=== PATIENT | female | born 1960 | race Caucasian/White ===

== ENCOUNTER 2017-09-11 05:26 | Inpatient (IN) ==
[2017-09-11] MEDS ORDERED: 0.9 % SODIUM CHLORIDE 1,000 ML IV ONE (06:03)
[2017-09-11] MEDS ORDERED: VANCOMYCIN 1,000 MG in 0.9 % SODIUM CHLORIDE 250 ML IV ONE (06:17)
[2017-09-11] MEDS ORDERED: 0.9 % SODIUM CHLORIDE 2,000 ML IV ONE (06:27)
--- NOTE | 2017-09-11 06:41 | XRay Report ---
INDICATION: Possible sepsis. Fever. TECHNIQUE: AP chest x-ray,portable semierect COMPARISON: None FINDINGS:Lungs are negative. No parenchymal infiltrate or mass. Heart size and vascularity are normal. No pulmonary edema. No pulmonary congestion. IMPRESSION: Negative AP chest x-ray Interpreted and Authenticated by: Regan Roland 09/11/17
[2017-09-11 06:48] LABS: Basophils # (Auto) 0 K/mcL (0.0-0.3); Basophils % (Auto) 0 % (0.0-2.0); Eosinophils # (Auto) 0 K/mcL (0.0-0.7); Eosinophils % (Auto) 0.2 % (0.0-7.0); Granulocytes % (Auto) 93.1 % (38.0-78.0); Lymphocytes # (Auto) 0.4 K/mcL (1.5-4.8); Lymphocytes % (Auto) 2.2 % (15.5-49.0); Mean Cell Volume 81.8 fL (80.0-100.0); Mean Corpuscular Hemoglobin 26.2 pg (26.0-34.0); Monocytes # (Auto) 0.8 K/mcL (0.1-0.9); Monocytes % (Auto) 4.5 % (1.0-12.0); Platelet Count 218 K/mcL (140-440); RBC 4.75 M/mcL (4.00-5.20)
--- NOTE | 2017-09-11 07:05 | Emergency Department Note ---
General Adult HPI - General Chief complaint: Fever Stated complaint: Fever Time Seen by Provider: 09/11/17 06:59 Mode of arrival: EMS - History of Present Illness HPI Narrative: This patient fell a week ago injured her right lower leg has a little weeping from the posterior lower calf area. sHe has developed erythema of her entire right leg with some fever and chills last night. She has had sepsis in the past including pneumonia and sepsis in June. No cough at this time. No abdominal pain nausea or vomiting. - Related Data Home Medications Medication Instructions Recorded Confirmed Albuterol Sulfate 2.5 mg IH PRN PRN 09/11/17 09/11/17 Aspirin [Lo-Dose Aspirin EC] 81 mg PO DAILY 09/11/17 09/11/17 Atorvastatin 80 mg PO DAILY 09/11/17 09/11/17 Cetirizine [ZyrTEC] 10 mg PO DAILY 09/11/17 09/11/17 Combivent 20 mcg PO DAILY 09/11/17 09/11/17 Doxazosin [Cardura] 8 mg PO BID 09/11/17 09/11/17 Esomeprazole Magnesium [Nexium] 40 mg PO BID 09/11/17 09/11/17 Ferrous Sulfate, Dried [Iron] 65 mg PO BID 09/11/17 09/11/17 Fesoterodine Fumarate [Toviaz] 8 mg PO DAILY 09/11/17 09/11/17 Magnesium Oxide [Magnesium] 400 mg PO DAILY 09/11/17 09/11/17 Metoprolol Tartrate 100 mg PO BID 09/11/17 09/11/17 Montelukast [Singular] 10 mg PO HS 09/11/17 09/11/17 NIFEdipine [Afeditab Cr] 60 mg PO 09/11/17 Nortriptyline [Pamelor] 100 mg PO HS 09/11/17 09/11/17 Olmesartan Medoxomil [Benicar] 40 mg PO DAILY 09/11/17 09/11/17 [place]-3/Dha/Epa/Fish Oil [Fish Oil 1,400 mg PO DAILY 09/11/17 09/11/17 1,400 mg Softgel] Potassium Chloride [Klor-Con 10] 10 meq PO 09/11/17 Pregabalin [Lyrica] 200 mg PO BID 09/11/17 09/11/17 Ramelteon [Rozerem] 8 mg PO HS 09/11/17 09/11/17 Ranitidine HCl [Heartburn Relief] 150 mg PO BID 09/11/17 09/11/17 Venlafaxine [Effexor Xr] 150 mg PO HS 09/11/17 09/11/17 cloNIDine HCL [Catapres] 0.04 mg PO BID 09/11/17 09/11/17 diphenhydrAMINE HCL [Benadryl] 100 mg PO BID 09/11/17 09/11/17 hydrOXYzine [Atarax] 25 mg PO PRN PRN 09/11/17 09/11/17 rOPINIRole [Requip] 1 mg PO HS 09/11/17 09/11/17 sitaGLIPtin PHOS/metFORMIN HCL 1 each PO DAILY 09/11/17 09/11/17 [Janumet 50-1,000 mg Tablet] Allergies Allergy/AdvReac Type Severity Reaction Status Date / Time Sulfa (Sulfonamide Allergy Severe Hives Verified 09/11/17 05:40 Antibiotics) cephalexin [From Keflex] Allergy Intermediate Hives Verified 09/11/17 05:42 exenatide [From Byetta] Allergy Intermediate Hives Verified 09/11/17 05:40 latex Allergy Intermediate Rash Verified 09/11/17 05:40 levofloxacin [From Levaquin] Allergy Intermediate Hives Verified 09/11/17 05:42 Penicillins Allergy Intermediate Hives Verified 09/11/17 05:40 Rosiglitazone [From Avandia] Allergy Intermediate Hives Verified 09/11/17 05:40 meperidine [From Demerol] AdvReac Intermediate Gastrointestinal Verified 05:42 Upset Review of Systems All systems ED: reviewed and negative except as stated. Past Medical History - Past Medical History Medical history: Reports: DM, hypertension, kidney stones Psychiatric history: Reports: anxiety, depression Surgical history ED: Reports: hysterectomy, orthopedic, other - Social History smoking status: Former smoker Physical Exam Right leg shows erythema and warmth throughout the leg. Limitations: no limitations General appearance: alert Head: atraumatic Eye: Present: normal appearance ENT: normal exam Neck: Present: normal inspection Chest: Present: normal inspection Respiratory: Present: normal lung sounds bilaterally Cardiovascular: Present: regular rate, normal rhythm, normal heart sounds Abdominal: Present: soft. Absent: distention, tenderness Neurological: Present: alert Psychiatric: Present: normal affect Skin: Present: other Course Vital Signs Temperature 101.8 F H 09/11/17 05:28 Pulse Rate 103 H 09/11/17 05:28 Respiratory Rate 20 09/11/17 05:28 Blood Pressure 101/90 09/11/17 05:28 Pulse Oximetry (%) 93 09/11/17 05:28 Temperature 100.8 F H 09/11/17 07:18 Pulse Rate 100 H 09/11/17 07:27 Respiratory Rate 23 H 09/11/17 07:27 Blood Pressure 117/75 09/11/17 07:15 Pulse Oximetry (%) 93 09/11/17 07:27 Medical Decision Making - MDM Narrative Medical decision making narrative: Lab work indicates patient most likely is septic. We gave her vancomycin 1 g IV and she will be admitted to the hospital by Dr. Singh. - Lab Data Lab results reviewed: Yes I reviewed the patient's lab results. Result diagrams: 09/11/17 06:01 09/11/17 06:01 Lab Results 09/11/17 09/11/17 09/11/17 Range/Units 06:01 06:01 06:02 WBC 17.9 H (4.5-11.0) K/mcL RBC 4.75 (4.00-5.20) M/mcL Hgb 12.4 (12.0-15.0) g/dL Hct 38.8 (36.0-48.0) % MCV 81.8 (80.0-100.0) fL MCH 26.2 (26.0-34.0) pg MCHC 32.0 (31.0-36.0) g/dL RDW 16.0 H (11.5-14.5) % Plt Count 218 (140-440) K/mcL MPV 10.4 (7.4-10.4) fL Gran % 93.1 H (38.0-78.0) % Lymph % (Auto) 2.2 L (15.5-49.0) % [place] % (Auto) 4.5 (1.0-12.0) % Eos % (Auto) 0.2 (0.0-7.0) % Baso % (Auto) 0 (0.0-2.0) % Gran # 16.7 H (1.8-8.0) K/mcL Lymph # (Auto) 0.4 L (1.5-4.8) K/mcL [place] # (Auto) 0.8 (0.1-0.9) K/mcL Eos # (Auto) 0 (0.0-0.7) K/mcL Baso # (Auto) 0 (0.0-0.3) K/mcL VBG Lactic Acid 4.4 H* (0.5-2.2) mmol/L Sodium 139 (133-145) mmol/L Potassium 3.2 L (3.3-5.1) mmol/L Chloride 98 (96-108) mmol/L Carbon Dioxide 25 (22-30) mmol/L Anion Gap 16.0 (8-16) BUN 26 H (6-20) mg/dl Creatinine 1.2 H (0.6-1.1) mg/dl GFR Calculation 50 Glucose 242 H (70-105) mg/dL Calcium 8.7 (8.6-10.4) mg/dl Total Bilirubin 0.4 (0.0-1.0) mg/dL AST 22 (0-37) U/l ALT 16 (0-40) U/l Alkaline Phosphatase 93 (39-117) U/L Total Protein 6.8 (5.9-8.4) gm/dL Albumin 3.9 (3.2-5.2) gm/dL Globulin 2.9 (2.2-3.7) gm/dL Albumin/Globulin Ratio 1.3 (1.0-2.3) Procalcitonin (<0.10) ng/mL 09/11/17 Range/Units 06:02 WBC (4.5-11.0) K/mcL RBC (4.00-5.20) M/mcL Hgb (12.0-15.0) g/dL Hct (36.0-48.0) % MCV (80.0-100.0) fL MCH (26.0-34.0) pg MCHC (31.0-36.0) g/dL RDW (11.5-14.5) % Plt Count (140-440) K/mcL MPV (7.4-10.4) fL Gran % (38.0-78.0) % Lymph % (Auto) (15.5-49.0) % [place] % (Auto) (1.0-12.0) % Eos % (Auto) (0.0-7.0) % Baso % (Auto) (0.0-2.0) % Gran # (1.8-8.0) K/mcL Lymph # (Auto) (1.5-4.8) K/mcL [place] # (Auto) (0.1-0.9) K/mcL Eos # (Auto) (0.0-0.7) K/mcL Baso # (Auto) (0.0-0.3) K/mcL VBG Lactic Acid (0.5-2.2) mmol/L Sodium (133-145) mmol/L Potassium (3.3-5.1) mmol/L Chloride (96-108) mmol/L Carbon Dioxide (22-30) mmol/L Anion Gap (8-16) BUN (6-20) mg/dl Creatinine (0.6-1.1) mg/dl GFR Calculation Glucose (70-105) mg/dL Calcium (8.6-10.4) mg/dl Total Bilirubin (0.0-1.0) mg/dL AST (0-37) U/l ALT (0-40) U/l Alkaline Phosphatase (39-117) U/L Total Protein (5.9-8.4) gm/dL Albumin (3.2-5.2) gm/dL Globulin (2.2-3.7) gm/dL Albumin/Globulin Ratio (1.0-2.3) Procalcitonin 2.14 (<0.10) ng/mL - Radiology Data Radiology results reviewed: Yes I reviewed the patient's radiology results. Disposition Pt seen by BANDMI[facility] OPERATOR/PA only: No Clinical Impression: Cellulitis Disposition: Xfer As Inpt ([facility]) Condition: Good Time of Disposition: 07:45
[2017-09-11 07:08] LABS: ALT/SGPT 16 U/l (0-40); Albumin 3.9 gm/dL (3.2-5.2); Albumin/Globulin Ratio 1.3 (1.0-2.3); Alkaline Phosphatase 93 U/L (39-117); Blood Urea Nitrogen 26 mg/dl (6-20)
[2017-09-11 08:55] LABS: Appearance,Urine HAZY; Bacteria,Urine MANY /hpf (0); Bilirubin,Urine NEG (NEG); Color,Urine YELLOW; Glucose,Urine (UA) NEGATIVE (NEG); Leukocyte Esterase,Urine 500 /uL (NEG); Mucus,Urine MANY /hpf (0); Protein,Urine 30 mg/dL (NEG); Specific Gravity,Urine 1.025 (1.000-1.035); Urine Blood NEG mg/dL (<0.03); Urine Hyaline Cast 3 /lpf (0-2); Urine RBC 2 /hpf (0-1); Urine Squamous Epithelial Cell < 1 /hpf (0-4); Urine WBC 46 /hpf (0-4); Urobilinogen,Urine NEG (NEG)
[2017-09-11] MEDS ORDERED: IPRATROPIUM/ALBUTEROL SULFATE 1 PUFF INHALER INH SCH (09:00)
[2017-09-11] MEDS ORDERED: 0.9 % SODIUM CHLORIDE 10 ML SYRINGE IV PRN (09:34)
[2017-09-11] MEDS ORDERED: MAGNESIUM HYDROXIDE 30 ML ORAL.SUSP PO PRN (09:34)
[2017-09-11] MEDS ORDERED: VANCOMYCIN PER PHARMACY IV SCH (09:34)
[2017-09-11] MEDS ORDERED: HYDROmorphone 2 MG/ML VIAL IV PRN (09:34)
[2017-09-11] MEDS ORDERED: CLONIDINE HCL PO SCH (09:34)
[2017-09-11] MEDS ORDERED: SENNOSIDES 1 TABLET PO PRN (09:34)
[2017-09-11] MEDS ORDERED: NALOXONE HCL 0.4 MG/ML VIAL IV PRN (09:34)
[2017-09-11] MEDS ORDERED: POTASSIUM CHLORIDE 20 MEQ PACKET PO ONE (09:34)
[2017-09-11] MEDS ORDERED: DEXTROSE 50% 50 ML VIAL IV PRN (09:34)
[2017-09-11] MEDS ORDERED: LACTATED RINGERS 1,000 ML IV SCH (09:34)
[2017-09-11] MEDS ORDERED: NOREPINEPHRINE BITARTRATE 16 MG in 0.9 % SODIUM CHLORIDE 234 ML IV SCH (09:34)
[2017-09-11] MEDS ORDERED: DEXTROSE 31 GM ORAL.SUSP PO PRN (09:34)
[2017-09-11] MEDS ORDERED: hydrOXYzine 25 MG TABLET PO PRN (09:34)
[2017-09-11] MEDS ORDERED: RANITIDINE HCL 150 MG PO SCH (09:34)
[2017-09-11] MEDS: 0.9 % SODIUM CHLORIDE 10 ML SYRINGE IV SCH ×5 (09:40→21:18)
[2017-09-11] MEDS ORDERED: IPRATROPIUM/ALBUTEROL 3 ML AMPUL.NEB NEB PRN (10:34)
--- NOTE | 2017-09-11 10:36 | Internal Med History&Physical ---
Medical - H&P: HPI Patient information: Note initiated : 09/11/17 at 10:36 am Service Date, if different from initiated Date: [] Patient: Elizabeth Peacock 57 y/o F admitted on 09/11/17 for Fever. Chief Complaint: [] History of present illness: Ms. Peacock is a 57 year old Female with history of diabetes, lymphedema chronic , hypertension hyperlipidemia osteoarthritis presents to the emergency room this morning after not feeling well since approximately 1:00 early this morning. The patient notes that she was doing well up until yesterday evening. Has not been feeling well since early this morning. She was weak fatigued sweaty had a fever some nausea. Her noted that the patient was also confused was unable to tell the date and the time. The patient had pain in the right leg and increased erythema in the right leg. The patient was therefore brought to the emergency room for further evaluation and management. The patient notes that she has chronic lymphedema and is seeing Dr. Garcia for management of same. The patient had weeping wound on the right leg in the posterior aspect lower one third that has been going on for the last few days. In the past when she has had cellulitis she has had rapidly progressive cellulitis which can get quite severe. The patient otherwise has no other complaints. By the time she was seen in the ED she was alert oriented 4. In the emergency room patient was febrile temperature 101.8, heart rate 103, blood pressure as low as 90 systolic, saturating 93% on room air. She was having leukocytosis WBC count of 10.9, hemoglobin 12.4, platelet 218. Patient had low potassium with value of 3.2, creatinine 1.2, glucose 242. She had elevated lactic acid at 4.4, elevated pro-calcitonin at 2.14. X-ray was negative UA suggestive of UTI patient did not have any symptoms suggestive of a urinary tract infection. The patient was given IV fluids done in the ED and admitted to the hospital for further management, she received vancomycin down in the ED. Blood culture sent The patient denies any headaches changes in vision difficulty in swallowing, did have some dizziness before, denies any chest pain shortness of breath cough denies any abdominal pain nausea vomiting diarrhea constipation, denies any urinary complaints, has chronic joint pains, no new skin rashes has chronic severity dermatitis, history of anxiety. All systems: reviewed and no additional remarkable complaints except as stated ( 10 point ROS done, as per HPI it is negative) Medical - H&P: PMH Medical history: Diabetes type 2, Hypertension Morbid obesity Hyperlipidemia Chronic lymphedema Osteoarthritis Chronic eczema Anxiety Asthma-COPD Surgical history: History of hysterectomy, History of nisin fundoplication Pertinent family history: Father had cancer of the bladder and prostate Mother had atrial fibrillation from A Brother had bladder cancer and kidney cancer Social history: Lives with partner, denies any history of smoking recreational drug use or alcohol use. She is new to the [place] was living in [place] before this. Has not yet established care with any new provider, follow stop the hold for lymphedema plans to see Dr. Susana Houston her primary care services Medical - H&P: Meds Home Medications Medication Instructions Recorded Confirmed Type Albuterol Sulfate 2.5 mg IH Q4HP PRN 09/11/17 09/11/17 History Aspirin [Lo-Dose Aspirin EC] 81 mg PO DAILY 09/11/17 09/11/17 History Atorvastatin [Lipitor] 80 mg PO HS 09/11/17 09/11/17 History Cetirizine [ZyrTEC] 10 mg PO DAILY 09/11/17 09/11/17 History Doxazosin [Cardura] 8 mg PO BID 09/11/17 09/11/17 History Esomeprazole Magnesium [Nexium] 40 mg PO BID 09/11/17 09/11/17 History Ferrous Sulfate, Dried [Iron] 65 mg PO BID 09/11/17 09/11/17 History Ipratropium/Albuterol Sulfate 1 puff INH Q4HP PRN 09/11/17 09/11/17 History [Combivent] Magnesium Oxide [Magnesium] 400 mg PO DAILY 09/11/17 09/11/17 History Metoprolol Tartrate 100 mg PO BID 09/11/17 09/11/17 History Montelukast [Singular] 10 mg PO HS 09/11/17 09/11/17 History NIFEdipine [Afeditab Cr] 60 mg PO BID 09/11/17 09/11/17 History Nortriptyline [Pamelor] 100 mg PO HS 09/11/17 09/11/17 History Olmesartan Medoxomil [Benicar] 40 mg PO DAILY 09/11/17 09/11/17 History [place]-3/Dha/Epa/Fish Oil [Fish Oil 1,400 mg PO DAILY 09/11/17 09/11/17 History 1,400 mg Softgel] Potassium Chloride [Klor-Con 10] 10 meq PO DAILY 09/11/17 09/11/17 History Pregabalin [Lyrica] 200 mg PO BID 09/11/17 09/11/17 History Ramelteon [Rozerem] 8 mg PO HS 09/11/17 09/11/17 History Ranitidine HCl [Heartburn Relief] 150 mg PO BID 09/11/17 09/11/17 History Venlafaxine [Effexor Xr] 225 mg PO HS 09/11/17 09/11/17 History cloNIDine HCL [Catapres] 0.6 mg PO BID 09/11/17 09/11/17 History diphenhydrAMINE HCL [Benadryl] 100 mg PO BID 09/11/17 09/11/17 History hydrOXYzine [Atarax] 25 mg PO PRN PRN 09/11/17 09/11/17 History rOPINIRole [Requip] 1 mg PO HS 09/11/17 09/11/17 History sitaGLIPtin PHOS/metFORMIN HCL 1 each PO DAILY 09/11/17 09/11/17 History [Janumet 50-1,000 mg Tablet] Allergies Allergy/AdvReac Type Severity Reaction Status Date / Time Sulfa (Sulfonamide Allergy Severe Hives Verified 09/11/17 05:40 Antibiotics) cephalexin [From Keflex] Allergy Intermediate Hives Verified 09/11/17 05:42 exenatide [From Byetta] Allergy Intermediate Hives Verified 09/11/17 05:40 latex Allergy Intermediate Rash Verified 09/11/17 05:40 levofloxacin [From Levaquin] Allergy Intermediate Hives Verified 09/11/17 05:42 Penicillins Allergy Intermediate Hives Verified 09/11/17 05:40 Rosiglitazone [From Avandia] Allergy Intermediate Hives Verified 09/11/17 05:40 meperidine [From Demerol] AdvReac Intermediate Gastrointestinal Verified 05:42 Upset Medical - H&P: Exam - Constitutional Vitals: Temp Pulse Resp BP Pulse Ox 98.2 F 102 H 25 H 131/78 94 09/11/17 09:34 09/11/17 09:34 05/15/18 09:34 09/11/17 09:34 09/11/17 09:34 Exam: GENERAL: The patient is a well-developed, well-nourished in no apparent distress. Is alert and oriented x3. Patient is morbidly obese VITAL SIGNS: Reviewed and as noted elsewhere. HEENT: Head is normocephalic and atraumatic. Extraocular muscles are intact. Pupils are equal, round, and reactive to light. Nares appeared normal. Mouth appears any without lesions. Mucous membranes are dry. NECK: Normal to inspection, Supple, No lymphadenopathy or thyromegaly. Short neck LUNGS: Air entry equal on both sides, no wheezing, crackles or rhonchi noted. No accessory muscles of respiration HEART: Regular tachycardic rate and rhythm normal, S1 and S2 heard, no Gallop, S3 or Rub Noted, No Gross murmur heard. ABDOMEN: Soft, nontender, and nondistended. Positive bowel sounds. No hepatosplenomegaly was noted. A large pannus difficult to palpate deep organs EXTREMITIES: No cyanosis, clubbing, Patient has right lower extremities weeping skin breakdown on the posterior aspect, the entire right leg is warm to touch, there is increased tenderness in the medial aspect of the right thigh. Areas of infection have been demarcated nearly involves the whole leg. Left leg has increased venous stasis erythema on the lower one third of the leg. NEUROLOGIC: Cranial nerves II through XII are grossly intact. Motor and Sensory System Grossly Intact PSYCHIATRIC: Normal affect, Normal Mood. Appropriate Behavior. SKIN: eczema on the face Medical - H&P: Reslt - Labs CBC & Chem 7: 09/11/17 06:01 09/11/17 06:01 Labs: Short CBC 09/11/17 Range/Units 06:01 WBC 17.9 H (4.5-11.0) K/mcL Hgb 12.4 (12.0-15.0) g/dL Hct 38.8 (36.0-48.0) % Plt Count 218 (140-440) K/mcL BMP 09/11/17 06:01 Sodium 139 Potassium 3.2 L Chloride 98 Carbon Dioxide 25 BUN 26 H Creatinine 1.2 H Glucose 242 H Calcium 8.7 Liver Function 09/11/17 Range/Units 06:01 Total Bilirubin 0.4 (0.0-1.0) mg/dL AST 22 (0-37) U/l ALT 16 (0-40) U/l Alkaline Phosphatase 93 (39-117) U/L Albumin 3.9 (3.2-5.2) gm/dL Urine 09/11/17 Range/Units 08:25 Urine Color Yellow Urine Appearance Hazy Urine pH 5.0 (5.0-9.0) Ur Specific [place] 1.025 (1.000-1.035) Urine Protein 30 A (NEG) mg/dL Urine Glucose (UA) Negative (NEG) mg/dL Medical - H&P: A/P - Narrative A/P Narrative: A/P Severe Cellutlitis Severe sepsis with lactic acidosis Morbid obesity Chronic kidney disease vs THOMAS creat 1.2 (baseline unknow) HTN HLD Nacho LE chr Lymphedema Eczema Reactive airway disease Abnl UA, likely Urinary tract infection. Plan Admit to PCU status IV fluids, trend lactate, IV vancomycin and IV etrapenum for management of severe cellulitis. If continues to spread rapidly, will get surgery involved. Given her history of similar presentation in past and response to vanco as per her will monitor closely. This appears to be a strep infection. Await microbiology and deescalate antibiotics per sesitivities get picc line, pt has poor access OT/PT rehab hold bp meds sliding scale insulin for Glucose control Full code Enoxaparin for DVT prophylaxis Carb consistent diet.
[2017-09-11] MEDS ORDERED: IPRATROPIUM/ALBUTEROL SULFATE 1 PUFF INHALER INH PRN (10:45)
[2017-09-11] MEDS: DOXAZOSIN 4 MG TABLET PO SCH ×2 (11:05→20:54)
[2017-09-11] MEDS: ERTAPENEM 1 GM in 0.9 % SODIUM CHLORIDE 50 ML IV SCH (11:07)
[2017-09-11] MEDS: diphenhydrAMINE 25 MG CAPSULE PO SCH ×2 (11:07→20:53)
[2017-09-11] MEDS: ASPIRIN 81 MG TAB.CHEW PO SCH (11:07)
[2017-09-11] MEDS: POTASSIUM CHLORIDE 10 MEQ TABLET PO SCH (11:07)
[2017-09-11] MEDS: ENOXAPARIN 40 MG/0.4 ML SYRINGE SQ SCH (11:08)
[2017-09-11] MEDS: CETIRIZINE 10 MG TABLET PO SCH (11:14)
[2017-09-11] MEDS: PREGABALIN 100 MG CAPSULE PO SCH ×2 (11:14→20:54)
[2017-09-11] MEDS: INSULIN LISPRO 1 UNIT/0.01 ML UNIT SQ SCH ×3 (11:35→20:59)
--- NOTE | 2017-09-11 12:17 | XRay Report ---
INDICATION: Status post PICC line placement TECHNIQUE: AP chest x-ray,portable COMPARISON: September 11, 2017 FINDINGS:Left-sided PICC line with its tip in the superior vena cava. There is cardiomegaly. Pulmonary vascularity is unremarkable. No pulmonary edema. No pulmonary congestion. No focal pulmonary parenchymal infiltrate. IMPRESSION: Left-sided PICC line in the superior vena cava Interpreted and Authenticated by: Regan Roland 09/11/17
[2017-09-11] MEDS ORDERED: MAGNESIUM SULFATE 32.48 MEQ in DEXTROSE 5% IN WATER 100 ML IV ONE (13:44)
[2017-09-11 15:52] LABS: Hemoglobin A1C 6.4 % HGB (4.0-6.0)
[2017-09-11] MEDS ORDERED: KETOROLAC 15 MG/ML VIAL IV ONE (16:25)
[2017-09-11] MEDS: PANTOPRAZOLE 40 MG TABLET PO SCH (16:42)
[2017-09-11] MEDS: ACETAMINOPHEN 325 MG TABLET PO PRN (17:37)
[2017-09-11] MEDS ORDERED: IOPAMIDOL 100 ML BOTTLE IV ONE (20:46)
[2017-09-11] MEDS: NIFEdipine 30 MG TAB.XL.24H PO SCH (20:54)
[2017-09-11] MEDS: METOPROLOL TARTRATE 50 MG TABLET PO SCH (20:55)
[2017-09-11] MEDS: FAMOTIDINE 20 MG TABLET PO SCH (20:55)
[2017-09-11] MEDS: CLINDAMYCIN 900 MG in DEXTROSE 5% IN WATER 50 ML IV SCH (20:56)
[2017-09-11] MEDS: VANCOMYCIN 1,000 MG in 0.9 % SODIUM CHLORIDE 250 ML IV SCH (20:56)
[2017-09-11] MEDS ORDERED: rOPINIRole 1 MG TABLET PO SCH (21:00)
[2017-09-11] MEDS ORDERED: NORTRIPTYLINE 25 MG CAPSULE PO SCH (21:00)
[2017-09-11] MEDS ORDERED: VENLAFAXINE 75 MG CAP.XL.24H PO SCH (21:00)
[2017-09-11] MEDS ORDERED: MONTELUKAST 10 MG TABLET PO SCH (21:00)
[2017-09-11] MEDS ORDERED: RAMELTEON 8 MG TABLET PO SCH (21:00)
[2017-09-11] MEDS ORDERED: ATORVASTATIN 20 MG TABLET PO SCH (21:00)
[2017-09-12] MEDS: ACETAMINOPHEN 325 MG TABLET PO PRN ×3 (02:30→15:39)
[2017-09-12 05:29] LABS: Basophils # (Auto) 0.1 K/mcL (0.0-0.3); Basophils % (Auto) 0.5 % (0.0-2.0); Eosinophils # (Auto) 0.1 K/mcL (0.0-0.7); Eosinophils % (Auto) 1.2 % (0.0-7.0); Granulocytes % (Auto) 87.1 % (38.0-78.0); Lymphocytes # (Auto) 0.7 K/mcL (1.5-4.8); Lymphocytes % (Auto) 5.7 % (15.5-49.0); Mean Cell Volume 82.6 fL (80.0-100.0); Mean Corpuscular Hemoglobin 26.5 pg (26.0-34.0); Monocytes # (Auto) 0.6 K/mcL (0.1-0.9); Monocytes % (Auto) 5.5 % (1.0-12.0); Platelet Count 176 K/mcL (140-440); RBC 4.22 M/mcL (4.00-5.20); Red Cell Distribution Width 15.9 % (11.5-14.5)
[2017-09-12] MEDS: 0.9 % SODIUM CHLORIDE 10 ML SYRINGE IV SCH ×5 (05:36→21:07)
[2017-09-12] MEDS: CLINDAMYCIN 900 MG in DEXTROSE 5% IN WATER 50 ML IV SCH (05:36)
[2017-09-12 06:07] LABS: ALT/SGPT 16 U/l (0-40); Albumin 3.2 gm/dL (3.2-5.2); Albumin/Globulin Ratio 1.1 (1.0-2.3); Alkaline Phosphatase 83 U/L (39-117); Bilirubin,Direct < 0.2 mg/dL (0.0-0.3); Blood Urea Nitrogen 18 mg/dl (6-20); Gamma Glutamyl Transpeptidase 61 U/L (5-36); Uric Acid 5.2 mg/dL (2.5-8.0)
--- NOTE | 2017-09-12 06:17 | Cat Scan Report ---
CLINICAL INFORMATION: Lower right leg swelling and cellulitis. TECHNIQUE: Axial images through the right lower extremity from the distal thigh through the ankle. 80 mL contrast material injected. Sagittal and coronally reformatted images COMPARISON: None. FINDINGS: There is generalized subcutaneous soft tissue abnormality with increased attenuation and stranding. Appearance is consistent with the supplied diagnosis of cellulitis. There is no soft tissue gas or radiopaque foreign body. No focal fluid collection. No solid mass. No pathologic calcifications. No enhancing mass. Deep muscle bundles appear negative. No hematoma or abscess. Tibia and fibula are negative. No bone destruction. No evidence for osteomyelitis. There is degenerative joint disease in the right knee. Examination was initially interpreted by [facility] IMPRESSION: 1. Subcutaneous edema and stranding within the right lower extremity. Findings are consistent with cellulitis 2. No solid or cystic mass. No focal abscess. No soft tissue gas or radiopaque foreign body Interpreted and Authenticated by: Regan Roland 09/12/17
[2017-09-12] MEDS: PANTOPRAZOLE 40 MG TABLET PO SCH ×2 (07:51→17:12)
[2017-09-12] MEDS: INSULIN LISPRO 1 UNIT/0.01 ML UNIT SQ SCH ×4 (07:51→21:20)
[2017-09-12] MEDS ORDERED: OLMESARTAN MEDOXOMIL 20 MG TABLET PO SCH (09:00)
[2017-09-12] MEDS ORDERED: TRIAMCINOLONE CREAM 0.1% 15G 1 DOSE TUBE TOPICAL SCH (09:00)
[2017-09-12] MEDS ORDERED: MAGNESIUM OXIDE 400 MG TABLET PO SCH (09:00)
[2017-09-12] MEDS: ENOXAPARIN 40 MG/0.4 ML SYRINGE SQ SCH (09:00)
[2017-09-12] MEDS: VANCOMYCIN 1,000 MG in 0.9 % SODIUM CHLORIDE 250 ML IV SCH ×2 (09:02→21:17)
[2017-09-12] MEDS: ERTAPENEM 1 GM in 0.9 % SODIUM CHLORIDE 50 ML IV SCH (09:02)
[2017-09-12] MEDS: METOPROLOL TARTRATE 50 MG TABLET PO SCH ×2 (09:03→20:55)
[2017-09-12] MEDS: POTASSIUM CHLORIDE 10 MEQ TABLET PO SCH (09:04)
[2017-09-12] MEDS: ASPIRIN 81 MG TAB.CHEW PO SCH (09:04)
[2017-09-12] MEDS: FAMOTIDINE 20 MG TABLET PO SCH ×2 (09:04→20:54)
[2017-09-12] MEDS: diphenhydrAMINE 25 MG CAPSULE PO SCH ×2 (09:06→20:53)
[2017-09-12] MEDS: CETIRIZINE 10 MG TABLET PO SCH (09:20)
[2017-09-12] MEDS: PREGABALIN 100 MG CAPSULE PO SCH ×2 (09:20→20:50)
[2017-09-12] MEDS: DOXAZOSIN 4 MG TABLET PO SCH ×2 (09:20→20:55)
[2017-09-12] MEDS: NIFEdipine 30 MG TAB.XL.24H PO SCH ×2 (09:20→20:51)
[2017-09-12] MEDS ORDERED: POTASSIUM CHLORIDE 20 MEQ PACKET PO ONE (12:12)
--- NOTE | 2017-09-12 14:40 | Internal Med Progress Note ---
Medical - PN: Subj Patient information: Note initiated : 09/12/17 at 2:37 pm Service Date, if different from initiated Date: [] Patient: Elizabeth Peacock a 57 y/o F admitted on 09/11/17 for Fever/Cellulitis. Chief Complaint: [] Interval history: Ms. Peacock is a 57 year old Female with history of diabetes, lymphedema chronic , hypertension hyperlipidemia osteoarthritis presents to the emergency room this morning after not feeling well since approximately 1:00 early this morning. The patient notes that she was doing well up until yesterday evening. Has not been feeling well since early this morning. She was weak fatigued sweaty had a fever some nausea. Her noted that the patient was also confused was unable to tell the date and the time. The patient had pain in the right leg and increased erythema in the right leg. The patient was therefore brought to the emergency room for further evaluation and management. The patient notes that she has chronic lymphedema and is seeing Dr. Garcia for management of same. The patient had weeping wound on the right leg in the posterior aspect lower one third that has been going on for the last few days. In the past when she has had cellulitis she has had rapidly progressive cellulitis which can get quite severe. The patient otherwise has no other complaints. By the time she was seen in the ED she was alert oriented 4. In the emergency room patient was febrile temperature 101.8, heart rate 103, blood pressure as low as 90 systolic, saturating 93% on room air. She was having leukocytosis WBC count of 10.9, hemoglobin 12.4, platelet 218. Patient had low potassium with value of 3.2, creatinine 1.2, glucose 242. She had elevated lactic acid at 4.4, elevated pro-calcitonin at 2.14. X-ray was negative UA suggestive of UTI patient did not have any symptoms suggestive of a urinary tract infection. The patient was given IV fluids done in the ED and admitted to the hospital for further management, she received vancomycin down in the ED. Blood culture sent The patient denies any headaches changes in vision difficulty in swallowing, did have some dizziness before, denies any chest pain shortness of breath cough denies any abdominal pain nausea vomiting diarrhea constipation, denies any urinary complaints, has chronic joint pains, no new skin rashes has chronic severity dermatitis, history of anxiety. 09/12 Patient seen and examined, still has some fever. Right leg pain improved compared to yesterday. Labs improved compared to yesterday. Yesterday evening she was having worsening fevers and the right leg was appearing worse compared to morning. We did a CT scan of the leg which showed extensive cellulitis however no involvement of deeper structures. Patient's blood culture is positive for gram-positive cocci, urine culture positive for gram-negative bacillus. She is on broad-spectrum antibiotic coverage for now. Hemodynamically the patient is stable blood pressure is improved her home blood pressure medications have been resumed. She will be transferred to [facility]. The patient has no acute complaints or concerns at this time. PICC line was placed yesterday Pertinent ROS: Denies headache, dizziness Denies chest pain, palpitations Denies cough or shortness of breath Denies abdominal pain, nausea or vomiting. - Constitutional Vitals: Vital Signs Temp Pulse Resp BP Pulse Ox 100.1 F H 104 H 23 H 143/85 97 09/12/17 14:10 09/12/17 14:10 09/12/17 06:59 09/12/17 14:00 09/12/17 14:10 Period Temp Pulse Resp BP Sys/Merino Pulse Ox Last 24 Hr 98.8 F-101.7 F 83-108 15-25 88-163/71-102 89-99 Intake and Output 09/12/17 09/12/17 09/12/17 05:59 13:59 21:59 Intake Total 464 / 464 836 / 836 Output Total 935 / 935 1565 / 1565 Balance -471 / -471 -729 / -729 Intake & Output: Intake & Output 09/12/17 09/12/17 09/12/17 05:59 13:59 21:59 Intake Total 464 / 464 836 / 836 Output Total 935 / 935 1565 / 1565 Balance -471 / -471 -729 / -729 Intake: IV 464 / 464 356 / 356 Cleocin 900 mg In Dextrose 5% 56 / 56 56 / 56 in Water 50 ml @ 100 mls/hr IV Q8H [facility] Rx#:[id number] INVanz 1 GM In Sodium Chloride 50 / 50 50 / 50 0.9% 50 ml @ 100 mls/hr IV Q24H [facility] Rx#:[id number] Vancomycin 1,000 mg In Sodium 250 / 250 250 / 250 Chloride 0.9% 250 ml @ 250 mls/ hr IV Q12H [facility] Rx#:[id number] Oral 480 / 480 Output: Urine Catheter Amount 935 / 935 1400 / 1400 Void Amount 165 / 165 Other: Meal Lunch Percent of Meal Consumed 75% Feeding Ability Independent Exam: Constitutional; Afebrile, cooperative, alert, not in distress. morbidly obese Eyes- No icterus, , No periorbital swelling Ears- Ext ear normal, hearing normal to conversation. Neck- Midline trachea, supple Respiratory system: Air Entry equal on both sides, No crackles or wheezing, no rhonchi. CVS- Rate rhythm regular, S1,S2 heard, no gallop, no rub. 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 Right leg: erythema still present, but below the line demarcated yesterday. Medical - PN: Obj Da - Labs CBC & Chem 7: 09/12/17 04:00 09/12/17 04:00 Labs: Abnormal Lab Results 09/12/17 09/12/17 09/11/17 04:00 04:00 10:00 WBC 11.4 H Hgb 11.2 L Hct 34.8 L RDW 15.9 H MPV 10.5 H Gran % 87.1 H Lymph % (Auto) 5.7 L Gran # 10.0 H Lymph # (Auto) 0.7 L VBG Lactic Acid Potassium BUN Creatinine Glucose 112 H Hemoglobin A1c 6.4 H Calcium 8.3 L Magnesium GGT 61 H Urine Protein Urine Nitrate Ur Leukocyte Esterase Urine RBC Urine WBC Urine Bacteria Hyaline Casts Urine Mucus 09/11/17 09/11/17 09/11/17 08:25 06:02 06:01 WBC Hgb Hct RDW MPV Gran % Lymph % (Auto) Gran # Lymph # (Auto) VBG Lactic Acid 4.4 H* Potassium BUN Creatinine Glucose Hemoglobin A1c Calcium Magnesium 1.3 L GGT Urine Protein 30 A Urine Nitrate Pos A Ur Leukocyte Esterase 500 A Urine RBC 2 H Urine WBC 46 H Urine Bacteria Many A Hyaline Casts 3 H Urine Mucus Many A 09/11/17 09/11/17 06:01 06:01 WBC 17.9 H Hgb Hct RDW 16.0 H MPV Gran % 93.1 H Lymph % (Auto) 2.2 L Gran # 16.7 H Lymph # (Auto) 0.4 L VBG Lactic Acid Potassium 3.2 L BUN 26 H Creatinine 1.2 H Glucose 242 H Hemoglobin A1c Calcium Magnesium GGT Urine Protein Urine Nitrate Ur Leukocyte Esterase Urine RBC Urine WBC Urine Bacteria Hyaline Casts Urine Mucus Meds: Medications Acetaminophen (Tylenol) 650 mg PO Q4-6HP PRN PRN Reason: PAIN/FEVER > 101 Last Admin: 09/12/17 09:23 Dose: 650 mg Albuterol/Ipratropium (Duoneb) 3 ml NEB Q4HP PRN PRN Reason: Shortness Of Breath Or Wheezing Albuterol/Ipratropium (Combivent) 1 puff INH Q4HP PRN PRN Reason: Dyspnea Aspirin (Aspirin) 81 mg PO DAILY [facility] Last Admin: 09/12/17 09:04 Dose: 81 mg Atorvastatin Calcium (Lipitor) 80 mg PO HS [facility] Last Admin: 09/11/17 20:55 Dose: 80 mg Cetirizine HCl (Zyrtec) 10 mg PO DAILY [facility] Last Admin: 09/12/17 09:20 Dose: 10 mg Dextrose (Dextrose 50%) 0 ml IV UD PRN PRN Reason: Hypoglycemia Diagnostic Test (Pha) (Accu-Chek) 1 each FS ACHS [facility] Last Admin: 09/12/17 11:20 Dose: 1 each Diphenhydramine HCl (Benadryl) 100 mg PO BID [facility] Last Admin: 09/12/17 09:06 Dose: 100 mg Doxazosin Mesylate (Cardura) 8 mg PO BID [facility] Last Admin: 09/12/17 09:20 Dose: 8 mg Enoxaparin Sodium (Lovenox) 40 mg SQ DAILY [facility] Last Admin: 09/12/17 09:00 Dose: 40 mg Famotidine (Pepcid) 20 mg PO BID [facility] Last Admin: 09/12/17 09:04 Dose: 20 mg Glucose (Insta-Glucose) 15 gm PO PRN PRN PRN Reason: Hypoglycemia Heparin Sodium (Porcine) (Heparin Flush) 2 ml IV Q12 [facility] Last Admin: 09/12/17 09:01 Dose: 2 ml Hydromorphone HCl (Dilaudid) 0.5 mg IV Q2HP PRN PRN Reason: PAIN LEVEL > 6 Hydroxyzine HCl (Atarax) 25 mg PO PRN PRN PRN Reason: Anxiety Ertapenem 1 gm/ Sodium (Chloride) 50 mls @ 100 mls/hr IV Q24H [facility] Last Infusion: 09/12/17 09:35 Dose: Infused Vancomycin HCl 1,000 mg/ (Sodium Chloride) 250 mls @ 250 mls/hr IV Q12H [facility] Last Infusion: 09/12/17 10:15 Dose: Infused Insulin Human Lispro (Humalog) 0 unit SQ ACHS [facility] PRN Reason: Protocol Last Admin: 09/12/17 12:16 Dose: 2 unit Magnesium Hydroxide (Milk Of Magnesia) 30 ml PO DAILYP PRN PRN Reason: Constipation Magnesium Oxide (Magnesium Oxide) 400 mg PO DAILY [facility] Last Admin: 09/12/17 09:04 Dose: 400 mg Metoprolol Tartrate (Lopressor) 100 mg PO BID [facility] Last Admin: 09/12/17 09:03 Dose: 100 mg Montelukast Sodium (Singular) 10 mg PO HS [facility] Last Admin: 09/11/17 20:55 Dose: 10 mg Naloxone HCl (Narcan) 0.1 mg IV Q2MIN PRN PRN Reason: Opiate Reversal Nifedipine (Procardia Xl) 60 mg PO BID [facility] Last Admin: 09/12/17 09:20 Dose: 60 mg Nortriptyline HCl (Pamelor) 100 mg PO HS [facility] Last Admin: 09/11/17 20:54 Dose: 100 mg Olmesartan (Benicar) 40 mg PO DAILY [facility] Last Admin: 09/12/17 09:19 Dose: 40 mg Pantoprazole Sodium (Protonix) 40 mg PO BIDAC [facility] Last Admin: 09/12/17 07:51 Dose: 40 mg Potassium Chloride (Kdur) 10 meq PO QAMCC [facility] Last Admin: 09/12/17 09:04 Dose: 10 meq Pregabalin (Lyrica) 200 mg PO BID [facility] Last Admin: 09/12/17 09:20 Dose: 200 mg Ramelteon (Rozerem) 8 mg PO HS [facility] Last Admin: 09/11/17 21:00 Dose: 8 mg Ropinirole HCl (Requip) 1 mg PO HS [facility] Last Admin: 09/11/17 20:54 Dose: 1 mg Senna (Senokot) 1 tab PO HSP PRN PRN Reason: Constipation Sodium Chloride (Saline Flush) 10 ml IV Q8 [facility] Last Admin: 09/12/17 12:33 Dose: 10 ml Sodium Chloride (Saline Flush) 10 ml IV UD PRN PRN Reason: FLUSH Sodium Chloride (Saline Flush) 10 ml IV Q12 [facility] Last Admin: 09/12/17 09:12 Dose: 10 ml Triamcinolone Acetonide (Kenalog Cream 0.1%) 1 dose TOPICAL BID [facility] Vancomycin HCl (Vancomycin Per Pharmacy) 1 order IV UD [facility] Venlafaxine HCl (Effexor Xr) 225 mg PO HS [facility] Last Admin: 09/11/17 20:54 Dose: 225 mg Medical - PN: A/P - Time Spent With Patient Total time spent is greater than 50% in coordination of care (as documented) at patient's floor/unit and/or counseling patient: - Narrative A/P Narrative: A/P Severe Cellutlitis Severe sepsis with lactic acidosis Morbid obesity Chronic kidney disease vs THOMAS creat 1.2 (baseline unknow) HTN HLD Nacho LE chr Lymphedema Eczema Reactive airway disease Abnl UA, likely Urinary tract infection. Plan xfer to med surgy lactic acidosis resolved Continue IV vancomycin and IV etrapenum for management of severe cellulitis. CT is neg for abscess or deep tissue involvement, clinically pt is improving. Await microbiology and deescalate antibiotics per sesitivities OT/PT rehab resume bp meds sliding scale insulin for Glucose control Full code Enoxaparin for DVT prophylaxis Carb consistent diet. Medical - PN: Qual - VTE Deep Vein Thrombosis/Pulmonary Embolism Present on Admission: No
[2017-09-12] MEDS ORDERED: DEXTROSE 50% 50 ML VIAL IV PRN (14:43)
[2017-09-12] MEDS ORDERED: 0.9 % SODIUM CHLORIDE 10 ML SYRINGE IV PRN (14:43)
[2017-09-12] MEDS ORDERED: VANCOMYCIN PER PHARMACY IV SCH (14:43)
[2017-09-12] MEDS ORDERED: SENNOSIDES 1 TABLET PO PRN (14:43)
[2017-09-12] MEDS ORDERED: IPRATROPIUM/ALBUTEROL 3 ML AMPUL.NEB NEB PRN (14:43)
[2017-09-12] MEDS ORDERED: NALOXONE HCL 0.4 MG/ML VIAL IV PRN (14:43)
[2017-09-12] MEDS ORDERED: DEXTROSE 31 GM ORAL.SUSP PO PRN (14:43)
[2017-09-12] MEDS ORDERED: IPRATROPIUM/ALBUTEROL SULFATE 1 PUFF INHALER INH PRN (14:43)
[2017-09-12] MEDS ORDERED: HYDROmorphone 2 MG/ML VIAL IV PRN (14:43)
[2017-09-12] MEDS ORDERED: MAGNESIUM HYDROXIDE 30 ML ORAL.SUSP PO PRN (14:43)
[2017-09-12] MEDS: ATORVASTATIN 20 MG TABLET PO SCH (20:48)
[2017-09-12] MEDS: MONTELUKAST 10 MG TABLET PO SCH (20:50)
[2017-09-12] MEDS: rOPINIRole 1 MG TABLET PO SCH (20:51)
[2017-09-12] MEDS: NORTRIPTYLINE 25 MG CAPSULE PO SCH (20:52)
[2017-09-12] MEDS: VENLAFAXINE 75 MG CAP.XL.24H PO SCH (20:56)
[2017-09-12] MEDS: TRIAMCINOLONE CREAM 0.1% 15G 1 DOSE TUBE TOPICAL SCH (20:59)
[2017-09-12] MEDS: hydrOXYzine 25 MG TABLET PO PRN (21:17)
[2017-09-12] MEDS: RAMELTEON 8 MG TABLET PO SCH (21:17)
[2017-09-13 06:38] LABS: Basophils # (Auto) 0 K/mcL (0.0-0.3); Basophils % (Auto) 0.2 % (0.0-2.0); Eosinophils # (Auto) 0.4 K/mcL (0.0-0.7); Eosinophils % (Auto) 3.8 % (0.0-7.0); Granulocytes % (Auto) 77.9 % (38.0-78.0); Lymphocytes # (Auto) 0.9 K/mcL (1.5-4.8); Lymphocytes % (Auto) 9.6 % (15.5-49.0); Mean Cell Volume 81.4 fL (80.0-100.0); Mean Corpuscular HGB Conc 32.7 g/dL (31.0-36.0); Mean Corpuscular Hemoglobin 26.6 pg (26.0-34.0); Monocytes # (Auto) 0.8 K/mcL (0.1-0.9); Monocytes % (Auto) 8.5 % (1.0-12.0); Platelet Count 208 K/mcL (140-440); Red Cell Distribution Width 16.4 % (11.5-14.5)
[2017-09-13 06:39] LABS: ALT/SGPT 14 U/l (0-40); Albumin 3.6 gm/dL (3.2-5.2); Albumin/Globulin Ratio 1.2 (1.0-2.3); Alkaline Phosphatase 90 U/L (39-117); Bilirubin,Direct < 0.2 mg/dL (0.0-0.3); Blood Urea Nitrogen 9 mg/dl (6-20); Gamma Glutamyl Transpeptidase 60 U/L (5-36); Uric Acid 4.2 mg/dL (2.5-8.0)
[2017-09-13] MEDS: INSULIN LISPRO 1 UNIT/0.01 ML UNIT SQ SCH ×4 (07:46→21:06)
[2017-09-13] MEDS: POTASSIUM CHLORIDE 10 MEQ TABLET PO SCH (07:50)
[2017-09-13] MEDS: PANTOPRAZOLE 40 MG TABLET PO SCH ×2 (07:50→19:18)
[2017-09-13] MEDS: NIFEdipine 30 MG TAB.XL.24H PO SCH ×2 (07:51→19:39)
[2017-09-13] MEDS: diphenhydrAMINE 25 MG CAPSULE PO SCH ×2 (07:51→21:04)
[2017-09-13] MEDS: DOXAZOSIN 4 MG TABLET PO SCH ×2 (07:53→21:05)
[2017-09-13] MEDS: METOPROLOL TARTRATE 50 MG TABLET PO SCH ×2 (07:54→19:38)
[2017-09-13] MEDS: OLMESARTAN MEDOXOMIL 20 MG TABLET PO SCH (07:54)
[2017-09-13] MEDS: PREGABALIN 100 MG CAPSULE PO SCH ×2 (07:54→21:07)
[2017-09-13] MEDS: CETIRIZINE 10 MG TABLET PO SCH (07:55)
[2017-09-13] MEDS: MAGNESIUM OXIDE 400 MG TABLET PO SCH (07:55)
[2017-09-13] MEDS: ASPIRIN 81 MG TAB.CHEW PO SCH (07:55)
[2017-09-13] MEDS: ERTAPENEM 1 GM in 0.9 % SODIUM CHLORIDE 50 ML IV SCH (08:15)
[2017-09-13] MEDS: ENOXAPARIN 40 MG/0.4 ML SYRINGE SQ SCH (08:18)
[2017-09-13] MEDS: TRIAMCINOLONE CREAM 0.1% 15G 1 DOSE TUBE TOPICAL SCH ×2 (09:07→21:06)
[2017-09-13] MEDS: 0.9 % SODIUM CHLORIDE 10 ML SYRINGE IV SCH ×6 (09:44→21:12)
[2017-09-13] MEDS: FAMOTIDINE 20 MG TABLET PO SCH ×2 (09:48→21:07)
[2017-09-13] MEDS: VANCOMYCIN 1,000 MG in 0.9 % SODIUM CHLORIDE 250 ML IV SCH ×2 (12:31→21:08)
[2017-09-13] MEDS: ACETAMINOPHEN 325 MG TABLET PO PRN (19:38)
--- NOTE | 2017-09-13 20:45 | Internal Med Progress Note ---
Medical - PN: Subj Patient information: Note initiated : 09/13/17 at 8:42 pm Service Date, if different from initiated Date: [] Patient: Elizabeth Peacock a 57 y/o F admitted on 09/11/17 for Fever/Cellulitis. Chief Complaint: [] Interval history: Ms. Peacock is a 57 year old Female with history of diabetes, lymphedema chronic , hypertension hyperlipidemia osteoarthritis presents to the emergency room this morning after not feeling well since approximately 1:00 early this morning. The patient notes that she was doing well up until yesterday evening. Has not been feeling well since early this morning. She was weak fatigued sweaty had a fever some nausea. Her noted that the patient was also confused was unable to tell the date and the time. The patient had pain in the right leg and increased erythema in the right leg. The patient was therefore brought to the emergency room for further evaluation and management. The patient notes that she has chronic lymphedema and is seeing Dr. Garcia for management of same. The patient had weeping wound on the right leg in the posterior aspect lower one third that has been going on for the last few days. In the past when she has had cellulitis she has had rapidly progressive cellulitis which can get quite severe. The patient otherwise has no other complaints. By the time she was seen in the ED she was alert oriented 4. In the emergency room patient was febrile temperature 101.8, heart rate 103, blood pressure as low as 90 systolic, saturating 93% on room air. She was having leukocytosis WBC count of 10.9, hemoglobin 12.4, platelet 218. Patient had low potassium with value of 3.2, creatinine 1.2, glucose 242. She had elevated lactic acid at 4.4, elevated pro-calcitonin at 2.14. X-ray was negative UA suggestive of UTI patient did not have any symptoms suggestive of a urinary tract infection. The patient was given IV fluids done in the ED and admitted to the hospital for further management, she received vancomycin down in the ED. Blood culture sent The patient denies any headaches changes in vision difficulty in swallowing, did have some dizziness before, denies any chest pain shortness of breath cough denies any abdominal pain nausea vomiting diarrhea constipation, denies any urinary complaints, has chronic joint pains, no new skin rashes has chronic severity dermatitis, history of anxiety. 09/12 Patient seen and examined, still has some fever. Right leg pain improved compared to yesterday. Labs improved compared to yesterday. Yesterday evening she was having worsening fevers and the right leg was appearing worse compared to morning. We did a CT scan of the leg which showed extensive cellulitis however no involvement of deeper structures. Patient's blood culture is positive for gram-positive cocci, urine culture positive for gram-negative bacillus. She is on broad-spectrum antibiotic coverage for now. Hemodynamically the patient is stable blood pressure is improved her home blood pressure medications have been resumed. She will be transferred to [facility]. The patient has no acute complaints or concerns at this time. PICC line was placed yesterday 09/13 Patient seen and examined, no acute overnight events. Patient anxious to go home today. Blood cultures isolation still pending. Urine culture isolation reviewed. Patient will have Sanchez discontinued today. Pertinent ROS: Denies headache, dizziness Denies chest pain, palpitations Denies cough or shortness of breath Denies abdominal pain, nausea or vomiting. - Constitutional Vitals: Vital Signs Temp Pulse Resp BP Pulse Ox 98.1 F 110 H 18 156/100 95 09/13/17 20:26 09/13/17 20:26 09/13/17 20:26 09/13/17 20:26 09/13/17 20:26 Period Temp Pulse Resp BP Sys/Merino Pulse Ox Last 24 Hr 98.0 F-98.9 F 86-110 14-20 135-174/82-100 91-96 Intake and Output 09/13/17 09/13/17 09/13/17 05:59 13:59 21:59 Intake Total 610 / 610 490 / 490 660 / 660 Output Total 2975 / 2975 1270 / 1270 750 / 750 Balance -2365 / -2365 -780 / -780 -90 / -90 Intake & Output: Intake & Output 09/13/17 09/13/17 09/13/17 05:59 13:59 21:59 Intake Total 610 / 610 490 / 490 660 / 660 Output Total 2975 / 2975 1270 / 1270 750 / 750 Balance -2365 / -2365 -780 / -780 -90 / -90 Intake: IV 250 / 250 250 / 250 Vancomycin 1,000 mg In Sodium 250 / 250 250 / 250 Chloride 0.9% 250 ml @ 250 mls/ hr IV Q12H [facility] Rx#:[id number] Oral 360 / 360 240 / 240 660 / 660 Output: Urine Catheter Amount 2975 / 2975 1270 / 1270 750 / 750 Other: Meal Lunch Dinner Percent of Meal Consumed 75% 100% Feeding Ability Independent Independent # Bowel Movements 1 Exam: Constitutional; Afebrile, cooperative, alert, not in distress. Eyes- No icterus, , No periorbital swelling Ears- Ext ear normal, hearing normal to conversation. Neck- Midline trachea, supple Respiratory system: Air Entry equal on both sides, No crackles or wheezing, no rhonchi. CVS- Rate rhythm regular, S1,S2 heard, no gallop, no rub. 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 Right leg erythema much better, still has tenderness in the medial aspect, warmth improved Medical - PN: Obj Da - Labs CBC & Chem 7: 09/13/17 04:00 09/13/17 04:00 Labs: Abnormal Lab Results 09/13/17 09/13/17 09/12/17 04:00 04:00 04:00 WBC Hgb Hct RDW 16.4 H MPV Gran % Lymph % (Auto) 9.6 L Gran # Lymph # (Auto) 0.9 L VBG Lactic Acid Potassium BUN Creatinine Glucose 143 H 112 H Hemoglobin A1c Calcium 8.3 L Magnesium GGT 60 H 61 H Urine Protein Urine Nitrate Ur Leukocyte Esterase Urine RBC Urine WBC Urine Bacteria Hyaline Casts Urine Mucus 09/12/17 09/11/17 09/11/17 04:00 10:00 08:25 WBC 11.4 H Hgb 11.2 L Hct 34.8 L RDW 15.9 H MPV 10.5 H Gran % 87.1 H Lymph % (Auto) 5.7 L Gran # 10.0 H Lymph # (Auto) 0.7 L VBG Lactic Acid Potassium BUN Creatinine Glucose Hemoglobin A1c 6.4 H Calcium Magnesium GGT Urine Protein 30 A Urine Nitrate Pos A Ur Leukocyte Esterase 500 A Urine RBC 2 H Urine WBC 46 H Urine Bacteria Many A Hyaline Casts 3 H Urine Mucus Many A 09/11/17 09/11/17 09/11/17 06:02 06:01 06:01 WBC Hgb Hct RDW MPV Gran % Lymph % (Auto) Gran # Lymph # (Auto) VBG Lactic Acid 4.4 H* Potassium 3.2 L BUN 26 H Creatinine 1.2 H Glucose 242 H Hemoglobin A1c Calcium Magnesium 1.3 L GGT Urine Protein Urine Nitrate Ur Leukocyte Esterase Urine RBC Urine WBC Urine Bacteria Hyaline Casts Urine Mucus 09/11/17 06:01 WBC 17.9 H Hgb Hct RDW 16.0 H MPV Gran % 93.1 H Lymph % (Auto) 2.2 L Gran # 16.7 H Lymph # (Auto) 0.4 L VBG Lactic Acid Potassium BUN Creatinine Glucose Hemoglobin A1c Calcium Magnesium GGT Urine Protein Urine Nitrate Ur Leukocyte Esterase Urine RBC Urine WBC Urine Bacteria Hyaline Casts Urine Mucus Meds: Medications Acetaminophen (Tylenol) 650 mg PO Q4-6HP PRN PRN Reason: PAIN/FEVER > 101 Last Admin: 09/13/17 19:38 Dose: 650 mg Albuterol/Ipratropium (Duoneb) 3 ml NEB Q4HP PRN PRN Reason: Shortness Of Breath Or Wheezing Albuterol/Ipratropium (Combivent) 1 puff INH Q4HP PRN PRN Reason: Dyspnea Aspirin (Aspirin) 81 mg PO DAILY [facility] Last Admin: 09/13/17 07:55 Dose: 81 mg Atorvastatin Calcium (Lipitor) 80 mg PO HS [facility] Last Admin: 09/12/17 20:48 Dose: 80 mg Cetirizine HCl (Zyrtec) 10 mg PO DAILY [facility] Last Admin: 09/13/17 07:55 Dose: 10 mg Dextrose (Dextrose 50%) 0 ml IV UD PRN PRN Reason: Hypoglycemia Diagnostic Test (Pha) (Accu-Chek) 1 each FS ACHS [facility] Last Admin: 09/13/17 15:20 Dose: Not Given Diphenhydramine HCl (Benadryl) 100 mg PO BID [facility] Last Admin: 09/13/17 07:51 Dose: 100 mg Doxazosin Mesylate (Cardura) 8 mg PO BID [facility] Last Admin: 09/13/17 07:53 Dose: 8 mg Enoxaparin Sodium (Lovenox) 40 mg SQ DAILY [facility] Last Admin: 09/13/17 08:18 Dose: 40 mg Famotidine (Pepcid) 20 mg PO BID [facility] Last Admin: 09/13/17 09:48 Dose: 20 mg Glucose (Insta-Glucose) 15 gm PO PRN PRN PRN Reason: Hypoglycemia Heparin Sodium (Porcine) (Heparin Flush) 2 ml IV Q12 [facility] Last Admin: 09/13/17 09:47 Dose: 2 ml Hydromorphone HCl (Dilaudid) 0.5 mg IV Q2HP PRN PRN Reason: PAIN LEVEL > 6 Hydroxyzine HCl (Atarax) 25 mg PO PRN PRN PRN Reason: Anxiety Last Admin: 09/12/17 21:17 Dose: 25 mg Ertapenem 1 gm/ Sodium (Chloride) 50 mls @ 100 mls/hr IV Q24H [facility] Last Admin: 09/13/17 08:15 Dose: 100 mls/hr Vancomycin HCl 1,000 mg/ (Sodium Chloride) 250 mls @ 250 mls/hr IV Q12H [facility] Last Infusion: 09/13/17 13:31 Dose: Infused Insulin Human Lispro (Humalog) 0 unit SQ ACHS [facility] PRN Reason: Protocol Last Admin: 09/13/17 15:21 Dose: Not Given Magnesium Hydroxide (Milk Of Magnesia) 30 ml PO DAILYP PRN PRN Reason: Constipation Magnesium Oxide (Magnesium Oxide) 400 mg PO DAILY [facility] Last Admin: 09/13/17 07:55 Dose: 400 mg Metoprolol Tartrate (Lopressor) 100 mg PO BID [facility] Last Admin: 09/13/17 19:38 Dose: 100 mg Montelukast Sodium (Singular) 10 mg PO HS [facility] Last Admin: 09/12/17 20:50 Dose: 10 mg Naloxone HCl (Narcan) 0.1 mg IV Q2MIN PRN PRN Reason: Opiate Reversal Nifedipine (Procardia Xl) 60 mg PO BID [facility] Last Admin: 09/13/17 19:39 Dose: 60 mg Nortriptyline HCl (Pamelor) 100 mg PO HS [facility] Last Admin: 09/12/17 20:52 Dose: 100 mg Olmesartan (Benicar) 40 mg PO DAILY [facility] Last Admin: 09/13/17 07:54 Dose: 40 mg Pantoprazole Sodium (Protonix) 40 mg PO BIDAC [facility] Last Admin: 09/13/17 19:18 Dose: 40 mg Potassium Chloride (Kdur) 10 meq PO QAMCC [facility] Last Admin: 09/13/17 07:50 Dose: 10 meq Pregabalin (Lyrica) 200 mg PO BID [facility] Last Admin: 09/13/17 07:54 Dose: 200 mg Ramelteon (Rozerem) 8 mg PO HS [facility] Last Admin: 09/12/17 21:17 Dose: 8 mg Ropinirole HCl (Requip) 1 mg PO HS [facility] Last Admin: 09/12/17 20:51 Dose: 1 mg Senna (Senokot) 1 tab PO HSP PRN PRN Reason: Constipation Sodium Chloride (Saline Flush) 10 ml IV UD PRN PRN Reason: FLUSH Last Admin: 09/13/17 09:48 Dose: 10 ml Sodium Chloride (Saline Flush) 10 ml IV Q8 [facility] Last Admin: 09/13/17 13:48 Dose: 10 ml Sodium Chloride (Saline Flush) 10 ml IV Q12 [facility] Last Admin: 09/13/17 09:49 Dose: 10 ml Triamcinolone Acetonide (Kenalog Cream 0.1%) 1 dose TOPICAL BID [facility] Last Admin: 09/13/17 09:07 Dose: 1 dose Vancomycin HCl (Vancomycin Per Pharmacy) 1 order IV UD [facility] Venlafaxine HCl (Effexor Xr) 225 mg PO [facility] Last Admin: 09/12/17 20:56 Dose: 225 mg Medical - PN: A/P - Time Spent With Patient Total time spent is greater than 50% in coordination of care (as documented) at patient's floor/unit and/or counseling patient: - Narrative A/P Narrative: A/P Severe Cellutlitis Severe sepsis with lactic acidosis Morbid obesity Chronic kidney disease vs THOMAS creat 1.2 (baseline unknow) HTN HLD Nacho LE chr Lymphedema Eczema Reactive airway disease Abnl UA, likely Urinary tract infection. Klebsiella urinary tract infection sensitive bug Gram-positive bacteremia Plan Patient is clinically improving, lactic acidosis resolved Continue IV vancomycin and IV etrapenum for management of severe cellulitis. CT is neg for abscess or deep tissue involvement, clinically pt is improving. Await microbiology and deescalate antibiotics per sesitivities OT/PT rehab resume bp meds sliding scale insulin for Glucose control Full code Enoxaparin for DVT prophylaxis Carb consistent diet Medical - PN: Qual - VTE Deep Vein Thrombosis/Pulmonary Embolism Present on Admission: No
[2017-09-13] MEDS: hydrOXYzine 25 MG TABLET PO PRN (21:04)
[2017-09-13] MEDS: VENLAFAXINE 75 MG CAP.XL.24H PO SCH (21:05)
[2017-09-13] MEDS: ATORVASTATIN 20 MG TABLET PO SCH (21:06)
[2017-09-13] MEDS: rOPINIRole 1 MG TABLET PO SCH (21:07)
[2017-09-13] MEDS: MONTELUKAST 10 MG TABLET PO SCH (21:07)
[2017-09-13] MEDS: RAMELTEON 8 MG TABLET PO SCH (21:07)
[2017-09-13] MEDS: NORTRIPTYLINE 25 MG CAPSULE PO SCH (21:07)
[2017-09-14] MEDS: ACETAMINOPHEN 325 MG TABLET PO PRN (03:05)
[2017-09-14] MEDS: hydrOXYzine 25 MG TABLET PO PRN ×2 (03:06→09:51)
[2017-09-14 05:43] LABS: Basophils # (Auto) 0 K/mcL (0.0-0.3); Basophils % (Auto) 0.4 % (0.0-2.0); Eosinophils # (Auto) 0.6 K/mcL (0.0-0.7); Eosinophils % (Auto) 7.2 % (0.0-7.0); Granulocytes % (Auto) 68.9 % (38.0-78.0); Lymphocytes # (Auto) 1.2 K/mcL (1.5-4.8); Lymphocytes % (Auto) 13.9 % (15.5-49.0); Mean Cell Volume 81.7 fL (80.0-100.0); Mean Corpuscular HGB Conc 31.9 g/dL (31.0-36.0); Mean Corpuscular Hemoglobin 26.1 pg (26.0-34.0); Monocytes # (Auto) 0.8 K/mcL (0.1-0.9); Monocytes % (Auto) 9.6 % (1.0-12.0); Platelet Count 260 K/mcL (140-440); RBC 5.01 M/mcL (4.00-5.20); Red Cell Distribution Width 15.9 % (11.5-14.5)
[2017-09-14 06:11] LABS: ALT/SGPT 14 U/l (0-40); Albumin 3.8 gm/dL (3.2-5.2); Albumin/Globulin Ratio 1.1 (1.0-2.3); Alkaline Phosphatase 106 U/L (39-117); Bilirubin,Direct < 0.2 mg/dL (0.0-0.3); Blood Urea Nitrogen 10 mg/dl (6-20); Gamma Glutamyl Transpeptidase 72 U/L (5-36); Uric Acid 4.3 mg/dL (2.5-8.0)
[2017-09-14] MEDS: 0.9 % SODIUM CHLORIDE 10 ML SYRINGE IV SCH ×2 (06:37→08:29)
[2017-09-14] MEDS: INSULIN LISPRO 1 UNIT/0.01 ML UNIT SQ SCH ×2 (08:20→14:29)
[2017-09-14] MEDS: diphenhydrAMINE 25 MG CAPSULE PO SCH (08:21)
[2017-09-14] MEDS: OLMESARTAN MEDOXOMIL 20 MG TABLET PO SCH (08:22)
[2017-09-14] MEDS: PREGABALIN 100 MG CAPSULE PO SCH (08:22)
[2017-09-14] MEDS: NIFEdipine 30 MG TAB.XL.24H PO SCH (08:22)
[2017-09-14] MEDS: MAGNESIUM OXIDE 400 MG TABLET PO SCH (08:22)
[2017-09-14] MEDS: ASPIRIN 81 MG TAB.CHEW PO SCH (08:23)
[2017-09-14] MEDS: FAMOTIDINE 20 MG TABLET PO SCH (08:23)
[2017-09-14] MEDS: ENOXAPARIN 40 MG/0.4 ML SYRINGE SQ SCH (08:23)
[2017-09-14] MEDS: PANTOPRAZOLE 40 MG TABLET PO SCH (08:23)
[2017-09-14] MEDS: METOPROLOL TARTRATE 50 MG TABLET PO SCH (08:23)
[2017-09-14] MEDS: POTASSIUM CHLORIDE 10 MEQ TABLET PO SCH (08:23)
[2017-09-14] MEDS: DOXAZOSIN 4 MG TABLET PO SCH (08:23)
[2017-09-14] MEDS ORDERED: cloNIDine HCL 0.1 MG TABLET PO SCH (09:00)
[2017-09-14] MEDS ORDERED: POTASSIUM CHLORIDE 20 MEQ PACKET PO ONE (09:27)
[2017-09-14] MEDS ORDERED: MAGNESIUM SULFATE 2 GM/50 ML BAG IV ONE (09:27)
[2017-09-14] MEDS: CETIRIZINE 10 MG TABLET PO SCH (09:51)
[2017-09-14] MEDS: ERTAPENEM 1 GM in 0.9 % SODIUM CHLORIDE 50 ML IV SCH (09:52)
[2017-09-14] MEDS: TRIAMCINOLONE CREAM 0.1% 15G 1 DOSE TUBE TOPICAL SCH (10:36)
--- NOTE | 2017-09-14 10:54 | Discharge Summary ---
Medical - DS: Prov Patient information: Note initiated : 09/14/17 at 10:48 am Service Date, if different from initiated Date: [] Patient: Elizabeth Peacock 57 y/o F admitted on 09/11/17 for Fever/Cellulitis. Chief Complaint: [] Date of admission: 09/11/17 09:19 Discharge date: 09/14/17 Attending physician on admission: Dariela Singh Consults: 09/11/17 07:40 Consult to Physician [CONS] Stat Comment: Consulting Provider: Dariela Singh Reason For Exam: Physician to Consult Discharging clinician: Dariela Singh Medical - DS: Meds - Discharge Medications Prescriptions: Levofloxacin [Levaquin] 750 mg PO DAILY #12 tab Active and Home Medications: Home Medications Albuterol Sulfate 2.5 mg IH Q4HP PRN 09/11/17 [History Confirmed 09/11/17 Last Taken Unknown] Aspirin [Lo-Dose Aspirin EC] 81 mg PO DAILY 09/11/17 [History Confirmed Last Taken Unknown] Atorvastatin [Lipitor] 80 mg PO HS 09/11/17 [History Confirmed 09/11/17 Last Taken Unknown] Cetirizine [ZyrTEC] 10 mg PO DAILY 09/11/17 [History Confirmed 09/11/17 Last Taken Unknown] Doxazosin [Cardura] 8 mg PO BID 09/11/17 [History Confirmed 09/11/17 Last Taken Unknown] Esomeprazole Magnesium [Nexium] 40 mg PO BID 09/11/17 [History Confirmed Last Taken Unknown] Ferrous Sulfate, Dried [Iron] 65 mg PO BID 09/11/17 [History Confirmed 09/11/17 Last Taken Unknown] Ipratropium/Albuterol Sulfate [Combivent] 1 puff INH Q4HP PRN 09/11/17 [History Confirmed 09/11/17 Last Taken Unknown] Magnesium Oxide [Magnesium] 400 mg PO DAILY 09/11/17 [History Confirmed Last Taken Unknown] Metoprolol Tartrate 100 mg PO BID 09/11/17 [History Confirmed 09/11/17 Last Taken Unknown] Montelukast [Singular] 10 mg PO HS 09/11/17 [History Confirmed 09/11/17 Last Taken Unknown] NIFEdipine [Afeditab Cr] 60 mg PO BID 09/11/17 [History Confirmed 09/11/17 Last Taken Unknown] Nortriptyline [Pamelor] 100 mg PO HS 09/11/17 [History Confirmed 09/11/17 Last Taken Unknown] Olmesartan Medoxomil [Benicar] 40 mg PO DAILY 09/11/17 [History Confirmed Last Taken Unknown] [place]-3/Dha/Epa/Fish Oil [Fish Oil 1,400 mg Softgel] 1,400 mg PO DAILY 09/11/17 [History Confirmed 09/11/17 Last Taken Unknown] Potassium Chloride [Klor-Con 10] 10 meq PO DAILY 09/11/17 [History Confirmed Last Taken Unknown] Pregabalin [Lyrica] 200 mg PO BID 09/11/17 [History Confirmed 09/11/17 Last Taken Unknown] Ramelteon [Rozerem] 8 mg PO HS 09/11/17 [History Confirmed 09/11/17 Last Taken Unknown] Ranitidine HCl [Heartburn Relief] 150 mg PO BID 09/11/17 [History Confirmed Last Taken Unknown] Venlafaxine [Effexor Xr] 225 mg PO HS 09/11/17 [History Confirmed 09/11/17 Last Taken Unknown] cloNIDine HCL [Catapres] 0.6 mg PO BID 09/11/17 [History Confirmed 09/11/17 Last Taken Unknown] diphenhydrAMINE HCL [Benadryl] 100 mg PO BID 09/11/17 [History Confirmed Last Taken Unknown] hydrOXYzine [Atarax] 25 mg PO PRN PRN 09/11/17 [History Confirmed 09/11/17 Last Taken Unknown] rOPINIRole [Requip] 1 mg PO HS 09/11/17 [History Confirmed 09/11/17 Last Taken Unknown] sitaGLIPtin PHOS/metFORMIN HCL [Janumet 50-1,000 mg Tablet] 1 each PO DAILY [History Confirmed 09/11/17 Last Taken Unknown] Medical - DS: Hosp Hospital course: Ms. Peacock is a 57 year old Female with history of diabetes, lymphedema chronic , hypertension hyperlipidemia osteoarthritis presents to the emergency room this morning after not feeling well since approximately 1:00 early this morning. The patient notes that she was doing well up until the day before admission. Has not been feeling well since early this morning. She was weak fatigued sweaty had a fever some nausea. Her noted that the patient was also confused was unable to tell the date and the time. The patient had pain in the right leg and increased erythema in the right leg. The patient was therefore brought to the emergency room for further evaluation and management. The patient notes that she has chronic lymphedema and is seeing Dr. Garcia for management of same. The patient had weeping wound on the right leg in the posterior aspect lower one third that has been going on for the last few days. In the past when she has had cellulitis she has had rapidly progressive cellulitis which can get quite severe. The patient otherwise has no other complaints. By the time she was seen in the ED she was alert oriented 4. In the emergency room patient was febrile temperature 101.8, heart rate 103, blood pressure as low as 90 systolic, saturating 93% on room air. She was having leukocytosis WBC count of 10.9, hemoglobin 12.4, platelet 218. Patient had low potassium with value of 3.2, creatinine 1.2, glucose 242. She had elevated lactic acid at 4.4, elevated pro-calcitonin at 2.14. X-ray was negative UA suggestive of UTI patient did not have any symptoms suggestive of a urinary tract infection. The patient was given IV fluids done in the ED and admitted to the hospital for further management, she received vancomycin down in the ED. Blood culture sent Cellutlitis: Treated with vanco and ertapenum, she responded well to treatment, CT of the leg done showed extensive cellutlitis, but no deep tissue involvement or abscess, blood culture was positive for gram positive cocci, strep, pain sensitive, she will be discharged on levofloxacin 750mg daily for 12 more days to complete a 2 week course. (levoflox used due to allergy profile of the patient) Echo neg for endocarditis Echo showed that she has, mild 4 chamber enlargement which is expected for her BMI, borderline low lvef, she has moderate pulm htn, advised low salt diet and talk to pcp / drywall installer regarding further treatment plan UTI: Klebsiella uti, seng sensitive, should be covered with levoflox, Rest of the stay in the hospital was unremarkable. At the time of discharge patient is back to baseline, redness in the lower extremities much better, she is tolerating p.o. diet and is ambulatory. She will be discharged home. No changes have been done to her home medication list. Discharge diagnosis: Cellulitits/ UTI - Time Spent with Patient Total time spent providing and/or coordinating discharge services: Greater than 30 minutes Medical - DS: Exam - Constitutional Vitals: Vital Signs Temp Pulse Pulse Resp BP BP Pulse Ox 09/14/17 06:42 96.8 F L 18 133/90 92 09/14/17 03:09 97.5 F 95 H 18 153/90 95 09/13/17 23:35 97.9 F 95 H 18 167/97 91 09/13/17 20:56 112 H 19 166/99 90 09/13/17 20:26 98.1 F 110 H 18 156/100 95 09/13/17 19:36 110 H 18 169/95 95 09/13/17 17:31 98.7 F 107 H 16 174/94 92 09/13/17 11:00 98.3 F 86 16 135/82 94 Intake and Output 09/13/17 09/14/17 09/14/17 21:59 05:59 13:59 Intake Total 660 / 660 600 / 600 Output Total 750 / 750 3000 / 3000 Balance -90 / -90 -2400 / -2400 Intake: IV 250 / 250 Vancomycin 1,000 mg In Sodium 250 / 250 Chloride 0.9% 250 ml @ 250 mls/ hr IV Q12H [facility] Rx#:[id number] Oral 660 / 660 350 / 350 Output: Urine Catheter Amount 750 / 750 2650 / 2650 Void Amount 350 / 350 Other: Meal Dinner Percent of Meal Consumed 100% Feeding Ability Independent # Voids 1 # Bowel Movements 1 Weight 315 lb 8 oz 304 lb Additional comments: Constitutional; Afebrile, cooperative, alert, not in distress. Neck- Midline trachea, supple Respiratory system: Air Entry equal on both sides, No crackles or wheezing, no rhonchi. CVS- Rate rhythm regular, S1,S2 heard, no gallop, no rub. 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 Right lower extremity, erythema much improved Medical - DS: Data Labs on day of discharge: Labs from last 24 hours 09/14/17 09/14/17 04:00 04:00 WBC 8.6 RBC 5.01 Hgb 13.1 Hct 41.0 MCV 81.7 MCH 26.1 MCHC 31.9 RDW 15.9 H Plt Count 260 MPV 10.4 Gran % 68.9 Lymph % (Auto) 13.[address] % (Auto) 9.6 Eos % (Auto) 7.2 H Baso % (Auto) 0.4 Gran # 5.9 Lymph # (Auto) 1.[address] # (Auto) 0.8 Eos # (Auto) 0.6 Baso # (Auto) 0 Sodium 141 Potassium 3.2 L Chloride 99 Carbon Dioxide 28 Anion Gap 14.0 BUN 10 Creatinine 0.8 GFR Calculation 82 Glucose 172 H Uric Acid 4.3 Calcium 9.2 Phosphorus 3.3 Magnesium 1.5 L Total Bilirubin 0.5 Direct Bilirubin < 0.2 GGT 72 H AST 17 ALT 14 Alkaline Phosphatase 106 Lactate Dehydrogenase 222 Total Protein 7.4 Albumin 3.8 Globulin 3.6 Albumin/Globulin Ratio 1.1 Triglycerides 122 Preliminary micro results at discharge 09/11/17 06:25 Blood Culture - Preliminary Blood 09/11/17 08:25 Urine Culture - Preliminary Urine - Sanchez Klebsiella pneumoniae 09/11/17 06:10 Blood Culture - Preliminary Blood Gram positive cocci Medical - DS: A/P - Patient/Caregiver Discharge Instructions Activity: increase activity as tolerated Diet: Low Sodium (2gm), Consistent Carbohydrate Additional Instructions: Please follow up with PCP in 1 -2 weeks Take levofloxacin 750mg once daily for 12 days Go to the ER if fever, worsening symptoms, chest pain, or any other acute concerning symptom. YOu may want to talk to your PCP regarding your pulmonary hypertension and if needed getting an evaluation by a specialist. No changes are being done to your [facility] med list, you should take your medications as prescribed. Prescriptions: Levofloxacin [Levaquin] 750 mg PO DAILY #12 tab - Follow up Plan Disposition: Home, Self-Care Prognosis: Fair Rehab Potential: Fair I certify that the patient requires SNF services: No Overall status at discharge: patient is progressing back to baseline Medical - DS: Qual - VTE Deep Vein Thrombosis/Pulmonary Embolism Present on Admission: No
== END 2017-09-14 13:00 | disposition home or self-care (01) | DRG 872 ==
LOC: ED 05:26 → ICU 09:19 → MEDSUR 09-12 17:36
PROVIDERS: ADMIT Internal Medicine; ATTEND Internal Medicine

== ENCOUNTER 2017-10-29 20:51 | Inpatient (IN) ==
[2017-10-29] MEDS ORDERED: 0.9 % SODIUM CHLORIDE 2,000 ML IV ONE (21:45)
[2017-10-29] MEDS ORDERED: ACETAMINOPHEN 325 MG TABLET PO ONE (21:48)
--- NOTE | 2017-10-29 21:57 | Emergency Department Note ---
SOB HPI - General Chief Complaint: Shortness of Breath/Dyspnea Stated Complaint: shortness of breathe Time Seen by Provider: 10/29/17 21:34 Mode of arrival: wheelchair - History of Present Illness Patient has been complaining of some swelling and redness in her right leg. She was admitted on 09/11/17 for cellulitis did grow out a positive blood culture of the strep he was treated with vancomycin and ertapenum .she had been seen by Dr. Robbins in wound care he was discharged on Levaquin 750 daily for 12 days. Has also been seen by her primary care provider Dr. Susana Lieberman for the first time 2 weeks ago. States the chills and fever and redness in the legs just came on today - Related Data Home Medications Medication Instructions Recorded Confirmed Albuterol Sulfate 2.5 mg IH Q4HP PRN 09/11/17 10/29/17 Aspirin [Lo-Dose Aspirin EC] 81 mg PO DAILY 09/11/17 10/29/17 Atorvastatin [Lipitor] 80 mg PO HS 09/11/17 10/29/17 Cetirizine [Zyrtec] 10 mg PO DAILY 09/11/17 10/29/17 Doxazosin [Cardura] 8 mg PO BID 09/11/17 10/29/17 Esomeprazole Magnesium [Nexium] 40 mg PO BID 09/11/17 10/29/17 Ferrous Sulfate, Dried [Iron] 65 mg PO BID 09/11/17 10/29/17 Ipratropium/Albuterol Sulfate 1 puff INH Q4HP PRN 09/11/17 10/29/17 [Combivent] Magnesium Oxide [Magnesium] 400 mg PO DAILY 09/11/17 10/29/17 Metoprolol Tartrate 100 mg PO BID 09/11/17 10/29/17 Montelukast [Singular] 10 mg PO HS 09/11/17 10/29/17 NIFEdipine [Afeditab Cr] 60 mg PO BID 09/11/17 10/29/17 Nortriptyline [Pamelor] 100 mg PO HS 09/11/17 10/29/17 Olmesartan Medoxomil [Benicar] 40 mg PO DAILY 09/11/17 10/29/17 [place]-3/Dha/Epa/Fish Oil [Fish Oil 1,400 mg PO DAILY 09/11/17 10/29/17 1,400 mg Softgel] Potassium Chloride [Klor-Con 10] 10 meq PO DAILY 09/11/17 10/29/17 Pregabalin [Lyrica] 200 mg PO BID 09/11/17 10/29/17 Ramelteon [Rozerem] 8 mg PO HS 09/11/17 10/29/17 Ranitidine HCl [Heartburn Relief] 150 mg PO BID 09/11/17 10/29/17 Venlafaxine [Effexor Xr] 225 mg PO HS 09/11/17 10/29/17 cloNIDine HCL [Catapres] 0.6 mg PO BID 09/11/17 10/29/17 diphenhydrAMINE HCL [Benadryl] 100 mg PO BID 09/11/17 10/29/17 hydrOXYzine [Atarax] 25 mg PO PRN PRN 09/11/17 10/29/17 rOPINIRole [Requip] 1 mg PO HS 09/11/17 10/29/17 sitaGLIPtin PHOS/metFORMIN HCL 1 each PO DAILY 09/11/17 10/29/17 [Janumet 50-1,000 mg Tablet] Allergies Allergy/AdvReac Type Severity Reaction Status Date / Time Sulfa (Sulfonamide Allergy Severe Hives Verified 09/11/17 05:40 Antibiotics) cephalexin [From Keflex] Allergy Intermediate Hives Verified 09/11/17 05:42 exenatide [From Byetta] Allergy Intermediate Hives Verified 09/11/17 05:40 latex Allergy Intermediate Rash Verified 09/11/17 05:40 levofloxacin [From Levaquin] Allergy Intermediate Hives Verified 09/11/17 05:42 Penicillins Allergy Intermediate Hives Verified 09/11/17 05:40 Rosiglitazone [From Avandia] Allergy Intermediate Hives Verified 09/11/17 05:40 meperidine [From Demerol] AdvReac Intermediate Gastrointestinal Verified 05:42 Upset Past Medical History - Past Medical History Medical history: Reports: DM, hypertension, kidney stones Psychiatric history: Reports: anxiety, depression Surgical history ED: Reports: hysterectomy, orthopedic, other - Social History smoking status: Never smoker Course Vital Signs Temperature 99.7 F H 10/29/17 20:52 Pulse Rate 130 H 10/29/17 20:52 Respiratory Rate 25 H 10/29/17 20:52 Blood Pressure 157/78 10/29/17 20:52 Pulse Oximetry (%) 95 10/29/17 20:52 Temperature 99.7 F H 10/29/17 22:18 Pulse Rate 83 10/29/17 23:01 Respiratory Rate 22 10/29/17 23:01 Blood Pressure 154/125 10/29/17 23:01 Pulse Oximetry (%) 89 L 10/29/17 23:01 Shortness of Breath/Dyspnea - [facility] Narrative Medical decision making narrative: WBC is 21,400, the hemoglobin is 13.0 hematocrit 40.1 the differential is pending lactic acid elevated at 3.1 glucose is 169 potassium is 4.2 BUN [address] Singh contacted he is here to evaluate patient is started on Vanco - Lab Data Result diagrams: 10/29/17 21:22 10/29/17 21:22 Lab Results 10/29/17 10/29/17 10/29/17 Range/Units 21:22 21:22 21:22 WBC 21.4 H (4.5-11.0) K/mcL RBC 4.88 (4.00-5.20) M/mcL Hgb 13.0 (12.0-15.0) g/dL Hct 40.1 (36.0-48.0) % POC Hct (36.0-48.0) % MCV 82.2 (80.0-100.0) fL MCH 26.6 (26.0-34.0) pg MCHC 32.4 (31.0-36.0) g/dL RDW 17.6 H (11.5-14.5) % Plt Count 287 (140-440) K/mcL MPV 10.4 (7.4-10.4) fL Total Counted Seg Neutrophils % Band Neutrophils % Not Reportable Platelet Estimate RBC Morphology VBG Lactic Acid 3.1 H (0.5-2.2) mmol/L POC Sodium (133-145) mmol/L Sodium 138 (133-145) mmol/L POC Potassium (3.3-5.1) mmol/L Potassium 4.0 (3.3-5.1) mmol/L POC Chloride (96-108) mmol/L Chloride 98 (96-108) mmol/L Carbon Dioxide 24 (22-30) mmol/L POC Total CO2 (22-30) mmol/L Anion Gap 16.0 (8-16) POC BUN (6-20) mg/dl BUN 23 H (6-20) mg/dl Creatinine 1.0 (0.6-1.1) mg/dl POC Creatinine (0.6-1.1) mg/dl GFR Calculation 62 Glucose 173 H (70-105) mg/dL POC Glucose (70-105) mg/dL Calcium 9.6 (8.6-10.4) mg/dl POC WB Ioniz Calcium (1.16-1.32) mmol/L Total Bilirubin 0.8 (0.0-1.0) mg/dL AST 13 (0-37) U/l ALT 17 (0-40) U/l Alkaline Phosphatase 89 (39-117) U/L Total Protein 7.3 (5.9-8.4) gm/dL Albumin 4.4 (3.2-5.2) gm/dL Globulin 2.9 (2.2-3.7) gm/dL Albumin/Globulin Ratio 1.5 (1.0-2.3) 10/29/17 10/29/17 Range/Units 21:44 21:50 WBC (4.5-11.0) K/mcL RBC (4.00-5.20) M/mcL Hgb (12.0-15.0) g/dL Hct (36.0-48.0) % POC Hct 42.0 (36.0-48.0) % MCV (80.0-100.0) fL MCH (26.0-34.0) pg MCHC (31.0-36.0) g/dL RDW (11.5-14.5) % Plt Count (140-440) K/mcL MPV (7.4-10.4) fL Total Counted Not Reportable Seg Neutrophils % TNP Band Neutrophils % Not Reportable Platelet Estimate Not Reportable RBC Morphology Not Reportable VBG Lactic Acid (0.5-2.2) mmol/L POC Sodium 137 (133-145) mmol/L Sodium (133-145) mmol/L POC Potassium 4.2 (3.3-5.1) mmol/L Potassium (3.3-5.1) mmol/L POC Chloride 102 (96-108) mmol/L Chloride (96-108) mmol/L Carbon Dioxide (22-30) mmol/L POC Total CO2 25 (22-30) mmol/L Anion Gap (8-16) POC BUN 30 H (6-20) mg/dl BUN (6-20) mg/dl Creatinine (0.6-1.1) mg/dl POC Creatinine 0.9 (0.6-1.1) mg/dl GFR Calculation Glucose (70-105) mg/dL POC Glucose 169 H (70-105) mg/dL Calcium (8.6-10.4) mg/dl POC WB Ioniz Calcium 0.97 L (1.16-1.32) mmol/L Total Bilirubin (0.0-1.0) mg/dL AST (0-37) U/l ALT (0-40) U/l Alkaline Phosphatase (39-117) U/L Total Protein (5.9-8.4) gm/dL Albumin (3.2-5.2) gm/dL Globulin (2.2-3.7) gm/dL Albumin/Globulin Ratio (1.0-2.3) Disposition Pt seen by SALES PRODUCER/PA only: No Clinical Impression: Cellulitis of right lower leg Disposition: Xfer As Inpt ([facility]) Condition: Fair Referrals: Susana Houston MD [Primary Care Provider] - Time of Disposition: 23:15
[2017-10-29] MEDS ORDERED: VANCOMYCIN 1,000 MG in 0.9 % SODIUM CHLORIDE 250 ML IV ONE (22:01)
[2017-10-29 22:31] LABS: Mean Cell Volume 82.2 fL (80.0-100.0); Mean Corpuscular HGB Conc 32.4 g/dL (31.0-36.0); Mean Corpuscular Hemoglobin 26.6 pg (26.0-34.0); Platelet Count 287 K/mcL (140-440); RBC 4.88 M/mcL (4.00-5.20); Red Cell Distribution Width 17.6 % (11.5-14.5)
[2017-10-29 22:47] LABS: ALT/SGPT 17 U/l (0-40); Albumin 4.4 gm/dL (3.2-5.2); Albumin/Globulin Ratio 1.5 (1.0-2.3); Alkaline Phosphatase 89 U/L (39-117); Blood Urea Nitrogen 23 mg/dl (6-20)
[2017-10-29] MEDS ORDERED: ERTAPENEM 1 GM in 0.9 % SODIUM CHLORIDE 50 ML IV ONE (23:19)
[2017-10-29 23:37] LABS: Appearance,Urine CLEAR; Bacteria,Urine 0 /hpf (0); Bilirubin,Urine NEG (NEG); Color,Urine YELLOW; Glucose,Urine (UA) NEGATIVE (NEG); Leukocyte Esterase,Urine NEG /uL (NEG); Mucus,Urine FEW /hpf (0); Protein,Urine 30 mg/dL (NEG); Specific Gravity,Urine 1.017 (1.000-1.035); Urine Blood NEG mg/dL (<0.03); Urine Hyaline Cast 6 /lpf (0-2); Urine RBC 1 /hpf (0-1); Urine Squamous Epithelial Cell < 1 /hpf (0-4); Urine WBC 1 /hpf (0-4); Urobilinogen,Urine NEG (NEG)
[2017-10-29 23:43] LABS: Anisocytosis 1+ (NONE SEEN); Band Neutrophils % 8 % (0-10); Lymphocytes % 4 % (15-49); Monocytes % (Manual) 6 % (1-12); Platelet Estimate NORMAL (NORMAL); RBC Morphology ABNORM (NORMAL); Segmented Neutrophils % 82 % (38-78)
--- NOTE | 2017-10-29 23:59 | Internal Med History&Physical ---
Medical - H&P: [facility] Patient information: Note initiated : 10/29/17 at 11:50 pm Service Date, if different from initiated Date: [] Patient: Elizabeth Peacock a 57 y/o F admitted on for shortness of breathe. Chief Complaint: [] History of present illness: Ms. Peacock is a 57 year old F with h/o morbid obesity, DM, chr lymphedema and recurrent severe cellulitis, she was at her baselien till this afternoon, her partner had seen the patients legs this afternoon, and they appeared normal. Later in the evening, the patients partner noticed that she was not her self, she was confused and had chills, there was pain in her right lower extremity, and swelling with redness, this had involved the lower 2/3 of the right leg and some crreping along the medial aspect. The patient had weakness and chills, She has had multiple episodes of rapidly progressive cellulitis, she was recently admitted to this facility with a similar diagnosis, and hence she was brought to the ER The patient has headache, but no visual changes, no chest pain, no shortness of breath, no nausea/ vmoiting, no gi or gu compliants She has chr venous insufficency but has been seen by Dr mccallum and noted not to need any intervention. In the ER initially she had a low grade fever, but later had a tmax of 102.7, HR 120-130, wbc 21K, lactic acid 3.1, She was given vancomycin in the ER and presented to the hospital for further management. All systems: reviewed and no additional remarkable complaints except as stated ( as per HPI rest neg) Medical - H&P: PMH Medical history: : Diabetes type 2, Hypertension Morbid obesity Hyperlipidemia Chronic lymphedema Osteoarthritis Chronic eczema Anxiety Asthma-COPD Surgical history: History of hysterectomy, History of nisin fundoplication Pertinent family history: Father had cancer of the bladder and prostate Mother had atrial fibrillation from CVA Brother had bladder cancer and kidney cancer Social history: Lives with partner, denies any history of smoking recreational drug use or alcohol use. Patient has established care with dr Houston. Medical - H&P: Meds Home Medications Medication Instructions Recorded Confirmed Type Albuterol Sulfate 2.5 mg IH Q4HP PRN 09/11/17 10/29/17 History Aspirin [Lo-Dose Aspirin EC] 81 mg PO DAILY 09/11/17 10/29/17 History Atorvastatin [Lipitor] 80 mg PO HS 09/11/17 10/29/17 History Cetirizine [Zyrtec] 10 mg PO DAILY 09/11/17 10/29/17 History Doxazosin [Cardura] 8 mg PO BID 09/11/17 10/29/17 History Esomeprazole Magnesium [Nexium] 40 mg PO BID 09/11/17 10/29/17 History Ferrous Sulfate, Dried [Iron] 65 mg PO BID 09/11/17 10/29/17 History Ipratropium/Albuterol Sulfate 1 puff INH Q4HP PRN 09/11/17 10/29/17 History [Combivent] Magnesium Oxide [Magnesium] 400 mg PO DAILY 09/11/17 10/29/17 History Metoprolol Tartrate 100 mg PO BID 09/11/17 10/29/17 History Montelukast [Singular] 10 mg PO HS 09/11/17 10/29/17 History NIFEdipine [Afeditab Cr] 60 mg PO BID 09/11/17 10/29/17 History Nortriptyline [Pamelor] 100 mg PO HS 09/11/17 10/29/17 History Olmesartan Medoxomil [Benicar] 40 mg PO DAILY 09/11/17 10/29/17 History [place]-3/Dha/Epa/Fish Oil [Fish Oil 1,400 mg PO DAILY 09/11/17 10/29/17 History 1,400 mg Softgel] Potassium Chloride [Klor-Con 10] 10 meq PO DAILY 09/11/17 10/29/17 History Pregabalin [Lyrica] 200 mg PO BID 09/11/17 10/29/17 History Ramelteon [Rozerem] 8 mg PO HS 09/11/17 10/29/17 History Ranitidine HCl [Heartburn Relief] 150 mg PO BID 09/11/17 10/29/17 History Venlafaxine [Effexor Xr] 225 mg PO HS 09/11/17 10/29/17 History cloNIDine HCL [Catapres] 0.6 mg PO BID 09/11/17 10/29/17 History diphenhydrAMINE HCL [Benadryl] 100 mg PO BID 09/11/17 10/29/17 History hydrOXYzine [Atarax] 25 mg PO PRN PRN 09/11/17 10/29/17 History rOPINIRole [Requip] 1 mg PO HS 09/11/17 10/29/17 History sitaGLIPtin PHOS/metFORMIN HCL 1 each PO DAILY 09/11/17 10/29/17 History [Janumet 50-1,000 mg Tablet] Allergies Allergy/AdvReac Type Severity Reaction Status Date / Time Sulfa (Sulfonamide Allergy Severe Hives Verified 09/11/17 05:40 Antibiotics) cephalexin [From Keflex] Allergy Intermediate Hives Verified 09/11/17 05:42 exenatide [From [place]] Allergy Intermediate Hives Verified 09/11/17 05:40 latex Allergy Intermediate Rash Verified 09/11/17 05:40 levofloxacin [From Levaquin] Allergy Intermediate Hives Verified 09/11/17 05:42 Penicillins Allergy Intermediate Hives Verified 09/11/17 05:40 Rosiglitazone [From Avandia] Allergy Intermediate Hives Verified 09/11/17 05:40 meperidine [From Demerol] AdvReac Intermediate Gastrointestinal Verified 05:42 Upset Medical - H&P: Exam - Constitutional Vitals: Temp Pulse Resp BP Pulse Ox 102.7 F H 122 H 19 132/101 99 10/29/17 23:03 10/29/17 23:31 10/29/17 23:46 10/29/17 23:46 10/29/17 23:31 Exam: GENERAL: The patient is a well-developed, well-nourished in mild distress, aoox3, morbidly obese, shivering, needing to stay in the blanket VITAL SIGNS: Reviewed and as noted elsewhere. HEENT: Head is normocephalic and atraumatic. Extraocular muscles are intact. Pupils are equal, round, and reactive to light. Nares appeared normal. Mouth appears any without lesions. Mucous membranes are dry NECK: Normal to inspection, Supple, No lymphadenopathy or thyromegaly. LUNGS: Air entry equal on both sides, no wheezing, crackles or rhonchi noted. No accessory muscles of respiration HEART: Regular tachycardic rate and rhythm is normal, S1 and S2 heard, no Gallop, S3 or Rub Noted, No Gross murmur heard. ABDOMEN: Soft, nontender, and nondistended. Positive bowel sounds. No hepatosplenomegaly was noted. large pannus EXTREMITIES: No cyanosis, edema ++, right lower extremity erythema lower 2/3, extending to mid thigh medially, some erythma also on the left lower extremity NEUROLOGIC: Cranial nerves II through XII are grossly intact. Motor and Sensory System Grossly Intact PSYCHIATRIC: Normal affect, Normal Mood. Appropriate Behavior. SKIN: No ulceration or wounds noted, No jaundice, No rash noted. Medical - H&P: Reslt - Labs CBC & Chem 7: 10/29/17 21:22 10/29/17 21:22 Labs: Short CBC 10/29/17 Range/Units 21:22 WBC 21.4 H (4.5-11.0) K/mcL Hgb 13.0 (12.0-15.0) g/dL Hct 40.1 (36.0-48.0) % Plt Count 287 (140-440) K/mcL BMP 10/29/17 21:22 Sodium 138 Potassium 4.0 Chloride 98 Carbon Dioxide 24 BUN 23 H Creatinine 1.0 Glucose 173 H Calcium 9.6 Liver Function 10/29/17 Range/Units 21:22 Total Bilirubin 0.8 (0.0-1.0) mg/dL AST 13 (0-37) U/l ALT 17 (0-40) U/l Alkaline Phosphatase 89 (39-117) U/L Albumin 4.4 (3.2-5.2) gm/dL Urine 10/29/17 Range/Units 22:20 Urine Color Yellow Urine Appearance Clear Urine pH 7.0 (5.0-9.0) Ur Specific [place] 1.017 (1.000-1.035) Urine Protein 30 A (NEG) mg/dL Urine Glucose (UA) Negative (NEG) mg/dL Medical - H&P: A/P - Narrative A/P Narrative: A/P Severe Cellulitis Severe sepsis Recurrent Cellulitis lactic Acidosis HTN DM Morbid obesity Chr Lymphedema Osteoarthritis DM neuropathy Plan Admit to PCU status Rapidly progressive cellulitis. IV vanco, ertapneum and IV clindamycin for now. Patient had similar presentation last visit, and she responded well to antibiotic regime, I was concerned about Necrotizing fascitis last time, when her cellulitis was more severe, CT then was neg, and showed just severe cellulitis. This is the 10th episode of severe cellulitis in this patient over 2 yrs as per the patients partner. She may benefit from evaluation by an hot knife foxing cutter, I am not sure if chr antibiotic prophylaxis is useful, she is unfortunately allergic to penicllin and keflex, Trend lactic acid Aggresive fluid resusiation Hold bp meds, IV hydralazine prn if needed resume home meds when able SSI insulin for Glucose control DVT hep sq Diet Carb consistent Full code
[2017-10-30] MEDS: LACTATED RINGERS 1,000 ML IV SCH ×3 (00:45→11:18)
[2017-10-30] MEDS ORDERED: ERTAPENEM 1 GM in 0.9 % SODIUM CHLORIDE 50 ML IV ONE (00:57)
[2017-10-30] MEDS ORDERED: DEXTROSE 50% 50 ML VIAL IV PRN ×2 (00:57→13:57)
[2017-10-30] MEDS ORDERED: hydrALAZINE 20 MG/ML VIAL IV PRN ×2 (00:57→13:57)
[2017-10-30] MEDS ORDERED: VANCOMYCIN PER PHARMACY IV ONE (00:57)
[2017-10-30] MEDS ORDERED: DEXTROSE 31 GM ORAL.SUSP PO PRN ×2 (00:57→13:57)
[2017-10-30] MEDS ORDERED: ACETAMINOPHEN 325 MG TABLET PO PRN ×2 (00:57→13:57)
[2017-10-30] MEDS ORDERED: rOPINIRole 1 MG TABLET PO SCH (00:57)
[2017-10-30] MEDS ORDERED: CLINDAMYCIN 600 MG/4 ML VIAL ONE (01:10)
[2017-10-30] MEDS: CLINDAMYCIN 900 MG in DEXTROSE 5% IN WATER 50 ML IV SCH ×4 (01:15→21:48)
[2017-10-30 05:50] LABS: Basophils # (Auto) 0 K/mcL (0.0-0.3); Basophils % (Auto) 0.2 % (0.0-2.0); Eosinophils # (Auto) 0 K/mcL (0.0-0.7); Eosinophils % (Auto) 0.2 % (0.0-7.0); Granulocytes % (Auto) 90.7 % (38.0-78.0); Lymphocytes # (Auto) 0.8 K/mcL (1.5-4.8); Lymphocytes % (Auto) 4.2 % (15.5-49.0); Mean Cell Volume 82.9 fL (80.0-100.0); Mean Corpuscular HGB Conc 32.9 g/dL (31.0-36.0); Mean Corpuscular Hemoglobin 27.2 pg (26.0-34.0); Monocytes # (Auto) 0.9 K/mcL (0.1-0.9); Monocytes % (Auto) 4.7 % (1.0-12.0); Platelet Count 221 K/mcL (140-440); Red Cell Distribution Width 17.3 % (11.5-14.5)
--- NOTE | 2017-10-30 05:58 | XRay Report ---
INDICATION: Dyspnea TECHNIQUE: AP chest x-ray, portable semiupright COMPARISON: Chest x-ray dated 09/11/2017 FINDINGS:Patient is obese and examination was performed in AP position. This causes some magnification but there is cardiomegaly.. This is unchanged. Pulmonary vascularity is normal. No pulmonary congestion or pulmonary edema. No focal pulmonary parenchymal infiltrate. No evidence for pneumonia. No acute abnormality. No interval change IMPRESSION: 1. Cardiomegaly. No pulmonary edema. 2. No acute infiltrate. No interval change since 09/11/2017. Interpreted and Authenticated by: Regan Roland 10/30/17
[2017-10-30] MEDS ORDERED: 0.9 % SODIUM CHLORIDE 10 ML SYRINGE IV SCH (06:00)
[2017-10-30 06:09] LABS: ALT/SGPT 12 U/l (0-40); Albumin 3.6 gm/dL (3.2-5.2); Albumin/Globulin Ratio 1.3 (1.0-2.3); Alkaline Phosphatase 72 U/L (39-117); Bilirubin,Direct < 0.2 mg/dL (0.0-0.3); Blood Urea Nitrogen 20 mg/dl (6-20); Gamma Glutamyl Transpeptidase 47 U/L (5-36); Uric Acid 4.4 mg/dL (2.5-8.0)
[2017-10-30] MEDS ORDERED: POTASSIUM CHLORIDE 20 MEQ PACKET PO ONE ×3 (06:58→21:23)
[2017-10-30] MEDS ORDERED: VANCOMYCIN PER PHARMACY IV SCH (07:00)
[2017-10-30] MEDS: IPRATROPIUM/ALBUTEROL 3 ML AMPUL.NEB NEB SCH ×3 (07:19→18:52)
[2017-10-30] MEDS ORDERED: PANTOPRAZOLE 40 MG TABLET PO SCH (07:30)
[2017-10-30] MEDS ORDERED: FERROUS SULFATE 325 MG TABLET PO SCH (08:00)
[2017-10-30] MEDS ORDERED: DOXAZOSIN 4 MG TABLET PO SCH (09:00)
[2017-10-30] MEDS ORDERED: PREGABALIN 100 MG CAPSULE PO SCH (09:00)
[2017-10-30] MEDS ORDERED: OLMESARTAN MEDOXOMIL 20 MG TABLET PO SCH (09:00)
[2017-10-30] MEDS ORDERED: cloNIDine HCL 0.1 MG TABLET PO SCH (09:00)
[2017-10-30] MEDS ORDERED: NIFEdipine 30 MG TAB.XL.24H PO SCH (09:00)
[2017-10-30] MEDS ORDERED: MAGNESIUM OXIDE 400 MG TABLET PO SCH (09:00)
[2017-10-30] MEDS ORDERED: CETIRIZINE 10 MG TABLET PO SCH (09:00)
[2017-10-30] MEDS ORDERED: ASPIRIN 81 MG TAB.CHEW PO SCH (09:00)
[2017-10-30] MEDS ORDERED: HEPARIN 5,000 UNIT/ML VIAL SQ SCH (09:00)
[2017-10-30] MEDS: INSULIN LISPRO 1 UNIT/0.01 ML UNIT SQ SCH ×4 (09:20→21:36)
[2017-10-30] MEDS ORDERED: VANCOMYCIN 1,500 MG in 0.9 % SODIUM CHLORIDE 500 ML IV SCH ×2 (10:00→22:00)
--- NOTE | 2017-10-30 10:36 | Internal Med Progress Note ---
Medical - PN: Subj Patient information: Note initiated : 10/30/17 at 10:33 am Service Date, if different from initiated Date: [] Patient: Elizabeth Peacock a 57 y/o F admitted on 10/30/17 for shortness of breathe. Chief Complaint: [] Interval history: Ms. Peacock is a 57 year old F with h/o morbid obesity, DM, chr lymphedema and recurrent severe cellulitis, she was at her baselien till this afternoon, her partner had seen the patients legs this afternoon, and they appeared normal. Later in the evening, the patients partner noticed that she was not her self, she was confused and had chills, there was pain in her right lower extremity, and swelling with redness, this had involved the lower 2/3 of the right leg and some crreping along the medial aspect. The patient had weakness and chills, She has had multiple episodes of rapidly progressive cellulitis, she was recently admitted to this facility with a similar diagnosis, and hence she was brought to the ER The patient has headache, but no visual changes, no chest pain, no shortness of breath, no nausea/ vmoiting, no gi or gu compliants She has chr venous insufficency but has been seen by Dr mccallum and noted not to need any intervention. In the ER initially she had a low grade fever, but later had a tmax of 102.7, HR 120-130, wbc 21K, lactic acid 3.1, She was given vancomycin in the ER and presented to the hospital for further management. 10/30 Patient seen examined , doing david this AM, still febrile b ut hr and bp stable blood cx positive for gpc, iv vanco, ertapenum and clinda to continue descalate per sensitivity. Pt still feels weak, but better than yesterday no acute complaints or concerns. Pertinent ROS: Denies headache, dizziness Denies chest pain, palpitations Denies cough or shortness of breath Denies abdominal pain, nausea or vomiting. - Constitutional Vitals: Vital Signs Temp Pulse Resp BP Pulse Ox 100.1 F H 107 H 26 H 172/96 98 10/30/17 08:01 10/30/17 08:01 10/30/17 08:01 10/30/17 08:01 10/30/17 08:01 Period Temp Pulse Resp BP Sys/Merino Pulse Ox Last 24 Hr 99.7 F-103.2 F 78-130 13-27 129-181/76-129 89-99 Intake and Output 10/29/17 10/30/17 10/30/17 21:59 05:59 13:59 Intake Total 3356 / 3356 923 / 923 Output Total 1435 / 1435 720 / 720 Balance 192 / 1921 203 / 203 Weight 326 lb 328 lb 8 oz Intake & Output: Intake & Output 10/29/17 10/30/17 10/30/17 21:59 05:59 13:59 Intake Total 3356 / 3356 923 / 923 Output Total 1435 / 1435 720 / 720 Balance 1920 / 1921 203 / 203 Weight 326 lb 328 lb 8 oz Intake: IV 3356 / 3356 923 / 923 Cleocin 900 mg In Dextrose 5% 56 / 56 56 / 56 in Water 50 ml @ 100 mls/hr IV Q8H [facility] Rx#:[id number] INVanz 1 GM In Sodium Chloride 50 / 50 0.9% 50 ml @ 100 mls/hr IV ONCE ONE Rx#:[id number] Lactated Ringers 1,000 ml @ 250 1000 / 1000 867 / 867 mls/hr IV .Q4H [facility] Rx#: [id number] Vancomycin 1,000 mg In Sodium 250 / 250 Chloride 0.9% 250 ml @ 250 mls/ hr IV ONCE ONE Rx#:[id number] Output: Urine Catheter Amount 1435 / 1435 720 / 720 Exam: Constitutional; Afebrile, cooperative, alert, not in distress. Eyes- No icterus, , No periorbital swelling Ears- Ext ear normal, hearing normal to conversation. Neck- Midline trachea, supple Respiratory system: Air Entry equal on both sides, No crackles or wheezing, no rhonchi. CVS- Rate rhythm regular, S1,S2 heard, no gallop, no rub. Abdomen- Soft nontender abdomen, no organomegaly, no tenderness, no guarding or rigidity, NETWORK OPERATIONS SPECIALIST- AOOx3, moving all extremities, no gross focal deficit noted. Lower extremity- edema still prsent, but erythema has not progressed since last night, warmth to touch is also better, tenderness improved. Medical - PN: Obj Da - Labs CBC & Chem 7: 10/30/17 03:42 10/30/17 03:42 Labs: Abnormal Lab Results 10/30/17 10/30/17 10/29/17 03:42 03:42 22:20 WBC 18.1 H Hgb 11.7 L Hct 35.6 L RDW 17.3 H Gran % 90.7 H Lymph % (Auto) 4.2 L Gran # 16.4 H Lymph # (Auto) 0.8 L Seg Neutrophils % Lymphocytes % RBC Morphology Anisocytosis VBG Lactic Acid POC BUN BUN Glucose 132 H POC Glucose POC WB Ioniz Calcium Magnesium 1.5 L GGT 47 H Urine Protein 30 A Hyaline Casts 6 H 10/29/17 10/29/17 10/29/17 21:50 21:22 21:22 WBC Hgb Hct RDW Gran % Lymph % (Auto) Gran # Lymph # (Auto) Seg Neutrophils % Lymphocytes % RBC Morphology Anisocytosis VBG Lactic Acid 3.1 H POC BUN 30 H BUN 23 H Glucose 173 H POC Glucose 169 H POC WB Ioniz Calcium 0.97 L Magnesium GGT Urine Protein Hyaline Casts 10/29/17 21:22 WBC 21.4 H Hgb Hct RDW 17.6 H Gran % Lymph % (Auto) Gran # Lymph # (Auto) Seg Neutrophils % 82 H Lymphocytes % 4 L RBC Morphology Abnorm A Anisocytosis 1+ A VBG Lactic Acid POC BUN BUN Glucose POC Glucose POC WB Ioniz Calcium Magnesium GGT Urine Protein Hyaline Casts Meds: Medications Acetaminophen (Tylenol) 650 mg PO Q4-6HP PRN PRN Reason: PAIN/FEVER > 101 Albuterol/Ipratropium (Duoneb) 3 ml NEB Q6HRT [facility] Last Admin: 10/30/17 07:19 Dose: 3 ml Aspirin (Aspirin) 81 mg PO DAILY [facility] Last Admin: 10/30/17 09:17 Dose: 81 mg Atorvastatin Calcium (Lipitor) 80 mg PO HS [facility] Cetirizine HCl (Zyrtec) 10 mg PO DAILY [facility] Last Admin: 10/30/17 09:17 Dose: 10 mg Clonidine HCl (Catapres) 0.6 mg PO BID [facility] Last Admin: 10/30/17 09:17 Dose: 0.6 mg Dextrose (Dextrose 50%) 0 ml IV UD PRN PRN Reason: Hypoglycemia Diagnostic Test (Pha) (Accu-Chek) 1 each FS ACHS [facility] Last Admin: 10/30/17 07:30 Dose: 1 each Doxazosin Mesylate (Cardura) 8 mg PO BID [facility] Last Admin: 10/30/17 09:18 Dose: 8 mg Ferrous Sulfate (Ferrous Sulfate) 325 mg PO BIDCC [facility] Last Admin: 10/30/17 09:17 Dose: 325 mg Glucose (Insta-Glucose) 15 gm PO PRN PRN PRN Reason: Hypoglycemia Heparin Sodium (Porcine) (Heparin) 5,000 unit SQ Q12 [facility] Last Admin: 10/30/17 09:19 Dose: 5,000 unit Hydralazine HCl (Apresoline) 10 mg IV Q4-6HP PRN PRN Reason: Hypertension Last Admin: 10/30/17 07:08 Dose: 10 mg Ertapenem 1 gm/ Sodium (Chloride) 50 mls @ 100 mls/hr IV Q24H [facility] Clindamycin Phosphate 900 mg/ (Dextrose) 56 mls @ 100 mls/hr IV Q8H [facility] Last Infusion: 10/30/17 09:15 Dose: Infused Lactated Ringer's (Lactated Ringers) 1,000 mls @ 250 mls/hr IV .Q4H [facility] Stop: 10/30/17 12:56 Last Infusion: 10/30/17 08:26 Dose: 0 mls/hr Vancomycin HCl 1,500 mg/ (Sodium Chloride) 500 mls @ 333.3 mls/hr IV Q12H [facility] Last Admin: 10/30/17 09:40 Dose: 333.3 mls/hr Insulin Human Lispro (Humalog) 0 unit SQ ACHS [facility] PRN Reason: Protocol Last Admin: 10/30/17 09:20 Dose: Not Given Magnesium Oxide (Magnesium Oxide) 400 mg PO DAILY [facility] Last Admin: 10/30/17 09:17 Dose: 400 mg Montelukast Sodium (Singular) 10 mg PO HS [facility] Non-Formulary Medication (Nifedipine [Afeditab Cr]) 60 mg PO BID [facility] Nortriptyline HCl (Pamelor) 100 mg PO HS [facility] Olmesartan (Benicar) 40 mg PO DAILY [facility] Last Admin: 10/30/17 09:18 Dose: 40 mg Pantoprazole Sodium (Protonix) 40 mg PO BIDAC [facility] Last Admin: 10/30/17 07:46 Dose: 40 mg Pregabalin (Lyrica) 200 mg PO BID [facility] Last Admin: 10/30/17 09:18 Dose: 200 mg Ramelteon (Rozerem) 8 mg PO HS [facility] Ropinirole HCl (Requip) 1 mg PO HS [facility] Last Admin: 10/30/17 02:10 Dose: Not Given Sodium Chloride (Saline Flush) 10 ml IV Q8 [facility] Last Admin: 10/30/17 05:55 Dose: Not Given Vancomycin HCl (Vancomycin Per Pharmacy) 1 order IV UD [facility] Venlafaxine HCl (Effexor Xr) 225 mg PO [facility] Medical - PN: A/P - Time Spent With Patient Total time spent is greater than 50% in coordination of care (as documented) at patient's floor/unit and/or counseling patient: - Narrative A/P Narrative: A/P Severe Cellulitis Severe sepsis Recurrent Cellulitis lactic Acidosis HTN DM Morbid obesity Chr Lymphedema Osteoarthritis DM neuropathy Gram positive bactermia Plan xfer to tele status LIkely strep cellutlitis, continue IV vanco, ertapneum and IV clindamycin for now. descalate abx per sesitivity, d/c clindamycin after 48 hr use, clinda to limit toxin production. This is the 10th episode of severe cellulitis in this patient over 2 yrs as per the patients partner. She may benefit from evaluation by an gyroscope technician, I am not sure if chr antibiotic prophylaxis is useful, she is unfortunately allergic to penicllin and keflex, lactic acid this am normal resume home bp meds, montior bp Insulin ssi for glucose control DVT hep sq Diet Carb consistent Full code
[2017-10-30] MEDS ORDERED: cefTRIAXone 2 GM VIAL IV SCH (11:30)
[2017-10-30] MEDS ORDERED: cefTRIAXone 2 GM in DEXTROSE 5% IN WATER 50 ML IV SCH (11:30)
[2017-10-30] MEDS ORDERED: LACTOBACILLUS 1 CAPSULE PO SCH (11:58)
[2017-10-30] MEDS ORDERED: APIXABAN 2.5 MG TABLET PO SCH (12:45)
[2017-10-30] MEDS ORDERED: MAGNESIUM SULFATE 2 GM/50 ML BAG IV ONE (14:03)
[2017-10-30] MEDS: 0.9 % SODIUM CHLORIDE 10 ML SYRINGE IV SCH ×2 (15:11→21:48)
[2017-10-30] MEDS ORDERED: ALOE VERA TOPICAL PRN (15:21)
[2017-10-30] MEDS ORDERED: hydrOXYzine 25 MG TABLET PO PRN (15:21)
[2017-10-30] MEDS ORDERED: HYDROCORTISONE TOPICAL PRN (15:21)
[2017-10-30] MEDS ORDERED: ERTAPENEM 1 GM in 0.9 % SODIUM CHLORIDE 50 ML IV SCH (16:00)
[2017-10-30] MEDS ORDERED: WARFARIN 5 MG TABLET PO ONE (16:15)
[2017-10-30] MEDS: PANTOPRAZOLE 40 MG TABLET PO SCH (17:41)
[2017-10-30] MEDS: FERROUS SULFATE 325 MG TABLET PO SCH (17:41)
[2017-10-30] MEDS ORDERED: RAMELTEON 8 MG TABLET PO SCH (21:00)
[2017-10-30] MEDS ORDERED: NORTRIPTYLINE 25 MG CAPSULE PO SCH (21:00)
[2017-10-30] MEDS ORDERED: MONTELUKAST 10 MG TABLET PO SCH (21:00)
[2017-10-30] MEDS ORDERED: ATORVASTATIN 20 MG TABLET PO SCH (21:00)
[2017-10-30] MEDS ORDERED: APIXABAN 5 MG TABLET PO SCH (21:00)
[2017-10-30] MEDS ORDERED: VENLAFAXINE 75 MG CAP.XL.24H PO SCH (21:00)
[2017-10-30] MEDS ORDERED: METOPROLOL TARTRATE 5 MG/5 ML VIAL IV ONE (21:20)
[2017-10-30] MEDS: [UNRECOGNIZED DRUG - OTHER] TOPICAL SCH (21:37)
[2017-10-30] MEDS: diphenhydrAMINE 25 MG CAPSULE PO SCH (21:37)
[2017-10-30] MEDS: PETROLATUM WHITE TOPICAL SCH (21:37)
[2017-10-30] MEDS: cloNIDine HCL 0.1 MG TABLET PO SCH (21:38)
[2017-10-30] MEDS: DOXAZOSIN 4 MG TABLET PO SCH (21:38)
[2017-10-30] MEDS: LACTOBACILLUS 1 CAPSULE PO SCH (21:39)
[2017-10-30] MEDS: VENLAFAXINE 75 MG CAP.XL.24H PO SCH (21:40)
[2017-10-30] MEDS: HEPARIN 5,000 UNIT/ML VIAL SQ SCH (21:40)
[2017-10-30] MEDS: ATORVASTATIN 20 MG TABLET PO SCH (21:41)
[2017-10-30] MEDS: METOPROLOL TARTRATE 50 MG TABLET PO SCH (21:41)
[2017-10-30] MEDS: PREGABALIN 100 MG CAPSULE PO SCH (21:42)
[2017-10-30] MEDS: NIFEdipine 30 MG TAB.XL.24H PO SCH (21:43)
[2017-10-30] MEDS: NORTRIPTYLINE 25 MG CAPSULE PO SCH (21:43)
[2017-10-30] MEDS: MONTELUKAST 10 MG TABLET PO SCH (21:44)
[2017-10-30] MEDS: rOPINIRole 1 MG TABLET PO SCH (21:44)
[2017-10-30] MEDS: RAMELTEON 8 MG TABLET PO SCH (22:00)
[2017-10-30] MEDS ORDERED: HYDROcodone/APAP 5/325MG TABLET PO PRN (22:25)
[2017-10-30] MEDS: METOPROLOL TARTRATE 5 MG/5 ML VIAL IV SCH ×2 (22:37→23:26)
[2017-10-30] MEDS ORDERED: HYDROcodone/APAP 5/325MG TABLET PO ONE (22:49)
[2017-10-31] MEDS: IPRATROPIUM/ALBUTEROL 3 ML AMPUL.NEB NEB SCH ×4 (01:09→19:08)
[2017-10-31] MEDS: CLINDAMYCIN 900 MG in DEXTROSE 5% IN WATER 50 ML IV SCH ×3 (05:29→21:36)
[2017-10-31] MEDS: 0.9 % SODIUM CHLORIDE 10 ML SYRINGE IV SCH ×3 (05:29→21:36)
[2017-10-31 07:41] LABS: Basophils # (Auto) 0 K/mcL (0.0-0.3); Basophils % (Auto) 0.3 % (0.0-2.0); Eosinophils # (Auto) 0.5 K/mcL (0.0-0.7); Eosinophils % (Auto) 5.1 % (0.0-7.0); Granulocytes % (Auto) 75.4 % (38.0-78.0); Lymphocytes % (Auto) 9.9 % (15.5-49.0); Mean Cell Volume 82.9 fL (80.0-100.0); Mean Corpuscular HGB Conc 33.2 g/dL (31.0-36.0); Mean Corpuscular Hemoglobin 27.6 pg (26.0-34.0); Monocytes % (Auto) 9.3 % (1.0-12.0); Platelet Count 205 K/mcL (140-440); RBC 4.03 M/mcL (4.00-5.20); Red Cell Distribution Width 17.5 % (11.5-14.5)
[2017-10-31 07:57] LABS: ALT/SGPT 15 U/l (0-40); Albumin 3.3 gm/dL (3.2-5.2); Albumin/Globulin Ratio 1.1 (1.0-2.3); Alkaline Phosphatase 67 U/L (39-117); Bilirubin,Direct < 0.2 mg/dL (0.0-0.3); Blood Urea Nitrogen 12 mg/dl (6-20); Gamma Glutamyl Transpeptidase 47 U/L (5-36); Uric Acid 4.3 mg/dL (2.5-8.0)
[2017-10-31] MEDS: INSULIN LISPRO 1 UNIT/0.01 ML UNIT SQ SCH ×4 (08:56→21:35)
[2017-10-31] MEDS: cefTRIAXone 2 GM in DEXTROSE 5% IN WATER 50 ML IV SCH (08:59)
[2017-10-31] MEDS: FERROUS SULFATE 325 MG TABLET PO SCH ×2 (09:00→17:09)
[2017-10-31] MEDS: diphenhydrAMINE 25 MG CAPSULE PO SCH ×2 (09:10→21:34)
[2017-10-31] MEDS: METOPROLOL TARTRATE 50 MG TABLET PO SCH ×2 (09:10→21:31)
[2017-10-31] MEDS: cloNIDine HCL 0.1 MG TABLET PO SCH ×2 (09:10→21:32)
[2017-10-31] MEDS: PANTOPRAZOLE 40 MG TABLET PO SCH ×2 (09:24→17:09)
[2017-10-31] MEDS: DOXAZOSIN 4 MG TABLET PO SCH ×2 (09:24→21:32)
[2017-10-31] MEDS: LACTOBACILLUS 1 CAPSULE PO SCH ×2 (09:24→21:31)
[2017-10-31] MEDS: OLMESARTAN MEDOXOMIL 20 MG TABLET PO SCH (09:24)
[2017-10-31] MEDS: CETIRIZINE 10 MG TABLET PO SCH (09:24)
[2017-10-31] MEDS: PREGABALIN 100 MG CAPSULE PO SCH ×2 (09:25→21:32)
[2017-10-31] MEDS: NIFEdipine 30 MG TAB.XL.24H PO SCH ×2 (09:25→21:31)
[2017-10-31] MEDS: HEPARIN 5,000 UNIT/ML VIAL SQ SCH ×2 (09:25→21:34)
[2017-10-31] MEDS: MAGNESIUM OXIDE 400 MG TABLET PO SCH (09:27)
[2017-10-31] MEDS: PETROLATUM WHITE TOPICAL SCH ×2 (10:00→21:35)
[2017-10-31] MEDS: [UNRECOGNIZED DRUG - OTHER] TOPICAL SCH ×2 (10:00→21:35)
[2017-10-31] MEDS ORDERED: WARFARIN 5 MG TABLET PO ONE (14:00)
[2017-10-31] MEDS ORDERED: DIAZEPAM 2 MG TABLET PO PRN (21:00)
[2017-10-31] MEDS: rOPINIRole 1 MG TABLET PO SCH (21:31)
[2017-10-31] MEDS: NORTRIPTYLINE 25 MG CAPSULE PO SCH (21:31)
[2017-10-31] MEDS: VENLAFAXINE 75 MG CAP.XL.24H PO SCH (21:33)
[2017-10-31] MEDS: ATORVASTATIN 20 MG TABLET PO SCH (21:33)
[2017-10-31] MEDS: MONTELUKAST 10 MG TABLET PO SCH (21:34)
[2017-10-31] MEDS: RAMELTEON 8 MG TABLET PO SCH (22:09)
[2017-11-01] MEDS: IPRATROPIUM/ALBUTEROL 3 ML AMPUL.NEB NEB SCH ×3 (00:44→13:57)
[2017-11-01 04:45] LABS: Basophils # (Auto) 0 K/mcL (0.0-0.3); Basophils % (Auto) 0.4 % (0.0-2.0); Eosinophils # (Auto) 0.8 K/mcL (0.0-0.7); Eosinophils % (Auto) 10.8 % (0.0-7.0); Granulocytes % (Auto) 60.8 % (38.0-78.0); Lymphocytes # (Auto) 1.2 K/mcL (1.5-4.8); Lymphocytes % (Auto) 17.3 % (15.5-49.0); Mean Cell Volume 82.8 fL (80.0-100.0); Mean Corpuscular HGB Conc 32.8 g/dL (31.0-36.0); Mean Corpuscular Hemoglobin 27.2 pg (26.0-34.0); Monocytes # (Auto) 0.8 K/mcL (0.1-0.9); Monocytes % (Auto) 10.7 % (1.0-12.0); Platelet Count 223 K/mcL (140-440); RBC 3.92 M/mcL (4.00-5.20); Red Cell Distribution Width 17.6 % (11.5-14.5)
[2017-11-01 05:00] LABS: ALT/SGPT 21 U/l (0-40); Albumin 3.2 gm/dL (3.2-5.2); Albumin/Globulin Ratio 1.1 (1.0-2.3); Alkaline Phosphatase 85 U/L (39-117); Bilirubin,Direct < 0.2 mg/dL (0.0-0.3); Blood Urea Nitrogen 12 mg/dl (6-20); Gamma Glutamyl Transpeptidase 58 U/L (5-36); Uric Acid 4.5 mg/dL (2.5-8.0)
[2017-11-01] MEDS: CLINDAMYCIN 900 MG in DEXTROSE 5% IN WATER 50 ML IV SCH ×2 (05:00→13:57)
[2017-11-01] MEDS: 0.9 % SODIUM CHLORIDE 10 ML SYRINGE IV SCH ×2 (05:01→15:03)
[2017-11-01] MEDS: PANTOPRAZOLE 40 MG TABLET PO SCH (07:18)
[2017-11-01] MEDS: INSULIN LISPRO 1 UNIT/0.01 ML UNIT SQ SCH ×3 (07:23→13:57)
[2017-11-01] MEDS: cefTRIAXone 2 GM in DEXTROSE 5% IN WATER 50 ML IV SCH (08:51)
[2017-11-01] MEDS: diphenhydrAMINE 25 MG CAPSULE PO SCH (08:51)
[2017-11-01] MEDS: METOPROLOL TARTRATE 50 MG TABLET PO SCH (08:51)
[2017-11-01] MEDS: cloNIDine HCL 0.1 MG TABLET PO SCH (08:51)
[2017-11-01] MEDS: MAGNESIUM OXIDE 400 MG TABLET PO SCH (08:52)
[2017-11-01] MEDS: HEPARIN 5,000 UNIT/ML VIAL SQ SCH (08:52)
[2017-11-01] MEDS: FERROUS SULFATE 325 MG TABLET PO SCH (08:52)
[2017-11-01] MEDS: PETROLATUM WHITE TOPICAL SCH (08:54)
[2017-11-01] MEDS: [UNRECOGNIZED DRUG - OTHER] TOPICAL SCH (08:54)
[2017-11-01] MEDS: PREGABALIN 100 MG CAPSULE PO SCH (09:01)
[2017-11-01] MEDS: LACTOBACILLUS 1 CAPSULE PO SCH (09:01)
[2017-11-01] MEDS: NIFEdipine 30 MG TAB.XL.24H PO SCH (09:01)
[2017-11-01] MEDS: OLMESARTAN MEDOXOMIL 20 MG TABLET PO SCH (09:01)
[2017-11-01] MEDS: DOXAZOSIN 4 MG TABLET PO SCH (09:01)
[2017-11-01] MEDS: CETIRIZINE 10 MG TABLET PO SCH (09:01)
--- NOTE | 2017-11-01 11:40 | Discharge Summary ---
Medical - DS: Prov Patient information: Note initiated : 11/01/17 at 11:38 am Service Date, if different from initiated Date: [] Patient: Elizabeth Peacock 57 y/o F admitted on 10/30/17 for SOB/Cellulitis of Right Lower Leg, Sepsis. Chief Complaint: [] Date of admission: 10/30/17 00:40 Discharge date: 11/01/17 Primary care physician: Susana Houston Admitting clinician: Dariela Singh Consults: 10/29/17 23:14 Consult to Physician [CONS] Stat Comment: Consulting Provider: Dariela Singh Reason For Exam: Physician to Consult Discharging clinician: Dariela Singh Medical - DS: Meds - Discharge Medications Prescriptions: Chlorhexidine Gluconate [Hibiclens] 946 ml TP DAILY #1 Levofloxacin 750 mg PO DAILY #12 tab Warfarin [Coumadin] 5 mg PO DAILY #30 tab Active and Home Medications: Home Medications Albuterol Sulfate 2.5 mg IH Q4HP PRN 09/11/17 [History Confirmed 10/30/17 Last Taken 10/29/17 14:00] Aspirin [Lo-Dose Aspirin EC] 81 mg PO DAILY 09/11/17 [History Confirmed Last Taken 10/29/17 09:00] Atorvastatin [Lipitor] 80 mg PO HS 09/11/17 [History Confirmed 10/30/17 Last Taken 10/28/17 22:00] Cetirizine [Zyrtec] 10 mg PO DAILY 09/11/17 [History Confirmed 10/30/17 Last Taken 10/29/17 09:00] Doxazosin [Cardura] 8 mg PO BID 09/11/17 [History Confirmed 10/30/17 Last Taken 10/29/17 09:00] Esomeprazole Magnesium [Nexium] 40 mg PO BID 09/11/17 [History Confirmed Last Taken 10/29/17 09:00] Ferrous Sulfate, Dried [Iron] 65 mg PO BID 09/11/17 [History Confirmed 10/30/17 Last Taken 10/29/17 09:00] Ipratropium/Albuterol Sulfate [Combivent] 1 puff INH Q4HP PRN 09/11/17 [History Confirmed 10/30/17 Last Taken 10/29/17 1400] Magnesium Oxide [Magnesium] 400 mg PO DAILY 09/11/17 [History Confirmed Last Taken 10/29/17 09:00] Metoprolol Tartrate 100 mg PO BID 09/11/17 [History Confirmed 10/30/17 Last Taken 10/29/17 0900] Montelukast [Singular] 10 mg PO HS 09/11/17 [History Confirmed 10/30/17 Last Taken 10/28/17 22:00] NIFEdipine [Afeditab Cr] 60 mg PO BID 09/11/17 [History Confirmed 10/30/17 Last Taken 10/29/17 09:00] Nortriptyline [Pamelor] 100 mg PO HS 09/11/17 [History Confirmed 10/30/17 Last Taken 10/28/17 22:00] Olmesartan Medoxomil [Benicar] 40 mg PO DAILY 09/11/17 [History Confirmed Last Taken 10/29/17 09:00] [place]-3/Dha/Epa/Fish Oil [Fish Oil 1,400 mg Softgel] 1,400 mg PO DAILY 09/11/17 [History Confirmed 10/30/17 Last Taken 10/29/17 09:00] Potassium Chloride [Klor-Con 10] 10 meq PO DAILY 09/11/17 [History Confirmed 07/15 Last Taken 10/29/17 09:00] Pregabalin [Lyrica] 200 mg PO BID 09/11/17 [History Confirmed 10/30/17 Last Taken 10/29/17 09:00] Ramelteon [Rozerem] 8 mg PO HS 09/11/17 [History Confirmed 10/30/17 Last Taken 10/28/17 22:00] Ranitidine HCl [Heartburn Relief] 150 mg PO BID 09/11/17 [History Confirmed 07/15 Last Taken 10/29/17 09:00] Venlafaxine [Effexor Xr] 225 mg PO HS 09/11/17 [History Confirmed 10/29/17 Last Taken Unknown] cloNIDine HCL [Catapres] 0.6 mg PO BID 09/11/17 [History Confirmed 10/30/17 Last Taken 10/29/17 09:00] diphenhydrAMINE HCL [Benadryl] 50 mg PO BID 09/11/17 [History Confirmed Last Taken 10/29/17 15:00] hydrOXYzine [Atarax] 25 mg PO PRN PRN 09/11/17 [History Confirmed 10/30/17 Last Taken 10/29/17 0900] rOPINIRole [Requip] 1 mg PO HS 09/11/17 [History Confirmed 10/30/17 Last Taken 10/28/17 22:00] sitaGLIPtin PHOS/metFORMIN HCL [Janumet 50-1,000 mg Tablet] 1 each PO DAILY [History Confirmed 10/29/17 Last Taken Unknown] Apixaban [Eliquis] 5 mg PO BID #60 tab 10/30/17 [Rx Last Taken Unknown] Hydrocortisone/Aloe Vera [Hydrocortisone Plus 1% Cream] 28.4 gm TP QIDP PRN 07/15 [History Confirmed 10/30/17 Last Taken 10/30/17 08:00] Mometasone Furoate [Elocon] 45 gm TP BID 10/30/17 [History Confirmed 10/30/17 Last Taken 10/29/17 18:00] Petrolatum,White/Water [Vanicream Lite Lotion] 474 ml TP BID 10/30/17 [History Confirmed 10/30/17 Last Taken 10/29/17 18:00] Medical - DS: Hosp Hospital course: Ms. Peacock is a 57 year old F with h/o morbid obesity, DM, chr lymphedema and recurrent severe cellulitis, she was at her [place]elien till this afternoon, her partner had seen the patients legs this afternoon, and they appeared normal. Later in the evening, the patients partner noticed that she was not her self, she was confused and had chills, there was pain in her right lower extremity, and swelling with redness, this had involved the lower 2/3 of the right leg and some crreping along the medial aspect. She has had multiple episodes of rapidly progressive cellulitis, she was recently admitted to this facility with a similar diagnosis, and hence she was brought to the ER, She has chr venous insufficiency but has been seen by Dr mccallum and noted not to need any intervention. In the ER initially she had a low grade fever, but later had a tmax of 102.7, HR 120-130, wbc 21K, lactic acid 3.1, She was given vancomycin in the ER and presented to the hospital for further management. Severe recurrent Cellulitis- patient has blood c x positive for group B Strep agalatace, this was the same organism she isolated last time, it seems she has recurrent cellulitis, the patient was treated with IV vanco, clindamycin and ertapenum initially, later switchted to rochephin. Given the good sensitivity to levofloxacin, will send her on levofloxacin, she responded well to this regime last time. The biggest risk factor for recurrent cellulitis is her lymphedema and while she has this she will remain at risk for recurrent cellulitits, she is allergic to penicillin and cephalexin, I do not think oral antibiotic prophylaxis would be a good idea at this time. She may benefit from evaluation by a completions manager. I will advise patient to wash herself kun the lower legs with hibclens soap atleast once daily to see if we can avoid any further relapses of this fulminant cellulitis. Atrial Flutter- The patient has newly diagnosed atrial flutter, controlled rate during this admission, she had few episodes or rvr, but once her home regime for bp meds were initiated her rate was well controlled We considered trying eliquis for this patient for anticoagulation but it seems her insurance does not cover it. I will start the patient on coumadin, she will need to follow up with PCP for inr check She will need outpatient cardiology follow up for evaluation for possible ablation therapy The rest of the stay in the hospital was uneventful, no changes made to previous home meds, only coumadin added to her regime. Discharge diagnosis: Cellulitis - Time Spent with Patient Total time spent providing and/or coordinating discharge services: Greater than 30 minutes Medical - DS: Exam - Constitutional Vitals: Vital Signs Temp Pulse Pulse Resp BP BP Pulse Ox 11/01/17 08:00 79 17 98 11/01/17 07:32 98.0 F 72 17 148/81 98 11/01/17 07:05 80 16 11/01/17 03:58 98.7 F 20 131/66 98 10/31/17 23:24 98.5 F 20 144/60 10/31/17 20:00 97.9 F 20 147/82 94 10/31/17 19:10 86 16 95 10/31/17 18:47 80 94 10/31/17 16:00 98.1 F 86 18 138/78 97 10/31/17 13:23 77 18 10/31/17 12:03 97.7 F 18 147/96 95 Intake and Output 10/31/17 11/01/17 11/01/17 21:59 05:59 13:59 Intake Total 1371 / 1371 906 / 906 56 / 56 Output Total 1250 / 1250 1450 / 1450 Balance 121 / 121 -544 / -544 Intake: IV / 56 / Cleocin 900 mg In Dextrose 5% / / 56 in Water 50 ml @ 100 mls/hr IV Q8H [facility] Rx#:[id number] Oral 1315 / 1315 850 / 850 Output: Urine Catheter Amount 1250 / 1250 1450 / 1450 Other: Meal Dinner Percent of Meal Consumed 50% Weight 332 lb Additional comments: Constitutional; Afebrile, cooperative, alert, not in distress. Respiratory system: Air Entry equal on both sides, No crackles or wheezing, no rhonchi. CVS- Rate rhythm regular, S1,S2 heard, no gallop, no rub. Abdomen- Soft nontender abdomen, no organomegaly, no tenderness, no guarding or rigidity, ANALYST BUSINESS ANALYSIS- AOOx3, moving all extremities, no gross focal deficit noted. Skin region erythema much improved. Medical - DS: Data Labs on day of discharge: Labs from last 24 hours 11/01/17 11/01/17 11/01/17 03:45 03:45 03:45 WBC 7.2 RBC 3.92 L Hgb 10.7 L Hct 32.5 L MCV 82.8 MCH 27.2 MCHC 32.8 RDW 17.6 H Plt Count 223 MPV 10.1 Gran % 60.8 Lymph % (Auto) 17.3 [place] % (Auto) 10.7 Eos % (Auto) 10.8 H Baso % (Auto) 0.4 Gran # 4.4 Lymph # (Auto) 1.2 L [place] # (Auto) 0.8 Eos # (Auto) 0.8 H Baso # (Auto) 0 PT 15.6 H INR 1.2 H Sodium 142 Potassium 3.7 Chloride 103 Carbon Dioxide 28 Anion Gap 11.0 BUN 12 Creatinine 0.9 GFR Calculation 71 Glucose 137 H Uric Acid 4.5 Calcium 8.9 Phosphorus 4.8 H Magnesium 1.8 Total Bilirubin 0.4 Direct Bilirubin < 0.2 GGT 58 H AST 26 ALT 21 Alkaline Phosphatase 85 Lactate Dehydrogenase 173 Total Protein 6.2 Albumin 3.2 Globulin 3.0 Albumin/Globulin Ratio 1.1 Triglycerides 87 Preliminary micro results at discharge 10/30/17 08:36 Blood Culture - Preliminary Blood 10/30/17 08:24 Blood Culture - Preliminary Blood 10/29/17 22:20 Blood Culture - Preliminary Blood Strep agalactiae - (group b) 10/29/17 21:22 Blood Culture - Preliminary Blood Gram positive cocci Medical - DS: A/P - Patient/Caregiver Discharge Instructions Activity: increase activity as tolerated Diet: Consistent Carbohydrate Additional Instructions: Apply hibiclens soap wash 4% to skin, - Rinse area with water, then apply minimum amount necessary to cover skin of lower extremities, and wash gently. Rinse again thoroughly Follow up with PCP on 11/05/17, for follow up. You have been started on coumadin for anticoagulation therapy, please do not take aspirin, / NSAIDs with this medication, this will increase your risk of bleeding. You need to check your INR in 3-4 days, preferably on Sunday by your PCP, who will titrate your dose. You have been diagnosed with new onset Atrial Flutter, your rate is well controlled, you may be a candidate for ablation therapy, I would like to refer you to a mailroom associate solar site assessment specialist for further evaluation. Please take antibiotics levofloxacin for another 12 days. Go to the ER if worsening erythema, fever, chest pain or any other acute concern. Prescriptions: Apixaban [Eliquis] 5 mg PO BID #60 tab - Follow up Plan Follow up with: Susana Houston MD [Primary Care Provider] - Disposition: Home, Self-Care Prognosis: Fair Rehab Potential: Fair I certify that the patient requires SNF services: No Overall status at discharge: patient is progressing back to baseline
[2017-11-01] MEDS ORDERED: WARFARIN 5 MG TABLET PO ONE (14:00)
== END 2017-11-01 14:00 | disposition home or self-care (01) | DRG 872 ==
LOC: ED 20:51 → ICU 10-30 00:40
PROVIDERS: ADMIT Internal Medicine; ATTEND Internal Medicine

== ENCOUNTER 2017-12-15 16:59 | Inpatient (IN) ==
[2017-12-15] MEDS ORDERED: 0.9 % SODIUM CHLORIDE 1,000 ML IV ONE (17:10)
[2017-12-15] MEDS ORDERED: ACETAMINOPHEN 325 MG TABLET PO ONE (17:17)
[2017-12-15] MEDS ORDERED: metroNIDAZOLE 500 MG/100 ML BAG IV ONE (17:51)
[2017-12-15] MEDS ORDERED: VANCOMYCIN 1,000 MG in 0.9 % SODIUM CHLORIDE 250 ML IV ONE (17:51)
[2017-12-15] MEDS ORDERED: IBUPROFEN 600 MG TABLET PO ONE (18:07)
[2017-12-15 18:34] LABS: Basophils # (Auto) 0 K/mcL (0.0-0.3); Basophils % (Auto) 0 % (0.0-2.0); Eosinophils # (Auto) 0.3 K/mcL (0.0-0.7); Eosinophils % (Auto) 2.3 % (0.0-7.0); Granulocytes % (Auto) 91.4 % (38.0-78.0); Lymphocytes # (Auto) 0.4 K/mcL (1.5-4.8); Lymphocytes % (Auto) 3.3 % (15.5-49.0); Mean Cell Volume 84.3 fL (80.0-100.0); Mean Corpuscular HGB Conc 33.1 g/dL (31.0-36.0); Mean Corpuscular Hemoglobin 27.9 pg (26.0-34.0); Monocytes # (Auto) 0.4 K/mcL (0.1-0.9); Platelet Count 274 K/mcL (140-440); RBC 4.83 M/mcL (4.00-5.20); Red Cell Distribution Width 16.2 % (11.5-14.5)
[2017-12-15 18:51] LABS: ALT/SGPT 19 U/l (0-40); Albumin 4.4 gm/dL (3.2-5.2); Albumin/Globulin Ratio 1.4 (1.0-2.3); Alkaline Phosphatase 95 U/L (39-117); Blood Urea Nitrogen 22 mg/dl (6-20)
--- NOTE | 2017-12-15 19:11 | Emergency Department Note ---
Fever HPI - General Chief Complaint: Fever Stated Complaint: fever Time Seen by Provider: 12/15/17 17:32 Source: patient, family, EMS Mode of arrival: EMS Limitations: no limitations - History of Present Illness HPI Narrative: 57-year-old female with morbid obesity comes in for recurrent cellulitis. She had a fever of 104 at home here it is 102.4. Concerned that her cellulitis from her chronic lymphedema has returned. She has multiple antibiotic allergies listed but she states she is able to take Levaquin. She was recently discharged from this hospital on Levaquin on 11/01/[address] Singh. She is not complaining of shortness of breath abdominal pain or any other concerning features although she is having some difficulty concentrating and focusing with fever. - Related Data Home Medications Medication Instructions Recorded Confirmed Albuterol Sulfate 2.5 mg IH Q4HP PRN 09/11/17 12/15/17 Aspirin [Lo-Dose Aspirin EC] 81 mg PO DAILY 09/11/17 12/15/17 Atorvastatin [Lipitor] 80 mg PO HS 09/11/17 12/15/17 Cetirizine [Zyrtec] 10 mg PO DAILY 09/11/17 12/15/17 Doxazosin [Cardura] 8 mg PO BID 09/11/17 12/15/17 Esomeprazole Magnesium [Nexium] 40 mg PO BID 09/11/17 12/15/17 Ferrous Sulfate, Dried [Iron] 65 mg PO BID 09/11/17 12/15/17 Ipratropium/Albuterol Sulfate 1 puff INH Q4HP PRN 09/11/17 12/15/17 [Combivent] Magnesium Oxide [Magnesium] 400 mg PO DAILY 09/11/17 12/15/17 Metoprolol Tartrate 100 mg PO BID 09/11/17 12/15/17 Montelukast [Singular] 10 mg PO HS 09/11/17 12/15/17 NIFEdipine [Afeditab Cr] 60 mg PO BID 09/11/17 12/15/17 Nortriptyline [Pamelor] 100 mg PO HS 09/11/17 12/15/17 Olmesartan Medoxomil [Benicar] 40 mg PO DAILY 09/11/17 12/15/17 [place]-3/Dha/Epa/Fish Oil [Fish Oil 1,400 mg PO DAILY 09/11/17 12/15/17 1,400 mg Softgel] Potassium Chloride [Klor-Con 10] 10 meq PO DAILY 09/11/17 12/15/17 Pregabalin [Lyrica] 200 mg PO BID 09/11/17 12/15/17 Ramelteon [Rozerem] 8 mg PO HS 09/11/17 12/15/17 Ranitidine HCl [Heartburn Relief] 150 mg PO BID 09/11/17 12/15/17 Venlafaxine [Effexor Xr] 225 mg PO HS 09/11/17 12/15/17 cloNIDine HCL [Catapres] 0.6 mg PO BID 09/11/17 12/15/17 diphenhydrAMINE HCL [Benadryl] 50 mg PO BID 09/11/17 12/15/17 hydrOXYzine [Atarax] 25 mg PO PRN PRN 09/11/17 12/15/17 rOPINIRole [Requip] 1 mg PO HS 09/11/17 12/15/17 sitaGLIPtin PHOS/metFORMIN HCL 1 each PO DAILY 09/11/17 12/15/17 [Janumet 50-1,000 mg Tablet] Hydrocortisone/Aloe Vera 28.4 gm TP QIDP PRN 10/30/17 12/15/17 [Hydrocortisone Plus 1% Cream] Mometasone Furoate [Elocon] 45 gm TP BID 10/30/17 12/15/17 Petrolatum,White/Water [Vanicream 474 ml TP BID 10/30/17 12/15/17 Lite Lotion] Warfarin [Coumadin] 7.5 mg PO DAILY 11/05/17 12/15/17 Previous Rx's Medication Instructions Recorded Chlorhexidine Gluconate [Hibiclens] 946 ml TP DAILY #1 11/01/17 Diazepam [Valium] 2 mg PO HSP PRN tablet 11/01/17 Levofloxacin 750 mg PO DAILY #12 tab 11/01/17 Allergies Allergy/AdvReac Type Severity Reaction Status Date / Time Sulfa (Sulfonamide Allergy Severe Hives Verified 11/05/17 18:50 Antibiotics) cephalexin [From Keflex] Allergy Intermediate Hives Verified 11/05/17 18:50 exenatide [From Byetta] Allergy Intermediate Hives Verified 11/05/17 18:50 latex Allergy Intermediate Rash Verified 11/05/17 18:50 levofloxacin [From Levaquin] Allergy Intermediate Hives Verified 11/05/17 18:50 Penicillins Allergy Intermediate Hives Verified 11/05/17 18:50 Rosiglitazone [From Avandia] Allergy Intermediate Hives Verified 11/05/17 18:50 meperidine [From Demerol] AdvReac Intermediate Gastrointestinal Verified 18:50 Upset Review of Systems All systems ED: reviewed and negative except as stated. Fever PMH - Past Medical History Attestation: Yes: The following information was validated with the patient. Medical history: Reports: atrial fibrillation (Flutter), CHF, DM, hypertension, kidney stones, other (Chronic lymphedema with recurrent cellulitis of the lower extremities, pulmonary hypertension with mild systolic heart failure) Surgical history ED: Reports: hysterectomy (Still has one ovary), orthopedic, other (Bilateral knees), other (Kaci) Psychiatric history: Reports: anxiety, depression - Social History smoking status: Never smoker Alcohol use: Reports: None Drug use: Reports: none Physical Exam Morbidly obese. Normocephalic atraumatic. Conjunctive are mildly injected. Sclerae white and nonicteric. No nasal discharge or congestion. Oropharynx pink and moist. Heart is regular rate and rhythm no murmur appreciated. Lungs are clear to auscultation bilaterally without wheezes rales rhonchi or respiratory distress. Abdomen is soft nontender nondistended no peritoneal signs guarding or rigidity. Normoactive bowel sounds. Marked 2+ edema bilaterally. She does not have any weeping sores or diffuse redness but she does have an area of redness around the great toe on her right foot as well as other patches of eczema with excoriations. Notable eczema and seborrhea multiple locations on her face including her chin eyebrows and nasolabial folds etc. Palpating her lymphedema the left leg is slightly more tender than the right but these appears about the same size. She is able to answer questions appropriately although her significant other helps from time to time Limitations: no limitations Course Vital Signs Temperature 102.4 F H 12/15/17 17:01 Pulse Rate 83 12/15/17 17:01 Respiratory Rate 18 12/15/17 17:01 Blood Pressure 159/89 12/15/17 17:01 Pulse Oximetry (%) 95 08/18/18 17:01 Temperature 98.9 F 12/16/17 07:00 Pulse Rate 61 12/16/17 07:00 Respiratory Rate 18 12/16/17 07:00 Blood Pressure 120/58 12/16/17 07:00 Pulse Oximetry (%) 95 12/16/17 07:00 Fever - Lab Data Lab results reviewed: Yes I reviewed the patient's lab results. Result diagrams: 12/16/17 04:14 12/16/17 04:14 Lab Results 12/15/17 12/15/17 12/15/17 Range/Units 17:42 17:42 17:42 WBC 11.6 H (4.5-11.0) K/mcL RBC 4.83 (4.00-5.20) M/mcL Hgb 13.5 (12.0-15.0) g/dL Hct 40.8 (36.0-48.0) % MCV 84.3 (80.0-100.0) fL MCH 27.9 (26.0-34.0) pg MCHC 33.1 (31.0-36.0) g/dL RDW 16.2 H (11.5-14.5) % Plt Count 274 (140-440) K/mcL MPV 9.4 (7.4-10.4) fL Gran % 91.4 H (38.0-78.0) % Lymph % (Auto) 3.3 L (15.5-49.0) % [place] % (Auto) 3.0 (1.0-12.0) % Eos % (Auto) 2.3 (0.0-7.0) % Baso % (Auto) 0 (0.0-2.0) % Gran # 10.6 H (1.8-8.0) K/mcL Lymph # (Auto) 0.4 L (1.5-4.8) K/mcL [place] # (Auto) 0.4 (0.1-0.9) K/mcL Eos # (Auto) 0.3 (0.0-0.7) K/mcL Baso # (Auto) 0 (0.0-0.3) K/mcL Total Counted Seg Neutrophils % (38-78) % Band Neutrophils % Lymphocytes % (15-49) % Monocytes % (Manual) (1-12) % Eosinophils % (Manual) (0-7) % Basophils % (Manual) (0-2) % Platelet Estimate (NORMAL) RBC Morphology (NORMAL) Anisocytosis (NONE SEEN) PT (11.9-14.5) sec INR (0.9-1.1) VBG Lactic Acid 2.3 H (0.5-2.2) mmol/L Sodium 139 (133-145) mmol/L Potassium 3.3 (3.3-5.1) mmol/L Chloride 101 (96-108) mmol/L Carbon Dioxide 26 (22-30) mmol/L Anion Gap 12.0 (8-16) BUN 22 H (6-20) mg/dl Creatinine 1.0 (0.6-1.1) mg/dl GFR Calculation 62 Glucose 135 H (70-105) mg/dL Calcium 9.5 (8.6-10.4) mg/dl Total Bilirubin 0.5 (0.0-1.0) mg/dL AST 16 (0-37) U/l ALT 19 (0-40) U/l Alkaline Phosphatase 95 (39-117) U/L Total Protein 7.5 (5.9-8.4) gm/dL Albumin 4.4 (3.2-5.2) gm/dL Globulin 3.1 (2.2-3.7) gm/dL Albumin/Globulin Ratio 1.4 (1.0-2.3) Procalcitonin (<0.10) ng/mL 12/15/17 12/15/17 12/15/17 Range/Units 17:42 17:46 17:48 WBC (4.5-11.0) K/mcL RBC (4.00-5.20) M/mcL Hgb (12.0-15.0) g/dL Hct (36.0-48.0) % MCV (80.0-100.0) fL MCH (26.0-34.0) pg MCHC (31.0-36.0) g/dL RDW (11.5-14.5) % Plt Count (140-440) K/mcL MPV (7.4-10.4) fL Gran % (38.0-78.0) % Lymph % (Auto) (15.5-49.0) % [place] % (Auto) (1.0-12.0) % Eos % (Auto) (0.0-7.0) % Baso % (Auto) (0.0-2.0) % Gran # (1.8-8.0) K/mcL Lymph # (Auto) (1.5-4.8) K/mcL [place] # (Auto) (0.1-0.9) K/mcL Eos # (Auto) (0.0-0.7) K/mcL Baso # (Auto) (0.0-0.3) K/mcL Total Counted 100 Seg Neutrophils % 91 H (38-78) % Band Neutrophils % Not Reportable Lymphocytes % 2 L (15-49) % Monocytes % (Manual) 3 (1-12) % Eosinophils % (Manual) 3 (0-7) % Basophils % (Manual) 1 (0-2) % Platelet Estimate Normal (NORMAL) RBC Morphology Normal (NORMAL) Anisocytosis 1+ A (NONE SEEN) PT 26.2 H (11.9-14.5) sec INR 2.4 H (0.9-1.1) VBG Lactic Acid (0.5-2.2) mmol/L Sodium (133-145) mmol/L Potassium (3.3-5.1) mmol/L Chloride (96-108) mmol/L Carbon Dioxide (22-30) mmol/L Anion Gap (8-16) BUN (6-20) mg/dl Creatinine (0.6-1.1) mg/dl GFR Calculation Glucose (70-105) mg/dL Calcium (8.6-10.4) mg/dl Total Bilirubin (0.0-1.0) mg/dL AST (0-37) U/l ALT (0-40) U/l Alkaline Phosphatase (39-117) U/L Total Protein (5.9-8.4) gm/dL Albumin (3.2-5.2) gm/dL Globulin (2.2-3.7) gm/dL Albumin/Globulin Ratio (1.0-2.3) Procalcitonin 0.47 (<0.10) ng/mL - Radiology Data Radiology results reviewed: Yes I reviewed the patient's radiology results. Reviewed echocardiogram from August 2017 which showed pulmonary hypertension and mild global systolic dysfunction with an ejection fraction 46%. X-ray 1 view today's shows possible left lower lobe infiltrate will order CT scan CT scan of the head shows no acute findings. Unfortunately then our CT scanner broke so we could not get a CT of the chest Disposition Pt seen by ELECTRICAL ACCESSORIES ASSEMBLER/PA only: No Clinical Impression: Recurrent cellulitis of lower leg Left lower lobe pneumonia Qualifiers: Pneumonia type: due to unspecified organism Qualified Code(s): J18.1 - Lobar pneumonia, unspecified organism Summary: Suspect infection of some type causing significant fever. Start Tylenol and normal saline. After blood cultures and laboratory start vancomycin and Flagyl due to multiple antibiotic allergies. Possible sources include recurrent cellulitis, UTI, pneumonia Her fever subsided somewhat and her mentation cleared Chest x-ray shows possible left lower lobe infiltrate but my CT scanner broke and I could not investigate this further. Regardless she received antibiotics and had blood cultures. CT scan of the head was negative. Recurrent cellulitis remains a possibility Discussed case with Dr. Peterson Manning, our hospitalist, who agreed to accept the patient for further inpatient care Disposition: Xfer As Inpt ([facility]) Condition: Fair
--- NOTE | 2017-12-15 19:57 | XRay Report ---
CLINICAL INFORMATION: Fever COMPARISON: 09/11/2017 and 10/29/2017 FINDINGS: Heart is borderline enlarged, but unchanged. There is mild upper mediastinal widening and rightward deviation of the trachea which suggests the possibility of adenopathy. Pulmonary vessels are normal. Minor atelectasis seen in the right base, but no maurilio infiltrates or effusions IMPRESSION: Equivocal mediastinal widening with rightward tracheal deviation. Patient has received chest x-rays for fever multiple times over the past three months. At this point, consider chest CT or chest abdomen and pelvic CT to exclude adenopathy seen in lymphoma or collagen vascular disease etc. Interpreted and Authenticated by: Regan Greenberg 12/15/17
[2017-12-15] MEDS ORDERED: BISACODYL 5 MG TABLET PO PRN ×2 (22:04→22:41)
[2017-12-15] MEDS ORDERED: ACETAMINOPHEN 325 MG TABLET PO PRN ×2 (22:04→22:41)
[2017-12-15] MEDS ORDERED: ONDANSETRON 4 MG/2 ML VIAL IV PRN ×2 (22:04→22:41)
[2017-12-15] MEDS ORDERED: IPRATROPIUM/ALBUTEROL 3 ML AMPUL.NEB NEB PRN ×2 (22:04→22:41)
[2017-12-15] MEDS ORDERED: DEXTROSE 31 GM ORAL.SUSP PO PRN ×2 (22:10→22:41)
[2017-12-15] MEDS ORDERED: DEXTROSE 50% 50 ML VIAL IV PRN ×2 (22:10→22:41)
[2017-12-15] MEDS ORDERED: CEFEPIME 1 GM VIAL IV SCH (22:15)
[2017-12-15] MEDS ORDERED: hydrOXYzine 25 MG TABLET PO PRN ×2 (22:16→22:41)
[2017-12-15] MEDS ORDERED: DIAZEPAM 2 MG TABLET PO PRN ×2 (22:16→22:41)
[2017-12-15] MEDS ORDERED: diphenhydrAMINE 25 MG CAPSULE PO PRN ×2 (22:16→22:41)
[2017-12-15] MEDS ORDERED: CETIRIZINE 10 MG TABLET PO PRN ×2 (22:16→22:41)
--- NOTE | 2017-12-15 22:27 | Internal Med History&Physical ---
Medical - H&P: HPI Patient information: Note initiated : 12/15/17 at 10:24 pm Service Date, if different from initiated Date: [] Patient: Elizabeth Peacock a 57 y/o F admitted on for fever. Chief Complaint: [] Chief complaint: fever confusion History of present illness: Ms. Peacock is a 57 year old F Who states for the past week she has been feeling more tired she felt that maybe her A. fib was acting up. Today she was in the living room and felt very cold so she went and took a hot shower and was in there for almost an hour before her significant other Joanna came in and got her. When Joanna found her she seemed to be a little bit confused that had a hard time getting out of the shower that is when they called EMS. Apparently she had a fever of 104 after she got out of the shower. She denies any shortness of breath or coughing. No fevers but complains of chills. She states her legs have looked essentially similar as they have been. She was in the hospital for right lower extremity infection and October. She reports at that time the redness extended up into the thigh at that time. She is has no diarrhea nausea vomiting no chest pain no headache. Her confusion improved after fluids and resolution of her fever in the ER. In the ER she was found to have a temperature 102. Respiratory rate between 18 and 23. Elevated lactic acid and a mildly elevated pro calcitonin chest x-ray was concerning for left lower lobe infiltrate a CT chest was ordered in the ER to evaluate the pulmonary parenchyma however the machine is broken. A CT brain was done because the confusion which was unremarkable. Review of systems: Positive for chills weakness fatigue, negative for headache she did not particularly feel feverish although the recorded a fever. She denies headache nausea vomiting stomach pain diarrhea constipation, she denies chest pain coughing or shortness of breath. Denies any wounds over her body. Medical - H&P: PM Medical history: - Past Medical History Medical history: Reports: atrial fibrillation (Flutter), CHF, DM, hypertension, kidney stones, other (Chronic lymphedema with recurrent cellulitis of the lower extremities, pulmonary hypertension with mild systolic heart failure) Surgical history ED: Reports: hysterectomy (Still has one ovary), orthopedic, other (Bilateral knees), other (Kaci) Psychiatric history: Reports: anxiety, depression - Social History smoking status: Never smoker Alcohol use: Reports: None Drug use: Reports: none ambulates with a cane and uses a scooter lives at home with significant other Medical - H&P: Meds Home Medications Medication Instructions Recorded Confirmed Type Albuterol Sulfate 2.5 mg IH Q4HP PRN 09/11/17 12/15/17 History Aspirin [Lo-Dose Aspirin EC] 81 mg PO DAILY 09/11/17 12/15/17 History Atorvastatin [Lipitor] 80 mg PO HS 09/11/17 12/15/17 History Cetirizine [Zyrtec] 10 mg PO DAILY 09/11/17 12/15/17 History Doxazosin [Cardura] 8 mg PO BID 09/11/17 12/15/17 History Esomeprazole Magnesium [Nexium] 40 mg PO BID 09/11/17 12/15/17 History Ferrous Sulfate, Dried [Iron] 65 mg PO BID 09/11/17 12/15/17 History Ipratropium/Albuterol Sulfate 1 puff INH Q4HP PRN 09/11/17 12/15/17 History [Combivent] Magnesium Oxide [Magnesium] 400 mg PO DAILY 09/11/17 12/15/17 History Metoprolol Tartrate 100 mg PO BID 09/11/17 12/15/17 History Montelukast [Singular] 10 mg PO HS 09/11/17 12/15/17 History NIFEdipine [Afeditab Cr] 60 mg PO BID 09/11/17 12/15/17 History Nortriptyline [Pamelor] 100 mg PO HS 09/11/17 12/15/17 History Olmesartan Medoxomil [Benicar] 40 mg PO DAILY 09/11/17 12/15/17 History [place]-3/Dha/Epa/Fish Oil [Fish Oil 1,400 mg PO DAILY 09/11/17 12/15/17 History 1,400 mg Softgel] Potassium Chloride [Klor-Con 10] 10 meq PO DAILY 09/11/17 12/15/17 History Pregabalin [Lyrica] 200 mg PO BID 09/11/17 12/15/17 History Ramelteon [Rozerem] 8 mg PO HS 09/11/17 12/15/17 History Ranitidine HCl [Heartburn Relief] 150 mg PO BID 09/11/17 12/15/17 History Venlafaxine [Effexor Xr] 225 mg PO HS 09/11/17 12/15/17 History cloNIDine HCL [Catapres] 0.6 mg PO BID 09/11/17 12/15/17 History diphenhydrAMINE HCL [Benadryl] 50 mg PO BID 09/11/17 12/15/17 History hydrOXYzine [Atarax] 25 mg PO PRN PRN 09/11/17 12/15/17 History rOPINIRole [Requip] 1 mg PO HS 09/11/17 12/15/17 History sitaGLIPtin PHOS/metFORMIN HCL 1 each PO DAILY 09/11/17 12/15/17 History [Janumet 50-1,000 mg Tablet] Hydrocortisone/Aloe Vera 28.4 gm TP QIDP PRN 10/30/17 12/15/17 History [Hydrocortisone Plus 1% Cream] Mometasone Furoate [Elocon] 45 gm TP BID 10/30/17 12/15/17 History Petrolatum,White/Water [Vanicream 474 ml TP BID 10/30/17 12/15/17 History Lite Lotion] Chlorhexidine Gluconate [Hibiclens] 946 ml TP DAILY #1 11/01/17 12/15/17 Rx Diazepam [Valium] 2 mg PO HSP PRN tablet 11/01/17 12/15/17 Rx Levofloxacin 750 mg PO DAILY #12 tab 11/01/17 12/15/17 Rx Warfarin [Coumadin] 7.5 mg PO DAILY 11/05/17 12/15/17 History Allergies Allergy/AdvReac Type Severity Reaction Status Date / Time Sulfa (Sulfonamide Allergy Severe Hives Verified 11/05/17 18:50 Antibiotics) cephalexin [From Keflex] Allergy Intermediate Hives Verified 11/05/17 18:50 exenatide [From [place]] Allergy Intermediate Hives Verified 11/05/17 18:50 latex Allergy Intermediate Rash Verified 11/05/17 18:50 levofloxacin [From Levaquin] Allergy Intermediate Hives Verified 11/05/17 18:50 Penicillins Allergy Intermediate Hives Verified 11/05/17 18:50 Rosiglitazone [From Avandia] Allergy Intermediate Hives Verified 11/05/17 18:50 meperidine [From Demerol] AdvReac Intermediate Gastrointestinal Verified 18:50 Upset Medical - H&P: Exam - Constitutional Vitals: Temp Pulse Resp BP Pulse Ox 102.2 F H 73 20 120/71 93 12/15/17 18:55 12/15/17 22:01 12/15/17 21:31 12/15/17 22:01 12/15/17 22:01 Exam: General exam: Normal exam patient is alert and awake appears to be in no acute distress morbidly obese HEENT normocephalic atraumatic extraocular muscles intact pupils equal react light dry mucous membranes General: Alert, Awake, No acute Distress, morbidly obese HEENT: EOMI, pupils equal and reactive to light, dry mucous membranes, normocephalic atraumatic CV: RRR, No murmurs, normal s1/s2, no murmurs rubs or gallops Pulm: Clear b/l, no wheezing/rhonchi/rales Abd: soft, nontender, +BS x4 Ext: no clubbing/cyanosis, bilateral lower extremity chronic edema, right lower extremity is warm to the touch and erythematous from the ankle up to the back of the thigh, with some tenderness to the back of the leg. Per significant other leg is much better than what it was in the recent past. Neuro: Alert, no focal deficits, moves all extremities Skin: warm/dry, except for leg above Medical - H&P: Reslt - Labs CBC & Chem 7: 12/15/17 17:42 12/15/17 17:42 Labs: Short CBC 12/15/17 Range/Units 17:42 WBC 11.6 H (4.5-11.0) K/mcL Hgb 13.5 (12.0-15.0) g/dL Hct 40.8 (36.0-48.0) % Plt Count 274 (140-440) K/mcL BMP 12/15/17 17:42 Sodium 139 Potassium 3.3 Chloride 101 Carbon Dioxide 26 BUN 22 H Creatinine 1.0 Glucose 135 H Calcium 9.5 Liver Function 12/15/17 Range/Units 17:42 Total Bilirubin 0.5 (0.0-1.0) mg/dL AST 16 (0-37) U/l ALT 19 (0-40) U/l Alkaline Phosphatase 95 (39-117) U/L Albumin 4.4 (3.2-5.2) gm/dL - Impressions Ordering Physician: Spike Morris M.D. Date of Service: 12/15/17 Procedure(s): XR chest 1V portable Accession Number(s): [id number] CLINICAL INFORMATION: Fever COMPARISON: 09/11/2017 and 10/29/2017 FINDINGS: Heart is borderline enlarged, but unchanged. There is mild upper mediastinal widening and rightward deviation of the trachea which suggests the possibility of adenopathy. Pulmonary vessels are normal. Minor atelectasis seen in the right base, but no maurilio infiltrates or effusions IMPRESSION: Equivocal mediastinal widening with rightward tracheal deviation. Patient has received chest x-rays for fever multiple times over the past three months. At this point, consider chest CT or chest abdomen and pelvic CT to exclude adenopathy seen in lymphoma or collagen vascular disease etc. Interpreted and Authenticated by: Regan Greenberg 12/15/17 49 [id number] Fire Management Officer: <Electronically signed by Regan Greenberg M.D. in [place]> 12/15/171952 CC: Susana Houston M.D.; Regan Greenberg M.D.; Spike Morris M.D.~ - Imaging and Cardiology CT scan - head Additional comments: Report unremarkable Medical - H&P: A/P - Narrative A/P Narrative: A: *Fever with sepsis, suspected source skin versus pulmonary versus other: -She had multiple hospitalizations for infection mostly with lower leg cellulitis however however her leg as better than it has been but do notice some unilateral redness and warmth and tenderness but could also be related to a venous insufficiency *Encephalopathy metabolic: Secondary to above resolved with IV fluids and resolution of fever in the ER *Volume depletion *Morbid obesity with chronic lymphedema: *Atrial flutter fibrillation chronic: Warfarin *History of mild systolic dysfunction and diastolic dysfunction: *Hypertension /hyperlipidemia *COPD *Depression/ anxiety: *Diabetes P: -Continue cefepime for now, pending blood cultures, obtain urinalysis and culture if necessary -Pending CT chest abdomen pelvis -Follow-up lactate -IV fluid hydration - -PT /OT - -ppx: Warfarin per pharmacy/home Pepcid
[2017-12-15 22:30] LABS: Anisocytosis 1+ (NONE SEEN); Basophils % (Manual) 1 % (0-2); Eosinophils % (Manual) 3 % (0-7); Lymphocytes % 2 % (15-49); Monocytes % (Manual) 3 % (1-12); Platelet Estimate NORMAL (NORMAL); RBC Morphology NORMAL (NORMAL); Segmented Neutrophils % 91 % (38-78)
[2017-12-15] MEDS ORDERED: 0.9 % SODIUM CHLORIDE 2,000 ML IV SCH (22:30)
[2017-12-15] MEDS: 0.9 % SODIUM CHLORIDE 2,000 ML IV SCH (22:54)
[2017-12-15] MEDS ORDERED: cloNIDine HCL 0.1 MG TABLET ONE (23:00)
[2017-12-15] MEDS ORDERED: FAMOTIDINE 20 MG TABLET PO ONE (23:01)
[2017-12-15] MEDS ORDERED: CEFEPIME 1 GM VIAL ONE (23:01)
[2017-12-15] MEDS ORDERED: PREGABALIN 100 MG CAPSULE PO ONE (23:01)
[2017-12-15] MEDS: DOCUSATE SODIUM 100 MG CAPSULE PO SCH (23:35)
[2017-12-15] MEDS: VENLAFAXINE 150 MG CAP.XL.24H PO SCH (23:36)
[2017-12-15] MEDS: NORTRIPTYLINE 25 MG CAPSULE PO SCH (23:37)
[2017-12-15] MEDS: MONTELUKAST 10 MG TABLET PO SCH (23:37)
[2017-12-15] MEDS: DOXAZOSIN 4 MG TABLET PO SCH (23:38)
[2017-12-15] MEDS: rOPINIRole 1 MG TABLET PO SCH (23:39)
[2017-12-15] MEDS ORDERED: DEXTROSE 5% IN WATER 50 ML IV ONE (23:45)
[2017-12-15 23:57] LABS: C-Reactive Protein 2.9 mg/dl (0.0-0.8)
[2017-12-16] MEDS: 0.9 % SODIUM CHLORIDE 10 ML SYRINGE IV SCH ×3 (05:13→21:12)
[2017-12-16 05:18] LABS: Basophils # (Auto) 0 K/mcL (0.0-0.3); Basophils % (Auto) 0.1 % (0.0-2.0); Eosinophils # (Auto) 0 K/mcL (0.0-0.7); Eosinophils % (Auto) 0.1 % (0.0-7.0); Granulocytes % (Auto) 93.1 % (38.0-78.0); Lymphocytes # (Auto) 0.7 K/mcL (1.5-4.8); Lymphocytes % (Auto) 3.2 % (15.5-49.0); Mean Cell Volume 85.6 fL (80.0-100.0); Mean Corpuscular HGB Conc 32.7 g/dL (31.0-36.0); Monocytes # (Auto) 0.7 K/mcL (0.1-0.9); Monocytes % (Auto) 3.5 % (1.0-12.0); Platelet Count 247 K/mcL (140-440); RBC 3.99 M/mcL (4.00-5.20); Red Cell Distribution Width 16.2 % (11.5-14.5)
[2017-12-16 05:26] LABS: ALT/SGPT 18 U/l (0-40); Albumin 3.6 gm/dL (3.2-5.2); Albumin/Globulin Ratio 1.4 (1.0-2.3); Alkaline Phosphatase 74 U/L (39-117); Bilirubin,Direct < 0.2 mg/dL (0.0-0.3); Blood Urea Nitrogen 22 mg/dl (6-20); Gamma Glutamyl Transpeptidase 47 U/L (5-36); Uric Acid 5.5 mg/dL (2.5-8.0)
[2017-12-16] MEDS ORDERED: 0.9 % SODIUM CHLORIDE 10 ML SYRINGE IV SCH (06:00)
[2017-12-16] MEDS: 0.9 % SODIUM CHLORIDE 2,000 ML IV SCH ×2 (06:16→14:31)
[2017-12-16] MEDS ORDERED: INSULIN LISPRO 1 UNIT/0.01 ML UNIT SQ SCH (07:30)
--- NOTE | 2017-12-16 07:49 | Cat Scan Report ---
CLINICAL INFORMATION: Confusion and decreased mental status COMPARISON: None. TECHNIQUE: 2.5 mm helical slices were obtained in the skull base to vertex. Following reconstruction, axial reformatted images were reviewed at bone and parenchymal windows. The exam was performed using radiation dose optimization techniques including, but not limited to, automated exposure control, adjustment of the mA and/or kV according to patient size and use of iterative reconstruction technique. FINDINGS: The ventricles, sulci, fissures, and cisterns are normal in size and configuration for age. No extra-axial fluid collections are identified. The cerebrum, brainstem and cerebellum are unremarkable. There is no evidence of hemorrhage, mass effect, or edema. Bone windows show no osseous abnormality. IMPRESSION: Normal head CT without contrast. Interpreted and Authenticated by: Regan Greenberg 12/16/17
[2017-12-16] MEDS ORDERED: MAGNESIUM SULFATE 8.12 MEQ in DEXTROSE 5% IN WATER 50 ML IV ONE (07:52)
[2017-12-16] MEDS ORDERED: VANCOMYCIN PER PHARMACY IV SCH (07:58)
--- NOTE | 2017-12-16 08:02 | Internal Med Progress Note ---
Medical - PN: Subj Patient information: Note initiated : 12/16/17 at 7:50 am Service Date, if different from initiated Date: [] Patient: Elizabeth Peacock 57 y/o F admitted on 12/15/17 for fever. Chief Complaint: [] Interval history: feels better today. Got some sleep last night. Denies fever chills. Right lower leg tender in the back with some redness. Patient states her leg however is better than what it was last month. Denies any cough or shortness of breath. Denies any stomach pain or diarrhea. Review of Systems: denies headache/fever/chills/nausea/vomiting/chest or abdominal pain/cough/ dyspnea/diarrhea. Otherwise see above. - Constitutional Vitals: Vital Signs Temp Pulse Resp BP Pulse Ox 98.7 F 62 16 111/69 92 12/16/17 04:05 12/16/17 04:11 12/15/17 23:16 12/16/17 04:05 12/16/17 04:11 Period Temp Pulse Resp BP Sys/Merino Pulse Ox Last 24 Hr 98.7 F-102.4 F 60-122 16-23 83-173/55-155 91-97 Intake and Output 12/15/17 12/16/17 12/16/17 21:59 05:59 13:59 Intake Total 1350 / 1350 1105 / 1105 Output Total 0 / 0 Balance 1350 / 1350 0 / 0 1105 / 1105 Weight 145.15 kg 149.413 kg Intake & Output: Intake & Output 12/15/17 12/16/17 12/16/17 21:59 05:59 13:59 Intake Total 1350 / 1350 1105 / 1105 Output Total 0 / 0 Balance 1350 / 1350 0 / 0 1105 / 1105 Weight 145.15 kg 149.413 kg Intake: IV 1350 / 1350 1105 / 1105 Sodium Chloride 0.9% 2,000 ml @ 1000 / 1000 1105 / 1105 150 mls/hr IV .[id number] [facility] Rx# :[id number] Vancomycin 1,000 mg In Sodium 250 / 250 Chloride 0.9% 250 ml @ 250 mls/ hr IV ONCE ONE Rx#:[id number] Output: Void Amount 0 / 0 Exam: General: Alert, Awake, No acute Distress Eyes: EOMI Neck: Supple CV: RRR, No murmurs, normal s1/s2 Pulm: Clear b/l, no wheezing/rhonchi/rales Abd: soft, obese, nontender, +BS x4 Ext: no clubbing/cyanosis. Chronic lymphedema, right leg with mild arthritic anemia of lower leg up to the back of the thigh. Mild tenderness to palpation posterior lower aspect of leg. Neuro: Alert, no focal deficits, moves all extremities Skin: warm/dry Medical - PN: Obj Da - Labs CBC & Chem 7: 12/16/17 04:14 12/16/17 04:14 Labs: Abnormal Lab Results 12/16/17 12/16/17 12/15/17 04:14 04:14 22:40 WBC 21.0 H RBC 3.99 L Hgb 11.2 L Hct 34.2 L RDW 16.2 H Gran % 93.1 H Lymph % (Auto) 3.2 L Gran # 19.5 H Lymph # (Auto) 0.7 L Seg Neutrophils % Lymphocytes % Anisocytosis ESR PT INR VBG Lactic Acid 2.4 H BUN 22 H Glucose 109 H Calcium 8.2 L Magnesium 1.4 L GGT 47 H C-Reactive Protein 12/15/17 12/15/17 12/15/17 22:40 22:40 17:46 WBC RBC Hgb Hct RDW Gran % Lymph % (Auto) Gran # Lymph # (Auto) Seg Neutrophils % Lymphocytes % Anisocytosis ESR 23 H PT 26.2 H INR 2.4 H VBG Lactic Acid BUN Glucose Calcium Magnesium GGT C-Reactive Protein 2.9 H 12/15/17 12/15/17 12/15/17 17:42 17:42 17:42 WBC RBC Hgb Hct RDW Gran % Lymph % (Auto) Gran # Lymph # (Auto) Seg Neutrophils % 91 H Lymphocytes % 2 L Anisocytosis 1+ A ESR PT INR VBG Lactic Acid 2.3 H BUN 22 H Glucose 135 H Calcium Magnesium GGT C-Reactive Protein 12/15/17 17:42 WBC 11.6 H RBC Hgb Hct RDW 16.2 H Gran % 91.4 H Lymph % (Auto) 3.3 L Gran # 10.6 H Lymph # (Auto) 0.4 L Seg Neutrophils % Lymphocytes % Anisocytosis ESR PT INR VBG Lactic Acid BUN Glucose Calcium Magnesium GGT C-Reactive Protein Meds: Medications Acetaminophen (Tylenol) 650 mg PO Q6HP PRN PRN Reason: PAIN/FEVER > 101 Albuterol/Ipratropium (Duoneb) 3 ml NEB Q4HRT PRN PRN Reason: sob Atorvastatin Calcium (Lipitor) 80 mg PO HS [facility] Bisacodyl (Dulcolax) 10 mg PO DAILYP PRN PRN Reason: Constipation Cefepime HCl (Maxipime) 1 gm IV Q8H [facility] Cetirizine HCl (Zyrtec) 10 mg PO DAILYP PRN PRN Reason: Allergic Reaction Dextrose (Dextrose 50%) 0 ml IV UD PRN PRN Reason: Hypoglycemia Diagnostic Test (Pha) (Accu-Chek) 1 each FS [facility] Diazepam (Valium) 2 mg PO HSP PRN PRN Reason: Anxiety Diphenhydramine HCl (Benadryl) 50 mg PO BIDP PRN PRN Reason: Allergic Symptoms Docusate Sodium (Colace) 100 mg PO BID [facility] Last Admin: 12/15/17 23:35 Dose: 100 mg Doxazosin Mesylate (Cardura) 8 mg PO BID [facility] Last Admin: 12/15/17 23:38 Dose: 8 mg Famotidine (Pepcid) 20 mg PO BID [facility] Glucose (Insta-Glucose) 15 gm PO PRN PRN PRN Reason: Hypoglycemia Hydroxyzine HCl (Atarax) 25 mg PO PRN PRN PRN Reason: Anxiety Sodium Chloride (Sodium Chloride 0.9%) 2,000 mls @ 150 mls/hr IV .[id number] [facility] Last Admin: 12/16/17 06:16 Dose: 150 mls/hr Insulin Human Lispro (Humalog) 0 unit SQ [facility]; Protocol Metoprolol Tartrate (Lopressor) 100 mg PO BID [facility] Montelukast Sodium (Singular) 10 mg PO HS [facility] Last Admin: 12/15/17 23:37 Dose: 10 mg Non-Formulary Medication (Chlorhexidine Gluconate [Hibiclens]) 946 ml TP DAILY [facility] Non-Formulary Medication (Clonidine Hcl [Catapres]) 0.6 mg PO BID [facility] Non-Formulary Medication (Mometasone Furoate [Elocon]) 45 gm TP BID [facility] Non-Formulary Medication (Nifedipine [Afeditab Cr]) 60 mg PO BID [facility] Non-Formulary Medication (Sitagliptin Phos/Metformin Hcl [Janumet 50-1,000 Mg Tablet]) 1 each PO DAILY [facility] Nortriptyline HCl (Pamelor) 100 mg PO HS [facility] Last Admin: 12/15/17 23:37 Dose: 100 mg Olmesartan (Benicar) 40 mg PO DAILY [facility] Ondansetron HCl (Zofran) 4 mg IV Q4HP PRN PRN Reason: Nausea And Vomiting Potassium Chloride (Kdur) 10 meq PO QAMCC [facility] Pregabalin (Lyrica) 200 mg PO BID [facility] Ramelteon (Rozerem) 8 mg PO HS [facility] Ropinirole HCl (Requip) 1 mg PO HS [facility] Last Admin: 12/15/17 23:39 Dose: 1 mg Sodium Chloride (Saline Flush) 10 ml IV Q8 [facility] Last Admin: 12/16/17 05:13 Dose: Not Given Venlafaxine HCl (Effexor Xr) 225 mg PO [facility] Last Admin: 12/15/17 23:36 Dose: 225 mg Warfarin Sodium (Coumadin) 7.5 mg PO DAILY [facility] Warfarin Sodium (Coumadin Per Pharmacy) 1 order PO DAILY@1400 [facility] Medical - PN: A/P - Time Spent With Patient Total time spent is greater than 50% in coordination of care (as documented) at patient's floor/unit and/or counseling patient: - Narrative A/P Narrative: A: *Fever with sepsis, suspected source skin versus other: -She had multiple hospitalizations for infection mostly with lower leg cellulitis however however her leg as better than it has been but do notice some unilateral redness and warmth and tenderness but could also be related to a venous insufficiency -afebrile today, mild bandemia 11 -lactic acidosis resolved *Bactermia (GPC pairs/chains): *Encephalopathy metabolic: Secondary to above resolved with IV fluids and resolution of fever in the ER *Volume depletion: *Morbid obesity with chronic lymphedema: *Atrial flutter fibrillation chronic: Warfarin *History of mild systolic (45) dysfunction and diastolic dysfunction: *Hypertension /hyperlipidemia *COPD (no home o2) *Depression/ anxiety: *Diabetes *Hypomag *Urinary Retention: *Deconditioning/Debility/Poor functional status: P: -Continue Vanc/cefepime, short-course clinda for possible strep, toxins -pending final blood cultures -pending UA, obtain urinalysis and culture if necessary -trend PCT -Pending CT chest abdomen pelvis r/o other source, recurring -Follow-up lactate -IV fluid hydration -replete electrolytes -PT /OT -Sanchez placed -ppx: Warfarin per pharmacy/home Pepcid
[2017-12-16] MEDS: INSULIN LISPRO 1 UNIT/0.01 ML UNIT SQ SCH ×4 (08:28→21:13)
[2017-12-16 08:47] LABS: Anisocytosis 1+ (NONE SEEN); Band Neutrophils % 11 % (0-10); Basophils % (Manual) 1 % (0-2); Lymphocytes % 4 % (15-49); Monocytes % (Manual) 2 % (1-12); Platelet Estimate NORMAL (NORMAL); RBC Morphology ABNORMAL (NORMAL); Segmented Neutrophils % 83 % (38-78)
[2017-12-16] MEDS ORDERED: WATER TP SCH ×2 (09:00)
[2017-12-16] MEDS ORDERED: MOMETASONE FUROATE TP SCH (09:00)
[2017-12-16] MEDS ORDERED: PREGABALIN 200 MG PO SCH (09:00)
[2017-12-16] MEDS ORDERED: PETROLATUM WHITE TP SCH ×2 (09:00)
[2017-12-16] MEDS ORDERED: NIFEDIPINE 60 MG PO SCH (09:00)
[2017-12-16] MEDS ORDERED: CHLORHEXIDINE GLUCONATE TOPICAL SCH (09:00)
[2017-12-16] MEDS ORDERED: FAMOTIDINE 20 MG TABLET PO SCH (09:00)
[2017-12-16] MEDS ORDERED: DOXAZOSIN 4 MG TABLET PO SCH (09:00)
[2017-12-16] MEDS ORDERED: CLONIDINE HCL PO SCH (09:00)
[2017-12-16] MEDS ORDERED: CLINDAMYCIN 900 MG in DEXTROSE 5% IN WATER 50 ML IV ONE (09:00)
[2017-12-16] MEDS ORDERED: DOCUSATE SODIUM 100 MG CAPSULE PO SCH (09:00)
[2017-12-16] MEDS ORDERED: WARFARIN 5 MG TABLET PO SCH (09:00)
[2017-12-16] MEDS ORDERED: CHLORHEXIDINE GLUCONATE TP SCH (09:00)
[2017-12-16] MEDS ORDERED: POTASSIUM CHLORIDE 10 MEQ TABLET PO SCH (09:00)
[2017-12-16] MEDS ORDERED: [UNRECOGNIZED DRUG - OTHER] TP SCH ×2 (09:00)
[2017-12-16] MEDS ORDERED: METOPROLOL TARTRATE 100 MG PO SCH (09:00)
[2017-12-16] MEDS ORDERED: OLMESARTAN MEDOXOMIL 40 MG PO SCH (09:00)
[2017-12-16] MEDS: POTASSIUM CHLORIDE 10 MEQ TABLET PO SCH (09:18)
[2017-12-16] MEDS: PREGABALIN 100 MG CAPSULE PO SCH ×2 (09:18→21:09)
[2017-12-16] MEDS: DOCUSATE SODIUM 100 MG CAPSULE PO SCH ×2 (09:18→21:12)
[2017-12-16] MEDS: METOPROLOL TARTRATE 50 MG TABLET PO SCH ×2 (09:18→21:08)
[2017-12-16] MEDS: CEFEPIME 1 GM VIAL IV SCH ×2 (09:18→17:00)
[2017-12-16] MEDS: DOXAZOSIN 4 MG TABLET PO SCH ×2 (09:18→21:10)
[2017-12-16] MEDS: OLMESARTAN MEDOXOMIL 20 MG TABLET PO SCH (09:18)
[2017-12-16] MEDS: FAMOTIDINE 20 MG TABLET PO SCH ×2 (09:19→21:09)
[2017-12-16] MEDS: VANCOMYCIN 1,500 MG in 0.9 % SODIUM CHLORIDE 500 ML IV SCH ×2 (09:20→21:12)
[2017-12-16] MEDS ORDERED: MAGNESIUM SULFATE 2 GM/50 ML BAG IV ONE (10:00)
[2017-12-16 10:09] LABS: Appearance,Urine CLEAR; Bacteria,Urine 0 /hpf (0); Bilirubin,Urine NEG (NEG); Color,Urine YELLOW; Glucose,Urine (UA) NEGATIVE (NEG); Leukocyte Esterase,Urine NEG /uL (NEG); Mucus,Urine FEW /hpf (0); Protein,Urine 30 mg/dL (NEG); Specific Gravity,Urine 1.026 (1.000-1.035); Urine Blood NEG mg/dL (<0.03); Urine RBC 1 /hpf (0-1); Urine Squamous Epithelial Cell 1 /hpf (0-4); Urine Transitional Epi Cells < 1 /hpf (0-2); Urine WBC 2 /hpf (0-4); Urobilinogen,Urine NEG (NEG)
[2017-12-16] MEDS: MOMETASONE FUROATE TOPICAL SCH ×2 (11:37→21:13)
[2017-12-16] MEDS: metFORMIN 500 MG TABLET PO SCH ×2 (11:43→17:00)
[2017-12-16] MEDS: cloNIDine HCL 0.1 MG TABLET PO SCH ×2 (11:46→21:10)
[2017-12-16] MEDS: sitaGLIPtin 50 MG TABLET PO SCH ×2 (11:46→17:03)
[2017-12-16] MEDS: NIFEdipine 30 MG TAB.XL.24H PO SCH ×2 (11:47→21:11)
[2017-12-16] MEDS ORDERED: WARFARIN 7.5 MG TABLET PO ONE (14:00)
[2017-12-16] MEDS: CLINDAMYCIN 600 MG in DEXTROSE 5% IN WATER 50 ML IV SCH ×2 (15:02→21:14)
--- NOTE | 2017-12-16 20:05 | Cat Scan Report ---
CLINICAL INFORMATION: Infection. Positive blood cultures COMPARISON: None. TECHNIQUE: Enteric contrast was utilized. IV contrast was withheld by request: This limited the sensitivity of the study. 0.625 mm mm helical slices were obtained from the lung apices through the subtrochanteric regions of the femurs. Following reconstruction, 2.5 mm sagittal, coronal and axial reformatted images were processed and reviewed at multiple windows and levels. 7 mm MIP reconstructions were obtained through the lungs to optimize nodule detection.The exam was performed using radiation dose optimization techniques including, but not limited to, automated exposure control, adjustment of the mA and/or kV according to patient size and use of iterative reconstruction technique. FINDINGS: Pulmonary parenchymal windows show small band of scarring or atypical atelectasis in the the posterior right lower lobe. There are no infiltrates. There is; however, a mosaic perfusion pattern throughout both lungs. There are no effusions. Mediastinal windows show the heart is mildly enlarged with scattered calcific atherosclerotic plaque in the coronary arteries. Small pericardial effusion noted. The central pulmonary arteries are enlarged: main pulmonary artery diameter is 4.1 cm. There are no abnormally enlarged lymph nodes in the mediastinal, hilar or axillary region. There is a large (5 cm) mass in the superior left mediastinum which deviates the trachea rightward. 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 This has been noted on chest x-ray for the past three months. Images through the abdomen show the noncontrasted liver is normal in size and configuration. There are four small stones in the gallbladder ranging up to 5 mm. The gallbladder and bile ducts are otherwise normal: CBD is 5 mm. Mild atrophy of the pancreatic head neck and proximal body with fat replacement. No focal pancreatic lesions. Both kidneys, adrenal glands, spleen and aorta are unremarkable. There are nonenlarged lymph nodes in the periaortic and mesenteric region. No pathologically enlarged lymph nodes. The stomach, small and large bowel show only sigmoid diverticulosis - no evidence of diverticulitis. The region of the appendix is normal. Hysterectomy/oophorectomy changes are appreciated. Sanchez catheter is seen in the urinary bladder which is decompressed but grossly normal. Bone windows show no osseous abnormality throughout the chest abdomen or pelvis. Soft tissues are otherwise normal IMPRESSION: 1. No source for infection identified. 2. Cholelithiasis 3. Moderate atrophy of the pancreatic head, neck and proximal body. Please correlate clinically with pancreatic insufficiency or diabetes 4. Mild cardiomegaly with small pericardial effusion 5. Moderate enlargement of the central pulmonary arteries with probable right ventricle/atrial enlargement compatible with pulmonary hypertension. In addition, there is a mosaic perfusion pattern throughout both lungs typically seen in either small airways disease (such as bronchiolitis obliterans) disease or chronic thromboembolic disease. Consider echocardiogram for more specific evaluation 6. 5 cm mass in the left superior mediastinum near the thoracic inlet which displaces the trachea rightward. 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 Consider thyroid ultrasound Interpreted and Authenticated by: Regan Greenberg 12/16/17
[2017-12-16] MEDS ORDERED: NORTRIPTYLINE 25 MG CAPSULE PO SCH (21:00)
[2017-12-16] MEDS ORDERED: rOPINIRole 1 MG TABLET PO SCH (21:00)
[2017-12-16] MEDS ORDERED: VENLAFAXINE 150 MG CAP.XL.24H PO SCH (21:00)
[2017-12-16] MEDS ORDERED: MONTELUKAST 10 MG TABLET PO SCH (21:00)
[2017-12-16] MEDS ORDERED: ATORVASTATIN 40 MG TABLET PO SCH ×2 (21:00)
[2017-12-16] MEDS ORDERED: RAMELTEON 8 MG TABLET PO SCH (21:00)
[2017-12-16] MEDS: NORTRIPTYLINE 25 MG CAPSULE PO SCH (21:09)
[2017-12-16] MEDS: MONTELUKAST 10 MG TABLET PO SCH (21:09)
[2017-12-16] MEDS: rOPINIRole 1 MG TABLET PO SCH (21:11)
[2017-12-16] MEDS: ATORVASTATIN 20 MG TABLET PO SCH (21:11)
[2017-12-16] MEDS: NYSTATIN POWDER BOTTLE 15GM TOPICAL SCH ×2 (21:13→21:29)
[2017-12-16] MEDS: RAMELTEON 8 MG TABLET PO SCH (21:14)
[2017-12-16] MEDS: VENLAFAXINE 150 MG CAP.XL.24H PO SCH (21:29)
[2017-12-17] MEDS: CEFEPIME 1 GM VIAL IV SCH ×3 (00:01→18:21)
[2017-12-17] MEDS: 0.9 % SODIUM CHLORIDE 2,000 ML IV SCH ×2 (02:14→15:41)
[2017-12-17 05:41] LABS: Mean Corpuscular HGB Conc 32.6 g/dL (31.0-36.0); Mean Corpuscular Hemoglobin 27.7 pg (26.0-34.0); Platelet Count 223 K/mcL (140-440); RBC 3.69 M/mcL (4.00-5.20); Red Cell Distribution Width 16.3 % (11.5-14.5)
[2017-12-17] MEDS: CLINDAMYCIN 600 MG in DEXTROSE 5% IN WATER 50 ML IV SCH ×3 (05:44→21:17)
[2017-12-17] MEDS: 0.9 % SODIUM CHLORIDE 10 ML SYRINGE IV SCH ×3 (05:45→22:07)
[2017-12-17 06:05] LABS: ALT/SGPT 15 U/l (0-40); Albumin 3.3 gm/dL (3.2-5.2); Albumin/Globulin Ratio 1.1 (1.0-2.3); Alkaline Phosphatase 82 U/L (39-117); Bilirubin,Direct < 0.2 mg/dL (0.0-0.3); Blood Urea Nitrogen 20 mg/dl (6-20); Gamma Glutamyl Transpeptidase 44 U/L (5-36); Uric Acid 4.7 mg/dL (2.5-8.0)
--- NOTE | 2017-12-17 07:17 | Internal Med Progress Note ---
Medical - PN: Subj Patient information: Note initiated : 12/17/17 at 7:11 am Service Date, if different from initiated Date: [] Patient: Elizabeth Peacock 57 y/o F admitted on 12/15/17 for fever. Chief Complaint: [] Interval history: feels better today. Got some sleep last night. Denies fever chills. Right lower leg tender in the back with some redness. Patient states her leg however is better than what it was last month. Denies any cough or shortness of breath. Denies any stomach pain or diarrhea. 12/17 slept well, feeling better. no new complaints. Review of Systems: denies headache/fever/chills/nausea/vomiting/chest or abdominal pain/cough/ dyspnea/diarrhea. Otherwise see above. - Constitutional Vitals: Vital Signs Temp Pulse Resp BP Pulse Ox 99.0 F 53 L 16 107/65 96 12/17/17 04:03 12/17/17 04:03 12/17/17 04:03 12/17/17 04:03 12/17/17 04:03 Period Temp Pulse Resp BP Sys/Merino Pulse Ox Last 24 Hr 97.5 F-99.0 F 53-90 - 107-142/64-80 93-98 Intake and Output 12/16/17 12/17/17 12/17/17 21:59 05:59 13:59 Intake Total 2618 / 2618 Output Total 275 / 275 1050 / 1050 Balance 2343 / 2343 -1050 / -1050 Weight 154.76 kg Intake & Output: Intake & Output 12/16/17 12/17/17 12/17/17 21:59 05:59 13:59 Intake Total 2618 / 2618 Output Total 275 / 275 1050 / 1050 Balance 2343 / 2343 -1050 / -1050 Weight 154.76 kg Intake: IV 2108 / 2108 Sodium Chloride 0.9% 2,000 ml @ 2000 / 2000 150 mls/hr IV .[id number] [facility] Rx# :[id number] Cleocin 600 mg In Dextrose 5% 108 / 108 in Water 50 ml @ 100 mls/hr IV Q8H [facility] Rx#:[id number] Oral 510 / 510 Output: Urine Catheter Amount 1050 / 1050 Void Amount 275 / 275 Other: Meal Dinner Percent of Meal Consumed 50% Feeding Ability Independent Urine Appearance Cloudy Uretheral (Sanchez) Clear Urine Color Dark Shakira Dark Yellow Uretheral (Sanchez) Light Shakira Stool Size Large Stool Color Brown Stool Consistency Normal for Patient Soft Exam: General: Alert, Awake, No acute Distress Eyes: EOMI Neck: Supple CV: RRR, No murmurs, normal s1/s2 Pulm: Clear b/l, no wheezing/rhonchi/rales Abd: soft, obese, nontender, +BS x4 Ext: no clubbing/cyanosis. Chronic lymphedema, right leg with mild erythema of lower leg up to the back of the thigh with some improvement. Mild tenderness to palpation posterior lower aspect of leg. Neuro: Alert, no focal deficits, moves all extremities Skin: warm/dry Medical - PN: Obj Da - Labs CBC & Chem 7: 12/17/17 04:30 12/17/17 04:30 Labs: Abnormal Lab Results 12/17/17 12/17/17 12/17/17 04:30 04:30 04:30 WBC 13.6 H RBC 3.69 L Hgb 10.2 L Hct 31.4 L RDW 16.3 H Gran % Lymph % (Auto) Gran # Lymph # (Auto) Seg Neutrophils % Band Neutrophils % Lymphocytes % Anisocytosis ESR PT 22.1 H INR 1.9 H VBG Lactic Acid BUN Glucose 127 H Calcium Magnesium GGT 44 H C-Reactive Protein 22.0 H Urine Protein 12/16/17 12/16/17 12/16/17 11:00 09:15 04:14 WBC RBC Hgb Hct RDW Gran % Lymph % (Auto) Gran # Lymph # (Auto) Seg Neutrophils % 83 H Band Neutrophils % 11 H Lymphocytes % 4 L Anisocytosis 1+ A ESR PT 22.3 H INR 1.9 H VBG Lactic Acid BUN Glucose Calcium Magnesium GGT C-Reactive Protein Urine Protein 30 A 12/16/17 12/16/17 12/15/17 04:14 04:14 22:40 WBC 21.0 H RBC 3.99 L Hgb 11.2 L Hct 34.2 L RDW 16.2 H Gran % 93.1 H Lymph % (Auto) 3.2 L Gran # 19.5 H Lymph # (Auto) 0.7 L Seg Neutrophils % Band Neutrophils % Lymphocytes % Anisocytosis ESR PT INR VBG Lactic Acid 2.4 H BUN 22 H Glucose 109 H Calcium 8.2 L Magnesium 1.4 L GGT 47 H C-Reactive Protein Urine Protein 12/15/17 12/15/17 12/15/17 22:40 22:40 17:46 WBC RBC Hgb Hct RDW Gran % Lymph % (Auto) Gran # Lymph # (Auto) Seg Neutrophils % Band Neutrophils % Lymphocytes % Anisocytosis ESR 23 H PT 26.2 H INR 2.4 H VBG Lactic Acid BUN Glucose Calcium Magnesium GGT C-Reactive Protein 2.9 H Urine Protein 12/15/17 12/15/17 12/15/17 17:42 17:42 17:42 WBC RBC Hgb Hct RDW Gran % Lymph % (Auto) Gran # Lymph # (Auto) Seg Neutrophils % 91 H Band Neutrophils % Lymphocytes % 2 L Anisocytosis 1+ A ESR PT INR VBG Lactic Acid 2.3 H BUN 22 H Glucose 135 H Calcium Magnesium GGT C-Reactive Protein Urine Protein 12/15/17 17:42 WBC 11.6 H RBC Hgb Hct RDW 16.2 H Gran % 91.4 H Lymph % (Auto) 3.3 L Gran # 10.6 H Lymph # (Auto) 0.4 L Seg Neutrophils % Band Neutrophils % Lymphocytes % Anisocytosis ESR PT INR VBG Lactic Acid BUN Glucose Calcium Magnesium GGT C-Reactive Protein Urine Protein Meds: Medications Acetaminophen (Tylenol) 650 mg PO Q6HP PRN PRN Reason: PAIN/FEVER > 101 Last Admin: 12/16/17 15:09 Dose: 650 mg Albuterol/Ipratropium (Duoneb) 3 ml NEB Q4HRT PRN PRN Reason: sob Atorvastatin Calcium (Lipitor) 80 mg PO HS [facility] Last Admin: 12/16/17 21:11 Dose: 80 mg Bisacodyl (Dulcolax) 10 mg PO DAILYP PRN PRN Reason: Constipation Cefepime HCl (Maxipime) 1 gm IV Q8H [facility] Last Admin: 12/17/17 00:01 Dose: 1 gm Cetirizine HCl (Zyrtec) 10 mg PO DAILYP PRN PRN Reason: Allergic Reaction Clonidine HCl (Catapres) 0.4 mg PO BID [facility] Last Admin: 12/16/17 21:10 Dose: 0.4 mg Dextrose (Dextrose 50%) 0 ml IV UD PRN PRN Reason: Hypoglycemia Diagnostic Test (Pha) (Accu-Chek) 1 each FS ACHS [facility] Last Admin: 12/16/17 21:13 Dose: 1 each Diazepam (Valium) 2 mg PO HSP PRN PRN Reason: Anxiety Diphenhydramine HCl (Benadryl) 50 mg PO BIDP PRN PRN Reason: Allergic Symptoms Docusate Sodium (Colace) 100 mg PO BID [facility] Last Admin: 12/16/17 21:12 Dose: Not Given Doxazosin Mesylate (Cardura) 8 mg PO BID [facility] Last Admin: 12/16/17 21:10 Dose: 8 mg Famotidine (Pepcid) 20 mg PO BID [facility] Last Admin: 12/16/17 21:09 Dose: 20 mg Glucose (Insta-Glucose) 15 gm PO PRN PRN PRN Reason: Hypoglycemia Hydroxyzine HCl (Atarax) 25 mg PO PRN PRN PRN Reason: Anxiety Sodium Chloride (Sodium Chloride 0.9%) 2,000 mls @ 150 mls/hr IV .[id number] [facility] Last Admin: 12/17/17 02:14 Dose: Not Given Vancomycin HCl 1,500 mg/ (Sodium Chloride) 500 mls @ 333.3 mls/hr IV Q12H [facility] Last Admin: 12/16/17 21:12 Dose: 250 mls/hr Clindamycin Phosphate 600 mg/ (Dextrose) 54 mls @ 100 mls/hr IV Q8H [facility] Last Admin: 12/17/17 05:44 Dose: 100 mls/hr Insulin Human Lispro (Humalog) 0 unit SQ [facility]; Protocol Last Admin: 12/16/17 21:13 Dose: Not Given Metformin HCl (Glucophage) 500 mg PO BIDCC [facility] Last Admin: 12/16/17 17:00 Dose: Not Given Metoprolol Tartrate (Lopressor) 100 mg PO BID [facility] Last Admin: 12/16/17 21:08 Dose: 100 mg Montelukast Sodium (Singular) 10 mg PO [facility] Last Admin: 12/16/17 21:09 Dose: 10 mg Nifedipine (Procardia Xl) 60 mg PO BID [facility] Last Admin: 12/16/17 21:11 Dose: 60 mg Nortriptyline HCl (Pamelor) 100 mg PO [facility] Last Admin: 12/16/17 21:09 Dose: 100 mg Nystatin (Nystatin) 1 dose TOPICAL BID [facility] Last Admin: 12/16/17 21:29 Dose: Not Given Olmesartan (Benicar) 40 mg PO DAILY [facility] Last Admin: 12/16/17 09:18 Dose: 40 mg Ondansetron HCl (Zofran) 4 mg IV Q4HP PRN PRN Reason: Nausea And Vomiting Mometasone Furoate [ (Elocon] 45 Gm) 1 dose TOPICAL BID [facility] Last Admin: 12/16/17 21:13 Dose: Not Given Chlorhexidine Gluconate (Hibiclens ) Topical Liquid 1 dose TOPICAL DAILY [facility] Potassium Chloride (Kdur) 10 meq PO QAMCC [facility] Last Admin: 12/16/17 09:18 Dose: 10 meq Pregabalin (Lyrica) 200 mg PO BID [facility] Last Admin: 12/16/17 21:09 Dose: 200 mg Ramelteon (Rozerem) 8 mg PO [facility] Last Admin: 12/16/17 21:14 Dose: 8 mg Ropinirole HCl (Requip) 1 mg PO [facility] Last Admin: 12/16/17 21:11 Dose: 1 mg Sitagliptin Phosphate (Januvia) 50 mg PO BIDCC [facility] Last Admin: 12/16/17 17:03 Dose: 50 mg Sodium Chloride (Saline Flush) 10 ml IV Q8 [facility] Last Admin: 12/17/17 05:45 Dose: 10 ml Vancomycin HCl (Vancomycin Per Pharmacy) 1 order IV [facility] Venlafaxine HCl (Effexor Xr) 225 mg PO [facility] Last Admin: 12/16/17 21:29 Dose: 225 mg Warfarin Sodium (Coumadin Per Pharmacy) 1 order PO [facility] [place] - PN: A/P - Time Spent With Patient Total time spent is greater than 50% in coordination of care (as documented) at patient's floor/unit and/or counseling patient: - Narrative A/P Narrative: A: *Fever with sepsis, source likely RLE cellulitis: -afebrile now, mild bandemia resolved, leukocytosis improving -lactic acidosis resolved, PCT improving -given recurrence of sepsis and Leg not looking severe for her, CT chest/abd/ pelv done w/o alternative source of infection *Bactermia (GPC pairs/chains): *RLE cellulitis complication of chronic lymphedema: see above *Encephalopathy, metabolic: Secondary to above resolved with IV fluids and resolution of fever in the ER *Volume depletion: resolved *Morbid obesity with chronic lymphedema: *IRA on cpap: *Atrial flutter fibrillation chronic: Warfarin *History of mild systolic (45) dysfunction and diastolic dysfunction: *Hypertension /hyperlipidemia *COPD (no home o2) *Depression/ anxiety: *Diabetes *Hypomag: resolved *Urinary Retention: *Deconditioning/Debility/Poor functional status: P: -Continue Vanc/cefepime, short-course clinda for possible strep, toxin production. -pending final blood cultures -pending UA, obtain urinalysis and culture if necessary -trend PCT -Pending CT chest abdomen pelvis r/o other source, recurring -Follow-up lactate -IV fluid hydration -replete electrolytes -PT /OT -Sanchez placed, void trial -home cpap -ppx: Warfarin per pharmacy/home Pepcid
[2017-12-17 07:25] LABS: Anisocytosis 1+ (NONE SEEN); Band Neutrophils % 1 % (0-10); Eosinophils % (Manual) 3 % (0-7); Lymphocytes % 5 % (15-49); Monocytes % (Manual) 8 % (1-12); Platelet Estimate NORMAL (NORMAL); RBC Morphology ABNORM (NORMAL); Segmented Neutrophils % 83 % (38-78)
[2017-12-17] MEDS: INSULIN LISPRO 1 UNIT/0.01 ML UNIT SQ SCH ×4 (08:45→21:09)
[2017-12-17] MEDS: metFORMIN 500 MG TABLET PO SCH ×2 (08:45→17:41)
[2017-12-17] MEDS: cloNIDine HCL 0.1 MG TABLET PO SCH ×2 (09:02→20:37)
[2017-12-17] MEDS: sitaGLIPtin 50 MG TABLET PO SCH ×2 (09:02→17:46)
[2017-12-17] MEDS: METOPROLOL TARTRATE 50 MG TABLET PO SCH ×2 (09:03→20:38)
[2017-12-17] MEDS: PREGABALIN 100 MG CAPSULE PO SCH ×2 (09:03→20:37)
[2017-12-17] MEDS: OLMESARTAN MEDOXOMIL 20 MG TABLET PO SCH (09:03)
[2017-12-17] MEDS: DOCUSATE SODIUM 100 MG CAPSULE PO SCH ×2 (09:03→21:10)
[2017-12-17] MEDS: NIFEdipine 30 MG TAB.XL.24H PO SCH ×2 (09:03→20:38)
[2017-12-17] MEDS: FAMOTIDINE 20 MG TABLET PO SCH ×2 (09:03→20:37)
[2017-12-17] MEDS: POTASSIUM CHLORIDE 10 MEQ TABLET PO SCH (09:03)
[2017-12-17] MEDS: DOXAZOSIN 4 MG TABLET PO SCH ×2 (09:04→20:38)
[2017-12-17] MEDS: VANCOMYCIN 1,500 MG in 0.9 % SODIUM CHLORIDE 500 ML IV SCH (09:24)
[2017-12-17] MEDS: CHLORHEXIDINE GLUCONATE TOPICAL SCH (09:29)
[2017-12-17] MEDS: MOMETASONE FUROATE TOPICAL SCH ×2 (09:30→21:17)
[2017-12-17] MEDS: NYSTATIN POWDER BOTTLE 15GM TOPICAL SCH ×2 (09:30→20:39)
[2017-12-17] MEDS ORDERED: WARFARIN 5 MG TABLET PO SCH (14:00)
--- NOTE | 2017-12-17 16:59 | Infectious Disease Consult ---
History of Present Illness Patient information: Note initiated : 12/17/17 at 4:42 pm Service Date, if different from initiated Date: [] Patient: Elizabeth Peacock 57 y/o F admitted on 12/15/17 for Fever with Sepsis, Cellulitis of Lower Leg. Chief Complaint: [] Consult date: 12/17/17 Requesting Physician: Peterson Manning Reason for Consult: Gp B Streptococcus bacteremia Chief complaint: I had a high fever History of present illness: HPI obtained from patient, and her significant other, Joanna. 57 year old lady with PMHx pertinent for: Type 2 diabetes, with neuropathy, controlled, currently on Metformin and sitagliptin A. fib, on Coumadin Chronic lymphedema with episodes of recurrent cellulitis, often with bloodstream infections since 2009. Patient says about 12-13 episodes. Resolved with IV antibiotics and hospitalization. Most recent infection was in October 2017 [right lower extremity cellulitis] Obesity Eczematous skin disorder since childhood She was in her usual state of health until 12/15/17, when she felt cold and spent an hour under warm water shower to feel better. According to Joanna, patient was confused in the shower, when she went to check on her. EMS was called and she had a fever of around 104F and chills. Patient denied any other symptoms including leg swelling, redness, trauma to the leg, insect bites, nausea, vomiting, diarrhea, headache, vision problems, neck stiffness, cough, shortness of breath, chest pain. In the ED, she had a temperature of 102 F, blood pressure 159/89, RR 18, HR 83. WBC was 11.6 k admission , steven to 21K next am. 2 sets of blood cultures were sent, and patient was admitted. Patient was started on IV vancomycin and IV metronidazole for syndromic management of cellulitis and pneumonia. Patient felt better since then, defervesced, white cell count came down to 13.6 K today. At the time of visit, confirmed the above history. She added that she has seen many specialists [skin doctors, resource protection specialist] and no one has been able to tell him the right answer as to why she keeps getting these infections again and again. She endorsed dry scales and redness around her eyelids and face, behind her ear, over her forearm. She mentioned that she has tolerated Levaquin, and has been tolerating cefepime fine without any side effects or reactions. When asked about her penicillin allergy, she said that she had possible rash when she was 1 years old. She lives with her significant other close to [facility], in [place]. She does not smoke, does not use alcohol, does not use illicit drugs. She ambulates with a cane and uses a scooter for moving around. Past History Past surgical history: Hysterectomy Bilateral knee replacements Medications and Allergies Home Medications Medication Instructions Recorded Confirmed Type Albuterol Sulfate 2.5 mg IH Q4HP PRN 09/11/17 12/15/17 History Aspirin [Lo-Dose Aspirin EC] 81 mg PO DAILY 09/11/17 12/15/17 History Atorvastatin [Lipitor] 80 mg PO HS 09/11/17 12/15/17 History Cetirizine [Zyrtec] 10 mg PO DAILY 09/11/17 12/15/17 History Doxazosin [Cardura] 8 mg PO BID 09/11/17 12/15/17 History Esomeprazole Magnesium [Nexium] 40 mg PO BID 09/11/17 12/15/17 History Ferrous Sulfate, Dried [Iron] 65 mg PO BID 09/11/17 12/15/17 History Ipratropium/Albuterol Sulfate 1 puff INH Q4HP PRN 09/11/17 12/15/17 History [Combivent] Magnesium Oxide [Magnesium] 400 mg PO DAILY 09/11/17 12/15/17 History Metoprolol Tartrate 100 mg PO BID 09/11/17 12/15/17 History Montelukast [Singular] 10 mg PO HS 09/11/17 12/15/17 History NIFEdipine [Afeditab Cr] 60 mg PO BID 09/11/17 12/15/17 History Nortriptyline [Pamelor] 100 mg PO HS 09/11/17 12/15/17 History Olmesartan Medoxomil [Benicar] 40 mg PO DAILY 09/11/17 12/15/17 History Chester-3/Dha/Epa/Fish Oil [Fish Oil 1,400 mg PO DAILY 09/11/17 12/15/17 History 1,400 mg Softgel] Potassium Chloride [Klor-Con 10] 10 meq PO DAILY 09/11/17 12/15/17 History Pregabalin [Lyrica] 200 mg PO BID 09/11/17 12/15/17 History Ramelteon [Rozerem] 8 mg PO HS 09/11/17 12/15/17 History Ranitidine HCl [Heartburn Relief] 150 mg PO BID 09/11/17 12/15/17 History Venlafaxine [Effexor Xr] 225 mg PO HS 09/11/17 12/15/17 History cloNIDine HCL [Catapres] 0.4 mg PO BID 09/11/17 12/16/17 History diphenhydrAMINE HCL [Benadryl] 50 mg PO BID 09/11/17 12/15/17 History hydrOXYzine [Atarax] 25 mg PO PRN PRN 09/11/17 12/15/17 History rOPINIRole [Requip] 1 mg PO HS 09/11/17 12/15/17 History sitaGLIPtin PHOS/metFORMIN HCL 1 each PO BID 09/11/17 12/16/17 History [Janumet 50-1,000 mg Tablet] Hydrocortisone/Aloe Vera 28.4 gm TP QIDP PRN 10/30/17 12/15/17 History [Hydrocortisone Plus 1% Cream] Mometasone Furoate [Elocon] 45 gm TP BID 10/30/17 12/15/17 History Petrolatum,White/Water [Vanicream 474 ml TP BID 10/30/17 12/15/17 History Lite Lotion] Chlorhexidine Gluconate [Hibiclens] 946 ml TP DAILY #1 11/01/17 12/15/17 Rx Diazepam [Valium] 2 mg PO HSP PRN tablet 11/01/17 12/15/17 Rx Levofloxacin 750 mg PO DAILY #12 tab 11/01/17 12/15/17 Rx Warfarin [Coumadin] 7.5 mg PO DAILY 11/05/17 12/15/17 History Allergies Allergy/AdvReac Type Severity Reaction Status Date / Time Sulfa (Sulfonamide Allergy Severe Hives Verified 11/05/17 18:50 Antibiotics) exenatide [From Byetta] Allergy Intermediate Hives Verified 11/05/17 18:50 latex Allergy Intermediate Rash Verified 11/05/17 18:50 Penicillins Allergy Intermediate Hives Verified 11/05/17 18:50 Rosiglitazone [From Avandia] Allergy Intermediate Hives Verified 11/05/17 18:50 meperidine [From Demerol] AdvReac Intermediate Gastrointestinal Verified 18:50 Upset Physical Examination Vital signs: Temp Pulse Resp BP Pulse Ox 36.4 C 45 L 20 120/77 97 12/17/17 16:00 12/17/17 11:38 12/17/17 16:00 12/17/17 16:00 12/17/17 16:00 General appearance: no acute distress, alert Eyes pulmonary: nonicteric ENT: oropharynx dry Effort: normal Auscultation: bilateral: clear Cardiovascular: other (S1, S2 normal, no murmur heard) Gastrointestinal: normoactive bowel sounds (Obese, distended abdomen, nontender , has a well-healed burn) Integumentary: other (Has thickening, and calluses on the bottom of her feet, no open wounds, fine touch not appreciated bilaterally in the feet, also has these areas of scaling with redness in flexural areas of upper extremity, face, behind the ear) Extremities: other (Has bilateral lower extremity edema, with changes of venous stasis in both legs, no open ulcers) mood appropriate Results - Laboratory Findings CBC and BMP: 12/17/17 04:30 12/17/17 04:30 PT/INR, D-dimer PT 22.1 sec (11.9-14.5) H 12/17/17 04:30 INR 1.9 (0.9-1.1) H 12/17/17 04:30 Abnormal lab findings: Abnormal Labs 12/15/17 12/15/17 12/15/17 17:42 17:42 17:42 WBC 11.6 H RBC Hgb Hct RDW 16.2 H Gran % 91.4 H Lymph % (Auto) 3.3 L Gran # 10.6 H Lymph # (Auto) 0.4 L Seg Neutrophils % Band Neutrophils % Lymphocytes % RBC Morphology Anisocytosis ESR PT INR VBG Lactic Acid 2.3 H BUN 22 H Glucose 135 H Calcium Magnesium GGT C-Reactive Protein Urine Protein 12/15/17 12/15/17 12/15/17 17:42 17:46 22:40 WBC RBC Hgb Hct RDW Gran % Lymph % (Auto) Gran # Lymph # (Auto) Seg Neutrophils % 91 H Band Neutrophils % Lymphocytes % 2 L RBC Morphology Anisocytosis 1+ A ESR 23 H PT 26.2 H INR 2.4 H VBG Lactic Acid BUN Glucose Calcium Magnesium GGT C-Reactive Protein Urine Protein 12/15/17 12/15/17 12/16/17 22:40 22:40 04:14 WBC 21.0 H RBC 3.99 L Hgb 11.2 L Hct 34.2 L RDW 16.2 H Gran % 93.1 H Lymph % (Auto) 3.2 L Gran # 19.5 H Lymph # (Auto) 0.7 L Seg Neutrophils % Band Neutrophils % Lymphocytes % RBC Morphology Anisocytosis ESR PT INR VBG Lactic Acid 2.4 H BUN Glucose Calcium Magnesium GGT C-Reactive Protein 2.9 H Urine Protein 12/16/17 12/16/17 12/16/17 04:14 04:14 09:15 WBC RBC Hgb Hct RDW Gran % Lymph % (Auto) Gran # Lymph # (Auto) Seg Neutrophils % 83 H Band Neutrophils % 11 H Lymphocytes % 4 L RBC Morphology Anisocytosis 1+ A ESR PT INR VBG Lactic Acid BUN 22 H Glucose 109 H Calcium 8.2 L Magnesium 1.4 L GGT 47 H C-Reactive Protein Urine Protein 30 A 12/16/17 12/17/17 12/17/17 11:00 04:30 04:30 WBC 13.6 H RBC 3.69 L Hgb 10.2 L Hct 31.4 L RDW 16.3 H Gran % Lymph % (Auto) Gran # Lymph # (Auto) Seg Neutrophils % 83 H Band Neutrophils % Lymphocytes % 5 L RBC Morphology Abnorm A Anisocytosis 1+ A ESR PT 22.3 H INR 1.9 H VBG Lactic Acid BUN Glucose 127 H Calcium Magnesium GGT 44 H C-Reactive Protein 22.0 H Urine Protein 12/17/17 04:30 WBC RBC Hgb Hct RDW Gran % Lymph % (Auto) Gran # Lymph # (Auto) Seg Neutrophils % Band Neutrophils % Lymphocytes % RBC Morphology Anisocytosis ESR PT 22.1 H INR 1.9 H VBG Lactic Acid BUN Glucose Calcium Magnesium GGT C-Reactive Protein Urine Protein Microbiology: Microbiology 12/15/17 17:42 Blood Blood Culture - Preliminary Strep agalactiae - (group b) 12/16/17 00:00 Nose MRSA (PCR) - Final 12/15/17 17:30 Blood Blood Culture - Preliminary Gram positive cocci Assessment and Plan - Narrative A/P Narrative: 57-year-old lady with chronic lymphedema [based on history] with recurrent episodes of skin and soft tissue infections, and subsequent bloodstream infections, now admitted with: 1. Group B streptococcal bacteremia: - risk factors include: dry skin, neuropathy, chronic lymphedema, eczematous skin ds; all of which make the perfect combination for bacteria to colonize and get into deeper skin structures with subseq entry into bloodstream - no concerns for endocarditis at this point - CT chest/abd/pelvis negative for any occult abscess 2. No Sepsis: Q-SOFA score 0 Recommendations: Start IV ceftriaxone 2 g every 24 hours Stop IV cefepime Repeat blood cultures every other day until clearance of bacteremia If no other system involvement [endocarditis, osteomyelitis, deeper skin infections], will treat for 2 weeks Consider whole body [below the neck] chlorhexidine 2% wipes application for decolonization. Given patient has reported concerns of burning, will recommend starting with a smaller area such as forearm today and observe till tomorrow to see if patient has any reaction. If no reaction, consider application for next 5 days -Patient counseled to see a mid level practitioner after discharge for management of calluses, dry skin, general foot hygiene We will follow up the patient in infectious disease clinic, for prophylactic low-dose penicillin V for prevention of recurrent cellulitis. Will give a dose while the patient is in the hospital to make sure she tolerates it well. The penicillin allergy risk [when it is type I] is similar to that of general population after 10 years of having a reaction. In our patient's case it has been more than 10 years, she has tolerated cephalosporins well to and thus an oral penicillin can be easily tried while the patient is in the hospital Will follow Olvin Patterson MD Infectious disease
[2017-12-17] MEDS ORDERED: cefTRIAXone 2 GM VIAL IV SCH (17:30)
[2017-12-17] MEDS: cefTRIAXone 2 GM in DEXTROSE 5% IN WATER 50 ML IV SCH (17:56)
[2017-12-17] MEDS: MONTELUKAST 10 MG TABLET PO SCH (20:37)
[2017-12-17] MEDS: RAMELTEON 8 MG TABLET PO SCH (20:38)
[2017-12-17] MEDS: ATORVASTATIN 20 MG TABLET PO SCH (20:38)
[2017-12-17] MEDS: VENLAFAXINE 150 MG CAP.XL.24H PO SCH (21:10)
[2017-12-17] MEDS: rOPINIRole 1 MG TABLET PO SCH (21:17)
[2017-12-17] MEDS: NORTRIPTYLINE 25 MG CAPSULE PO SCH (21:17)
[2017-12-18 05:32] LABS: Basophils # (Auto) 0 K/mcL (0.0-0.3); Basophils % (Auto) 0.3 % (0.0-2.0); Eosinophils # (Auto) 0.4 K/mcL (0.0-0.7); Eosinophils % (Auto) 4.4 % (0.0-7.0); Granulocytes % (Auto) 75.6 % (38.0-78.0); Lymphocytes # (Auto) 0.9 K/mcL (1.5-4.8); Lymphocytes % (Auto) 9.8 % (15.5-49.0); Mean Cell Volume 85.3 fL (80.0-100.0); Mean Corpuscular HGB Conc 33.2 g/dL (31.0-36.0); Mean Corpuscular Hemoglobin 28.3 pg (26.0-34.0); Monocytes % (Auto) 9.9 % (1.0-12.0); Platelet Count 216 K/mcL (140-440); RBC 3.51 M/mcL (4.00-5.20); Red Cell Distribution Width 16.1 % (11.5-14.5)
[2017-12-18 05:41] LABS: Blood Urea Nitrogen 14 mg/dl (6-20)
[2017-12-18] MEDS: CLINDAMYCIN 600 MG in DEXTROSE 5% IN WATER 50 ML IV SCH (05:51)
[2017-12-18] MEDS: 0.9 % SODIUM CHLORIDE 2,000 ML IV SCH (05:51)
[2017-12-18] MEDS: 0.9 % SODIUM CHLORIDE 10 ML SYRINGE IV SCH ×3 (05:52→20:49)
[2017-12-18] MEDS: INSULIN LISPRO 1 UNIT/0.01 ML UNIT SQ SCH ×4 (07:50→20:48)
[2017-12-18] MEDS: metFORMIN 500 MG TABLET PO SCH ×2 (08:15→17:34)
[2017-12-18] MEDS: NIFEdipine 30 MG TAB.XL.24H PO SCH ×2 (08:22→20:46)
[2017-12-18] MEDS: POTASSIUM CHLORIDE 10 MEQ TABLET PO SCH (08:22)
[2017-12-18] MEDS: sitaGLIPtin 50 MG TABLET PO SCH ×2 (08:23→17:36)
[2017-12-18] MEDS: METOPROLOL TARTRATE 50 MG TABLET PO SCH ×2 (08:23→20:46)
[2017-12-18] MEDS: OLMESARTAN MEDOXOMIL 20 MG TABLET PO SCH (08:23)
[2017-12-18] MEDS: DOXAZOSIN 4 MG TABLET PO SCH ×2 (08:24→20:45)
[2017-12-18] MEDS: PREGABALIN 100 MG CAPSULE PO SCH ×2 (08:25→20:45)
[2017-12-18] MEDS: cloNIDine HCL 0.1 MG TABLET PO SCH ×2 (08:25→20:43)
[2017-12-18] MEDS: FAMOTIDINE 20 MG TABLET PO SCH ×2 (08:25→20:46)
[2017-12-18] MEDS: MOMETASONE FUROATE TOPICAL SCH ×2 (08:25→20:49)
[2017-12-18] MEDS: CHLORHEXIDINE GLUCONATE TOPICAL SCH (08:26)
[2017-12-18] MEDS: DOCUSATE SODIUM 100 MG CAPSULE PO SCH ×2 (08:26→20:44)
[2017-12-18] MEDS: NYSTATIN POWDER BOTTLE 15GM TOPICAL SCH ×2 (08:26→20:48)
[2017-12-18] MEDS: cefTRIAXone 2 GM in DEXTROSE 5% IN WATER 50 ML IV SCH (08:37)
[2017-12-18] MEDS ORDERED: BISACODYL 5 MG TABLET PO PRN (09:28)
[2017-12-18] MEDS ORDERED: ACETAMINOPHEN 325 MG TABLET PO PRN (09:28)
[2017-12-18] MEDS ORDERED: ONDANSETRON 4 MG/2 ML VIAL IV PRN (09:28)
[2017-12-18] MEDS ORDERED: DEXTROSE 31 GM ORAL.SUSP PO PRN (09:28)
[2017-12-18] MEDS ORDERED: IPRATROPIUM/ALBUTEROL 3 ML AMPUL.NEB NEB PRN (09:28)
[2017-12-18] MEDS ORDERED: 0.9 % SODIUM CHLORIDE 2,000 ML IV SCH (09:28)
[2017-12-18] MEDS ORDERED: hydrOXYzine 25 MG TABLET PO PRN (09:28)
[2017-12-18] MEDS ORDERED: DEXTROSE 50% 50 ML VIAL IV PRN (09:28)
[2017-12-18] MEDS ORDERED: MAGNESIUM SULFATE 8.12 MEQ in DEXTROSE 5% IN WATER 50 ML IV ONE (09:28)
[2017-12-18] MEDS ORDERED: diphenhydrAMINE 25 MG CAPSULE PO PRN (09:28)
[2017-12-18] MEDS ORDERED: CETIRIZINE 10 MG TABLET PO PRN (09:28)
--- NOTE | 2017-12-18 10:49 | Internal Med Progress Note ---
Medical - PN: Subj Patient information: Note initiated : 12/18/17 at 10:45 am Service Date, if different from initiated Date: [] Patient: Elizabeth Peacock 57 y/o F admitted on 12/15/17 for Fever with Sepsis, Cellulitis of Lower Leg. Chief Complaint: [] Interval history: feels better today. Got some sleep last night. Denies fever chills. Right lower leg tender in the back with some redness. Patient states her leg however is better than what it was last month. Denies any cough or shortness of breath. Denies any stomach pain or diarrhea. 12/17 slept well, feeling better. no new complaints. Review of Systems: denies headache/fever/chills/nausea/vomiting/chest or abdominal pain/cough/ dyspnea/diarrhea. Otherwise see above. 12/18 pt seen examined, no acute overnight issues, no fever or chills, doing well repeat cultures sent on IV rocepin per ID Pertinent ROS: Denies headache, dizziness Denies chest pain, palpitations Denies cough or shortness of breath Denies abdominal pain, nausea or vomiting. - Constitutional Vitals: Vital Signs Temp Pulse Resp BP Pulse Ox 98.8 F 65 16 120/77 96 12/18/17 06:57 12/17/17 23:44 12/18/17 06:57 12/18/17 06:57 12/18/17 08:00 Period Temp Pulse Resp BP Sys/Merino Pulse Ox Last 24 Hr 97.3 F-98.8 F 45-65 16-20 119-138/72-77 90-97 Intake and Output 12/17/17 12/18/17 12/18/17 21:59 05:59 13:59 Intake Total 608 / 608 2654 / 2654 Output Total 900 / 900 1400 / 1400 100 / 100 Balance -292 / -292 -1400 / -1400 2554 / 2554 Weight 340 lb 9.6 oz Intake & Output: Intake & Output 12/17/17 12/18/17 12/18/17 21:59 05:59 13:59 Intake Total 608 / 608 2654 / 2654 Output Total 900 / 900 1400 / 1400 100 / 100 Balance -292 / -292 -1400 / -1400 2554 / 2554 Weight 340 lb 9.6 oz Intake: IV 608 / 608 2154 / 2154 Sodium Chloride 0.9% 2,000 ml @ 2000 / 2000 150 mls/hr IV .[id number] [facility] Rx# :[id number] Cleocin 600 mg In Dextrose 5% 108 / 108 54 / 54 in Water 50 ml @ 100 mls/hr IV Q8H [facility] Rx#:[id number] Vancomycin 1,500 mg In Sodium 500 / 500 Chloride 0.9% 500 ml @ 333.3 mls/hr IV Q12H [facility] Rx#: [id number] Rocephin 2 gm In Dextrose 5% in 100 / 100 Water 50 ml @ 100 mls/hr IV Q24H [facility] Rx#:[id number] Oral 500 / 500 Output: Void Amount 900 / 900 1400 / 1400 100 / 100 Other: Meal Breakfast Percent of Meal Consumed 75% Urine Appearance Clear Clear Urine Color Bright Yellow Bright Yellow Urine Odor Normal Normal Exam: Constitutional; Afebrile, cooperative, alert, not in distress. Respiratory system: Air Entry equal on both sides, No crackles or wheezing, no rhonchi. CVS- Rate rhythm regular, S1,S2 heard, no gallop, no rub. 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 leanna lowe extremity edema, erthema on right LL extremity, lower 1/3 Medical - PN: Obj Da - Labs CBC & Chem 7: 12/18/17 03:55 12/18/17 03:55 Labs: Abnormal Lab Results 12/18/17 12/18/17 12/18/17 03:55 03:55 03:55 WBC RBC 3.51 L Hgb 9.9 L Hct 29.9 L RDW 16.1 H Gran % Lymph % (Auto) 9.8 L Gran # Lymph # (Auto) 0.9 L Day # (Auto) 1.0 H Seg Neutrophils % Band Neutrophils % Lymphocytes % RBC Morphology Anisocytosis ESR PT 25.2 H INR 2.3 H VBG Lactic Acid BUN Glucose 130 H Calcium Magnesium GGT C-Reactive Protein Urine Protein 12/17/17 12/17/17 12/17/17 04:30 04:30 04:30 WBC 13.6 H RBC 3.69 L Hgb 10.2 L Hct 31.4 L RDW 16.3 H Gran % Lymph % (Auto) Gran # Lymph # (Auto) Day # (Auto) Seg Neutrophils % 83 H Band Neutrophils % Lymphocytes % 5 L RBC Morphology Abnorm A Anisocytosis 1+ A ESR PT 22.1 H INR 1.9 H VBG Lactic Acid BUN Glucose 127 H Calcium Magnesium GGT 44 H C-Reactive Protein 22.0 H Urine Protein 12/16/17 12/16/17 12/16/17 11:00 09:15 04:14 WBC RBC Hgb Hct RDW Gran % Lymph % (Auto) Gran # Lymph # (Auto) Day # (Auto) Seg Neutrophils % 83 H Band Neutrophils % 11 H Lymphocytes % 4 L RBC Morphology Anisocytosis 1+ A ESR PT 22.3 H INR 1.9 H VBG Lactic Acid BUN Glucose Calcium Magnesium GGT C-Reactive Protein Urine Protein 30 A 12/16/17 12/16/17 12/15/17 04:14 04:14 22:40 WBC 21.0 H RBC 3.99 L Hgb 11.2 L Hct 34.2 L RDW 16.2 H Gran % 93.1 H Lymph % (Auto) 3.2 L Gran # 19.5 H Lymph # (Auto) 0.7 L Day # (Auto) Seg Neutrophils % Band Neutrophils % Lymphocytes % RBC Morphology Anisocytosis ESR PT INR VBG Lactic Acid 2.4 H BUN 22 H Glucose 109 H Calcium 8.2 L Magnesium 1.4 L GGT 47 H C-Reactive Protein Urine Protein 12/15/17 12/15/17 12/15/17 22:40 22:40 17:46 WBC RBC Hgb Hct RDW Gran % Lymph % (Auto) Gran # Lymph # (Auto) Day # (Auto) Seg Neutrophils % Band Neutrophils % Lymphocytes % RBC Morphology Anisocytosis ESR 23 H PT 26.2 H INR 2.4 H VBG Lactic Acid BUN Glucose Calcium Magnesium GGT C-Reactive Protein 2.9 H Urine Protein 12/15/17 12/15/17 12/15/17 17:42 17:42 17:42 WBC RBC Hgb Hct RDW Gran % Lymph % (Auto) Gran # Lymph # (Auto) Day # (Auto) Seg Neutrophils % 91 H Band Neutrophils % Lymphocytes % 2 L RBC Morphology Anisocytosis 1+ A ESR PT INR VBG Lactic Acid 2.3 H BUN 22 H Glucose 135 H Calcium Magnesium GGT C-Reactive Protein Urine Protein 12/15/17 17:42 WBC 11.6 H RBC Hgb Hct RDW 16.2 H Gran % 91.4 H Lymph % (Auto) 3.3 L Gran # 10.6 H Lymph # (Auto) 0.4 L Day # (Auto) Seg Neutrophils % Band Neutrophils % Lymphocytes % RBC Morphology Anisocytosis ESR PT INR VBG Lactic Acid BUN Glucose Calcium Magnesium GGT C-Reactive Protein Urine Protein Meds: Medications Acetaminophen (Tylenol) 650 mg PO Q6HP PRN PRN Reason: PAIN/FEVER > 101 Albuterol/Ipratropium (Duoneb) 3 ml NEB Q4HRT PRN PRN Reason: sob Atorvastatin Calcium (Lipitor) 80 mg PO HS [facility] Bisacodyl (Dulcolax) 10 mg PO DAILYP PRN PRN Reason: Constipation Ceftriaxone Sodium (Rocephin) 2 gm IV DAILY [facility] Cetirizine HCl (Zyrtec) 10 mg PO DAILYP PRN PRN Reason: Allergic Reaction Clonidine HCl (Catapres) 0.4 mg PO BID [facility] Dextrose (Dextrose 50%) 0 ml IV UD PRN PRN Reason: Hypoglycemia Diagnostic Test (Pha) (Accu-Chek) 1 each FS ACHS [facility] Diazepam (Valium) 2 mg PO HSP PRN PRN Reason: Anxiety Diphenhydramine HCl (Benadryl) 50 mg PO BIDP PRN PRN Reason: Allergic Symptoms Docusate Sodium (Colace) 100 mg PO BID [facility] Doxazosin Mesylate (Cardura) 8 mg PO BID [facility] Famotidine (Pepcid) 20 mg PO BID [facility] Glucose (Insta-Glucose) 15 gm PO PRN PRN PRN Reason: Hypoglycemia Hydroxyzine HCl (Atarax) 25 mg PO PRN PRN PRN Reason: Anxiety Insulin Human Lispro (Humalog) 0 unit SQ ACHS [facility]; Protocol Metformin HCl (Glucophage) 500 mg PO BIDCC [facility] Metoprolol Tartrate (Lopressor) 100 mg PO BID [facility] Montelukast Sodium (Singular) 10 mg PO HS [facility] Nifedipine (Procardia Xl) 60 mg PO BID [facility] Nortriptyline HCl (Pamelor) 100 mg PO HS [facility] Nystatin (Nystatin) 1 dose TOPICAL BID [facility] Olmesartan (Benicar) 40 mg PO DAILY [facility] Ondansetron HCl (Zofran) 4 mg IV Q4HP PRN PRN Reason: Nausea And Vomiting Mometasone Furoate [ (Elocon] 45 Gm) 1 dose TOPICAL BID [facility] Chlorhexidine Gluconate (Hibiclens ) Topical Liquid 1 dose TOPICAL DAILY [facility] Potassium Chloride (Kdur) 10 meq PO QAMCC [facility] Pregabalin (Lyrica) 200 mg PO BID [facility] Ramelteon (Rozerem) 8 mg PO HS [facility] Ropinirole HCl (Requip) 1 mg PO HS [facility] Sitagliptin Phosphate (Januvia) 50 mg PO BIDCC [facility] Sodium Chloride (Saline Flush) 10 ml IV Q8 [facility] Venlafaxine HCl (Effexor Xr) 225 mg PO HS [facility] Warfarin Sodium (Coumadin Per Pharmacy) 1 order PO UD [facility] Medical - PN: A/P - Time Spent With Patient Total time spent is greater than 50% in coordination of care (as documented) at patient's floor/unit and/or counseling patient: - Narrative A/P Narrative: A/P Fever with sepsis, source likely RLE cellulitis: -afebrile now, mild bandemia resolved, leukocytosis improving -lactic acidosis resolved, PCT improving -given recurrence of sepsis and Leg not looking severe for her, CT chest/abd/ pelv done w/o alternative source of infection -IV rochepin as per ID. d/c clindamycin *Bactermia (GPC pairs/chains): *RLE cellulitis complication of chronic lymphedema: see above *Encephalopathy, metabolic: Secondary to above resolved with IV fluids and resolution of fever in the ER, improving slowly some component of delirium *Volume depletion: resolved *Morbid obesity with chronic lymphedema: *IRA on cpap: *Atrial flutter fibrillation chronic: Warfarin *History of mild systolic (45) dysfunction and diastolic dysfunction: *Hypertension /hyperlipidemia *COPD (no home o2) *Depression/ anxiety: *Diabetes *Hypomag: resolved *Urinary Retention: *Deconditioning/Debility/Poor functional status: P: -xfer to med surg await final blood cultures picc line if neg cultures d/c clinda, only on rocephin for now. trend labs ot/pt continue coumadin per pharmacy cpap at night anticipate d/c home to snf in next 24-48 hrs ppx: Warfarin per pharmacy/home Pepcid
[2017-12-18] MEDS ORDERED: WARFARIN 5 MG TABLET PO ONE (14:00)
--- NOTE | 2017-12-18 14:54 | Internal Med Progress Note ---
Medical - PN: Subj Patient information: Note initiated : 12/18/17 at 2:52 pm Service Date, if different from initiated Date: [] Patient: Elizabeth Peacock 57 y/o F admitted on 12/15/17 for Fever with Sepsis, Cellulitis of Lower Leg. Chief Complaint: [] Interval history: Patient is much better today. She was sitting in the chair. Denies any nausea , vomiting, diarrhea, fever, chills, belly pain. Endorses redness and pain in her lower legs on both sides. Says when topical or exiting was applied yesterday, led to burning and redness and itching. - Constitutional Vitals: Vital Signs Temp Pulse Resp BP Pulse Ox 36.1 C 45 L 16 124/74 97 12/18/17 11:59 12/18/17 12:14 12/18/17 06:57 12/18/17 11:59 12/18/17 12:14 Period Temp Pulse Resp BP Sys/Merino Pulse Ox Last 24 Hr 36.1 C-37.1 C 45-65 16-20 120-138/72-77 86-97 Intake and Output 12/18/17 12/18/17 12/18/17 05:59 13:59 21:59 Intake Total 2654 / 2654 Output Total 1400 / 1400 700 / 700 Balance -1400 / -1400 1953 Intake & Output: Intake & Output 12/18/17 12/18/17 12/18/17 05:59 13:59 21:59 Intake Total 2654 / 2654 Output Total 1400 / 1400 700 / 700 Balance -1400 / -1400 1953 Intake: IV 2154 / 2154 Sodium Chloride 0.9% 2,000 ml @ 1999 / 1999 150 mls/hr IV .[id number] RAMILA Rx# :[id number] Cleocin 600 mg In Dextrose 5% 54 / 54 in Water 50 ml @ 100 mls/hr IV Q8H RAMILA Rx#:[id number] Rocephin 2 gm In Dextrose 5% in 100 / 100 Water 50 ml @ 100 mls/hr IV Q24H RAMILA Rx#:[id number] Oral 500 / 500 Output: Void Amount 1400 / 1400 700 / 700 Other: Meal Breakfast Percent of Meal Consumed 75% Urine Appearance Clear Urine Color Bright Yellow Urine Odor Normal General appearance: cooperative, no acute distress, obese - ENT Additional comments: No Thrush - Respiratory Respiratory exam: Present: CTAB - Cardiovascular Cardiovascular exam: Present: +S1, +S2, systolic murmur (Has a ejection systolic murmur best heard at right second intercostal space, radiates to carotids) - GI/Abdominal GI/Abdominal exam: Present: normal bowel sounds, soft, distended. Absent: tenderness - Extremities Exam Additional comments: Has changes of chronic venous congestion, chronic skin changes of edema including thickening. Redness in lower part of the legs bilaterally, slightly tender, no open wounds or drainage Medical - PN: Obj Da - Labs CBC & Chem 7: 12/18/17 03:55 12/18/17 03:55 Labs: Abnormal Lab Results 12/18/17 12/18/17 12/18/17 03:55 03:55 03:55 WBC RBC 3.51 L Hgb 9.9 L Hct 29.9 L RDW 16.1 H Gran % Lymph % (Auto) 9.8 L Gran # Lymph # (Auto) 0.9 L Bell # (Auto) 1.0 H Seg Neutrophils % Band Neutrophils % Lymphocytes % RBC Morphology Anisocytosis ESR PT 25.2 H INR 2.3 H VBG Lactic Acid BUN Glucose 130 H Calcium Magnesium GGT C-Reactive Protein Urine Protein 12/17/17 12/17/17 12/17/17 04:30 04:30 04:30 WBC 13.6 H RBC 3.69 L Hgb 10.2 L Hct 31.4 L RDW 16.3 H Gran % Lymph % (Auto) Gran # Lymph # (Auto) Bell # (Auto) Seg Neutrophils % 83 H Band Neutrophils % Lymphocytes % 5 L RBC Morphology Abnorm A Anisocytosis 1+ A ESR PT 22.1 H INR 1.9 H VBG Lactic Acid BUN Glucose 127 H Calcium Magnesium GGT 44 H C-Reactive Protein 22.0 H Urine Protein 12/16/17 12/16/17 12/16/17 11:00 09:15 04:14 WBC RBC Hgb Hct RDW Gran % Lymph % (Auto) Gran # Lymph # (Auto) Bell # (Auto) Seg Neutrophils % 83 H Band Neutrophils % 11 H Lymphocytes % 4 L RBC Morphology Anisocytosis 1+ A ESR PT 22.3 H INR 1.9 H VBG Lactic Acid BUN Glucose Calcium Magnesium GGT C-Reactive Protein Urine Protein 30 A 12/16/17 12/16/17 12/15/17 04:14 04:14 22:40 WBC 21.0 H RBC 3.99 L Hgb 11.2 L Hct 34.2 L RDW 16.2 H Gran % 93.1 H Lymph % (Auto) 3.2 L Gran # 19.5 H Lymph # (Auto) 0.7 L Bell # (Auto) Seg Neutrophils % Band Neutrophils % Lymphocytes % RBC Morphology Anisocytosis ESR PT INR VBG Lactic Acid 2.4 H BUN 22 H Glucose 109 H Calcium 8.2 L Magnesium 1.4 L GGT 47 H C-Reactive Protein Urine Protein 12/15/17 12/15/17 12/15/17 22:40 22:40 17:46 WBC RBC Hgb Hct RDW Gran % Lymph % (Auto) Gran # Lymph # (Auto) Bell # (Auto) Seg Neutrophils % Band Neutrophils % Lymphocytes % RBC Morphology Anisocytosis ESR 23 H PT 26.2 H INR 2.4 H VBG Lactic Acid BUN Glucose Calcium Magnesium GGT C-Reactive Protein 2.9 H Urine Protein 12/15/17 12/15/17 12/15/17 17:42 17:42 17:42 WBC RBC Hgb Hct RDW Gran % Lymph % (Auto) Gran # Lymph # (Auto) Bell # (Auto) Seg Neutrophils % 91 H Band Neutrophils % Lymphocytes % 2 L RBC Morphology Anisocytosis 1+ A ESR PT INR VBG Lactic Acid 2.3 H BUN 22 H Glucose 135 H Calcium Magnesium GGT C-Reactive Protein Urine Protein 12/15/17 17:42 WBC 11.6 H RBC Hgb Hct RDW 16.2 H Gran % 91.4 H Lymph % (Auto) 3.3 L Gran # 10.6 H Lymph # (Auto) 0.4 L Bell # (Auto) Seg Neutrophils % Band Neutrophils % Lymphocytes % RBC Morphology Anisocytosis ESR PT INR VBG Lactic Acid BUN Glucose Calcium Magnesium GGT C-Reactive Protein Urine Protein Meds: Medications Acetaminophen (Tylenol) 650 mg PO Q6HP PRN PRN Reason: PAIN/FEVER > 101 Albuterol/Ipratropium (Duoneb) 3 ml NEB Q4HRT PRN PRN Reason: sob Atorvastatin Calcium (Lipitor) 80 mg PO HS [facility]ILA Bisacodyl (Dulcolax) 10 mg PO DAILYP PRN PRN Reason: Constipation Ceftriaxone Sodium (Rocephin) 2 gm IV DAILY [facility] Cetirizine HCl (Zyrtec) 10 mg PO DAILYP PRN PRN Reason: Allergic Reaction Clonidine HCl (Catapres) 0.4 mg PO BID RAMIL[facility] Dextrose (Dextrose 50%) 0 ml IV UD PRN PRN Reason: Hypoglycemia Diagnostic Test (Pha) (Accu-Chek) 1 each FS ACHS [facility] Last Admin: 12/18/17 13:51 Dose: 1 each Diazepam (Valium) 2 mg PO HSP PRN PRN Reason: Anxiety Diphenhydramine HCl (Benadryl) 50 mg PO BIDP PRN PRN Reason: Allergic Symptoms Docusate Sodium (Colace) 100 mg PO BID [facility] Doxazosin Mesylate (Cardura) 8 mg PO BID [facility] Famotidine (Pepcid) 20 mg PO BID [facility] Glucose (Insta-Glucose) 15 gm PO PRN PRN PRN Reason: Hypoglycemia Hydroxyzine HCl (Atarax) 25 mg PO PRN PRN PRN Reason: Anxiety Insulin Human Lispro (Humalog) 0 unit SQ [facility]; Protocol Last Admin: 12/18/17 13:51 Dose: Not Given Metformin HCl (Glucophage) 500 mg PO BIDCC [facility] Metoprolol Tartrate (Lopressor) 100 mg PO BID [facility] Montelukast Sodium (Singular) 10 mg PO HS [facility] Nifedipine (Procardia Xl) 60 mg PO BID [facility] Nortriptyline HCl (Pamelor) 100 mg PO HS [facility] Nystatin (Nystatin) 1 dose TOPICAL BID [facility] Olmesartan (Benicar) 40 mg PO DAILY [facility] Ondansetron HCl (Zofran) 4 mg IV Q4HP PRN PRN Reason: Nausea And Vomiting Mometasone Furoate [ (Elocon] 45 Gm) 1 dose TOPICAL BID [facility] Chlorhexidine Gluconate (Hibiclens ) Topical Liquid 1 dose TOPICAL DAILY [facility] Penicillin V Potassium (Penicillin Vk) 250 mg PO ONCE ONE Stop: 12/18/17 15:01 Last Admin: 12/18/17 14:32 Dose: 250 mg Potassium Chloride (Kdur) 10 meq PO QAMCC [facility] Pregabalin (Lyrica) 200 mg PO BID [facility] Ramelteon (Rozerem) 8 mg PO HS [facility] Ropinirole HCl (Requip) 1 mg PO HS [facility] Sitagliptin Phosphate (Januvia) 50 mg PO BIDCC [facility] Sodium Chloride (Saline Flush) 10 ml IV Q8 [facility] Last Admin: 12/18/17 13:53 Dose: 10 ml Venlafaxine HCl (Effexor Xr) 225 mg PO HS [facility] Warfarin Sodium (Coumadin Per Pharmacy) 1 order PO UD [facility] Medical - PN: A/P - Time Spent With Patient Total time spent is greater than 50% in coordination of care (as documented) at patient's floor/unit and/or counseling patient: 15 - 24 minutes - Narrative A/P Narrative: 57-year-old lady with chronic lymphedema [based on history] with recurrent episodes of skin and soft tissue infections, and subsequent bloodstream infections, now admitted with: 1. Group B streptococcal bacteremia: - risk factors include: dry skin, neuropathy, chronic lymphedema, eczematous skin ds; all of which make the perfect combination for bacteria to colonize and get into deeper skin structures with subseq entry into bloodstream - no concerns for endocarditis at this point - CT chest/abd/pelvis negative for any occult abscess 2. No Sepsis: Q-SOFA score 0 Recommendations: Continue IV ceftriaxone 2 g every 24 hours, day 2/14 - will try a single dose of Penicillin V (low dose) 250 mg once to see if pt has an allergic response. If she tolerates it, we will follow up the patient in infectious disease clinic, for prophylactic long-term low-dose penicillin V for prevention of recurrent cellulitis. -Patient counseled to see a ceramic artist after discharge for management of calluses, dry skin, general foot hygiene - leg elevation b/l to decrease dependent edema Will follow Olvin Patterson MD Infectious disease
[2017-12-18] MEDS ORDERED: PENICILLIN VK 250 MG TABLET PO ONE (15:00)
[2017-12-18] MEDS ORDERED: cefTRIAXone 2 GM in DEXTROSE 5% IN WATER 50 ML IV SCH (18:00)
[2017-12-18] MEDS ORDERED: NORTRIPTYLINE 25 MG CAPSULE PO SCH (21:00)
[2017-12-18] MEDS ORDERED: DIAZEPAM 2 MG TABLET PO PRN (21:00)
[2017-12-18] MEDS ORDERED: VENLAFAXINE 75 MG CAP.XL.24H PO SCH ×2 (21:00)
[2017-12-18] MEDS ORDERED: RAMELTEON 8 MG TABLET PO SCH (21:00)
[2017-12-18] MEDS ORDERED: rOPINIRole 1 MG TABLET PO SCH (21:00)
[2017-12-18] MEDS ORDERED: ATORVASTATIN 20 MG TABLET PO SCH (21:00)
[2017-12-18] MEDS ORDERED: MONTELUKAST 10 MG TABLET PO SCH (21:00)
[2017-12-19] MEDS: 0.9 % SODIUM CHLORIDE 10 ML SYRINGE IV SCH ×2 (05:47→12:48)
[2017-12-19] MEDS ORDERED: 0.9 % SODIUM CHLORIDE 10 ML SYRINGE IV PRN (07:28)
[2017-12-19] MEDS: INSULIN LISPRO 1 UNIT/0.01 ML UNIT SQ SCH ×2 (07:54→11:38)
[2017-12-19] MEDS: sitaGLIPtin 50 MG TABLET PO SCH (07:56)
[2017-12-19] MEDS: metFORMIN 500 MG TABLET PO SCH ×2 (07:57→09:15)
[2017-12-19] MEDS ORDERED: POTASSIUM CHLORIDE 10 MEQ TABLET PO SCH (08:00)
[2017-12-19] MEDS ORDERED: CHLORHEXIDINE GLUCONATE TOPICAL SCH (09:00)
[2017-12-19] MEDS ORDERED: 0.9 % SODIUM CHLORIDE 10 ML SYRINGE IV SCH (09:00)
[2017-12-19] MEDS ORDERED: OLMESARTAN MEDOXOMIL 20 MG TABLET PO SCH (09:00)
[2017-12-19] MEDS ORDERED: cefTRIAXone 2 GM VIAL IV SCH (09:00)
[2017-12-19] MEDS: DOXAZOSIN 4 MG TABLET PO SCH (09:40)
[2017-12-19] MEDS: NIFEdipine 30 MG TAB.XL.24H PO SCH (09:41)
[2017-12-19] MEDS: cloNIDine HCL 0.1 MG TABLET PO SCH (09:41)
[2017-12-19] MEDS: PREGABALIN 100 MG CAPSULE PO SCH (09:42)
[2017-12-19] MEDS: METOPROLOL TARTRATE 50 MG TABLET PO SCH (09:42)
[2017-12-19] MEDS: FAMOTIDINE 20 MG TABLET PO SCH (09:42)
[2017-12-19] MEDS: DOCUSATE SODIUM 100 MG CAPSULE PO SCH ×2 (09:42→09:50)
[2017-12-19] MEDS: MOMETASONE FUROATE TOPICAL SCH (09:47)
[2017-12-19] MEDS: NYSTATIN POWDER BOTTLE 15GM TOPICAL SCH (10:18)
[2017-12-19] MEDS ORDERED: LORazepam 2 MG/ML VIAL IV ONE (12:10)
[2017-12-19] MEDS ORDERED: FAMOTIDINE/PF 20 MG/2 ML VIAL IV ONE (12:40)
--- NOTE | 2017-12-19 13:41 | XRay Report ---
HISTORY: PICC line placement FINDINGS: There is a PICC line, inserted through the left arm. The tip is in the mediastinum at the level of the superior vena cava, just above the azygos arch. There is no pneumothorax or pleural effusion. The mediastinum is normal in width. The heart is moderately enlarged but there is no congestive heart failure. IMPRESSION: Well-positioned PICC line in the superior vena cava. Nursing was called with results. Interpreted and Authenticated by: Omid Plata 12/19/17
[2017-12-19] MEDS ORDERED: WARFARIN 7.5 MG TABLET PO ONE (14:00)
--- NOTE | 2017-12-19 14:25 | Discharge Summary ---
Medical - DS: Prov Patient information: Note initiated : 12/19/17 at 2:09 pm Service Date, if different from initiated Date: [] Patient: Elizabeth Peacock 57 y/o F admitted on 12/15/17 for Fever with Sepsis, Cellulitis of Lower Leg. Chief Complaint: [] Date of admission: 12/15/17 22:27 Discharge date: 12/19/17 Primary care physician: Susana Houston Admitting clinician: Peterson Manning Consults: 12/15/17 Consult to Physician [CONS] Stat Comment: Consulting Provider: Peterson Manning Reason For Exam: Physician to Consult 12/17/17 15:20 Consult to Infectious Disease [CONS] Routine Comment: Consulting Provider: Olvin Patterson Reason For Exam: Physician to Consult Discharging clinician: Dariela Singh Medical - DS: Meds - Discharge Medications Prescriptions: cefTRIAXone [Rocephin] 2 gm IV DAILY #12 vial Active and Home Medications: Home Medications Albuterol Sulfate 2.5 mg IH Q4HP PRN 09/11/17 [History Confirmed 12/15/17 Last Taken 10/29/17 14:00] Aspirin [Lo-Dose Aspirin EC] 81 mg PO DAILY 09/11/17 [History Confirmed Last Taken 10/29/17 09:00] Atorvastatin [Lipitor] 80 mg PO HS 09/11/17 [History Confirmed 12/15/17 Last Taken 10/28/17 22:00] Cetirizine [Zyrtec] 10 mg PO DAILY 09/11/17 [History Confirmed 12/15/17 Last Taken 10/29/17 09:00] Doxazosin [Cardura] 8 mg PO BID 09/11/17 [History Confirmed 12/15/17 Last Taken 10/29/17 09:00] Esomeprazole Magnesium [Nexium] 40 mg PO BID 09/11/17 [History Confirmed Last Taken 10/29/17 09:00] Ferrous Sulfate, Dried [Iron] 65 mg PO BID 09/11/17 [History Confirmed 12/15/17 Last Taken 10/29/17 09:00] Ipratropium/Albuterol Sulfate [Combivent] 1 puff INH Q4HP PRN 09/11/17 [History Confirmed 12/15/17 Last Taken 10/29/17 1400] Magnesium Oxide [Magnesium] 400 mg PO DAILY 09/11/17 [History Confirmed Last Taken 10/29/17 09:00] Metoprolol Tartrate 100 mg PO BID 09/11/17 [History Confirmed 12/15/17 Last Taken 10/29/17 0900] Montelukast [Singular] 10 mg PO HS 09/11/17 [History Confirmed 12/15/17 Last Taken 10/28/17 22:00] NIFEdipine [Afeditab Cr] 60 mg PO BID 09/11/17 [History Confirmed 12/15/17 Last Taken 10/29/17 09:00] Nortriptyline [Pamelor] 100 mg PO HS 09/11/17 [History Confirmed 12/15/17 Last Taken 10/28/17 22:00] Olmesartan Medoxomil [Benicar] 40 mg PO DAILY 09/11/17 [History Confirmed Last Taken 10/29/17 09:00] Crestone-3/Dha/Epa/Fish Oil [Fish Oil 1,400 mg Softgel] 1,400 mg PO DAILY 09/11/17 [History Confirmed 12/15/17 Last Taken 10/29/17 09:00] Potassium Chloride [Klor-Con 10] 10 meq PO DAILY 09/11/17 [History Confirmed Last Taken 10/29/17 09:00] Pregabalin [Lyrica] 200 mg PO BID 09/11/17 [History Confirmed 12/15/17 Last Taken 10/29/17 09:00] Ramelteon [Rozerem] 8 mg PO HS 09/11/17 [History Confirmed 12/15/17 Last Taken 10/28/17 22:00] Ranitidine HCl [Heartburn Relief] 150 mg PO BID 09/11/17 [History Confirmed Last Taken 10/29/17 09:00] Venlafaxine [Effexor Xr] 225 mg PO HS 09/11/17 [History Confirmed 12/15/17 Last Taken Unknown] cloNIDine HCL [Catapres] 0.4 mg PO BID 09/11/17 [History Confirmed 12/16/17 Last Taken 10/29/17 09:00] diphenhydrAMINE HCL [Benadryl] 50 mg PO BID 09/11/17 [History Confirmed Last Taken 10/29/17 15:00] hydrOXYzine [Atarax] 25 mg PO PRN PRN 09/11/17 [History Confirmed 12/15/17 Last Taken 10/29/17 0900] rOPINIRole [Requip] 1 mg PO HS 09/11/17 [History Confirmed 12/15/17 Last Taken 10/28/17 22:00] sitaGLIPtin PHOS/metFORMIN HCL [Janumet 50-1,000 mg Tablet] 1 each PO BID [History Confirmed 12/16/17 Last Taken Unknown] Hydrocortisone/Aloe Vera [Hydrocortisone Plus 1% Cream] 28.4 gm TP QIDP PRN 07/15 [History Confirmed 12/15/17 Last Taken 10/30/17 08:00] Mometasone Furoate [Elocon] 45 gm TP BID 10/30/17 [History Confirmed 12/15/17 Last Taken 10/29/17 18:00] Petrolatum,White/Water [Vanicream Lite Lotion] 474 ml TP BID 10/30/17 [History Confirmed 12/15/17 Last Taken 10/29/17 18:00] Chlorhexidine Gluconate [Hibiclens] 946 ml TP DAILY #1 11/01/17 [Rx Confirmed Last Taken Unknown] Diazepam [Valium] 2 mg PO HSP PRN tab 11/01/17 [Rx Confirmed 12/15/17 Last Taken Unknown] Levofloxacin 750 mg PO DAILY #12 tab 11/01/17 [Rx Confirmed 12/15/17 Last Taken Unknown] Warfarin [Coumadin] 7.5 mg PO DAILY 11/05/17 [History Confirmed 12/15/17 Last Taken Unknown] Medical - DS: Hosp Hospital course: Ms. Peacock is a 57 year old F presented to the ER with complaits of tried x 1 week . Today she was in the living room and felt very cold so she went and took a hot shower and was in there for almost an hour before her significant other Joanna came in and got her. When Joanna found her she seemed to be a little bit confused that had a hard time getting out of the shower that is when they called EMS. Apparently she had a fever of 104 after she got out of the shower. She denies any shortness of breath or coughing. No fevers but complains of chills. She states her legs have looked essentially similar as they have been. She was in the hospital for right lower extremity infection and October. She reports at that time the redness extended up into the thigh at that time. She is has no diarrhea nausea vomiting no chest pain no headache. Her confusion improved after fluids and resolution of her fever in the ER. In the ER she was found to have a temperature 102. Respiratory rate between 18 and 23. Elevated lactic acid and a mildly elevated pro calcitonin chest x-ray was concerning for left lower lobe infiltrate a CT chest was ordered in the ER to evaluate the pulmonary parenchyma however the machine is broken. A CT brain was done because the confusion which was unremarkable. Lower extremity cellulitis/ Severe sepsis/ Group B strep cellulitits- Recurrent issue for this patient 3rd episode this month, seen by infectious disease, initially treated with broad spectrum abx, with improvement in symptoms, will need total of 14 days of antibiotics, patient responded to treatment well CT Abdomen, chest neg for acute pathology ID was consulted for helping management of this patient, Plan for outpatient low dose penicillin v treatment as prophylaxis once patient completes her course of rocephin. the patient at the time of discharge was stable, tolerating po diet well, ambulating by self and improving on a daily basis She is anxious to go home, her partner aslo agrees and feels safe to take the patient home. Discharge diagnosis: Cellulitis, Group b strep bactermia - Time Spent with Patient Total time spent providing and/or coordinating discharge services: Greater than 30 minutes Medical - DS: Exam - Constitutional Vitals: Vital Signs Temp Pulse Pulse Resp BP BP Pulse Ox 12/19/17 08:00 98.1 F 62 22 178/99 94 12/19/17 04:00 97.8 F 58 L 22 160/89 91 12/19/17 00:00 97.3 F 52 L 22 152/77 91 12/18/17 20:00 97.5 F 56 L 18 141/94 90 12/18/17 15:53 97.3 F 54 L 18 112/60 94 Intake and Output 12/19/17 12/19/17 12/19/17 05:59 13:59 21:59 Intake Total 420 / 420 Output Total 901 / 901 Balance -481 / -481 Intake: Oral 420 / 420 Output: Void Amount 900 / 900 # of times incontinent of urine Other: Urine Appearance Clear Urine Color Pale Weight 344 lb Patient Weight 12/20/17 05:59 Weight 344 lb Additional comments: Constitutional; Afebrile, cooperative, alert, not in distress. Respiratory system: Air Entry equal on both sides, No crackles or wheezing, no rhonchi. CVS- Rate rhythm regular, S1,S2 heard, no gallop, no rub. Abdomen- Soft nontender abdomen, no organomegaly, no tenderness, no guarding or rigidity, [employer]- AOOx3, moving all extremities, no gross focal deficit noted. Medical - DS: Data Labs on day of discharge: Labs from last 24 hours 12/19/17 03:55 PT 23.8 H INR 2.1 H Preliminary micro results at discharge 12/17/17 17:37 Blood Culture - Preliminary Blood 12/17/17 17:58 Blood Culture - Preliminary Blood 12/15/17 17:30 Blood Culture - Preliminary Blood Gram positive cocci Medical - DS: A/P - Patient/Caregiver Discharge Instructions Activity: increase activity as tolerated Diet: Consistent Carbohydrate Additional Instructions: Continue with your current coumadin clinic schedule. IV ceftriaxone 2gms IV viaal picc line daily, to be done at outpatient center PICC line care per facility protocol D/c picc line after last dose of antibiotic Follow up with Dr Patterson in 2 weeks I have made no changes to your chronic home medication list, please take your regular medications as before. Follow up with PCP as before. Go to the ER if worsening symptoms, fever, chest pain, shortness of breath or any other acute concerns. Other Amb Orders: Physical Therapy at Discharge - General Location: None Selected - Follow up Plan Follow up with: Olvin Patterson MD [Physician] - 01/02/18 2:15 pm Susana Houston MD [Primary Care Provider] - 12/24/17 10:00 am Disposition: Home, Self-Care Prognosis: Fair Rehab Potential: Fair I certify that the patient requires SNF services: No Overall status at discharge: patient is progressing back to baseline
--- NOTE | 2017-12-19 14:58 | Infectious Disease Prog Note ---
Subjective Patient information: Note initiated : 12/19/17 at 2:56 pm Service Date, if different from initiated Date: [] Patient: Elizabeth Peacock 57 y/o F admitted on 12/15/17 for Fever with Sepsis, Cellulitis of Lower Leg. Chief Complaint: [] Interval history: Patient doing well. Denies any symptoms. Tolerated low-dose penicillin well without any symptoms yesterday. Got her PICC line placed today Objective - Vital Signs Vital signs: Vital Signs Temp Pulse Pulse Resp BP BP Pulse Ox 12/19/17 08:00 36.7 C 62 22 178/99 94 12/19/17 04:00 36.6 C 58 L 22 160/89 91 12/19/17 00:00 36.3 C 52 L 22 152/77 91 12/18/17 20:00 36.4 C 56 L 18 141/94 90 12/18/17 15:53 36.3 C 54 L 18 112/60 94 Intake and Output 12/19/17 12/19/17 12/19/17 05:59 13:59 21:59 Intake Total 420 / 420 Output Total 901 / 901 Balance -481 / -481 Intake: Oral 420 / 420 Output: Void Amount 900 / 900 # of times incontinent of urine Other: Urine Appearance Clear Urine Color Pale Weight 156.036 kg Patient Weight 12/20/17 05:59 Weight 156.036 kg Intake & Output: Intake & Output 12/19/17 12/19/17 12/19/17 05:59 13:59 21:59 Intake Total 420 / 420 Output Total 901 / 901 Balance -481 / -481 Weight 156.036 kg Intake: Oral 420 / 420 Output: Void Amount 900 / 900 # of times incontinent of urine Other: Urine Appearance Clear Urine Color Pale Respiratory: clear Cardiology: mid-systolic murmur (Best heard at thickened right intercostal space radiating to carotids), normal S1, normal S2 Integumentary: hyperpigmentation, chronic venous stasis (Has dependent edema and chronic venous stasis with skin thickening in both lower extremities) - Lab 12/18/17 03:55 12/18/17 03:55 Most recent lab results Calcium 8.6 mg/dl (8.6-10.4) 12/18/17 03:55 Phosphorus 3.7 mg/dL (2.7-4.5) 12/17/17 04:30 Magnesium 2.1 mg/dL (1.6-2.5) 12/17/17 04:30 Microbiology 12/17/17 17:37 Blood Blood Culture - Preliminary 12/17/17 17:58 Blood Blood Culture - Preliminary 12/15/17 17:42 Blood Blood Culture - Final Strep agalactiae - (group b) 12/16/17 00:00 Nose MRSA (PCR) - Final 12/15/17 17:30 Blood Blood Culture - Preliminary Gram positive cocci Medications Active Medications: Acetaminophen (Tylenol) 650 mg PO Q6HP PRN PRN Reason: PAIN/FEVER > 101 Albuterol/Ipratropium (Duoneb) 3 ml NEB Q4HRT PRN PRN Reason: sob Atorvastatin Calcium (Lipitor) 80 mg PO HS [facility] Last Admin: 12/18/17 20:47 Dose: 80 mg Bisacodyl (Dulcolax) 10 mg PO DAILYP PRN PRN Reason: Constipation Ceftriaxone Sodium (Rocephin) 2 gm IV DAILY [facility] Last Admin: 12/19/17 09:48 Dose: 2 gm Cetirizine HCl (Zyrtec) 10 mg PO DAILYP PRN PRN Reason: Allergic Reaction Clonidine HCl (Catapres) 0.4 mg PO BID [facility] Last Admin: 12/19/17 09:41 Dose: 0.4 mg Admin: 12/18/17 20:43 Dose: 0.4 mg Dextrose (Dextrose 50%) 0 ml IV UD PRN PRN Reason: Hypoglycemia Diagnostic Test (Pha) (Accu-Chek) 1 each FS ACHS [facility] Last Admin: 12/19/17 11:37 Dose: 1 each Admin: 12/19/17 07:54 Dose: 1 each Admin: 12/18/17 20:43 Dose: 1 each Admin: 12/18/17 17:36 Dose: 1 each Admin: 12/18/17 13:51 Dose: 1 each Diazepam (Valium) 2 mg PO HSP PRN PRN Reason: Anxiety Diphenhydramine HCl (Benadryl) 50 mg PO BIDP PRN PRN Reason: Allergic Symptoms Docusate Sodium (Colace) 100 mg PO BID [facility] Last Admin: 12/19/17 09:50 Dose: Not Given Non-Admin Reason: Patient Refused Admin: 12/18/17 20:44 Dose: 100 mg Doxazosin Mesylate (Cardura) 8 mg PO BID [facility] Last Admin: 12/19/17 09:40 Dose: 8 mg Admin: 12/18/17 20:45 Dose: 8 mg Famotidine (Pepcid) 20 mg PO BID [facility] Last Admin: 12/19/17 09:42 Dose: 20 mg Admin: 12/18/17 20:46 Dose: 20 mg Glucose (Insta-Glucose) 15 gm PO PRN PRN PRN Reason: Hypoglycemia Heparin Sodium (Porcine) (Heparin Flush) 2 ml IV Q12 [facility] Last Admin: 12/19/17 14:04 Dose: 2 ml Hydroxyzine HCl (Atarax) 25 mg PO PRN PRN PRN Reason: Anxiety Insulin Human Lispro (Humalog) 0 unit SQ [facility]; Protocol Last Admin: 12/19/17 11:38 Dose: Not Given Non-Admin Reason: No Coverage Needed Admin: 12/19/17 07:54 Dose: Not Given Non-Admin Reason: No Coverage Needed Admin: 12/18/17 20:48 Dose: Not Given Non-Admin Reason: No Coverage Needed Admin: 12/18/17 17:37 Dose: Not Given Non-Admin Reason: Labs Outside of Range Admin: 12/18/17 13:51 Dose: Not Given Non-Admin Reason: Labs Outside of Range [facility] Admin: 12/19/17 09:15 Dose: 500 mg Admin: 12/18/17 17:34 Dose: Metoprolol Tartrate (Lopressor) 100 mg PO BID [facility] Last Admin: 12/19/17 09:42 Dose: 100 mg Admin: 12/18/17 20:46 Dose: 100 mg Montelukast Sodium (Singular) 10 mg PO [facility] Last Admin: 12/18/17 20:47 Dose: 10 mg Nifedipine (Procardia Xl) 60 mg PO BID [facility] Last Admin: 12/19/17 09:41 Dose: 60 mg Admin: 12/18/17 20:46 Dose: 60 mg Nortriptyline HCl (Pamelor) 100 mg PO [facility] Last Admin: 12/18/17 20:43 Dose: 100 mg Nystatin (Nystatin) 1 dose TOPICAL BID [facility] Last Admin: 12/19/17 10:18 Dose: Not Given Non-Admin Reason: Patient Request Admin: 12/18/17 20:48 Dose: 1 dose Comments: wouldn't accept barcode scan Olmesartan (Benicar) 40 mg PO DAILY [facility] Last Admin: 12/19/17 09:41 Dose: 40 mg Ondansetron HCl (Zofran) 4 mg IV Q4HP PRN PRN Reason: Nausea And Vomiting Mometasone Furoate [ (Elocon] 45 Gm) 1 dose TOPICAL BID [facility] Last Admin: 12/19/17 09:47 Dose: Not Given Non-Admin Reason: Unavailable Admin: 12/18/17 20:49 Dose: Not Given Non-Admin Reason: Unavailable Chlorhexidine Gluconate (Hibiclens ) Topical Liquid 1 dose TOPICAL DAILY [facility] Last Admin: 12/19/17 10:17 Dose: Not Given Non-Admin Reason: Patient Request Potassium [facility] Admin: 12/19/17 07:55 Dose: 10 meq Pregabalin (Lyrica) 200 mg PO BID [facility] Last Admin: 12/19/17 09:42 Dose: 200 mg Admin: 12/18/17 20:45 Dose: 200 mg Ramelteon (Rozerem) 8 mg PO [facility] Last Admin: 12/18/17 20:49 Dose: 8 mg Comments: wouldn't accept barcode scan Ropinirole HCl (Requip) 1 mg PO [facility] Last Admin: 12/18/17 20:44 Dose: 1 mg Sitagliptin Phosphate (Januvia) 50 mg PO BIDCC [facility] Last Admin: 12/19/17 07:56 Dose: 50 mg Admin: 12/18/17 17:36 Dose: 50 mg Sodium Chloride (Saline Flush) 10 ml IV Q8 [facility] Last Admin: 12/19/17 12:48 Dose: 10 ml Admin: 12/19/17 05:47 Dose: 10 ml Admin: 12/18/17 20:49 Dose: 10 ml Admin: 12/18/17 13:53 Dose: 10 ml Sodium Chloride (Saline Flush) 10 ml IV UD PRN PRN Reason: FLUSH Sodium Chloride (Saline Flush) 10 ml IV Q12 [facility] Last Admin: 12/19/17 09:00 Dose: Venlafaxine HCl (Effexor Xr) 225 mg PO [facility] Last Admin: 12/18/17 20:45 Dose: 225 mg Warfarin Sodium (Coumadin Per Pharmacy) 1 order PO UD [facility] Assessment and Plan - Narrative A/P Narrative: 57-year-old lady with chronic lymphedema [based on history] with recurrent episodes of skin and soft tissue infections, and subsequent bloodstream infections, now admitted with: 1. Group B streptococcal bacteremia: Blood cultures negative since December 17 - risk factors include: dry skin, neuropathy, chronic lymphedema, eczematous skin ds; all of which make the perfect combination for bacteria to colonize and get into deeper skin structures with subseq entry into bloodstream - no concerns for endocarditis at this point - CT chest/abd/pelvis negative for any occult abscess 2. No Sepsis: Q-SOFA score 0 Recommendations: Continue IV ceftriaxone 2 g every 24 hours, day 214. Stop date 31 December. Follow-up labs: CBC and BMP once next week Follow-up in ID clinic on December 31 at 10:45 am [will plan for low-dose oral penicillin V for prophylaxis against recurrent cellulitis] - Patient counseled to see a cash register mechanic after discharge for management of calluses, dry skin, general foot hygiene - leg elevation b/l to decrease dependent edema Olvin Patterson MD Infectious disease
== END 2017-12-19 15:28 | disposition home or self-care (01) | DRG 871 ==
LOC: ED 16:59 → ICU 22:27
PROVIDERS: ADMIT Internal Medicine; ATTEND Internal Medicine

== ENCOUNTER 2019-11-05 07:54 | Inpatient (IN) ==
[2019-11-05] MEDS ORDERED: IOPAMIDOL 100 ML BOTTLE IV ONE (07:55)
[2019-11-05] MEDS ORDERED: ACETAMINOPHEN 325 MG TABLET PO ONE (08:10)
[2019-11-05] MEDS ORDERED: LACTATED RINGERS 1,000 ML IV ONE (08:20)
[2019-11-05] MEDS ORDERED: ACETAMINOPHEN 1,000 MG/100 ML BOTTLE IV ONE (08:27)
--- NOTE | 2019-11-05 08:29 | Emergency Department Note ---
HPI General Chief complaint: Weakness Stated complaint: weakness Time Seen by Provider: 11/05/19 08:10 Source: patient and EMS Mode of arrival: EMS Limitations: no limitations History of Present Illness HPI Narrative: Narrative: This patient lives at home and has not been feeling well for about the last 24 hours and did fall twice today though she did not hit her head. She did injure her right knee and has a little pain in the knee. She is febrile with a temperature of 103 and has had a cough and slight shortness of breath. Denies chest pain abdominal pain. No nausea or vomiting. She has had a history of sepsis but I do not know the source. Her vital signs look good at this time and she does not have numbers to support sepsis but we will rule that out. We will also test her for COVID. She does live at home with one other person. She is quite obese at over 400 pounds. Related Data Home Medications Medication Instructions Recorded Confirmed melatonin 10 mg tablet 10 mg PO HS PRN 06/17/18 06/04/19 [] 65 mg PO BID 09/17/18 06/04/19 Bacillus coagulans 1 cell PO BID 09/17/18 06/04/19 Bipap 1 dose .ROUTE HS 09/17/18 06/04/19 Oxygen 3L 1 dose .ROUTE .MEDSUPPLY 09/17/18 06/04/19 diphenhydramine HCl 50 mg PO HS 09/17/18 06/04/19 dupilumab 300 mg SUBCUT 2-3XW PRN 09/17/18 06/04/19 fesoterodine 8 mg tablet,extended 8 mg PO QDAY 10/15/18 06/04/19 release 24 hr esomeprazole magnesium 40 mg 80 mg PO BID cap 12/18/18 06/04/19 capsule,delayed release cetirizine 10 mg tablet 10 mg PO QDAY PRN 01/30/19 06/04/19 nortriptyline 25 mg capsule 100 mg PO HS cap 06/04/19 06/04/19 fenofibrate 40 mg tablet 40 mg PO QDAY 08/11/19 Previous Rx's Medication Instructions Recorded penicillin V potassium 250 mg 250 mg PO BID #180 tab 04/25/18 tablet albuterol sulfate 2.5 mg INHALATION Q4HP PRN #180 ml 05/08/18 hydrocortisone-aloe vera 1 % 1 applic TOPICAL QIDP PRN #56 g 05/08/18 topical cream ipratropium 20 mcg-albuterol 100 1 puff INHALATION Q4HP PRN #4 g 05/08/18 mcg/actuation mist for inhalation magnesium oxide 400 mg PO DAILY #90 cap 05/08/18 nifedipine 60 mg tablet,extended 60 mg PO BID #120 tab 05/08/18 release petrolatum, white-water 1 applic TOPICAL BID #437 ml 05/08/18 hydroxyzine HCl 25 mg tablet 25 mg PO QIDP PRN #180 tab 12/18/18 budesonide-formoterol HFA 80 2 puff INHALATION BID #10.2 g 01/30/19 mcg-4.5 mcg/actuation aerosol inhaler blood sugar diagnostic #50 each 02/11/19 blood-glucose meter #1 each 02/11/19 lancets #50 each 02/11/19 ramelteon 8 mg tablet 8 mg PO HS #90 tab 03/24/19 nystatin 100,000 unit/mL oral 5 ml PO QID #473 ml 05/27/19 suspension olmesartan 40 mg tablet 40 mg PO DAILY #90 tab 06/04/19 sitagliptin 50 mg-metformin 1,000 1 tab PO BID #180 tab 06/04/19 mg tablet rivaroxaban 20 mg tablet 20 mg PO QPM #90 tab 06/10/19 atorvastatin 80 mg tablet 80 mg PO DAILY #90 tab 07/14/19 ropinirole 1 mg tablet 1 mg PO HS #90 tab 08/12/19 venlafaxine 150 mg 150 mg PO HS #90 cap 08/12/19 capsule,extended release 24 hr venlafaxine 75 mg capsule,extended 75 mg PO QHS #90 cap 08/18/19 release 24 hr potassium chloride 10 mEq 10 meq PO DAILY #90 tab 09/10/19 tablet,extended release metoprolol tartrate 100 mg tablet See Rx Instructions .ROUTE 09/18/19 .COMPLEX #120 unknown measurement unit code: tablet clonidine HCl 0.2 mg tablet See Rx Instructions .ROUTE 10/14/19 .COMPLEX #360 tablet doxazosin 4 mg tablet 4 mg PO QDAY #90 tab 10/14/19 montelukast 10 mg tablet 10 mg PO HS #90 tab 10/14/19 pregabalin 200 mg capsule 200 mg PO BID #180 cap 10/14/19 hydrocodone 7.5 mg-acetaminophen 1 tab PO QHS #30 tab 10/29/19 325 mg tablet tramadol 50 mg tablet 50 mg PO BID PRN #60 tab 10/29/19 Allergies Allergy/AdvReac Type Severity Reaction Status Date / Time Sulfa (Sulfonamide Allergy Severe Hives Verified 11/05/19 07:59 Antibiotics) exenatide [From Byetta] Allergy Intermediate Hives Verified 11/05/19 07:59 latex Allergy Intermediate Rash Verified 11/05/19 07:59 Rosiglitazone [From Avandia] Allergy Intermediate Hives Verified 11/05/19 07:59 meperidine [From Demerol] AdvReac Intermediate Gastrointestinal Verified 11/05/19 07:59 Upset Review of Systems ROS ROS Narrative: Narrative: All systems ED: reviewed and negative except as stated. PFS Narrative Patient History Narrative: Narrative: Medical/Surgical/Family History All Active Problems (Updated 06/13/19 @ 07:33 by BERTA Yang) Pulmonary HTN (Chronic) Nocturnal hypoxemia (Chronic) Low magnesium levels (Chronic) Vitamin D deficiency (Chronic) Screening for colon cancer (Chronic) Screening for breast cancer (Acute) Hyperlipidemia (Chronic) Anxiety as acute reaction to exceptional stress (Chronic) Depression with anxiety (Chronic) Degenerative joint disease involving multiple joints (Chronic) Lymphedema of both lower extremities (Chronic) Peripheral neuropathy (Chronic) Sleep apnea treated with nocturnal BiPAP (Chronic) Allergy history, penicillin (Chronic) Thyroid trouble (Chronic) Migraines (Chronic) Hypertension (Chronic) DMII (diabetes mellitus, type 2) (Chronic) Asthma (Chronic) Arthritis (Chronic) Acid reflux (Chronic) Recurrent cellulitis of lower leg (Chronic) Medical History (Updated 06/13/19 @ 07:33 by BERTA Yang) Acid reflux (Chronic) 12/18/2018 ranitidine 150 twice daily, Nexium 80 twice daily continue care with [facility] and her recommendations Allergy history, penicillin (Chronic) On desensitization protocol with ID/hospitalist Anxiety as acute reaction to exceptional stress (Chronic) with some depressive component but mostly anxiety driven, no Suicidal ideation. 10/15/18 PHQ 9=6. Take Effexor in the morning and see if it helps with sleep 12/18/2018 PHQ 9= 7. 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 05/2019 mild diabetic retinopathy 02/11/2019 neuropathy on diabetic foot exam 02/11/2019 continue Janumet 50at thousand twice daily, encouraged her to check blood sugars regularly, healthy diet, exercise, follow-up in 3 months after fasting labs Hyperlipidemia (Chronic) 02/11/2019 stable, continue atorvastatin 80 Hypertension (Chronic) hx of TIA 02/11/2019 controlled on doxazosin 8 twice daily, clonidine 0.4 twice daily metoprolol 100 twice daily, nifedipine ER 60 twice daily, potassium 10 daily 06/04/2019 blood pressures been low, decrease doxazosin to 4 mg twice daily and continue others, continue checking blood pressure at home, EKG attempted here in the clinic but machine is broken, refer for EKG, follow-up in 1 month Low magnesium levels (Chronic) Chronic 12/18/2018 stable on magnesium 400 daily Lymphedema of both lower extremities (Chronic) Seen by Dr. Garcia and released. Receives massage and helpful Pain contract signed 11/201802/11/2019 okay to use tramadol during the day and hydrocodone at night, continue massage 06/04/2019 referral to physical therapy at patient request Migraines (Chronic) a lot of headaches 4-5 times a week, migraines 1-2 times a month Nocturnal hypoxemia (Chronic) Peripheral neuropathy (Chronic) Diabetic related 12/18/2018 stable on Lyrica 200 twice daily Recurrent cellulitis of lower leg (Chronic) bilat followed by Dr. Patterson 12/18/2018 currently taking Pen-Vee K 250 twice daily, continue care with Dr. Patterson Screening for colon cancer (Chronic) 06/19- Cologuard Sleep apnea treated with nocturnal BiPAP (Chronic) 12/18/2018 refer to pulmonology to sort through proper settings and the need for oxygen or not Thyroid trouble (Chronic) Enlarged LT Side, pushing on esphagous, biopsy neg 12/25/18 Stable large adenoma in the left lobe of the thyroid and no change in either lobe to suggest underlying malignancy. Follow-up thyroid ultrasound annually 02/11/2019 reviewed results of ultrasound, recommend following thyroid annually with ultrasound Vitamin D deficiency (Chronic) Chronic Surgical History H/O esophagogastroduodenoscopy (Chronic) History of hysterectomy (Chronic) 2007 Hx of colonoscopy (Chronic) Patient had a colonoscopy at age 47, clear and repeat 10 years S/P Kaci fundoplication (with gastrostomy tube placement) (Chronic) Family History Mother , Stroke Atrial fib/flutter, transient Stroke Parkinson disease Father Parkinson disease CHF (congestive heart failure) Myocardial infarction Brother Cancer CHF (congestive heart failure) Social History Smoking Status: Never smoker Alcohol Intake Frequency: does not drink Substance Use: does not use Exam Narrative Narrative: Narrative: General Limitations: no limitations Head Head: atraumatic, normocephalic and normal inspection Eye Eye: Present normal appearance and EOMI; Absent scleral icterus and conjunctival injection ENT ENT: Present normal exam Neck Neck: Present normal inspection Chest Chest: Present normal inspection and symmetric chest wall rise Respiratory Respiratory: Absent respiratory distress, rales/crackles, wheezes and stridor Cardiovascular Cardiovascular: Present regular rate, normal rhythm and normal heart sounds Adbominal Abdominal: Present soft; Absent distention and tenderness Extremities Extremities: Present pedal edema, pretibial edema and other (Mild tenderness to the right knee with some pain on motion.) Skin Skin: Present warm and dry; Absent diaphoresis Course Vital Signs Vital signs: Vital Signs Temperature 103.2 F H 11/05/19 07:55 Pulse Rate 80 11/05/19 07:55 Respiratory Rate 16 11/05/19 07:55 Blood Pressure 158/75 11/05/19 07:55 Pulse Oximetry (%) 98 11/05/19 07:55 Temperature 103.1 F H 11/05/19 09:09 Pulse Rate 74 11/05/19 09:09 Respiratory Rate 32 H 11/05/19 09:09 Blood Pressure 175/84 11/05/19 09:01 Pulse Oximetry (%) 96 11/05/19 09:09 [facility] MDM Narrative Medical decision making narrative: Narrative: 827 -initial work-up is complete. This patient is febrile and worrisome for sepsis of unknown origin although she has had a slight cough and shortness of breath so we will test her for COVID. Also do a chest x-ray to rule out pneumonia. General sepsis work-up will be initiated. She has been a little confused but does not have a headache and will delay at this time doing a CT scan of the head due to the possible COVID. We did place a Sanchez catheter and we will also x-ray her right knee. I have not yet started antibiotics as her vital signs look good at this time. 909 -patient's chest x-ray was not remarkable for acute pneumonia or other process and the right knee x-ray was negative. I handed this patient off to at 9 AM and he will have final disposition on the patient. Lab Data Result diagrams: 11/05/19 08:11 11/05/19 08:11 Radiology Data Radiology results reviewed: Yes I reviewed the patient's radiology results. Discharge Plan Patient/Caregiver Discharge Instructions Pt seen by GUN SEALING MACHINE OPERATOR/PA only: No Patient Disposition: Still a Patient Follow up with: Funmi Leos ARNP [Primary Care Provider] - Prescriptions: No Action albuterol sulfate 2.5 mg /3 mL (0.083 %) solution for nebulization 2.5 mg INHALATION Q4HP PRN (Reason: Shortness Of Breath) Qty: 180 RF: 1 ipratropium-albuterol 20-100 mcg/actuation mist 1 puff INHALATION Q4HP PRN (Reason: Shortness Of Breath) Qty: 4 RF: 0 magnesium oxide 400 mg capsule 400 mg PO DAILY Qty: 90 RF: 3 nifedipine 60 mg tablet extended release 60 mg PO BID Qty: 120 RF: 4 petrolatum, white-water lotion 1 applic TOPICAL BID Qty: 437 RF: 4 hydrocortisone-aloe vera 1 % cream 1 applic TOPICAL QIDP PRN (Reason: Itching) Qty: 56 RF: 4 ramelteon 8 mg tablet 8 mg PO HS Qty: 90 RF: 1 nystatin 100,000 unit/mL suspension 5 ml PO QID Qty: 473 RF: 0 atorvastatin 80 mg tablet 80 mg PO DAILY Qty: 90 RF: 1 fenofibrate 40 mg tablet 40 mg PO QDAY RF: 0 ropinirole 1 mg tablet 1 mg PO HS Qty: 90 RF: 4 venlafaxine 150 mg capsule,extended release 24hr 150 mg PO HS Qty: 90 RF: 3 venlafaxine 75 mg capsule,extended release 24hr 75 mg PO QHS Qty: 90 RF: 3 potassium chloride 10 mEq tablet extended release 10 meq PO DAILY Qty: 90 RF: 4 metoprolol tartrate 100 mg tablet See Rx Instructions .ROUTE .COMPLEX Qty: 120 RF: 5 pregabalin 200 mg capsule 200 mg PO BID Qty: 180 RF: 3 clonidine HCl 0.2 mg tablet See Rx Instructions .ROUTE .COMPLEX Qty: 360 RF: 4 doxazosin 4 mg tablet 4 mg PO QDAY Qty: 90 RF: 3 montelukast 10 mg tablet 10 mg PO HS Qty: 90 RF: 3 hydrocodone-acetaminophen 7.5-325 mg tablet 1 tab PO QHS Qty: 30 RF: 0 tramadol 50 mg tablet 50 mg PO BID PRN (Reason: pain) Qty: 60 RF: 0 Toviaz 8 mg tablet extended release 24 hr 8 mg PO QDAY RF: 0 hydroxyzine HCl 25 mg tablet 25 mg PO QIDP PRN (Reason: Itching) Qty: 180 RF: 4 (DME) Blood Glucose Test strip See Rx Instructions .ROUTE .MEDSUPPLY Qty: 50 RF: 1 (DME) lancets misc See Rx Instructions .ROUTE .MEDSUPPLY Qty: 50 RF: 1 (DME) blood-glucose meter kit See Rx Instructions .ROUTE .MEDSUPPLY Qty: 1 RF: 0 Janumet 50-1,000 mg tablet 1 tab PO BID Qty: 180 RF: 0 olmesartan 40 mg tablet 40 mg PO DAILY Qty: 90 RF: 3 melatonin 10 mg tablet 10 mg PO HS PRN (Reason: Sleep) RF: 0 nortriptyline 25 mg capsule 100 mg PO HS RF: 0 penicillin V potassium 250 mg tablet 250 mg PO BID Qty: 180 RF: 3 Hold Instructions: Doctor's Order cetirizine [Aller-Julia] 10 mg tablet 10 mg PO QDAY PRNRF: 0 Symbicort 80-4.5 mcg/actuation HFA aerosol inhaler 2 puff INHALATION BID Qty: 10.2 RF: 6 budesonide-formoterol [Symbicort] 80-4.5 mcg/actuation HFA aerosol inhaler RF: 0 diphenhydramine HCl 25 MG capsule 50 mg PO HS RF: 0 Bacillus coagulans 1 EACH capsule,delayed release(DR/EC) 1 cell PO BID RF: 0 dupilumab 300 MG/2 ML syringe 300 mg subcut 2-3XW PRN (Reason: ezcema) RF: 0 Bipap 1 dose .Route HS RF: 0 Oxygen 3L 1 dose .Route .MEDSUPPLY RF: 0 ferrous sulfate 324 mg (65 mg iron) tablet,delayed release 324 mg (65 mg iron) tablet,delayed release (DR/EC) 65 mg PO BID RF: 0 esomeprazole magnesium 40 mg capsule,delayed release(DR/EC) 80 mg PO BID RF: 0 Xarelto 20 mg tablet 20 mg PO QPM Qty: 90 RF: 3
--- NOTE | 2019-11-05 08:59 | XRay Report ---
INDICATION: trauma TECHNIQUE: AP, oblique, lateral views of the right knee COMPARISON: Previous examination dated 01/27/2010 FINDINGS: Skeletal: No right knee fracture. No significant osteochondral lesion. No acute abnormality Joint spaces: Severe degenerative narrowing of the medial femoral tibial joint with bone on bone. Severe narrowing of the patellofemoral joint. Degenerative disease of the medial femoral tibial joint is slightly worse than on 01/27/2010 Suprapatellar recess, periarticular soft tissues: No definite joint effusion. Periarticular soft tissues are suboptimally visualized due to this patient's large size IMPRESSION: 1. Severe degenerative joint disease as above 2. No acute abnormality. No right knee fracture Interpreted and Authenticated by: Regan Roland 11/05/19
--- NOTE | 2019-11-05 09:06 | XRay Report ---
INDICATION: fever, cough TECHNIQUE: AP portable semiupright chest x-ray COMPARISON: Previous chest x-rays dated 12/19/2017 and 12/15/2017. Previous chest CT scan dated 12/16/2017 FINDINGS: Lungs:No focal pulmonary parenchymal infiltrate or detectable mass. There is peribronchial thickening which is chronic. This may indicate chronic bronchitis Heart, vascular:Heart size and mediastinum appear enlarged but this may be due to magnification in this large patient. Appearance is unchanged. No evidence for congestive heart failure Mediastinum, izaiah:Mediastinum appears wide as above. This is stable and probably related to magnification. The trachea is displaced toward the right and mildly effaced. Patient has a known large left substernal goiter Pleura:No pleural fluid. No pleural-based mass or calcification Skeletal:Negative. IMPRESSION: 1. No focal pulmonary parenchymal infiltrate or mass. No evidence for congestive heart failure 2. Chronic mild peribronchial thickening suggests bronchitis 3. Displaced and mildly effaced trachea secondary to large substernal goiter Interpreted and Authenticated by: Regan Roland 11/05/19
[2019-11-05 09:15] LABS: Basophils # (Auto) 0.08 K/mcL (0.00-0.30); Basophils % (Auto) 0.4 % (0.0-2.0); Eosinophils # (Auto) 0.06 K/mcL (0.00-0.70); Eosinophils % (Auto) 0.3 % (0.0-7.0); Granulocytes % (Auto) 93.3 % (38.0-78.0); Hematocrit 42.4 % (34.1-44.9); Hemoglobin 14.1 g/dL (11.2-15.7); Lymphocytes # (Auto) 0.43 K/mcL (1.50-4.80); Lymphocytes % (Auto) 1.9 % (15.5-49.0); Mean Cell Volume 85.8 fL (80.0-100.0); Mean Corpuscular HGB Conc 33.3 g/dL (31.0-36.0); Mean Platelet Volume 11.2 fL (7.4-10.4); Monocytes # (Auto) 0.93 K/mcL (0.10-0.90); Monocytes % (Auto) 4.1 % (1.0-12.0); Platelet Count 368 K/mcL (140-440); RBC 4.94 M/mcL (3.59-5.38); WBC 22.7 K/mcL (4.50-11.00)
[2019-11-05 09:38] LABS: ALT/SGPT 26 U/l (0-40); AST/SGOT 18 U/l (0-37); Albumin 4.2 gm/dL (3.2-5.2); Albumin/Globulin Ratio 1.2 (1.0-2.3); Alkaline Phosphatase 101 U/L (39-117); Bilirubin,Total 0.5 mg/dL (0.0-1.0); Blood Urea Nitrogen 22 mg/dl (6-20); Calcium 9.2 mg/dl (8.6-10.4); Carbon Dioxide 22 mmol/L (22-30); Chloride 98 mmol/L (96-108); Globulin 3.4 gm/dL (2.2-3.7); Glomerular Filtration Rate 45; Glucose 245 mg/dL (70-105)
[2019-11-05] MEDS ORDERED: VANCOMYCIN 1,500 MG in 0.9 % SODIUM CHLORIDE 500 ML IV ONE (09:41)
[2019-11-05] MEDS ORDERED: PIPERACILLIN SODIUM/TAZOBACTAM 3.375 GM in DEXTROSE 5% IN WATER 50 ML IV ONE (09:41)
[2019-11-05] MEDS ORDERED: 0.9 % SODIUM CHLORIDE 1,000 ML IV ONE ×2 (09:54→09:55)
[2019-11-05 10:11] LABS: Appearance,Urine HAZY; Bacteria,Urine MANY /hpf (0); Color,Urine YELLOW; Culture Indicated,Urine NO; Glucose,Urine (UA) NEGATIVE (NEG); Ictotest,Urine POS (NEG); Ketones,Urine NEG (NEG); Leukocyte Esterase,Urine 250 /uL (NEG); Mucus,Urine MANY /hpf (0); Nitrate,Urine NEG (NEG); Protein,Urine 100 mg/dL (NEG); Specific Gravity,Urine 1.026 (1.000-1.035); Urine Blood NEG mg/dL (<0.03); Urine Hyaline Cast 84 /lpf (0-2); Urine RBC 3 /hpf (0-1); Urine Squamous Epithelial Cell 6 /hpf (0-4); Urine WBC 54 /hpf (0-4); Urobilinogen,Urine NEG (NEG)
--- NOTE | 2019-11-05 10:43 | Emergency Department Note ---
Weakness HPI General Chief complaint: Weakness Stated complaint: weakness Time Seen by Provider: 11/05/19 08:10 Source: patient and EMS Mode of arrival: EMS Limitations: no limitations History of Present Illness HPI Narrative: Narrative: I received this patient in checkout from Dr. stephens. Please see his note for full initial evaluation and treatment I evaluated the patient myself as well. She notes that she is fallen last day or so 2 times. She is also febrile. She does have some difficulty breathing. Related Data Home Medications Medication Instructions Recorded Confirmed [] 65 mg PO BID 09/17/18 06/04/19 Bipap 1 dose .ROUTE HS 09/17/18 06/04/19 Oxygen 3L 1 dose .ROUTE .MEDSUPPLY 09/17/18 06/04/19 diphenhydramine HCl 50 mg PO HS 09/17/18 06/04/19 esomeprazole magnesium 40 mg 80 mg PO BID cap 12/18/18 06/04/19 capsule,delayed release cetirizine 10 mg tablet 10 mg PO QDAY PRN 01/30/19 06/04/19 nortriptyline 25 mg capsule 100 mg PO HS cap 06/04/19 06/04/19 dupilumab [Dupixent] 1 mg SUBCUT 2-3XW 11/05/19 11/05/19 fesoterodine [Toviaz] 8 mg PO QDAY 11/05/19 11/05/19 sitagliptin-metformin [Janumet] 1 tab PO DAILY 11/05/19 11/05/19 Previous Rx's Medication Instructions Recorded penicillin V potassium 250 mg 250 mg PO BID #180 tab 04/25/18 tablet ipratropium 20 mcg-albuterol 100 1 puff INHALATION Q4HP PRN #4 g 05/08/18 mcg/actuation mist for inhalation magnesium oxide 400 mg PO DAILY #90 cap 05/08/18 nifedipine 60 mg tablet,extended 60 mg PO BID #120 tab 05/08/18 release hydroxyzine HCl 25 mg tablet 25 mg PO QIDP PRN #180 tab 12/18/18 blood sugar diagnostic #50 each 02/11/19 blood-glucose meter #1 each 02/11/19 lancets #50 each 02/11/19 ramelteon 8 mg tablet 8 mg PO HS #90 tab 03/24/19 olmesartan 40 mg tablet 40 mg PO DAILY #90 tab 06/04/19 rivaroxaban 20 mg tablet 20 mg PO QPM #90 tab 06/10/19 atorvastatin 80 mg tablet 80 mg PO DAILY #90 tab 07/14/19 ropinirole 1 mg tablet 1 mg PO HS #90 tab 08/12/19 venlafaxine 150 mg 150 mg PO HS #90 cap 08/12/19 capsule,extended release 24 hr venlafaxine 75 mg capsule,extended 75 mg PO QHS #90 cap 08/18/19 release 24 hr potassium chloride 10 mEq 10 meq PO DAILY #90 tab 09/10/19 tablet,extended release metoprolol tartrate 100 mg tablet See Rx Instructions .ROUTE 09/18/19 .COMPLEX #120 unknown measurement unit code: tablet clonidine HCl 0.2 mg tablet See Rx Instructions .ROUTE 10/14/19 .COMPLEX #360 tablet doxazosin 4 mg tablet 4 mg PO QDAY #90 tab 10/14/19 montelukast 10 mg tablet 10 mg PO HS #90 tab 10/14/19 pregabalin 200 mg capsule 200 mg PO BID #180 cap 10/14/19 hydrocodone 7.5 mg-acetaminophen 1 tab PO QHS #30 tab 10/29/19 325 mg tablet Allergies Allergy/AdvReac Type Severity Reaction Status Date / Time Sulfa (Sulfonamide Allergy Severe Hives Verified 11/05/19 07:59 Antibiotics) exenatide [From Byetta] Allergy Intermediate Hives Verified 11/05/19 07:59 latex Allergy Intermediate Rash Verified 11/05/19 07:59 Rosiglitazone [From Avandia] Allergy Intermediate Hives Verified 11/05/19 07:59 meperidine [From Demerol] AdvReac Intermediate Gastrointestinal Verified 11/05/19 07:59 Upset Review of Systems ROS ROS Narrative: [facility]ative: [facility] N[facility] Patient History Narrative: Narrative: Medical/Surgical/Family History All Active Problems (Updated 11/05/19 @ 10:43 by Spike Morris MD) Sepsis (Acute) Cellulitis (Acute) Bronchitis (Acute) Pulmonary HTN (Chronic) Nocturnal hypoxemia (Chronic) Low magnesium levels (Chronic) Vitamin D deficiency (Chronic) Screening for colon cancer (Chronic) Screening for breast cancer (Acute) Hyperlipidemia (Chronic) Anxiety as acute reaction to exceptional stress (Chronic) Depression with anxiety (Chronic) Degenerative joint disease involving multiple joints (Chronic) Lymphedema of both lower extremities (Chronic) Peripheral neuropathy (Chronic) Sleep apnea treated with nocturnal BiPAP (Chronic) Allergy history, penicillin (Chronic) Thyroid trouble (Chronic) Migraines (Chronic) Hypertension (Chronic) DMII (diabetes mellitus, type 2) (Chronic) Asthma (Chronic) Arthritis (Chronic) Acid reflux (Chronic) Recurrent cellulitis of lower leg (Chronic) Medical History (Updated 11/05/19 @ 10:43 by Spike Morris MD) Acid reflux (Chronic) 12/18/2018 ranitidine 150 twice daily, Nexium 80 twice daily continue care with [facility] and her recommendations Allergy history, penicillin (Chronic) On desensitization protocol with ID/hospitalist Anxiety as acute reaction to exceptional stress (Chronic) with some depressive component but mostly anxiety driven, no Suicidal ideation. 10/15/18 PHQ 9=6. Take Effexor in the morning and see if it helps with sleep 12/18/2018 PHQ 9= 7. Continue Effexor 225 Arthritis (Chronic) knees and fingers Asthma (Chronic) PFTs at [place] 2018, mild restrictive air way, did not really respond to bronchodilator 12/18/2018 feels improvement with Combivent, refer to pulmonology Atrial flutter (Resolved) Cardioverted at [facility], now normal sinus rhythm Degenerative joint disease involving multiple joints (Chronic) knees, bilateral Depression with anxiety (Chronic) took paxil never tried cymbalta 06/04/2019 PHQ 9= 8, continue Effexor 225 DMII (diabetes mellitus, type 2) (Chronic) 10/15/18 A1C 7.1 02/11/19 A1c 7. 05/2019 mild diabetic retinopathy 02/11/2019 neuropathy on diabetic foot exam 02/11/2019 continue Janumet 50at thousand twice daily, encouraged her to check blood sugars regularly, healthy diet, exercise, follow-up in 3 months after fasting labs Hyperlipidemia (Chronic) 02/11/2019 stable, continue atorvastatin 80 Hypertension (Chronic) hx of TIA 02/11/2019 controlled on doxazosin 8 twice daily, clonidine 0.4 twice daily metoprolol 100 twice daily, nifedipine ER 60 twice daily, potassium 10 daily 06/04/2019 blood pressures been low, decrease doxazosin to 4 mg twice daily and continue others, continue checking blood pressure at home, EKG attempted here in the clinic but machine is broken, refer for EKG, follow-up in 1 month Low magnesium levels (Chronic) Chronic 12/18/2018 stable on magnesium 400 daily Lymphedema of both lower extremities (Chronic) Seen by Dr. Garcia and released. Receives massage and helpful Pain contract signed 11/201802/11/2019 okay to use tramadol during the day and hydrocodone at night, continue massage 06/04/2019 referral to physical therapy at patient request Migraines (Chronic) a lot of headaches 4-5 times a week, migraines 1-2 times a month Nocturnal hypoxemia (Chronic) Peripheral neuropathy (Chronic) Diabetic related 12/18/2018 stable on Lyrica 200 twice daily Recurrent cellulitis of lower leg (Chronic) bilat followed by Dr. Patterson 12/18/2018 currently taking Pen-Vee K 250 twice daily, continue care with Dr. Patterson Screening for colon cancer (Chronic) 06/19- Cologuard Sleep apnea treated with nocturnal BiPAP (Chronic) 12/18/2018 refer to pulmonology to sort through proper settings and the need for oxygen or not Thyroid trouble (Chronic) Enlarged LT Side, pushing on esphagous, biopsy neg 12/25/18 Stable large adenoma in the left lobe of the thyroid and no change in either lobe to suggest underlying malignancy. Follow-up thyroid ultrasound annually 02/11/2019 reviewed results of ultrasound, recommend following thyroid annually with ultrasound Vitamin D deficiency (Chronic) Chronic Surgical History H/O esophagogastroduodenoscopy (Chronic) History of hysterectomy (Chronic) 2006 Hx of colonoscopy (Chronic) Patient had a colonoscopy at age 47, clear and repeat 10 years S/P Kaci fundoplication (with gastrostomy tube placement) (Chronic) Family History Mother , Stroke Atrial fib/flutter, transient Stroke Parkinson disease Father Parkinson disease CHF (congestive heart failure) Myocardial infarction Brother Cancer CHF (congestive heart failure) Social History Smoking Status: Never smoker Alcohol Intake Frequency: does not drink Substance Use: does not use Exam Narrative Narrative: Narrative: I reevaluated the patient and note that she has a small area of erythema on the backside of her right leg approximately 10 cm in diameter which appears like mild cellulitis. I do not see anything going on with her right flank as per CT scan but she does have some mild redness underneath her pannus could be consistent with mild panniculitis versus candidiasis. She is breathing relatively well here and not hypoxic. I do not hear rales General Limitations: no limitations Course Vital Signs Vital signs: Vital Signs Temperature 103.2 F H 11/05/19 07:55 Pulse Rate 80 11/05/19 07:55 Respiratory Rate 16 11/05/19 07:55 Blood Pressure 158/75 11/05/19 07:55 Pulse Oximetry (%) 98 11/05/19 07:55 Temperature 102.0 F H 11/05/19 10:46 Pulse Rate 71 11/05/19 11:39 Respiratory Rate 26 H 11/05/19 11:39 Blood Pressure 145/63 11/05/19 11:39 Pulse Oximetry (%) 95 11/05/19 11:39 MDM MDM Narrative Medical decision making narrative: Narrative: Patient is initially worked up by Dr. stephens. I followed up on her laboratory note that she does have leukocytosis with significant lactic acidosis consistent with sepsis. Cause of sepsis is unclear but her chest x-ray does show perhaps bronchitis versus COVID pneumonia. Chest abdomen pelvis CT scan with contrast is ordered to further sort out. Urinalysis via Sanchez catheter UA showed high-level squamous cells so this is unclean catch. Repeated urinalysis. She received thousand milligrams of Tylenol IV which did help some with her elevated temperature We started blood cultures and started her on Zosyn and vancomycin in anticipation of possible bacterial sepsis versus other concerning causes of febrile illness including COVID pneumonia versus abdominal surgical issues. Covid testing was ordered and pending CT scan of the chest abdomen pelvis does not reveal cause for significant sepsis. She received 3 L of fluid -third liter is going in now. Her blood pressures have been stable and she has not required pressors. Discussed the case with Dr. Osman, hospitalist. He agreed to accept patient for further care and evaluation in the hospital Lab Data Lab results reviewed: Yes I reviewed the patient's lab results. Result diagrams: 11/05/19 08:11 11/05/19 08:11 Labs: Lab Results 11/05/19 11/05/19 11/05/19 Range/Units 08:11 08:11 08:11 WBC 22.7 H (4.50-11.00) K/mcL RBC 4.94 (3.59-5.38) M/mcL Hgb 14.1 (11.2-15.7) g/dL Hct 42.4 (34.1-44.9) % MCV 85.8 (80.0-100.0) fL MCH 28.5 (26.0-34.0) pg MCHC 33.3 (31.0-36.0) g/dL RDW 14.0 (11.5-14.5) % Plt Count 368 (140-440) K/mcL MPV 11.2 H (7.4-10.4) fL Gran % 93.3 H (38.0-78.0) % Lymph % (Auto) 1.9 L (15.5-49.0) % [place] % (Auto) 4.1 (1.0-12.0) % Eos % (Auto) 0.3 (0.0-7.0) % Baso % (Auto) 0.4 (0.0-2.0) % Gran # 21.19 H (1.80-8.00) K/mcL Lymph # (Auto) 0.43 L (1.50-4.80) K/mcL [place] # (Auto) 0.93 H (0.10-0.90) K/mcL Eos # (Auto) 0.06 (0.00-0.70) K/mcL Baso # (Auto) 0.08 (0.00-0.30) K/mcL VBG Lactic Acid 4.3 H* (0.5-2.0) mmol/L Sodium 139 (133-145) mmol/L Potassium 4.0 (3.3-5.1) mmol/L Chloride 98 (96-108) mmol/L Carbon Dioxide 22 (22-30) mmol/L Anion Gap 19.0 H (8-16) BUN 22 H (6-20) mg/dl Creatinine 1.3 H (0.6-1.1) mg/dl GFR Calculation 45 Glucose 245 H (70-105) mg/dL Calcium 9.2 (8.6-10.4) mg/dl Total Bilirubin 0.5 (0.0-1.0) mg/dL AST 18 (0-37) U/l ALT 26 (0-40) U/l Alkaline Phosphatase 101 (39-117) U/L NT-Pro-B Natriuret Pep (0-125) pg/ml Total Protein 7.6 (5.9-8.4) gm/dL Albumin 4.2 (3.2-5.2) gm/dL Globulin 3.4 (2.2-3.7) gm/dL Albumin/Globulin Ratio 1.2 (1.0-2.3) Urine Color Urine Appearance Urine pH (5.0-9.0) Ur Specific Alliance (1.000-1.035) Urine Protein (NEG) mg/dL Urine Glucose (UA) (NEG) mg/dL Urine Ketones (NEG) mg/dL Urine Occult Blood (<0.03) mg/dL Urine Nitrate (NEG) Urine Bilirubin (NEG) mg/dL Urine Ictotest (NEG) Urine Urobilinogen (NEG) mg/dL Ur Leukocyte Esterase (NEG) /uL Urine RBC (0-1) /hpf Urine WBC (0-4) /hpf Ur Squamous Epith Cells (0-4) /hpf Urine Bacteria (0) /hpf Hyaline Casts (0-2) /lpf Urine Mucus (0) /hpf Ur Culture Indicated? 11/05/19 11/05/19 Range/Units 08:11 08:25 WBC (4.50-11.00) K/mcL RBC (3.59-5.38) M/mcL Hgb (11.2-15.7) g/dL Hct (34.1-44.9) % MCV (80.0-100.0) fL MCH (26.0-34.0) pg MCHC (31.0-36.0) g/dL RDW (11.5-14.5) % Plt Count (140-440) K/mcL MPV (7.4-10.4) fL Gran % (38.0-78.0) % Lymph % (Auto) (15.5-49.0) % [place] % (Auto) (1.0-12.0) % Eos % (Auto) (0.0-7.0) % Baso % (Auto) (0.0-2.0) % Gran # (1.80-8.00) K/mcL Lymph # (Auto) (1.50-4.80) K/mcL [place] # (Auto) (0.10-0.90) K/mcL Eos # (Auto) (0.00-0.70) K/mcL Baso # (Auto) (0.00-0.30) K/mcL VBG Lactic Acid (0.5-2.0) mmol/L Sodium (133-145) mmol/L Potassium (3.3-5.1) mmol/L Chloride (96-108) mmol/L Carbon Dioxide (22-30) mmol/L Anion Gap (8-16) BUN (6-20) mg/dl Creatinine (0.6-1.1) mg/dl GFR Calculation Glucose (70-105) mg/dL Calcium (8.6-10.4) mg/dl Total Bilirubin (0.0-1.0) mg/dL AST (0-37) U/l ALT (0-40) U/l Alkaline Phosphatase (39-117) U/L NT-Pro-B Natriuret Pep 702.3 H (0-125) pg/ml Total Protein (5.9-8.4) gm/dL Albumin (3.2-5.2) gm/dL Globulin (2.2-3.7) gm/dL Albumin/Globulin Ratio (1.0-2.3) Urine Color Yellow Urine Appearance Hazy Urine pH 5.0 (5.0-9.0) Ur Specific [place] 1.026 (1.000-1.035) Urine Protein 100 A (NEG) mg/dL Urine Glucose (UA) Negative (NEG) mg/dL Urine Ketones Neg (NEG) mg/dL Urine Occult Blood Neg (<0.03) mg/dL Urine Nitrate Neg (NEG) Urine Bilirubin 2.0 A (NEG) mg/dL Urine Ictotest Pos A (NEG) Urine Urobilinogen Neg (NEG) mg/dL Ur Leukocyte Esterase 250 A (NEG) /uL Urine RBC 3 H (0-1) /hpf Urine WBC 54 H (0-4) /hpf Ur Squamous Epith Cells 6 H (0-4) /hpf Urine Bacteria Many A (0) /hpf Hyaline Casts 84 H (0-2) /lpf Urine Mucus Many A (0) /hpf Ur Culture Indicated? No Radiology Data Radiology results reviewed: Yes I reviewed the patient's radiology results. Radiology results narrative: Chest x-ray shows bronchitis versus COVID pneumonia CT scan chest abdomen pelvis with contrast does not show acute cause for pneumonia although does show some edema of her right flank. Other chronic findings noted. Please see full report CC TIME Critical Care Time Critical Care Time: Yes Total Critical Care Time: 45 Attestation: Approximately 45 minutes critical care time including docume ntation, coordination of care with hospitalist, reviewing studies, serial exams. This does not include procedures. I was immediately available to the patient the entire time she was in the ER Discharge Plan Patient/Caregiver Discharge Instructions Pt seen by APPLICATION DESIGNER/PA only: No Clinical Impression: Bronchitis Sepsis Qualifiers: Sepsis type: sepsis due to unspecified organism Sepsis acute organ dysfunction status: unspecified Qualified Code(s): A41.9 - Sepsis, unspecified organism Cellulitis Qualifiers: Site of cellulitis: extremity Site of cellulitis of extremity: lower extremity Laterality: right Qualified Code(s): L03.115 - Cellulitis of right lower limb Patient Disposition: Xfer As Inpt ([facility]) Condition: Critical Follow up with: Funmi Leos ARNP [Primary Care Provider] - Prescriptions: No Action ipratropium-albuterol 20-100 mcg/actuation mist 1 puff INHALATION Q4HP PRN (Reason: Shortness Of Breath) Qty: 4 RF: 0 magnesium oxide 400 mg capsule 400 mg PO DAILY Qty: 90 RF: 3 nifedipine 60 mg tablet extended release 60 mg PO BID Qty: 120 RF: 4 ramelteon 8 mg tablet 8 mg PO HS Qty: 90 RF: 1 atorvastatin 80 mg tablet 80 mg PO DAILY Qty: 90 RF: 1 ropinirole 1 mg tablet 1 mg PO HS Qty: 90 RF: 4 venlafaxine 150 mg capsule,extended release 24hr 150 mg PO HS Qty: 90 RF: 3 venlafaxine 75 mg capsule,extended release 24hr 75 mg PO QHS Qty: 90 RF: 3 potassium chloride 10 mEq tablet extended release 10 meq PO DAILY Qty: 90 RF: 4 metoprolol tartrate 100 mg tablet See Rx Instructions .ROUTE .COMPLEX Qty: 120 RF: 5 pregabalin 200 mg capsule 200 mg PO BID Qty: 180 RF: 3 clonidine HCl 0.2 mg tablet See Rx Instructions .ROUTE .COMPLEX Qty: 360 RF: 4 doxazosin 4 mg tablet 4 mg PO QDAY Qty: 90 RF: 3 montelukast 10 mg tablet 10 mg PO HS Qty: 90 RF: 3 hydrocodone-acetaminophen 7.5-325 mg tablet 1 tab PO QHS Qty: 30 RF: 0 hydroxyzine HCl 25 mg tablet 25 mg PO QIDP PRN (Reason: Itching) Qty: 180 RF: 4 (DME) Blood Glucose Test strip See Rx Instructions .ROUTE .MEDSUPPLY Qty: 50 RF: 1 (DME) lancets misc See Rx Instructions .ROUTE .MEDSUPPLY Qty: 50 RF: 1 (DME) blood-glucose meter kit See Rx Instructions .ROUTE .MEDSUPPLY Qty: 1 RF: 0 olmesartan 40 mg tablet 40 mg PO DAILY Qty: 90 RF: 3 nortriptyline 25 mg capsule 50 mg PO HS RF: 0 penicillin V potassium 250 mg tablet 250 mg PO BID Qty: 180 RF: 3 Hold Instructions: Doctor's Order cetirizine [Aller-Julia] 10 mg tablet 10 mg PO QDAY PRN (Reason: Allergy Symptoms) RF: 0 diphenhydramine HCl 25 MG capsule 50 mg PO HS RF: 0 Bipap 1 dose .Route HS RF: 0 Oxygen 3L 1 dose .Route .MEDSUPPLY RF: 0 ferrous sulfate 324 mg (65 mg iron) tablet,delayed release 324 mg (65 mg iron) tablet,delayed release (DR/EC) 65 mg PO BID RF: 0 esomeprazole magnesium 40 mg capsule,delayed release(DR/EC) 80 mg PO BID RF: 0 Xarelto 20 mg tablet 20 mg PO QPM Qty: 90 RF: 3 Janumet 50-1,000 mg Tablet 1 tab PO DAILY RF: 0 Toviaz 8 mg Tablet Extended Release 24 Hr 8 mg PO QDAY RF: 0 Dupixent 300 mg/2 mL Syringe 1 mg SUBCUT 2-3XW RF: 0
--- NOTE | 2019-11-05 11:28 | Cat Scan Report ---
INDICATION: sepsis. unknown source COMPARISON: Previous CT scan dated 12/16/2017. Previous chest x-ray dated 11/05/2019 TECHNIQUE: Axial images were obtained through the chest,abdomen and pelvis. Sagittally and coronally reformatted images. 80ml Isovue 370 injected intravenously. Oral contrast material was not administered FINDINGS: Somewhat suboptimal examination due to patient obesity and quantum mottle Chest CT: Lungs:Lungs are suboptimally evaluated as this patient was unable to suspend respiration. There is an 8 mm noncalcified lingular nodule. This is stable since 12/16/2017. No acute parenchymal consolidation. No new pulmonary parenchymal nodule. There is no centrilobular or paraseptal emphysema. No honeycombing. No bronchiectasis. There is a suggestion of mosaic perfusion although high-resolution images were not obtained. This may be secondary to vascular or airway disease. Mediastinum:No pathologic mediastinal adenopathy. No hilar mass. Thoracic aorta is normal without aneurysmal dilatation. Main pulmonary artery is dilated and measures approximately 4.0 cm. Findings suggest pulmonary arterial hypertension. There is a left-sided superior mediastinal mass consistent with large substernal goiter. The thyroid is not imaged in its entirety. This causes rightward displacement and mild effacement of the trachea. This is unchanged Heart:No significant cardiomegaly. No pericardial effusion Pleura:No pleural fluid. No pleural-based mass. No pleural calcifications Axilla, supraclavicular regions, chest wall:No pathologic axillary or supraclavicular adenopathy Musculoskeletal:Negative thoracic spine. No compression fractures. No lytic lesions. No paraspinal mass Abdomen/Pelvis: Liver:Negative liver. No focal intrahepatic mass. Liver contour is smooth. There is no ascites Gallbladder, bilary:Calcified gallstones in the dependent portion of the gallbladder. Appearance is unchanged since 12/16/2017. No gallbladder wall thickening. No pericholecystic fluid. No dilated bile ducts. No detectable choledocholithiasis Spleen:No splenomegaly. No focal intrasplenic abnormality. Normal enhancement of splenic and portal veins. Pancreas:No pancreatic mass. No peripancreatic abnormality Adrenal glands:Negative Kidneys, ureters, bladder:No solid or cystic renal mass. No hydronephrosis. No hydroureter. No ureteral stones Sanchez catheter in the urinary bladder. No bladder calculi identified Gastrointestinal:No detectable colonic mass. There is no diverticulitis. Small bowel is negative. No mechanical small bowel obstruction. Stomach and duodenum are within normal limits Appendix: The appendix is negative Vascular:No abdominal aortic aneurysm. Celiac trunk and superior mesenteric artery are normal. Inferior mesenteric artery is normal Lymphatic:No pathologic retroperitoneal or mesenteric adenopathy Mesentery, peritoneum:No free intraperitoneal fluid. No intra-abdominal abscess. No pneumoperitoneum Reproductive:Appearance consistent with previous hysterectomy. No adnexal mass Musculoskeletal:No compression fractures. No lytic lesions. Sacrum, pelvis, hips are negative. No inguinal or abdominal wall hernia. There is edema within the subcutaneous fat of the abdominal wall. This is predominantly right-sided. Cellulitis is possible. No subcutaneous abscess or discrete mass. There is infiltration of fat in the right gluteal region as well. This is not completely included on this examination IMPRESSION: 1. 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 Probable mosaic perfusion 3. Dilated main pulmonary artery with cross sectional diameter of 4.0 cm. Appearance suggests pulmonary arterial hypertension 4. Cholelithiasis 5. Subcutaneous edema in the right flank and gluteal region. Findings are nonspecific. Cellulitis is possible. No discrete abscess The exam was performed using radiation dose optimization techniques including, but not limited to, automated exposure control, adjustment of the mA and/or kV according to patient size and use of iterative reconstruction technique. Interpreted and Authenticated by: Rgean Roland 11/05/19
[2019-11-05] MEDS ORDERED: MELATONIN 3 MG TABLET PO PRN ×2 (11:45→13:00)
[2019-11-05] MEDS ORDERED: NOREPINEPHRINE BITARTRATE 16 MG in 0.9 % SODIUM CHLORIDE 234 ML IV PRN ×2 (11:45→13:00)
[2019-11-05] MEDS ORDERED: ONDANSETRON 4 MG ODT TABLET SL PRN ×2 (11:45→13:00)
[2019-11-05] MEDS ORDERED: PIPERACILLIN SODIUM/TAZOBACTAM 3.375 GM in DEXTROSE 5% IN WATER 50 ML IV SCH (11:45)
[2019-11-05] MEDS ORDERED: ACETAMINOPHEN 650 MG/65 ML BOTTLE IV PRN (11:45)
[2019-11-05] MEDS ORDERED: ACETAMINOPHEN 325 MG TABLET PO PRN ×2 (11:45→13:00)
[2019-11-05] MEDS ORDERED: POLYETHYLENE GLYCOL 3350 17 GM PACKET PO PRN ×2 (11:45→13:00)
[2019-11-05] MEDS ORDERED: 0.9 % SODIUM CHLORIDE 1,000 ML IV SCH (11:45)
[2019-11-05] MEDS ORDERED: ONDANSETRON 4 MG/2 ML VIAL IV PRN ×2 (11:45→13:00)
[2019-11-05] MEDS ORDERED: BISACODYL 10 MG SUPP.RECT PR PRN ×2 (11:45→13:00)
[2019-11-05] MEDS ORDERED: VANCOMYCIN PER PHARMACY IV SCH ×2 (11:45→13:00)
[2019-11-05] MEDS ORDERED: IPRATROPIUM/ALBUTEROL 3 ML AMPUL.NEB NEB PRN ×2 (11:45→13:00)
[2019-11-05] MEDS ORDERED: guaiFENesin/CODEINE 10 ML UDC PO PRN ×2 (11:45→13:00)
[2019-11-05] MEDS ORDERED: POTASSIUM CHLORIDE 20 MEQ PACKET PO PRN ×2 (11:45→13:00)
[2019-11-05] MEDS ORDERED: MAGNESIUM SULFATE 2 GM/50 ML BAG IV PRN ×2 (11:45→13:00)
[2019-11-05] MEDS ORDERED: CETIRIZINE 10 MG TABLET PO PRN ×2 (11:52→13:00)
[2019-11-05] MEDS ORDERED: IPRATROPIUM/ALBUTEROL SULFATE 1 PUFF INHALER INH PRN ×2 (11:52→13:00)
[2019-11-05] MEDS ORDERED: METOPROLOL TARTRATE SCH (12:00)
--- NOTE | 2019-11-05 12:02 | Internal Med History&Physical ---
HPI History of Present Illness Patient information: Note initiated : 11/05/19 at 11:58 am Service Date, if different from initiated Date: [] Patient: Elizabeth Peacock a 59 y/o F admitted on for Weakness. Chief Complaint: [] History of present illness: Ms. Peacock is a 59 year old F morbidly obese with BMI over 50, DM type II/HTN/CKD and history of PE on anticoagulation who now presents with 2 days onset of worsening weakness, chills, increasing fatigue lethargic and unable to think clearly. She also has associated shortness of breath. During presentation initial work-up revealed fever of 103 along with leukocytosis and pyuria. CT abdomen/chest was inconclusive for acute process. Patient received crystalloids and after cultures were drawn antibiotics initiated. Hospitalist service was consulted for admission At the time evaluation patient is lethargic fatigue and unable to answer most of the questions. She frequently dozes off. She denies associated diarrhea, skin rash, joint pain, dysuria or nausea vomiting. She further denies chest pain but endorses to mild shortness of breath and cough No family members are present Review of systems 10 point review system was attempted and is negative except for ones as above [facility] Medical History (Updated 11/05/19 @ 10:43 by Spike Morris MD) Acid reflux (Chronic) 12/18/2018 ranitidine 150 twice daily, Nexium 80 twice daily continue care with [facility] gastro[facility] and her recommendations Allergy history, penicillin (Chronic) On desensitization protocol with ID/hospitalist Anxiety as acute reaction to exceptional stress (Chronic) with some depressive component but mostly anxiety driven, no Suicidal ideation. 10/15/18 PHQ 9=6. Take Effexor in the morning and see if it helps with sleep 12/18/2018 PHQ 9= 7. 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 05/2019 mild diabetic retinopathy 02/11/2019 neuropathy on diabetic foot exam 02/11/2019 continue Janumet 50at thousand twice daily, encouraged her to check blood sugars regularly, healthy diet, exercise, follow-up in 3 months after fasting labs Hyperlipidemia (Chronic) 02/11/2019 stable, continue atorvastatin 80 Hypertension (Chronic) hx of TIA 02/11/2019 controlled on doxazosin 8 twice daily, clonidine 0.4 twice daily metoprolol 100 twice daily, nifedipine ER 60 twice daily, potassium 10 daily 06/04/2019 blood pressures been low, decrease doxazosin to 4 mg twice daily and continue others, continue checking blood pressure at home, EKG attempted here in the clinic but machine is broken, refer for EKG, follow-up in 1 month Low magnesium levels (Chronic) Chronic 12/18/2018 stable on magnesium 400 daily Lymphedema of both lower extremities (Chronic) Seen by Dr. Garcia and released. Receives massage and helpful Pain contract signed 11/201802/11/2019 okay to use tramadol during the day and hydrocodone at night, continue massage 06/04/2019 referral to physical therapy at patient request Migraines (Chronic) a lot of headaches 4-5 times a week, migraines 1-2 times a month Nocturnal hypoxemia (Chronic) Peripheral neuropathy (Chronic) Diabetic related 12/18/2018 stable on Lyrica 200 twice daily Recurrent cellulitis of lower leg (Chronic) bilat followed by Dr. Patterson 12/18/2018 currently taking Pen-Vee K 250 twice daily, continue care with Dr. Patterson Screening for colon cancer (Chronic) 06/19- Cologuard Sleep apnea treated with nocturnal BiPAP (Chronic) 12/18/2018 refer to pulmonology to sort through proper settings and the need for oxygen or not Thyroid trouble (Chronic) Enlarged LT Side, pushing on esphagous, biopsy neg 12/25/18 Stable large adenoma in the left lobe of the thyroid and no change in either lobe to suggest underlying malignancy. Follow-up thyroid ultrasound annually 02/11/2019 reviewed results of ultrasound, recommend following thyroid annually with ultrasound Vitamin D deficiency (Chronic) Chronic Surgical History H/O esophagogastroduodenoscopy (Chronic) History of hysterectomy (Chronic) 2006 Hx of colonoscopy (Chronic) Patient had a colonoscopy at age 47, clear and repeat 10 years S/P Kaci fundoplication (with gastrostomy tube placement) (Chronic) Family History Mother , Stroke Atrial fib/flutter, transient Stroke Parkinson disease Father Parkinson disease CHF (congestive heart failure) Myocardial infarction Brother Cancer CHF (congestive heart failure) Social History (Updated 09/02/19 @ 15:51 by Olvin Patterson MD) adopted: No caregiver/support person: No foster care: No household members: significant other lives independently: Yes marital status: service: No group home: No occupational status: unemployed occupational exposures/hazards: No pets and animals: Yes hx recent travel: No sexually active: No smoking status: Never smoker alcohol intake frequency: does not drink substance use type: does not use MEDS/ALLERGIES Home Medications and Allergies Home Medications Medication Instructions Recorded Confirmed Type penicillin V potassium 250 mg 250 mg PO BID #180 tab 04/25/18 11/05/19 Rx tablet ipratropium 20 mcg-albuterol 100 1 puff INHALATION Q4HP PRN #4 g 05/08/18 11/05/19 Rx mcg/actuation mist for inhalation magnesium oxide 400 mg PO DAILY #90 cap 05/08/18 11/05/19 Rx nifedipine 60 mg tablet,extended 60 mg PO BID #120 tab 05/08/18 11/05/19 Rx release [] 65 mg PO BID 09/17/18 11/05/19 History Bipap 1 dose .ROUTE HS 09/17/18 11/05/19 History Oxygen 3L 1 dose .ROUTE .MEDSUPPLY 09/17/18 11/05/19 History diphenhydramine HCl 50 mg PO HS 09/17/18 11/05/19 History esomeprazole magnesium 40 mg 80 mg PO BID cap 12/18/18 11/05/19 History capsule,delayed release hydroxyzine HCl 25 mg tablet 25 mg PO QIDP PRN #180 tab 12/18/18 11/05/19 Rx cetirizine 10 mg tablet 10 mg PO QDAY PRN 01/30/19 11/05/19 History blood sugar diagnostic #50 each 02/11/19 11/05/19 Rx blood-glucose meter #1 each 02/11/19 11/05/19 Rx lancets #50 each 02/11/19 11/05/19 Rx ramelteon 8 mg tablet 8 mg PO HS #90 tab 03/24/19 11/05/19 Rx nortriptyline 25 mg capsule 50 mg PO HS cap 06/04/19 11/05/19 History olmesartan 40 mg tablet 40 mg PO DAILY #90 tab 06/04/19 11/05/19 Rx rivaroxaban 20 mg tablet 20 mg PO QPM #90 tab 06/10/19 11/05/19 Rx atorvastatin 80 mg tablet 80 mg PO DAILY #90 tab 07/14/19 11/05/19 Rx ropinirole 1 mg tablet 1 mg PO HS #90 tab 08/12/19 11/05/19 Rx venlafaxine 150 mg 150 mg PO HS #90 cap 08/12/19 11/05/19 Rx capsule,extended release 24 hr venlafaxine 75 mg capsule,extended 75 mg PO QHS #90 cap 08/18/19 11/05/19 Rx release 24 hr potassium chloride 10 mEq 10 meq PO DAILY #90 tab 09/10/19 11/05/19 Rx tablet,extended release metoprolol tartrate 100 mg tablet See Rx Instructions .ROUTE 09/18/19 11/05/19 Rx .COMPLEX #120 unknown measurement unit code: tablet clonidine HCl 0.2 mg tablet See Rx Instructions .ROUTE 10/14/19 11/05/19 Rx .COMPLEX #360 tablet doxazosin 4 mg tablet 4 mg PO QDAY #90 tab 10/14/19 11/05/19 Rx montelukast 10 mg tablet 10 mg PO HS #90 tab 10/14/19 11/05/19 Rx pregabalin 200 mg capsule 200 mg PO BID #180 cap 10/14/19 11/05/19 Rx hydrocodone 7.5 mg-acetaminophen 1 tab PO QHS #30 tab 10/29/19 11/05/19 Rx 325 mg tablet dupilumab [Dupixent] 1 mg SUBCUT 2-3XW 11/05/19 11/05/19 History fesoterodine [Toviaz] 8 mg PO QDAY 11/05/19 11/05/19 History sitagliptin-metformin [Janumet] 1 tab PO DAILY 11/05/19 11/05/19 History Allergies Allergy/AdvReac Type Severity Reaction Status Date / Time Sulfa (Sulfonamide Allergy Severe Hives Verified 11/05/19 07:59 Antibiotics) exenatide [From Byetta] Allergy Intermediate Hives Verified 11/05/19 07:59 latex Allergy Intermediate Rash Verified 11/05/19 07:59 Rosiglitazone [From Avandia] Allergy Intermediate Hives Verified 11/05/19 07:59 meperidine [From Demerol] AdvReac Intermediate Gastrointestinal Verified 11/05/19 07:59 Upset EXAM Constitutional Vitals: Temp Pulse Resp BP Pulse Ox 102.0 F H 71 26 H 145/63 95 11/05/19 10:46 11/05/19 11:39 11/05/19 11:39 11/05/19 11:39 11/05/19 11:39 Morbidly obese Head normocephalic Patient appears drowsy and fatigued lethargic Oral cavity dry No ear nose discharge eye movement symmetrical Neck no lymphadenopathy S1-S2 regular rhythm Diminished breath sounds bases Large pendulous abdomen Extensive pannus Lower extremity edema, erythema right posterior thigh No cyanosis clubbing Skin no suspicious lesion Psych fatigue lethargic Neuro nonfocal DATA Data Completed and Pending Labs on day of discharge: Labs from last 24 hours 11/05/19 11/05/19 11/05/19 11:00 08:51 08:25 WBC RBC Hgb Hct MCV MCH MCHC RDW Plt Count MPV Gran % Lymph % (Auto) [place] % (Auto) Eos % (Auto) Baso % (Auto) Gran # Lymph # (Auto) [place] # (Auto) Eos # (Auto) Baso # (Auto) VBG Lactic Acid Sodium Potassium Chloride Carbon Dioxide Anion Gap BUN Creatinine GFR Calculation Glucose Calcium Total Bilirubin AST ALT Alkaline Phosphatase NT-Pro-B Natriuret Pep Total Protein Albumin Globulin Albumin/Globulin Ratio Urine Color Pending Yellow Urine Appearance Pending Hazy Urine pH Pending 5.0 Ur Specific [place] Pending 1.026 Urine Protein Pending 100 A Urine Glucose (UA) Pending Negative Urine Ketones Pending Neg Urine Occult Blood Pending Neg Urine Nitrate Pending Neg Urine Bilirubin Pending 2.0 A Urine Ictotest Pos A Urine Urobilinogen Pending Neg Ur Leukocyte Esterase Pending 250 A Urine RBC 3 H Urine WBC 54 H Ur Squamous Epith Cells 6 H Urine Bacteria Many A Hyaline Casts 84 H Urine Mucus Many A Ur Culture Indicated? No Nasal/Oral COVID-19 PCR Pending COVID-19 PCR Interp Pending 11/05/19 11/05/19 11/05/19 08:11 08:11 08:11 WBC RBC Hgb Hct MCV MCH MCHC RDW Plt Count MPV Gran % Lymph % (Auto) [place] % (Auto) Eos % (Auto) Baso % (Auto) Gran # Lymph # (Auto) [place] # (Auto) Eos # (Auto) Baso # (Auto) VBG Lactic Acid 4.3 H* Sodium 139 Potassium 4.0 Chloride 98 Carbon Dioxide 22 Anion Gap 19.0 H BUN 22 H Creatinine 1.3 H GFR Calculation 45 Glucose 245 H Calcium 9.2 Total Bilirubin 0.5 AST 18 ALT 26 Alkaline Phosphatase 101 NT-Pro-B Natriuret Pep 702.3 H Total Protein 7.6 Albumin 4.2 Globulin 3.4 Albumin/Globulin Ratio 1.2 Urine Color Urine Appearance Urine pH Ur Specific [place] Urine Protein Urine Glucose (UA) Urine Ketones Urine Occult Blood Urine Nitrate Urine Bilirubin Urine Ictotest Urine Urobilinogen Ur Leukocyte Esterase Urine RBC Urine WBC Ur Squamous Epith Cells Urine Bacteria Hyaline Casts Urine Mucus Ur Culture Indicated? Nasal/Oral COVID-19 PCR COVID-19 PCR Interp 11/05/19 08:11 WBC 22.7 H RBC 4.94 Hgb 14.1 Hct 42.4 MCV 85.8 MCH 28.5 MCHC 33.3 RDW 14.0 Plt Count 368 MPV 11.2 H Gran % 93.3 H Lymph % (Auto) 1.9 L [place] % (Auto) 4.1 Eos % (Auto) 0.3 Baso % (Auto) 0.4 Gran # 21.19 H Lymph # (Auto) 0.43 L [place] # (Auto) 0.93 H Eos # (Auto) 0.06 Baso # (Auto) 0.08 VBG Lactic Acid Sodium Potassium Chloride Carbon Dioxide Anion Gap BUN Creatinine GFR Calculation Glucose Calcium Total Bilirubin AST ALT Alkaline Phosphatase NT-Pro-B Natriuret Pep Total Protein Albumin Globulin Albumin/Globulin Ratio Urine Color Urine Appearance Urine pH Ur Specific [place] Urine Protein Urine Glucose (UA) Urine Ketones Urine Occult Blood Urine Nitrate Urine Bilirubin Urine Ictotest Urine Urobilinogen Ur Leukocyte Esterase Urine RBC Urine WBC Ur Squamous Epith Cells Urine Bacteria Hyaline Casts Urine Mucus Ur Culture Indicated? Nasal/Oral COVID-19 PCR COVID-19 PCR Interp A/P Narrative A/P Narrative: * Severe sepsis with multiple organ dysfunction-elevated white count/fever/endorgan dysfunction. Continue venous lactate trending. White count 22,000, venous lactic 4.3 * Cellulitis right posterior thigh-continue antibiotic coverage. Blood cultures. * Complicated UTI-broad antibiotic/await culture sensitivities. * Acute change in mental status secondary to sepsis endorgan dysfunction. * Mild THOMAS -creatinine 1.3, secondary to sepsis endorgan dysfunction * History of PE/DVT on rivaroxaban * Anxiety disorder continue venlafaxine/nortriptyline * Chronic pain secondary DJD on hydrocodone acetaminophen * IRA/OHS on home BiPAP * Hypertension continue clonidine/doxazosin/nifedipine, hold ARB in light of THOMAS * Hyperlipidemia continue statin * Morbid obesity with a BMI over 50-directed therapy/dietary intervention * Full code Plan * Broad antibiotic coverage * ICU admit * Vasopressors if indicated * Pre-existing back condition management as above * Monitor renal function * PT OT nutrition support * Time Spent With Patient Time: Total time spent is greater than 50% in coordination of care (as documented) at patient's floor/unit and/or counseling patient: Time spent on history and physical 70 minutes Additional 35 minutes spent on management of severe sepsis
[2019-11-05 12:52] LABS: Appearance,Urine HAZY; Bacteria,Urine MANY /hpf (0); Bilirubin,Urine NEG (NEG); Color,Urine YELLOW; Culture Indicated,Urine YES; Glucose,Urine (UA) NEGATIVE (NEG); Ketones,Urine NEG (NEG); Leukocyte Esterase,Urine 75 /uL (NEG); Mucus,Urine MOD /hpf (0); Nitrate,Urine NEG (NEG); Protein,Urine 30 mg/dL (NEG); Specific Gravity,Urine 1.023 (1.000-1.035); Urine Blood 0.03 mg/dL (<0.03); Urine Hyaline Cast 8 /lpf (0-2); Urine RBC 5 /hpf (0-1); Urine Squamous Epithelial Cell 2 /hpf (0-4); Urine Transitional Epi Cells < 1 /hpf (0-2); Urine WBC 14 /hpf (0-4); Urobilinogen,Urine NEG (NEG)
[2019-11-05] MEDS: 0.9 % SODIUM CHLORIDE 250 ML IV SCH (13:04)
[2019-11-05] MEDS: 0.9 % SODIUM CHLORIDE 1,000 ML IV SCH (13:29)
[2019-11-05] MEDS: 0.9 % SODIUM CHLORIDE 10 ML SYRINGE IV SCH ×2 (13:30→20:47)
[2019-11-05] MEDS ORDERED: 0.9 % SODIUM CHLORIDE 10 ML SYRINGE IV SCH (14:00)
[2019-11-05] MEDS ORDERED: DEXTROSE 50% 50 ML VIAL IV PRN (14:45)
[2019-11-05] MEDS ORDERED: DEXTROSE 31 GM ORAL.SUSP PO PRN (14:45)
[2019-11-05] MEDS: PIPERACILLIN SODIUM/TAZOBACTAM 3.375 GM in DEXTROSE 5% IN WATER 50 ML IV SCH ×3 (14:50→23:44)
[2019-11-05] MEDS: ACETAMINOPHEN 650 MG/65 ML BOTTLE IV PRN ×2 (15:12→21:18)
[2019-11-05] MEDS: INSULIN LISPRO 1 UNIT/0.01 ML UNIT SQ SCH ×2 (17:39→20:22)
[2019-11-05] MEDS: metFORMIN 500 MG TABLET PO SCH (17:40)
[2019-11-05] MEDS: DOCUSATE SODIUM 100 MG CAPSULE PO SCH (20:22)
[2019-11-05] MEDS: SENNOSIDES/DOCUSATE SODIUM 1 TAB TABLET PO SCH (20:23)
[2019-11-05] MEDS: rOPINIRole 1 MG TABLET PO SCH (20:43)
[2019-11-05] MEDS: NIFEdipine 30 MG TAB.XL.24H PO SCH (20:43)
[2019-11-05] MEDS: RIVAROXABAN 20 MG TABLET PO SCH (20:44)
[2019-11-05] MEDS: MONTELUKAST 10 MG TABLET PO SCH (20:44)
[2019-11-05] MEDS: PREGABALIN 100 MG CAPSULE PO SCH (20:44)
[2019-11-05] MEDS: sitaGLIPtin 50 MG TABLET PO SCH (20:44)
[2019-11-05] MEDS: HYDROCODONE/APAP 7.5/325MG TABLET PO SCH (20:45)
[2019-11-05] MEDS: VENLAFAXINE 75 MG CAP.XL.24H PO SCH (20:45)
[2019-11-05] MEDS: ATORVASTATIN 40 MG TABLET PO SCH (20:45)
[2019-11-05] MEDS: METOPROLOL TARTRATE 50 MG TABLET PO SCH (20:46)
[2019-11-05] MEDS: RAMELTEON 8 MG TABLET PO SCH (20:46)
[2019-11-05] MEDS: NORTRIPTYLINE 25 MG CAPSULE PO SCH (20:46)
[2019-11-05] MEDS: VANCOMYCIN 1,500 MG in 0.9 % SODIUM CHLORIDE 500 ML IV SCH (20:46)
[2019-11-05] MEDS ORDERED: PREGABALIN 200 MG PO SCH (21:00)
[2019-11-05] MEDS ORDERED: NIFEDIPINE 60 MG PO SCH (21:00)
[2019-11-05] MEDS ORDERED: MONTELUKAST 10 MG TABLET PO SCH (21:00)
[2019-11-05] MEDS ORDERED: HYDROCODONE/APAP 7.5/325MG TABLET PO SCH (21:00)
[2019-11-05] MEDS ORDERED: VENLAFAXINE 150 MG CAP.XL.24H PO SCH ×2 (21:00)
[2019-11-05] MEDS ORDERED: DOCUSATE SODIUM 100 MG CAPSULE PO SCH (21:00)
[2019-11-05] MEDS ORDERED: VENLAFAXINE 75 MG CAP.XL.24H PO SCH (21:00)
[2019-11-05] MEDS ORDERED: ATORVASTATIN 40 MG TABLET PO SCH (21:00)
[2019-11-05] MEDS ORDERED: SENNOSIDES/DOCUSATE SODIUM 1 TAB TABLET PO SCH (21:00)
[2019-11-05] MEDS ORDERED: RAMELTEON 8 MG TABLET PO SCH (21:00)
[2019-11-05] MEDS ORDERED: RIVAROXABAN 20 MG TABLET PO SCH (21:00)
[2019-11-05] MEDS ORDERED: rOPINIRole 1 MG TABLET PO SCH (21:00)
[2019-11-05] MEDS ORDERED: NORTRIPTYLINE 25 MG CAPSULE PO SCH (21:00)
[2019-11-05] MEDS ORDERED: ESOMEPRAZOLE MAGNESIUM 80 MG PO SCH (21:00)
[2019-11-05] MEDS ORDERED: [UNRECOGNIZED DRUG - OTHER] SCH (21:00)
[2019-11-06] MEDS: ACETAMINOPHEN 650 MG/65 ML BOTTLE IV PRN ×3 (04:13→17:31)
[2019-11-06] MEDS: 0.9 % SODIUM CHLORIDE 10 ML SYRINGE IV SCH ×3 (05:18→21:17)
[2019-11-06] MEDS: PIPERACILLIN SODIUM/TAZOBACTAM 3.375 GM in DEXTROSE 5% IN WATER 50 ML IV SCH ×3 (05:18→17:30)
[2019-11-06 06:25] LABS: Hematocrit 35.9 % (34.1-44.9); Hemoglobin 11.6 g/dL (11.2-15.7); Mean Cell Volume 87.1 fL (80.0-100.0); Mean Corpuscular HGB Conc 32.3 g/dL (31.0-36.0); Mean Platelet Volume 11.2 fL (7.4-10.4); Platelet Count 249 K/mcL (140-440); RBC 4.12 M/mcL (3.59-5.38); Red Cell Distribution Width 14.7 % (11.5-14.5); WBC 16.2 K/mcL (4.50-11.00)
[2019-11-06 06:47] LABS: ALT/SGPT 20 U/l (0-40); AST/SGOT 19 U/l (0-37); Albumin 3.2 gm/dL (3.2-5.2); Albumin/Globulin Ratio 1.1 (1.0-2.3); Alkaline Phosphatase 78 U/L (39-117); Bilirubin,Direct < 0.2 mg/dL (0.0-0.3); Bilirubin,Total 0.5 mg/dL (0.0-1.0); Blood Urea Nitrogen 21 mg/dl (6-20); Calcium 8.1 mg/dl (8.6-10.4); Carbon Dioxide 23 mmol/L (22-30); Chloride 102 mmol/L (96-108); Glomerular Filtration Rate 55; Glucose 148 mg/dL (70-105); Lactate Dehydrogenase 184 U/L (94-250); Phosphorous 3.6 mg/dL (2.7-4.5); Triglycerides 96 mg/dl (<150); Uric Acid 5.1 mg/dL (2.5-8.0)
[2019-11-06] MEDS ORDERED: NOREPINEPHRINE BITARTRATE 16 MG in 0.9 % SODIUM CHLORIDE 234 ML IV PRN (07:00)
[2019-11-06] MEDS: 0.9 % SODIUM CHLORIDE 250 ML IV SCH ×2 (07:28→17:07)
[2019-11-06] MEDS: POTASSIUM CHLORIDE 10 MEQ TABLET PO SCH (07:38)
[2019-11-06] MEDS: PANTOPRAZOLE 40 MG TABLET PO SCH ×2 (07:38→17:11)
[2019-11-06] MEDS: metFORMIN 500 MG TABLET PO SCH ×2 (07:38→17:11)
[2019-11-06 08:03] LABS: Band Neutrophils % 2 % (0-10); Lymphocytes % 4 % (15-49); Monocytes % (Manual) 5 % (1-12); Platelet Estimate NORMAL (NORMAL); RBC Morphology NORMAL (NORMAL); Segmented Neutrophils % 89 % (38-78)
[2019-11-06] MEDS: INSULIN LISPRO 1 UNIT/0.01 ML UNIT SQ SCH ×4 (08:04→21:45)
[2019-11-06] MEDS ORDERED: MULTIVIT,THER IRON,CA,FA & MIN 1 TABLET PO SCH (09:00)
[2019-11-06] MEDS ORDERED: SITAGLIPTIN METFORMIN PO SCH ×2 (09:00)
[2019-11-06] MEDS ORDERED: MAGNESIUM OXIDE 400 MG PO SCH (09:00)
[2019-11-06] MEDS ORDERED: FUROSEMIDE 40 MG/4 ML VIAL IV SCH (09:00)
[2019-11-06] MEDS ORDERED: POTASSIUM CHLORIDE 10 MEQ TABLET PO SCH (09:00)
[2019-11-06] MEDS: VANCOMYCIN 1,500 MG in 0.9 % SODIUM CHLORIDE 500 ML IV SCH ×2 (11:20→21:16)
[2019-11-06] MEDS: MAGNESIUM OXIDE 400 MG TABLET PO SCH (11:54)
[2019-11-06] MEDS: METOPROLOL TARTRATE 50 MG TABLET PO SCH ×2 (11:54→21:14)
[2019-11-06] MEDS: MULTIVIT,THER IRON,CA,FA & MIN 1 TABLET PO SCH (11:55)
[2019-11-06] MEDS: DOCUSATE SODIUM 100 MG CAPSULE PO SCH ×2 (11:55→22:13)
[2019-11-06] MEDS: FUROSEMIDE 40 MG/4 ML VIAL IV SCH (12:03)
[2019-11-06] MEDS: 0.9 % SODIUM CHLORIDE 1,000 ML IV SCH ×2 (12:04→16:00)
[2019-11-06] MEDS: NIFEdipine 30 MG TAB.XL.24H PO SCH ×2 (12:18→21:15)
[2019-11-06] MEDS: PREGABALIN 100 MG CAPSULE PO SCH ×2 (12:18→21:14)
[2019-11-06] MEDS: sitaGLIPtin 50 MG TABLET PO SCH ×2 (12:19→21:14)
--- NOTE | 2019-11-06 12:27 | Internal Med Progress Note ---
SUBJECTIVE Subjective Patient information: Note initiated : 11/06/19 at 12:22 pm Service Date, if different from initiated Date: [] Patient: Elizabeth Peacock a 59 y/o F admitted on 11/05/19 for Weakness. Chief Complaint: [] Interval history: History of present illness: Ms. Peacock is a 59 year old F morbidly obese with BMI over 50, DM type II/HTN/CKD and history of PE on anticoagulation who now presents with 2 days onset of worsening weakness, chi lls, increasing fatigue lethargic and unable to think clearly. She also has associated shortness of breath. During presentation initial work-up revealed fever of 103 along with leukocytosis and pyuria. CT abdomen/chest was inconclusive for acute process. Patient received crystalloids and after cultures were drawn antibiotics initiated. Hospitalist service was consulted for admission At the time evaluation patient is lethargic fatigue and unable to answer most of the questions. She frequently dozes off. She denies associated diarrhea, skin rash, joint pain, dysuria or nausea vomiting. She further denies chest pain but endorses to mild shortness of breath and cough No family members are present 11/05-2 out of 2 gram-positive cocci. Surveillance cultures pending. On antibiotic coverage. Patient much improved clinically with improved mental status and able to communicate. Vitals and hemodynamics stable. White count down from 22,700-16.2. Creatinine improving. Bilateral lower extremity redness noted. Telemetry no events Constitutional Vitals: Vital Signs Temp Pulse Resp BP Pulse Ox 101.2 F H 80 17 161/70 100 11/06/19 11:51 11/05/19 13:00 11/06/19 10:55 11/06/19 10:55 11/06/19 10:55 Period Temp Pulse Resp BP Sys/[place] Pulse Ox Last 24 Hr 100.1 F-102.2 F 80 12-33 107-178/48-165 85-100 Intake and Output 11/05/19 11/06/19 11/06/19 21:59 05:59 13:59 Intake Total 585 680 470 Output Total 450 550 150 Balance 135 130 320 Weight 175.994 kg Morbidly obese Alert oriented Tachycardia improved Sanchez draining clear urine Improving redness bilateral lower extremity Intake & Output: Intake & Output 11/05/19 11/06/19 11/06/19 21:59 05:59 13:59 Intake Total 585 680 470 Output Total 450 550 150 Balance 135 130 320 Weight 175.994 kg Intake: IV 165 680 50 Zosyn 3.375 gm In Dextrose 5% 100 50 50 in Water 50 ml @ 100 mls/hr IV Q6H [facility] Rx#:[id number] Vancomycin 1,500 mg In Sodium 500 Chloride 0.9% 500 ml @ 333.3 mls/hr IV Q12H [facility] Rx#: [id number] Oral 420 GI Tube Flush 420 Output: Urine Catheter Amount 450 550 150 Other: Meal Breakfast Percent of Meal Consumed 100% Urine Appearance Clear Uretheral (Sanchez) Clear Clear Urine Color Bright Yellow Uretheral (Sanchez) Pale Pale Urine Odor Normal Stool Size Large Stool Color Brown Green Stool Consistency Soft # Bowel Movements 1 OBJ DATA Labs CBC & Chem 7: 11/06/19 05:20 11/06/19 05:20 Labs: Abnormal Lab Results 11/06/19 11/06/19 11/05/19 05:20 05:20 11:00 WBC 16.2 H RDW 14.7 H MPV 11.2 H Gran % Lymph % (Auto) Gran # Lymph # (Auto) [place] # (Auto) Seg Neutrophils % 89 H Lymphocytes % 4 L VBG Lactic Acid Anion Gap BUN 21 H Creatinine Glucose 148 H Calcium 8.1 L GGT 37 H NT-Pro-B Natriuret Pep Urine Protein 30 A Urine Occult Blood 0.03 A Urine Bilirubin Urine Ictotest Ur Leukocyte Esterase 75 A Urine RBC 5 H Urine WBC 14 H Ur Squamous Epith Cells Urine Bacteria Many A Hyaline Casts 8 H Urine Mucus 11/05/19 11/05/19 11/05/19 08:25 08:11 08:11 WBC RDW MPV Gran % Lymph % (Auto) Gran # Lymph # (Auto) [place] # (Auto) Seg Neutrophils % Lymphocytes % VBG Lactic Acid 4.3 H* Anion Gap BUN Creatinine Glucose Calcium GGT NT-Pro-B Natriuret Pep 702.3 H Urine Protein 100 A Urine Occult Blood Urine Bilirubin 2.0 A Urine Ictotest Pos A Ur Leukocyte Esterase 250 A Urine RBC 3 H Urine WBC 54 H Ur Squamous Epith Cells 6 H Urine Bacteria Many A Hyaline Casts 84 H Urine Mucus Many A 11/05/19 11/05/19 08:11 08:11 WBC 22.7 H RDW MPV 11.2 H Gran % 93.3 H Lymph % (Auto) 1.9 L Gran # 21.19 H Lymph # (Auto) 0.43 L [place] # (Auto) 0.93 H Seg Neutrophils % Lymphocytes % VBG Lactic Acid Anion Gap 19.0 H BUN 22 H Creatinine 1.3 H Glucose 245 H Calcium GGT NT-Pro-B Natriuret Pep Urine Protein Urine Occult Blood Urine Bilirubin Urine Ictotest Ur Leukocyte Esterase Urine RBC Urine WBC Ur Squamous Epith Cells Urine Bacteria Hyaline Casts Urine Mucus Meds: Medications Acetaminophen (Tylenol) 650 mg PO Q4-6HP PRN; Protocol PRN Reason: Per Pain Protocol/Fever > 101 Hydrocodone Bitart/Acetaminophen ([place] 7.5/325mg) 1 tab PO QHS [facility]; Protocol Last Admin: 11/05/19 20:45 Dose: 1 tab Documented by: Albuterol/Ipratropium (Combivent) 1 puff INH Q4HP PRN PRN Reason: Shortness Of Breath Albuterol/Ipratropium (Duoneb) 3 ml NEB Q4HP PRN PRN Reason: Shortness Of Breath Atorvastatin Calcium (Lipitor) 80 mg PO HS [facility] Last Admin: 11/05/19 20:45 Dose: 80 mg Documented by: Bisacodyl (Dulcolax) 10 mg SD Q2-3DAYS PRN PRN Reason: Constipation Cetirizine HCl (Zyrtec) 10 mg PO QDAY PRN PRN Reason: Allergy Symptoms Dextrose (Dextrose 50%) 0 ml IV UD PRN PRN Reason: Hypoglycemia Diagnostic Test (Pha) (Accu-Chek) 1 each FS ACHS [facility] Last Admin: 11/06/19 12:03 Dose: 1 each Documented by: Docusate Sodium (Colace) 100 mg PO BID [facility] Last Admin: 11/06/19 11:55 Dose: Not Given Documented by: Furosemide (Lasix) 40 mg IV DAILY [facility] Last Admin: 11/06/19 12:03 Dose: 40 mg Documented by: Glucose (Insta-Glucose) 15 gm PO PRN PRN PRN Reason: Hypoglycemia Guaifenesin/Codeine Phosphate (Robitussin Ac) 10 ml PO Q4HP PRN PRN Reason: Cough Piperacillin Sod/Tazobactam (Sod 3.375 gm/ Dextrose) 50 mls @ 100 mls/hr IV Q6H [facility]; Protocol Last Infusion: 11/06/19 06:00 Dose: Infused Documented by: Vancomycin HCl 1,500 mg/ (Sodium Chloride) 500 mls @ 333.3 mls/hr IV Q12H [facility] Last Admin: 11/06/19 11:20 Dose: 333.3 mls/hr Documented by: Sodium Chloride (Sodium Chloride 0.9%) 1,000 mls @ 50 mls/hr IV .Q20H [facility] Stop: 11/07/19 23:44 Last Admin: 11/06/19 12:04 Dose: Not Given Documented by: Magnesium Sulfate (Magnesium Sulfate) 2 gm in 50 mls @ 50 mls/hr IV UD PRN PRN Reason: MG = or < 1.7 Acetaminophen (Ofirmev) 650 mg in 65 mls @ 130 mls/hr IV Q6HP PRN; Protocol PRN Reason: Per Pain Protocol/Fever > 101 Last Admin: 11/06/19 11:51 Dose: 130 mls/hr Documented by: Sodium Chloride (Sodium Chloride 0.9%) 250 mls @ 20 mls/hr IV .[id number] [facility] Last Admin: 11/06/19 07:28 Dose: Not Given Documented by: Norepinephrine Bitartrate 16 (mg/ Sodium Chloride) 250 mls @ 9.375 mls/hr IV Q24HP PRN; Protocol PRN Reason: MAP<65 Insulin Human Lispro (Humalog) 0 unit SQ ACHS [facility]; Protocol Last Admin: 11/06/19 12:19 Dose: 1 units Documented by: Iron Carb/Multivit/[place]/Folic Acid (Multivitamin W/Minerals) 1 tab PO DAILY [facility] Last Admin: 11/06/19 11:55 Dose: 1 tab Documented by: Magnesium Oxide (Magnesium Oxide) 400 mg PO DAILY [facility] Last Admin: 11/06/19 11:54 Dose: 400 mg Documented by: Melatonin (Melatonin 3mg Tablet) 3 mg PO HSP PRN PRN Reason: Insomnia Metformin HCl (Glucophage) [facility] Last Admin: 11/06/19 07:38 Dose: 1,000 mg Documented by: Metoprolol Tartrate (Lopressor) 100 mg PO BID [facility] Last Admin: 11/06/19 11:54 Dose: 100 mg Documented by: Montelukast Sodium (Singular) 10 mg PO [facility] Last Admin: 11/05/19 20:44 Dose: 10 mg Documented by: Nifedipine (Procardia Xl) 60 mg PO BID [facility] Last Admin: 11/06/19 12:18 Dose: 60 mg Documented by: Nortriptyline HCl (Pamelor) 50 mg PO [facility] Last Admin: 11/05/19 20:46 Dose: 50 mg Documented by: Ondansetron HCl (Zofran Odt) 4 mg SL Q4-6HP PRN; Protocol PRN Reason: Nausea And Vomiting Ondansetron HCl (Zofran) 4 mg IV Q4-6HP PRN; Protocol PRN Reason: Nausea And Vomiting Pantoprazole [facility] ([facility]ix) [facility] Last Admin: 11/06/19 07:38 Dose: 40 mg Documented by: Polyethylene Glycol (Miralax) 17 gm PO DAILYP PRN PRN Reason: Constipation Potassium Chloride (Kdur) 10 meq PO DAILY [facility] Last Admin: 11/06/19 07:38 Dose: 10 meq Documented by: Potassium Chloride (Klor-Con) 40 meq PO DAILYP PRN PRN Reason: K+ < 3.5 Pregabalin (Lyrica) 200 mg PO BID [facility] Last Admin: 11/06/19 12:18 Dose: 200 mg Documented by: Ramelteon (Rozerem) 8 mg PO [facility] Last Admin: 11/05/19 20:46 Dose: Not Given Documented by: Rivaroxaban (Xarelto) 20 mg PO QPM [facility] Last Admin: 11/05/19 20:44 Dose: 20 mg Documented by: Ropinirole HCl (Requip) 1 mg PO [facility] Last Admin: 11/05/19 20:43 Dose: 1 mg Documented by: Senna/Docusate Sodium (Senna Plus Tablet) 1 tab PO [facility] Last Admin: 11/05/19 20:23 Dose: Not Given Documented by: Sitagliptin Phosphate (Januvia) 50 mg PO BID [facility] Last Admin: 11/06/19 12:19 Dose: 50 mg Documented by: Sodium Chloride (Saline Flush) 10 ml IV Q8 [facility] Last Admin: 11/06/19 05:18 Dose: 10 ml Documented by: Vancomycin HCl (Vancomycin Per Pharmacy) 1 [place] [facility] [place] Venlafaxine HCl (Effexor Xr) 225 mg PO QHS [facility] Last Admin: 11/05/19 20:45 Dose: 225 mg Documented by: A/P Narrative A/P Narrative: * Severe sepsis with multiple organ dysfunction-elevated white count/fever/endorgan dysfunction. Continue venous lactate trending. White count 22,000, venous lactic 4.3 * GPC bacteremia. Continue surveillance cultures. * Cellulitis right posterior thigh-continue diuresis/antibiotics * Complicated UTI-continue broad antibiotic/await culture sensitivities. * Acute change in mental status secondary to sepsis endorgan dysfunction. Clinically much improved * Mild THOMAS -creatinine down to 1.1 from 1.3, continue monitor renal function * History of PE/DVT on rivaroxaban * Anxiety disorder continue venlafaxine/nortriptyline * Chronic pain secondary DJD on hydrocodone acetaminophen * IRA/OHS on home BiPAP * Hypertension continue clonidine/doxazosin/nifedipine, hold ARB in light of THOMAS * Hyperlipidemia continue statin * Morbid obesity with a BMI over 50-directed therapy/dietary intervention * Full code Plan * Continue broad antibiotic coverage * surveillance blood cultures * Primary condition management home meds * Continue monitoring renal function * PT OT nutrition support Time Spent With Patient Time: In excess of 35 minutes QUALITY VTE Deep Vein Thrombosis/Pulmonary Embolism Present on Admission: No
[2019-11-06] MEDS: MONTELUKAST 10 MG TABLET PO SCH (21:13)
[2019-11-06] MEDS: HYDROCODONE/APAP 7.5/325MG TABLET PO SCH (21:13)
[2019-11-06] MEDS: ATORVASTATIN 40 MG TABLET PO SCH (21:14)
[2019-11-06] MEDS: RIVAROXABAN 20 MG TABLET PO SCH (21:14)
[2019-11-06] MEDS: rOPINIRole 1 MG TABLET PO SCH (21:15)
[2019-11-06] MEDS: NORTRIPTYLINE 25 MG CAPSULE PO SCH (21:15)
[2019-11-06] MEDS: VENLAFAXINE 75 MG CAP.XL.24H PO SCH (21:15)
[2019-11-06] MEDS: SENNOSIDES/DOCUSATE SODIUM 1 TAB TABLET PO SCH (22:13)
[2019-11-06] MEDS: RAMELTEON 8 MG TABLET PO SCH (22:13)
[2019-11-07] MEDS: PIPERACILLIN SODIUM/TAZOBACTAM 3.375 GM in DEXTROSE 5% IN WATER 50 ML IV SCH ×2 (00:07→05:44)
[2019-11-07] MEDS: 0.9 % SODIUM CHLORIDE 250 ML IV SCH ×3 (02:21→23:58)
[2019-11-07] MEDS: 0.9 % SODIUM CHLORIDE 10 ML SYRINGE IV SCH ×3 (05:44→23:36)
[2019-11-07 05:59] LABS: Hematocrit 34.7 % (34.1-44.9); Hemoglobin 11.1 g/dL (11.2-15.7); Mean Cell Volume 86.1 fL (80.0-100.0); Mean Platelet Volume 11.5 fL (7.4-10.4); Platelet Count 226 K/mcL (140-440); RBC 4.03 M/mcL (3.59-5.38); Red Cell Distribution Width 14.6 % (11.5-14.5); WBC 10.6 K/mcL (4.50-11.00)
[2019-11-07 06:26] LABS: ALT/SGPT 29 U/l (0-40); AST/SGOT 30 U/l (0-37); Albumin 3.2 gm/dL (3.2-5.2); Albumin/Globulin Ratio 1.1 (1.0-2.3); Alkaline Phosphatase 96 U/L (39-117); Bilirubin,Direct < 0.2 mg/dL (0.0-0.3); Bilirubin,Total 0.4 mg/dL (0.0-1.0); Blood Urea Nitrogen 13 mg/dl (6-20); Calcium 8.3 mg/dl (8.6-10.4); Carbon Dioxide 23 mmol/L (22-30); Chloride 101 mmol/L (96-108); Globulin 2.9 gm/dL (2.2-3.7); Glomerular Filtration Rate 70; Glucose 128 mg/dL (70-105); Lactate Dehydrogenase 243 U/L (94-250); Phosphorous 3.3 mg/dL (2.7-4.5); Triglycerides 97 mg/dl (<150); Uric Acid 4.2 mg/dL (2.5-8.0)
[2019-11-07] MEDS: PANTOPRAZOLE 40 MG TABLET PO SCH ×2 (07:24→17:20)
[2019-11-07 08:14] LABS: Eosinophils % (Manual) 3 % (0-7); Lymphocytes % 7 % (15-49); Monocytes % (Manual) 6 % (1-12); Platelet Estimate NORMAL (NORMAL); RBC Morphology NORMAL (NORMAL); Segmented Neutrophils % 84 % (38-78)
[2019-11-07] MEDS: INSULIN LISPRO 1 UNIT/0.01 ML UNIT SQ SCH ×4 (08:27→23:25)
[2019-11-07] MEDS ORDERED: cefTRIAXone 2 GM in DEXTROSE 5% IN WATER 50 ML IV SCH (09:00)
[2019-11-07] MEDS ORDERED: FUROSEMIDE 20 MG/2 ML VIAL IV SCH (09:00)
[2019-11-07] MEDS: DOCUSATE SODIUM 100 MG CAPSULE PO SCH ×2 (09:17→23:31)
[2019-11-07] MEDS: PREGABALIN 100 MG CAPSULE PO SCH ×2 (09:27→23:28)
[2019-11-07] MEDS: sitaGLIPtin 50 MG TABLET PO SCH ×2 (09:27→23:40)
[2019-11-07] MEDS: NIFEdipine 30 MG TAB.XL.24H PO SCH ×2 (09:27→23:29)
[2019-11-07] MEDS: POTASSIUM CHLORIDE 10 MEQ TABLET PO SCH (09:28)
[2019-11-07] MEDS: metFORMIN 500 MG TABLET PO SCH ×2 (09:28→17:17)
[2019-11-07] MEDS: MAGNESIUM OXIDE 400 MG TABLET PO SCH (09:28)
[2019-11-07] MEDS: METOPROLOL TARTRATE 50 MG TABLET PO SCH ×2 (09:28→23:27)
[2019-11-07] MEDS: MULTIVIT,THER IRON,CA,FA & MIN 1 TABLET PO SCH (09:28)
--- NOTE | 2019-11-07 09:56 | Internal Med Progress Note ---
SUBJECTIVE Subjective Patient information: Note initiated : 11/07/19 at 9:52 am Service Date, if different from initiated Date: [] Patient: Elizabeth Peacock a 59 y/o F admitted on 11/05/19 for Weakness. Chief Complaint: [] Interval history: Interval history: History of present illness: Ms. Peacock is a 59 year old F morbidly obese with BMI over 50, DM type II/HTN/CKD and history of PE on anticoagulation who now presents with 2 days onset of worsening weakness, chills, increasing fatigue lethargic and unable to think clearly. She also has associated shortness of breath. During presentation initial work-up revealed fever of 103 along with leukocytosis and pyuria. CT abdomen/chest was inconclusive for acute process. Patient received crystalloids and after cultures were drawn antibiotics initiated. Hospitalist service was consulted for admission At the time evaluation patient is lethargic fatigue and unable to answer most of the questions. She frequently dozes off. She denies associated diarrhea, skin rash, joint pain, dysuria or nausea vomiting. She further denies chest pain but endorses to mild shortness of breath and cough No family members are present 11/05-2 out of 2 gram-positive cocci. Surveillance cultures pending. On antibiotic coverage. Patient much improved clinically with improved mental status and able to communicate. Vitals and hemodynamics stable. White count down from 22,700-16.2. Creatinine improving. Bilateral lower extremity redness noted. Telemetry no events 11/06-patient doing well. No overnight events. Much improved mentation. Hemodynamics stabilized. Fever defervesced. Tachycardia improved. Beta streptococci and cultures. Antibiotics de-escalate Rocephin. Transition to medical floor. Continue aggressive blood sugar management. Start diuresis. Constitutional Vitals: Vital Signs Temp Pulse Resp BP Pulse Ox 98.3 F 71 18 145/71 92 11/07/19 08:08 11/07/19 02:00 11/07/19 08:08 11/07/19 08:08 11/07/19 08:08 Period Temp Pulse Resp BP Sys/Merino Pulse Ox Last 24 Hr 98.3 F-101.4 F 71 14-25 135-172/62-96 88-100 Intake and Output 11/06/19 11/07/19 11/07/19 21:59 05:59 13:59 Intake Total 1305 600 50 Output Total 1500 1250 275 Balance -195 -650 -225 Weight 173.045 kg Morbidly obese Nonlabored breathing No anxiety Lymphedema improved Intake & Output: Intake & Output 11/06/19 11/07/19 11/07/19 21:59 05:59 13:59 Intake Total 1305 600 50 Output Total 1500 1250 275 Balance -195 -650 -225 Weight 173.045 kg Intake: IV 165 50 50 Zosyn 3.375 gm In Dextrose 5% 50 50 50 in Water 50 ml @ 100 mls/hr IV Q6H [facility] Rx#:[id number] Oral 1140 550 Output: Urine Catheter Amount 1500 1250 275 Other: Meal Dinner Percent of Meal Consumed 100% Urine Appearance Clear Sediment Sediment Uretheral (Sanchez) Clear Sediment Urine Color Bright Yellow Bright Yellow Dark Yellow Uretheral (Sanchez) Bright Yellow Bright Yellow Urine Odor Normal Normal OBJ DATA Labs CBC & Chem 7: 11/07/19 05:05 11/07/19 05:05 Labs: Abnormal Lab Results 11/07/19 11/07/19 11/06/19 05:05 05:05 05:20 WBC Hgb 11.1 L RDW 14.6 H MPV 11.5 H Gran % Lymph % (Auto) Gran # Lymph # (Auto) [place] # (Auto) Seg Neutrophils % 84 H Lymphocytes % 7 L VBG Lactic Acid Potassium 3.2 L Anion Gap BUN 21 H Creatinine Glucose 128 H 148 H Calcium 8.3 L 8.1 L GGT 44 H 37 H NT-Pro-B Natriuret Pep Urine Protein Urine Occult Blood Urine Bilirubin Urine Ictotest Ur Leukocyte Esterase Urine RBC Urine WBC Ur Squamous Epith Cells Urine Bacteria Hyaline Casts Urine Mucus 11/06/19 11/05/19 11/05/19 05:20 11:00 08:25 WBC 16.2 H Hgb RDW 14.7 H MPV 11.2 H Gran % Lymph % (Auto) Gran # Lymph # (Auto) [place] # (Auto) Seg Neutrophils % 89 H Lymphocytes % 4 L VBG Lactic Acid Potassium Anion Gap BUN Creatinine Glucose Calcium GGT NT-Pro-B Natriuret Pep Urine Protein 30 A 100 A Urine Occult Blood 0.03 A Urine Bilirubin 2.0 A Urine Ictotest Pos A Ur Leukocyte Esterase 75 A 250 A Urine RBC 5 H 3 H Urine WBC 14 H 54 H Ur Squamous Epith Cells 6 H Urine Bacteria Many A Many A Hyaline Casts 8 H 84 H Urine Mucus Many A 11/05/19 11/05/19 11/05/19 08:11 08:11 08:11 WBC Hgb RDW MPV Gran % Lymph % (Auto) Gran # Lymph # (Auto) [place] # (Auto) Seg Neutrophils % Lymphocytes % VBG Lactic Acid 4.3 H* Potassium Anion Gap 19.0 H BUN 22 H Creatinine 1.3 H Glucose 245 H Calcium GGT NT-Pro-B Natriuret Pep 702.3 H Urine Protein Urine Occult Blood Urine Bilirubin Urine Ictotest Ur Leukocyte Esterase Urine RBC Urine WBC Ur Squamous Epith Cells Urine Bacteria Hyaline Casts Urine Mucus 11/05/19 08:11 WBC 22.7 H Hgb RDW MPV 11.2 H Gran % 93.3 H Lymph % (Auto) 1.9 L Gran # 21.19 H Lymph # (Auto) 0.43 L [place] # (Auto) 0.93 H Seg Neutrophils % Lymphocytes % VBG Lactic Acid Potassium Anion Gap BUN Creatinine Glucose Calcium GGT NT-Pro-B Natriuret Pep Urine Protein Urine Occult Blood Urine Bilirubin Urine Ictotest Ur Leukocyte Esterase Urine RBC Urine WBC Ur Squamous Epith Cells Urine Bacteria Hyaline Casts Urine Mucus Meds: Medications Acetaminophen (Tylenol) 650 mg PO Q4-6HP PRN; Protocol PRN Reason: Per Pain Protocol/Fever > 101 Hydrocodone Bitart/Acetaminophen ([place] 7.5/325mg) 1 tab PO QHS RAMILA; Protocol Last Admin: 11/06/19 21:13 Dose: 1 tab Documented by: Albuterol/Ipratropium (Combivent) 1 puff INH Q4HP PRN PRN Reason: Shortness Of Breath Albuterol/Ipratropium (Duoneb) 3 ml NEB Q4HP PRN PRN Reason: Shortness Of Breath Atorvastatin Calcium (Lipitor) 80 mg PO HS [facility] Last Admin: 11/06/19 21:14 Dose: 80 mg Documented by: Bisacodyl (Dulcolax) 10 mg CO Q2-3DAYS PRN PRN Reason: Constipation Cetirizine HCl (Zyrtec) 10 mg PO QDAY PRN PRN Reason: Allergy Symptoms Dextrose (Dextrose 50%) 0 ml IV UD PRN PRN Reason: Hypoglycemia Diagnostic Test (Pha) (Accu-Chek) 1 each FS ACHS [facility] Last Admin: 11/07/19 08:27 Dose: 1 each Documented by: Docusate Sodium (Colace) 100 mg PO BID [facility] Last Admin: 11/07/19 09:17 Dose: Not Given Documented by: Furosemide (Lasix) 20 mg IV Q8 [facility] Last Admin: 11/07/19 09:27 Dose: 20 mg Documented by: Glucose (Insta-Glucose) 15 gm PO PRN PRN PRN Reason: Hypoglycemia Guaifenesin/Codeine Phosphate (Robitussin Ac) 10 ml PO Q4HP PRN PRN Reason: Cough Magnesium Sulfate (Magnesium Sulfate) 2 gm in 50 mls @ 50 mls/hr IV UD PRN PRN Reason: MG = or < 1.7 Last Infusion: 11/06/19 14:15 Dose: Infused Documented by: Acetaminophen (Ofirmev) 650 mg in 65 mls @ 130 mls/hr IV Q6HP PRN; Protocol PRN Reason: Per Pain Protocol/Fever > 101 Last Infusion: 11/06/19 18:59 Dose: Infused Documented by: Sodium Chloride (Sodium Chloride 0.9%) 250 mls @ 20 mls/hr IV .[id number] [facility] Last Admin: 11/07/19 02:21 Dose: Not Given Documented by: Norepinephrine Bitartrate 16 (mg/ Sodium Chloride) 250 mls @ 9.375 mls/hr IV Q24HP PRN; Protocol PRN Reason: MAP<65 Ceftriaxone Sodium 2 gm/ (Dextrose) 50 mls @ 100 mls/hr IV DAILY [facility] Last Admin: 11/07/19 09:28 Dose: 100 mls/hr Documented by: Insulin Human Lispro (Humalog) 0 unit SQ ACHS [facility]; Protocol Last Admin: 11/07/19 08:27 Dose: Not Given Documented by: Iron Carb/Multivit/[place]/Folic Acid (Multivitamin W/Minerals) 1 tab PO DAILY [facility] Last Admin: 11/07/19 09:28 Dose: 1 tab Documented by: Magnesium Oxide (Magnesium Oxide) 400 mg PO DAILY [facility] Last Admin: 11/07/19 09:28 Dose: 400 mg Documented by: Melatonin (Melatonin 3mg Tablet) 3 mg PO HSP PRN PRN Reason: Insomnia Metformin HCl (Glucophage) 1,000 mg PO BIDCC [facility] Last Admin: 11/07/19 09:28 Dose: 1,000 mg Documented by: Metoprolol Tartrate (Lopressor) 100 mg PO BID [facility] Last Admin: 11/07/19 09:28 Dose: 100 mg Documented by: Montelukast Sodium (Singular) 10 mg PO [facility] Last Admin: 11/06/19 21:13 Dose: 10 mg Documented by: Nifedipine (Procardia Xl) 60 mg PO BID [facility] Last Admin: 11/07/19 09:27 Dose: 60 mg Documented by: Nortriptyline HCl (Pamelor) 50 mg PO [facility] Last Admin: 11/06/19 21:15 Dose: 50 mg Documented by: Ondansetron HCl (Zofran Odt) 4 mg SL Q4-6HP PRN; Protocol PRN Reason: Nausea And Vomiting Ondansetron HCl (Zofran) 4 mg IV Q4-6HP PRN; Protocol PRN Reason: Nausea And Vomiting [facility]op[facility] Admin: 11/07/19 07:24 Dose: 40 mg Documented by: Polyethylene Glycol (Miralax) 17 gm PO DAILYP PRN PRN Reason: Constipation Potassium Chloride (Kdur) 10 meq PO DAILY [facility] Last Admin: 11/07/19 09:28 Dose: 10 meq Documented by: Potassium Chloride (Klor-Con) 40 meq PO DAILYP PRN PRN Reason: K+ < 3.5 Last Admin: 11/07/19 09:27 Dose: 40 meq Documented by: Pregabalin (Lyrica) 200 mg PO BID [facility] Last Admin: 11/07/19 09:27 Dose: 200 mg Documented by: Ramelteon (Rozerem) 8 mg PO [facility] Last Admin: 11/06/19 22:13 Dose: Not Given Documented by: Rivaroxaban (Xarelto) 20 mg PO QPM [facility] Last Admin: 11/06/19 21:14 Dose: 20 mg Documented by: Ropinirole HCl (Requip) 1 mg PO [facility] Last Admin: 11/06/19 21:15 Dose: 1 mg Documented by: Senna/Docusate Sodium (Senna Plus Tablet) 1 tab PO [facility] Last Admin: 11/06/19 22:13 Dose: Not Given Documented by: Sitagliptin Phosphate (Januvia) 50 mg PO BID [facility] Last Admin: 11/07/19 09:27 Dose: 50 mg Documented by: Sodium Chloride (Saline Flush) 10 ml IV Q8 [facility] Last Admin: 11/07/19 05:44 Dose: 10 ml Documented by: Venlafaxine HCl (Effexor Xr) 225 mg PO QHS [facility] Last Admin: 11/06/19 21:15 Dose: 225 mg Documented by: A/P Narrative A/P Narrative: * Severe sepsis with multiple organ dysfunction-elevated white count/fever/endorgan dysfunction. Continue venous lactate trending. White count down from 22,700->10,600. Stable hemodynamics * Beta streptococci bacteremia. Continue surveillance cultures. De-escalate antibiotics to Rocephin * Cellulitis with lymphangitis lower extremity/right posterior thigh-clinical improvement noted on antibiotic coverage. De-escalate to ocephin. * Complicated UTI-continue antibiotics * Acute change in mental status secondary to sepsis endorgan dysfunction. Clinically resolved * Mild THOMAS -creatinine down to 0.9 from 1.3, resolved * History of PE/DVT on rivaroxaban * Anxiety disorder continue venlafaxine/nortriptyline * Chronic pain secondary DJD on hydrocodone acetaminophen * IRA/OHS on home BiPAP * Hypertension continue clonidine/doxazosin/nifedipine, hold ARB in light of THOMAS * Hyperlipidemia continue statin * Morbid obesity with a BMI over 50-directed therapy/dietary intervention * Full code Plan * De-escalate Rocephin * Continue surveillance blood cultures * Pre-existing medical issues management on home meds * Continue monitoring renal function * PT OT nutrition support Time Spent With Patient Time: Total time spent is greater than 50% in coordination of care (as documented) at patient's floor/unit and/or counseling patient: 35 minutes QUALITY VTE Deep Vein Thrombosis/Pulmonary Embolism Present on Admission: No
[2019-11-07] MEDS: 0.9 % SODIUM CHLORIDE 1,000 ML IV SCH (11:20)
[2019-11-07] MEDS: FUROSEMIDE 40 MG/4 ML VIAL IV SCH (11:21)
[2019-11-07] MEDS: VANCOMYCIN 1,500 MG in 0.9 % SODIUM CHLORIDE 500 ML IV SCH (11:22)
[2019-11-07] MEDS ORDERED: MAGNESIUM SULFATE 2 GM/50 ML BAG IV PRN (11:23)
[2019-11-07] MEDS ORDERED: ACETAMINOPHEN 650 MG/65 ML BOTTLE IV PRN (11:23)
[2019-11-07] MEDS ORDERED: POTASSIUM CHLORIDE 20 MEQ PACKET PO PRN (11:23)
[2019-11-07] MEDS ORDERED: IPRATROPIUM/ALBUTEROL 3 ML AMPUL.NEB NEB PRN (11:23)
[2019-11-07] MEDS ORDERED: guaiFENesin/CODEINE 10 ML UDC PO PRN (11:23)
[2019-11-07] MEDS ORDERED: DEXTROSE 50% 50 ML VIAL IV PRN (11:23)
[2019-11-07] MEDS ORDERED: CETIRIZINE 10 MG TABLET PO PRN (11:23)
[2019-11-07] MEDS ORDERED: NOREPINEPHRINE BITARTRATE 16 MG in 0.9 % SODIUM CHLORIDE 234 ML IV PRN (11:23)
[2019-11-07] MEDS ORDERED: ONDANSETRON 4 MG ODT TABLET SL PRN (11:23)
[2019-11-07] MEDS ORDERED: MELATONIN 3 MG TABLET PO PRN (11:23)
[2019-11-07] MEDS ORDERED: DEXTROSE 31 GM ORAL.SUSP PO PRN (11:23)
[2019-11-07] MEDS ORDERED: POLYETHYLENE GLYCOL 3350 17 GM PACKET PO PRN (11:23)
[2019-11-07] MEDS ORDERED: IPRATROPIUM/ALBUTEROL SULFATE 1 PUFF INHALER INH PRN (11:23)
[2019-11-07] MEDS ORDERED: ONDANSETRON 4 MG/2 ML VIAL IV PRN (11:23)
[2019-11-07] MEDS ORDERED: ACETAMINOPHEN 325 MG TABLET PO PRN (11:23)
[2019-11-07] MEDS ORDERED: BISACODYL 10 MG SUPP.RECT PR PRN (11:23)
[2019-11-07] MEDS: FUROSEMIDE 20 MG/2 ML VIAL IV SCH ×2 (14:02→23:26)
[2019-11-07] MEDS: ATORVASTATIN 40 MG TABLET PO SCH (23:26)
[2019-11-07] MEDS: cloNIDine HCL 0.1 MG TABLET PO SCH (23:27)
[2019-11-07] MEDS: rOPINIRole 1 MG TABLET PO SCH (23:27)
[2019-11-07] MEDS: HYDROCODONE/APAP 7.5/325MG TABLET PO SCH (23:28)
[2019-11-07] MEDS: RIVAROXABAN 20 MG TABLET PO SCH (23:28)
[2019-11-07] MEDS: NORTRIPTYLINE 25 MG CAPSULE PO SCH (23:29)
[2019-11-07] MEDS: MONTELUKAST 10 MG TABLET PO SCH (23:30)
[2019-11-07] MEDS: SENNOSIDES/DOCUSATE SODIUM 1 TAB TABLET PO SCH (23:30)
[2019-11-07] MEDS: RAMELTEON 8 MG TABLET PO SCH (23:31)
[2019-11-07] MEDS: VENLAFAXINE 75 MG CAP.XL.24H PO SCH (23:40)
[2019-11-08] MEDS: FUROSEMIDE 20 MG/2 ML VIAL IV SCH ×3 (05:19→21:15)
[2019-11-08] MEDS: 0.9 % SODIUM CHLORIDE 10 ML SYRINGE IV SCH ×4 (05:20→21:21)
[2019-11-08] MEDS: cefTRIAXone 2 GM in DEXTROSE 5% IN WATER 50 ML IV SCH (08:30)
[2019-11-08] MEDS: INSULIN LISPRO 1 UNIT/0.01 ML UNIT SQ SCH ×4 (08:30→21:15)
[2019-11-08] MEDS: cloNIDine HCL 0.1 MG TABLET PO SCH ×2 (08:36→21:17)
[2019-11-08] MEDS: DOXAZOSIN 4 MG TABLET PO SCH (08:37)
[2019-11-08] MEDS: metFORMIN 500 MG TABLET PO SCH ×2 (08:38→18:24)
[2019-11-08] MEDS: PREGABALIN 100 MG CAPSULE PO SCH ×2 (08:38→21:19)
[2019-11-08] MEDS: NIFEdipine 30 MG TAB.XL.24H PO SCH ×2 (08:39→21:17)
[2019-11-08] MEDS: sitaGLIPtin 50 MG TABLET PO SCH ×2 (08:40→21:18)
[2019-11-08] MEDS: METOPROLOL TARTRATE 50 MG TABLET PO SCH ×2 (08:40→21:18)
[2019-11-08] MEDS: MAGNESIUM OXIDE 400 MG TABLET PO SCH (08:41)
[2019-11-08] MEDS: POTASSIUM CHLORIDE 10 MEQ TABLET PO SCH (08:41)
[2019-11-08] MEDS: MULTIVIT,THER IRON,CA,FA & MIN 1 TABLET PO SCH (08:42)
[2019-11-08] MEDS: PANTOPRAZOLE 40 MG TABLET PO SCH ×2 (08:42→18:23)
[2019-11-08] MEDS: DOCUSATE SODIUM 100 MG CAPSULE PO SCH ×2 (08:44→21:15)
[2019-11-08 09:25] LABS: Hematocrit 38.5 % (34.1-44.9); Hemoglobin 12.6 g/dL (11.2-15.7); Mean Cell Volume 85.4 fL (80.0-100.0); Mean Corpuscular HGB Conc 32.7 g/dL (31.0-36.0); Mean Platelet Volume 11.7 fL (7.4-10.4); Platelet Count 250 K/mcL (140-440); RBC 4.51 M/mcL (3.59-5.38); Red Cell Distribution Width 14.3 % (11.5-14.5); WBC 8.6 K/mcL (4.50-11.00)
[2019-11-08 09:48] LABS: Bilirubin,Direct < 0.2 mg/dL (0.0-0.3); Chloride 97 mmol/L (96-108)
[2019-11-08 09:53] LABS: Band Neutrophils % 2 % (0-10); Basophils % (Manual) 1 % (0-2); Eosinophils % (Manual) 8 % (0-7); Lymphocytes % 11 % (15-49); Monocytes % (Manual) 4 % (1-12); Platelet Estimate NORMAL (NORMAL); RBC Morphology NORMAL (NORMAL); Segmented Neutrophils % 74 % (38-78)
[2019-11-08 10:01] LABS: ALT/SGPT 32 U/l (0-40); AST/SGOT 25 U/l (0-37); Albumin 3.5 gm/dL (3.2-5.2); Albumin/Globulin Ratio 1.1 (1.0-2.3); Alkaline Phosphatase 110 U/L (39-117); Bilirubin,Total 0.5 mg/dL (0.0-1.0); Blood Urea Nitrogen 8 mg/dl (6-20); Calcium 8.5 mg/dl (8.6-10.4); Carbon Dioxide 25 mmol/L (22-30); Globulin 3.2 gm/dL (2.2-3.7); Glomerular Filtration Rate 70; Glucose 121 mg/dL (70-105); Lactate Dehydrogenase 250 U/L (94-250); Phosphorous 3.4 mg/dL (2.7-4.5); Triglycerides 133 mg/dl (<150); Uric Acid 4.6 mg/dL (2.5-8.0)
--- NOTE | 2019-11-08 14:13 | XRay Report ---
INDICATION: PICC PLACEMENT TECHNIQUE: AP portable supine chest x-ray COMPARISON: None FINDINGS:Left-sided PICC line with its tip in the proximal right atrium. Lungs:Lungs are suboptimally evaluated due to large patient body habitus and AP supine positioning. No pulmonary parenchymal consolidation Heart, vascular:Probable cardiomegaly. This is difficult to assess an AP supine position due to magnification Mediastinum, izaiah:No mediastinal widening. No hilar mass Pleura:No pleural fluid. No pleural-based mass or calcification Skeletal:Negative. IMPRESSION: Left-sided PICC line with its tip in the proximal left atrium Interpreted and Authenticated by: Regan Roland 11/08/19
[2019-11-08] MEDS: 0.9 % SODIUM CHLORIDE 250 ML IV SCH (16:49)
[2019-11-08] MEDS: ATORVASTATIN 40 MG TABLET PO SCH (21:17)
[2019-11-08] MEDS: VENLAFAXINE 75 MG CAP.XL.24H PO SCH (21:17)
[2019-11-08] MEDS: MONTELUKAST 10 MG TABLET PO SCH (21:18)
[2019-11-08] MEDS: HYDROCODONE/APAP 7.5/325MG TABLET PO SCH (21:18)
[2019-11-08] MEDS: RIVAROXABAN 20 MG TABLET PO SCH (21:18)
[2019-11-08] MEDS: RAMELTEON 8 MG TABLET PO SCH (21:19)
[2019-11-08] MEDS: rOPINIRole 1 MG TABLET PO SCH (21:19)
[2019-11-08] MEDS: NORTRIPTYLINE 25 MG CAPSULE PO SCH (21:19)
[2019-11-08] MEDS: SENNOSIDES/DOCUSATE SODIUM 1 TAB TABLET PO SCH (21:20)
[2019-11-09] MEDS: 0.9 % SODIUM CHLORIDE 250 ML IV SCH (01:17)
[2019-11-09] MEDS: FUROSEMIDE 20 MG/2 ML VIAL IV SCH (04:06)
[2019-11-09] MEDS: 0.9 % SODIUM CHLORIDE 10 ML SYRINGE IV SCH ×2 (04:06→08:45)
[2019-11-09 06:50] LABS: Hematocrit 36.6 % (34.1-44.9); Hemoglobin 11.8 g/dL (11.2-15.7); Mean Cell Volume 84.9 fL (80.0-100.0); Mean Corpuscular HGB Conc 32.2 g/dL (31.0-36.0); Mean Platelet Volume 10.9 fL (7.4-10.4); Platelet Count 271 K/mcL (140-440); RBC 4.31 M/mcL (3.59-5.38); Red Cell Distribution Width 13.9 % (11.5-14.5); WBC 5.5 K/mcL (4.50-11.00)
[2019-11-09 07:02] LABS: ALT/SGPT 25 U/l (0-40); AST/SGOT 17 U/l (0-37); Albumin 3.5 gm/dL (3.2-5.2); Albumin/Globulin Ratio 1.1 (1.0-2.3); Alkaline Phosphatase 98 U/L (39-117); Bilirubin,Direct < 0.2 mg/dL (0.0-0.3); Bilirubin,Total 0.4 mg/dL (0.0-1.0); Blood Urea Nitrogen 12 mg/dl (6-20); Calcium 8.3 mg/dl (8.6-10.4); Carbon Dioxide 30 mmol/L (22-30); Chloride 97 mmol/L (96-108); Globulin 3.1 gm/dL (2.2-3.7); Glomerular Filtration Rate 81; Glucose 141 mg/dL (70-105); Lactate Dehydrogenase 228 U/L (94-250); Phosphorous 3.4 mg/dL (2.7-4.5); Triglycerides 156 mg/dl (<150); Uric Acid 5.4 mg/dL (2.5-8.0)
--- NOTE | 2019-11-09 07:22 | Discharge Summary ---
Discharge Provider Provider Patient information: Note initiated : 11/09/19 at 7:22 am Service Date, if different from initiated Date: [] Patient: Elizabeth Peacock a 59 y/o F admitted on 11/05/19 for Weakness. Chief ComplaInterval history: History of present illness: Ms. Peacock is a 59 year old F morbidly obese with BMI over 50, DM type II/HTN/CKD and history of PE on anticoagulation who now presents with 2 days onset of worsening weakness, chills, increasing fatigue lethargic and unable to think clearly. She also has associated shortness of breath. During presentation initial work-up revealed fever of 103 along with leukocytosis and pyuria. CT abdomen/chest was inconclusive for acute process. Patient received crystalloids and after cultures were drawn antibiotics initiated. Hospitalist service was consulted for admission At the time evaluation patient is lethargic fatigue and unable to answer most of the questions. She frequently dozes off. She denies associated diarrhea, skin rash, joint pain, dysuria or nausea vomiting. She further denies chest pain but endorses to mild shortness of breath and cough No family members are present 11/05-2 out of 2 gram-positive cocci. Surveillance cultures pending. On antibiotic coverage. Patient much improved clinically with improved mental status and able to communicate. Vitals and hemodynamics stable. White count down from 22,700-16.2. Creatinine improving. Bilateral lower extremity redness noted. Telemetry no events 11/06-patient doing well. No overnight events. Much improved mentation. Hemodynamics stabilized. Fever defervesced. Tachycardia improved. Beta streptococci and cultures. Antibiotics de-escalate Rocephin. Transition to medical floor. Continue aggressive blood sugar management. Start diuresis. 11/07-patient doing well. PICC line placement today. Antibiotic de-escalate Rocephin. Continue additional 2 weeks. Possible discharge in 24 hours. No overnight fever chills. White count normalized. 11/08-patient doing better. Discharging on IV antibiotics. Continue PICC line care. Follow-up primary care physician in 1 week. Date of admission: 11/05/19 12:17 Discharge date: 11/09/19 Primary care physician: Funmi Leos Consults: 11/06/19 07:15 Consult to Physician [CONS] Routine Comment: Consulting Provider: Hogue,Omkar Reason For Exam: Physician to Consult Discharge Meds Discharge Medications Home Medications ipratropium 20 mcg-albuterol 100 mcg/actuation mist for inhalation 1 puff INHALATION Q4HP PRN #4 g 05/08/18 [Rx Confirmed 11/05/19 Last Taken Unknown] magnesium oxide 400 mg PO DAILY #90 cap 05/08/18 [Rx Confirmed 11/05/19 Last Taken 09/17/18 07:30] nifedipine 60 mg tablet,extended release 60 mg PO BID #120 tab 05/08/18 [Rx Confirmed 11/05/19 Last Taken 09/17/18 07:30] [] 65 mg PO BID 09/17/18 [History Confirmed 11/05/19 Last Taken 09/17/18 07:30] Bipap 1 dose .ROUTE HS 09/17/18 [History Confirmed 11/05/19 Last Taken Unknown] Oxygen 3L 1 dose .ROUTE .MEDSUPPLY 09/17/18 [History Confirmed 11/05/19 Last Taken Unknown] diphenhydramine HCl 50 mg PO HS 09/17/18 [History Confirmed 11/05/19 Last Taken 09/16/18] esomeprazole magnesium 40 mg capsule,delayed release 80 mg PO BID cap 12/18/18 [History Confirmed 11/05/19 Last Taken Unknown] hydroxyzine HCl 25 mg tablet 25 mg PO QIDP PRN #180 tab 12/18/18 [Rx Confirmed 11/05/19 Last Taken Unknown] cetirizine 10 mg tablet 10 mg PO QDAY PRN 01/30/19 [History Confirmed 11/05/19 Last Taken Unknown] blood sugar diagnostic #50 each 02/11/19 [Rx Confirmed 11/05/19 Last Taken Unknown] blood-glucose meter #1 each 02/11/19 [Rx Confirmed 11/05/19 Last Taken Unknown] lancets #50 each 02/11/19 [Rx Confirmed 11/05/19 Last Taken Unknown] ramelteon 8 mg tablet 8 mg PO HS #90 tab 03/24/19 [Rx Confirmed 11/05/19 Last Taken Unknown] nortriptyline 25 mg capsule 50 mg PO HS cap 06/04/19 [History Confirmed 11/05/19 Last Taken Unknown] olmesartan 40 mg tablet 40 mg PO DAILY #90 tab 06/04/19 [Rx Confirmed 11/05/19 Last Taken Unknown] rivaroxaban 20 mg tablet 20 mg PO QPM #90 tab 06/10/19 [Rx Confirmed 11/05/19 Last Taken Unknown] atorvastatin 80 mg tablet 80 mg PO DAILY #90 tab 07/14/19 [Rx Confirmed 11/05/19 Last Taken Unknown] ropinirole 1 mg tablet 1 mg PO HS #90 tab 08/12/19 [Rx Confirmed 11/05/19 Last Taken Unknown] venlafaxine 150 mg capsule,extended release 24 hr 150 mg PO HS #90 cap 08/12/19 [Rx Confirmed 11/05/19 Last Taken Unknown] venlafaxine 75 mg capsule,extended release 24 hr 75 mg PO QHS #90 cap 08/18/19 [Rx Confirmed 11/05/19 Last Taken Unknown] potassium chloride 10 mEq tablet,extended release 10 meq PO DAILY #90 tab 09/10/19 [Rx Confirmed 11/05/19 Last Taken Unknown] metoprolol tartrate 100 mg tablet See Rx Instructions .ROUTE .COMPLEX #120 unknown measurement unit code: tablet 09/18/19 [Rx Confirmed 11/05/19 Last Taken Unknown] clonidine HCl 0.2 mg tablet See Rx Instructions .ROUTE .COMPLEX #360 tablet 10/14/19 [Rx Confirmed 11/05/19 Last Taken Unknown] doxazosin 4 mg tablet 4 mg PO QDAY #90 tab 10/14/19 [Rx Confirmed 11/05/19 Last Taken Unknown] montelukast 10 mg tablet 10 mg PO HS #90 tab 10/14/19 [Rx Confirmed 11/05/19 Last Taken Unknown] pregabalin 200 mg capsule 200 mg PO BID #180 cap 10/14/19 [Rx Confirmed 11/05/19 Last Taken Unknown] hydrocodone 7.5 mg-acetaminophen 325 mg tablet 1 tab PO QHS #30 tab 10/29/19 [Rx Confirmed 11/05/19 Last Taken Unknown] Dupixent 1 mg SUBCUT 2-3XW 11/05/19 [History Confirmed 11/05/19 Last Taken Unknown] Janumet 1 tab PO DAILY 11/05/19 [History Confirmed 11/05/19 Last Taken Unknown] Toviaz 8 mg PO QDAY 11/05/19 [History Confirmed 11/05/19 Last Taken Unknown] ceftriaxone 2 g IM QDAY #12 each 11/09/19 [Rx Last Taken Unknown] COURSE Hospital Course Hospital Course: Discharge diagnosis Severe sepsis with multiple organ dysfunction-elevated white count/fever/endorgan dysfunction. Clinically resolved. White count normalized Beta streptococci bacteremia. Surveillance cultures negative. Continue Rocephin for 14 days Cellulitis with lymphangitis lower extremity/right posterior thigh-clinical improvement noted on antibiotic coverage. Continue Rocephin for 14 days Complicated UTI-continue antibiotics Acute change in mental status secondary to sepsis endorgan dysfunction. Clinically resolved Mild THOMAS -creatinine down to 0.9 from 1.3, resolved History of PE/DVT on rivaroxaban Anxiety disorder continue venlafaxine/nortriptyline Chronic pain secondary DJD on hydrocodone acetaminophen IRA/OHS on home BiPAP Hypertension continue clonidine/doxazosin/nifedipine, hold ARB in light of THOMAS Hyperlipidemia continue statin Morbid obesity with a BMI over 50-directed therapy/dietary intervention Discharge diagnosis: . Time Spent with Patient Time attestation: Total time spent providing and/or coordinating discharge services: EXAM Constitutional Vitals: Temp Pulse Resp BP Pulse Ox 97.1 F 62 16 117/65 94 11/09/19 04:00 11/09/19 04:00 11/09/19 04:00 11/09/19 04:00 11/09/19 04:00 Discharge Data Data Completed and Pending Labs on day of discharge: Labs from last 24 hours 11/09/19 11/09/19 11/08/19 05:00 05:00 06:21 WBC 5.5 RBC 4.31 Hgb 11.8 Hct 36.6 MCV 84.9 MCH 27.4 MCHC 32.2 RDW 13.9 Plt Count 271 MPV 10.9 H Total Counted Pending Seg Neutrophils % Band Neutrophils % Not Reportable Lymphocytes % Monocytes % (Manual) Eosinophils % (Manual) Basophils % (Manual) Platelet Estimate Pending RBC Morphology Pending Sodium 138 141 Potassium 3.1 L 3.2 L Chloride 97 97 Carbon Dioxide 30 25 Anion Gap 11.0 19.0 H BUN 12 8 Creatinine 0.8 0.9 GFR Calculation 81 70 Glucose 141 H 121 H Uric Acid 5.4 4.6 Calcium 8.3 L 8.5 L Phosphorus 3.4 3.4 Magnesium 1.7 1.4 L Total Bilirubin 0.4 0.5 Direct Bilirubin < 0.2 < 0.2 GGT 52 H 56 H AST 17 25 ALT 25 32 Alkaline Phosphatase 98 110 Lactate Dehydrogenase 228 250 Total Protein 6.6 6.7 Albumin 3.5 3.5 Globulin 3.1 3.2 Albumin/Globulin Ratio 1.1 1.1 Triglycerides 156 H 133 11/08/19 11/08/19 06:21 06:00 WBC 8.6 RBC 4.51 Hgb 12.6 Hct 38.5 MCV 85.4 MCH 27.9 MCHC 32.7 RDW 14.3 Plt Count 250 MPV 11.7 H Total Counted 100 Seg Neutrophils % 74 Band Neutrophils % 2 Lymphocytes % 11 L Monocytes % (Manual) 4 Eosinophils % (Manual) 8 H Basophils % (Manual) 1 Platelet Estimate Normal RBC Morphology Normal Sodium TNP Potassium TNP Chloride TNP Carbon Dioxide TNP Anion Gap TNP BUN TNP Creatinine TNP GFR Calculation TNP Glucose TNP Uric Acid TNP Calcium TNP Phosphorus TNP Magnesium TNP Total Bilirubin TNP Direct Bilirubin TNP GGT TNP AST TNP ALT TNP Alkaline Phosphatase TNP Lactate Dehydrogenase TNP Total Protein TNP Albumin TNP Globulin TNP Albumin/Globulin Ratio TNP Triglycerides TNP Preliminary micro results at discharge 11/07/19 09:45 Blood Culture - Preliminary Blood 11/07/19 09:35 Blood Culture - Preliminary Blood 11/06/19 08:45 Blood Culture - Preliminary Blood 11/06/19 09:02 Blood Culture - Preliminary Blood 11/05/19 08:48 Blood Culture - Preliminary Blood Strep agalactiae - (group b) 11/05/19 08:10 Blood Culture - Preliminary Blood Gram positive cocci Discharge Plan Patient/Caregiver Discharge Instructions Activity: increase activity as tolerated Diet: Consistent Carbohydrate Activity Restrictions/Additional Instructions: Continue antibiotics for additional 12 days Follow-up with infection disease clinic in 10 days Diabetic diet Return to ER if worsening fever chills lower extremity swelling redness Prescriptions: New ceftriaxone 2 gram recon soln 2 g IM QDAY Qty: 12 RF: 0 Continued ipratropium-albuterol 20-100 mcg/actuation mist 1 puff INHALATION Q4HP PRN (Reason: Shortness Of Breath) Qty: 4 RF: 0 magnesium oxide 400 mg capsule 400 mg PO DAILY Qty: 90 RF: 3 nifedipine 60 mg tablet extended release 60 mg PO BID Qty: 120 RF: 4 ramelteon 8 mg tablet 8 mg PO HS Qty: 90 RF: 1 atorvastatin 80 mg tablet 80 mg PO DAILY Qty: 90 RF: 1 ropinirole 1 mg tablet 1 mg PO HS Qty: 90 RF: 4 venlafaxine 150 mg capsule,extended release 24hr 150 mg PO HS Qty: 90 RF: 3 venlafaxine 75 mg capsule,extended release 24hr 75 mg PO QHS Qty: 90 RF: 3 potassium chloride 10 mEq tablet extended release 10 meq PO DAILY Qty: 90 RF: 4 metoprolol tartrate 100 mg tablet See Rx Instructions .ROUTE .COMPLEX Qty: 120 RF: 5 pregabalin 200 mg capsule 200 mg PO BID Qty: 180 RF: 3 clonidine HCl 0.2 mg tablet See Rx Instructions .ROUTE .COMPLEX Qty: 360 RF: 4 doxazosin 4 mg tablet 4 mg PO QDAY Qty: 90 RF: 3 montelukast 10 mg tablet 10 mg PO HS Qty: 90 RF: 3 hydrocodone-acetaminophen 7.5-325 mg tablet 1 tab PO QHS Qty: 30 RF: 0 hydroxyzine HCl 25 mg tablet 25 mg PO QIDP PRN (Reason: Itching) Qty: 180 RF: 4 (DME) Blood Glucose Test strip See Rx Instructions .ROUTE .MEDSUPPLY Qty: 50 RF: 1 (DME) lancets misc See Rx Instructions .ROUTE .MEDSUPPLY Qty: 50 RF: 1 (DME) blood-glucose meter kit See Rx Instructions .ROUTE .MEDSUPPLY Qty: 1 RF: 0 olmesartan 40 mg tablet 40 mg PO DAILY Qty: 90 RF: 3 nortriptyline 25 mg capsule 50 mg PO HS RF: 0 cetirizine [Aller-Julia] 10 mg tablet 10 mg PO QDAY PRN (Reason: Allergy Symptoms) RF: 0 diphenhydramine HCl 25 MG capsule 50 mg PO HS RF: 0 Bipap 1 dose .Route HS RF: 0 Oxygen 3L 1 dose .Route .MEDSUPPLY RF: 0 esomeprazole magnesium 40 mg capsule,delayed release(DR/EC) 80 mg PO BID RF: 0 Xarelto 20 mg tablet 20 mg PO QPM Qty: 90 RF: 3 Janumet 50-1,000 mg Tablet 1 tab PO DAILY RF: 0 Toviaz 8 mg Tablet Extended Release 24 Hr 8 mg PO QDAY RF: 0 Dupixent 300 mg/2 mL Syringe 1 mg SUBCUT 2-3XW RF: 0 Discontinued penicillin V potassium 250 mg tablet 250 mg PO BID Qty: 180 RF: 3 Hold Instructions: Doctor's Order No Action ferrous sulfate 324 mg (65 mg iron) tablet,delayed release 324 mg (65 mg iron) tablet,delayed release (DR/EC) 65 mg PO BID RF: 0 Follow Up Plan Follow up with: Funmi Leos ARNP [Primary Care Provider] - Patient Disposition: Home, Self-Care Prognosis: Critical Rehab Potential: Fair Overall status at discharge: patient is back to baseline Discharge Orders: Discharge Order (Routine); Ordered 11/09/19 Ordered By: Omkar GLEASON VTE Deep Vein Thrombosis/Pulmonary Embolism Present on Admission: No
--- NOTE | 2019-11-09 07:25 | Internal Med Progress Note ---
SUBJECTIVE Subjective Patient information: Note initiated : 11/08/19 at 6:22 am Service Date, if different from initiated Date: [] Patient: Elizabeth Peacock a 59 y/o F admitted on 11/05/19 for Weakness. Chief Complaint: Interval history: History of present illness: Ms. Peacock is a 59 year old F mo rbidly obese with BMI over 50, DM type II/HTN/CKD and history of PE on anticoagulation who now presents with 2 days onset of worsening weakness, chills, increasing fatigue lethargic and unable to think clearly. She also has associated shortness of breath. During presentation initial work-up revealed fever of 103 along with leukocytosis and pyuria. CT abdomen/chest was inconclusive for acute process. Patient received crystalloids and after cultures were drawn antibiotics initiated. Hospitalist service was consulted for admission At the time evaluation patient is lethargic fatigue and unable to answer most of the questions. She frequently dozes off. She denies associated diarrhea, skin rash, joint pain, dysuria or nausea vomiting. She further denies chest pain but endorses to mild shortness of breath and cough No family members are present 11/05-2 out of 2 gram-positive cocci. Surveillance cultures pending. On antibiotic coverage. Patient much improved clinically with improved mental status and able to communicate. Vitals and hemodynamics stable. White count down from 22,700-16.2. Creatinine improving. Bilateral lower extremity redness noted. Telemetry no events 11/06-patient doing well. No overnight events. Much improved mentation. Hemodynamics stabilized. Fever defervesced. Tachycardia improved. Beta streptococci and cultures. Antibiotics de-escalate Rocephin. Transition to medical floor. Continue aggressive blood sugar management. Start diuresis. 11/07-patient doing well. PICC line placement today. Antibiotic de-escalate Rocephin. Continue additional 2 weeks. Possible discharge in 24 hours. No overnight fever chills. White count normalized. Interval history: Narrative: Constitutional Vitals: Vital Signs Temp Pulse Resp BP Pulse Ox 97.1 F 62 16 117/65 94 11/09/19 04:00 11/09/19 04:00 11/09/19 04:00 11/09/19 04:00 11/09/19 04:00 Period Temp Pulse Resp BP Sys/Merino Pulse Ox Last 24 Hr 97.1 F-98.4 F 60-66 16-20 117-151/65-73 93-96 Intake and Output 11/08/19 11/09/19 11/09/19 21:59 05:59 13:59 Intake Total 660 200 Output Total 425 1775 Balance 235 -1575 Weight 172.535 kg morbidly obese Alert oriented Nonlabored breathing Improving lymphedema Intake & Output: Intake & Output 11/08/19 11/09/19 11/09/19 21:59 05:59 13:59 Intake Total 660 200 Output Total 425 1775 Balance 235 -1575 Weight 172.535 kg Intake: Oral 660 200 Output: Urine Catheter Amount 425 1775 Other: Meal Lunch Percent of Meal Consumed 100% Feeding Ability Independent Urine Appearance Uretheral (Sanchez) Sediment Urine Color Uretheral (Sanchez) Bright Yellow Stool Size Small Stool Color Brown Stool Consistency Soft # Bowel Movements 1 # of times incontinent of 1 Bowels OBJ DATA Labs CBC & Chem 7: 11/09/19 05:00 11/09/19 05:00 Labs: Abnormal Lab Results 11/09/19 11/09/19 11/08/19 05:00 05:00 06:21 Hgb RDW MPV 10.9 H Seg Neutrophils % Lymphocytes % Eosinophils % (Manual) Potassium 3.1 L 3.2 L Anion Gap 19.0 H Glucose 141 H 121 H Calcium 8.3 L 8.5 L Magnesium 1.4 L GGT 52 H 56 H Triglycerides 156 H 11/08/19 11/07/19 11/07/19 06:21 05:05 05:05 Hgb 11.1 L RDW 14.6 H MPV 11.7 H 11.5 H Seg Neutrophils % 84 H Lymphocytes % 11 L 7 L Eosinophils % (Manual) 8 H Potassium 3.2 L Anion Gap Glucose 128 H Calcium 8.3 L Magnesium GGT 44 H Triglycerides 11/06/19 05:20 Hgb RDW MPV Seg Neutrophils % 89 H Lymphocytes % 4 L Eosinophils % (Manual) Potassium Anion Gap Glucose Calcium Magnesium GGT Triglycerides Meds: Medications Acetaminophen (Tylenol) 650 mg PO Q4-6HP PRN; Protocol PRN Reason: Per Pain Protocol/Fever > 101 Last Admin: 11/08/19 15:29 Dose: 650 mg Documented by: Hydrocodone Bitart/Acetaminophen (Bend 7.5/325mg) 1 tab PO QHS RAMILA; Protocol Last Admin: 11/08/19 21:18 Dose: 1 tab Documented by: Albuterol/Ipratropium (Combivent) 1 puff INH Q4HP PRN PRN Reason: Shortness Of Breath Albuterol/Ipratropium (Duoneb) 3 ml NEB Q4HP PRN PRN Reason: Shortness Of Breath Atorvastatin Calcium (Lipitor) 80 mg PO HS [facility] Last Admin: 11/08/19 21:17 Dose: 80 mg Documented by: Bisacodyl (Dulcolax) 10 mg W[place] Q2-3DAYS PRN PRN Reason: Constipation Cetirizine HCl (Zyrtec) 10 mg PO QDAY PRN PRN Reason: Allergy Symptoms Clonidine HCl (Catapres) 0.4 mg PO BID [facility] Last Admin: 11/08/19 21:17 Dose: 0.4 mg Documented by: Dextrose (Dextrose 50%) 0 ml IV UD PRN PRN Reason: Hypoglycemia Diagnostic Test (Pha) (Accu-Chek) 1 each FS ACHS [facility] Last Admin: 11/08/19 21:14 Dose: 1 each Documented by: Docusate Sodium (Colace) 100 mg PO BID [facility] Last Admin: 11/08/19 21:15 Dose: Not Given Documented by: Doxazosin Mesylate (Cardura) 4 mg PO QDAY [facility] Last Admin: 11/08/19 08:37 Dose: 4 mg Documented by: Furosemide (Lasix) 20 mg IV Q8 [facility] Last Admin: 11/09/19 04:06 Dose: 20 mg Documented by: Glucose (Insta-Glucose) 15 gm PO PRN PRN PRN Reason: Hypoglycemia Guaifenesin/Codeine Phosphate (Robitussin Ac) 10 ml PO Q4HP PRN PRN Reason: Cough Heparin Sodium (Porcine) (Heparin 10 Units/Ml Flush) 2 ml IV Q12 [facility] Last Admin: 11/08/19 21:15 Dose: 2 ml Documented by: Ceftriaxone Sodium 2 gm/ (Dextrose) 50 mls @ 100 mls/hr IV DAILY [facility] Last Infusion: 11/08/19 09:00 Dose: Infused Documented by: Sodium Chloride (Sodium Chloride 0.9%) 250 mls @ 20 mls/hr IV .[id number] [facility] Last Admin: 11/09/19 01:17 Dose: Not Given Documented by: Acetaminophen (Ofirmev) 650 mg in 65 mls @ 130 mls/hr IV Q6HP PRN; Protocol PRN Reason: Per Pain Protocol/Fever > 101 Magnesium Sulfate (Magnesium Sulfate) 2 gm in 50 mls @ 50 mls/hr IV UD PRN PRN Reason: MG = or < 1.7 Last Admin: 11/08/19 18:13 Dose: 50 mls/hr Documented by: Norepinephrine Bitartrate 16 (mg/ Sodium Chloride) 250 mls @ 9.375 mls/hr IV Q24HP PRN; Protocol PRN Reason: MAP<65 Insulin Human Lispro (Humalog) 0 unit SQ ACHS [facility]; Protocol Last Admin: 11/08/19 21:15 Dose: Not Given Documented by: Iron Carb/Multivit/[place]/Folic Acid (Multivitamin W/Minerals) 1 tab PO DAILY [facility] Last Admin: 11/08/19 08:42 Dose: 1 tab Documented by: Magnesium Oxide (Magnesium Oxide) 400 mg PO DAILY [facility] Last Admin: 11/08/19 08:41 Dose: 400 mg Documented by: Melatonin (Melatonin 3mg Tablet) 3 mg PO HSP PRN PRN Reason: Insomnia [facility] Last Admin: 11/08/19 18:24 Dose: 1,000 mg Documented by: Metoprolol Tartrate (Lopressor) 100 mg PO BID [facility] Last Admin: 11/08/19 21:18 Dose: 100 mg Documented by: Montelukast Sodium (Singular) 10 mg PO [facility] Last Admin: 11/08/19 21:18 Dose: 10 mg Documented by: Nifedipine (Procardia Xl) 60 mg PO BID [facility] Last Admin: 11/08/19 21:17 Dose: 60 mg Documented by: Nortriptyline HCl (Pamelor) 50 mg PO [facility] Last Admin: 11/08/19 21:19 Dose: 50 mg Documented by: Ondansetron HCl (Zofran Odt) 4 mg SL Q4-6HP PRN; Protocol PRN Reason: Nausea And Vomiting Ondansetron HCl (Zofran) 4 mg IV Q4-6HP PRN; Protocol PRN Reason: Nausea And Vomiting [facility] Last Admin: 07/11/20 18:23 Dose: 40 mg Documented by: Polyethylene Glycol (Miralax) 17 gm PO DAILYP PRN PRN Reason: Constipation Potassium Chloride (Kdur) 10 meq PO DAILY [facility] Last Admin: 11/08/19 08:41 Dose: 10 meq Documented by: Potassium Chloride (Klor-Con) 40 meq PO DAILYP PRN PRN Reason: K+ < 3.5 Last Admin: 11/08/19 18:11 Dose: 40 meq Documented by: Pregabalin (Lyrica) 200 mg PO BID [facility] Last Admin: 11/08/19 21:19 Dose: 200 mg Documented by: Ramelteon (Rozerem) 8 mg PO [facility] Last Admin: 11/08/19 21:19 Dose: 8 mg Documented by: Rivaroxaban (Xarelto) 20 mg PO QPM [facility] Last Admin: 11/08/19 21:18 Dose: 20 mg Documented by: Ropinirole HCl (Requip) 1 mg PO [facility] Last Admin: 11/08/19 21:19 Dose: 1 mg Documented by: Senna/Docusate Sodium (Senna Plus Tablet) 1 tab PO [facility] Last Admin: 11/08/19 21:20 Dose: Not Given Documented by: Sitagliptin Phosphate (Januvia) 50 mg PO BID [facility] Last Admin: 11/08/19 21:18 Dose: 50 mg Documented by: Sodium Chloride (Saline Flush) 10 ml IV Q8 [facility] Last Admin: 11/09/19 04:06 Dose: 10 ml Documented by: Sodium Chloride (Saline Flush) 10 ml IV Q12 [facility] Last Admin: 11/08/19 21:21 Dose: 10 ml Documented by: Venlafaxine HCl (Effexor Xr) 225 mg PO QHS [facility] Last Admin: 11/08/19 21:17 Dose: 225 mg Documented by: A/P Narrative A/P Narrative: * Severe sepsis with multiple organ dysfunction-elevated white count/fever/endorgan dysfunction. Clinically resolved. White count down from 22,700-> 8000. Stable hemodynamics * Beta streptococci bacteremia. Surveillance cultures negative. Continue Amrit ephin for 14 days * Cellulitis with lymphangitis lower extremity/right posterior thigh-clinical improvement noted on antibiotic coverage. Continue Rocephin for 14 days * Complicated UTI-continue antibiotics * Acute change in mental status secondary to sepsis endorgan dysfunction. Clinically resolved * Mild THOMAS -creatinine down to 0.9 from 1.3, resolved * History of PE/DVT on rivaroxaban * Anxiety disorder continue venlafaxine/nortriptyline * Chronic pain secondary DJD on hydrocodone acetaminophen * IRA/OHS on home BiPAP * Hypertension continue clonidine/doxazosin/nifedipine, hold ARB in light of THOMAS * Hyperlipidemia continue statin * Morbid obesity with a BMI over 50-directed therapy/dietary intervention * Full code Plan * Continue Rocephin for 14 days * Pre-existing medical issues management on home meds * Continue monitoring renal function * PT OT nutrition support Time Spent With Patient Time: Total time spent is greater than 50% in coordination of care (as documented) at patient's floor/unit and/or counseling patient: Total time spent with greater than 50% in coordination of care (as documented) at patient's floor/unit and/or counseling patient:: Greater than 35 minutes QUALITY VTE Deep Vein Thrombosis/Pulmonary Embolism Present on Admission: No
[2019-11-09] MEDS: cefTRIAXone 2 GM in DEXTROSE 5% IN WATER 50 ML IV SCH (08:17)
[2019-11-09] MEDS: INSULIN LISPRO 1 UNIT/0.01 ML UNIT SQ SCH (08:25)
[2019-11-09] MEDS: metFORMIN 500 MG TABLET PO SCH (08:34)
[2019-11-09] MEDS: METOPROLOL TARTRATE 50 MG TABLET PO SCH (08:34)
[2019-11-09] MEDS: DOXAZOSIN 4 MG TABLET PO SCH (08:35)
[2019-11-09] MEDS: cloNIDine HCL 0.1 MG TABLET PO SCH (08:36)
[2019-11-09] MEDS: sitaGLIPtin 50 MG TABLET PO SCH (08:37)
[2019-11-09] MEDS: MULTIVIT,THER IRON,CA,FA & MIN 1 TABLET PO SCH (08:38)
[2019-11-09] MEDS: MAGNESIUM OXIDE 400 MG TABLET PO SCH (08:38)
[2019-11-09] MEDS: NIFEdipine 30 MG TAB.XL.24H PO SCH (08:39)
[2019-11-09] MEDS: POTASSIUM CHLORIDE 10 MEQ TABLET PO SCH (08:39)
[2019-11-09] MEDS: PREGABALIN 100 MG CAPSULE PO SCH (08:40)
[2019-11-09] MEDS: DOCUSATE SODIUM 100 MG CAPSULE PO SCH (08:41)
[2019-11-09] MEDS: PANTOPRAZOLE 40 MG TABLET PO SCH (08:43)
[2019-11-09 09:00] LABS: Band Neutrophils % 1 % (0-10); Eosinophils % (Manual) 4 % (0-7); Lymphocytes % 14 % (15-49); Monocytes % (Manual) 14 % (1-12); Platelet Estimate NORMAL (NORMAL); RBC Morphology NORMAL (NORMAL); Segmented Neutrophils % 67 % (38-78)
== END 2019-11-09 10:40 | disposition home or self-care (01) | DRG 871 ==
LOC: ED 07:54 → ICU 12:17 → MEDSUR 11-07 14:18
PROVIDERS: ADMIT Internal Medicine; ATTEND Internal Medicine

== ENCOUNTER 2019-12-31 10:19 | Observation (INO) ==
--- NOTE | 2019-12-31 10:39 | Emergency Department Note ---
Weakness HPI General Chief complaint: Weakness Stated complaint: weakness, shakey, confusion, Time Seen by Provider: 12/31/19 10:37 Source: patient and family Mode of arrival: wheelchair Limitations: no limitations History of Present Illness HPI Narrative: Narrative: 59-year-old female presents with complaints that she thinks she has a UTI and cellulitis. Has issues with chronic cellulitis of the lower extremities. Has been seeing Dr. Patterson and is on penicillin twice a day for prevention. States she has been doing good up until yesterday with weakness, confusion, and generally not feeling well. Has also had chills. Unknown fever. No nausea, vomiting, or diarrhea but no appetite the last 2 days. Her states that she has red streaks going up her legs that is new this morning. Her legs are also warm to touch. She denies dysuria or frequency but states every time she just does not feel good and has chills like this she has a UTI and she is urinating frequently. Related Data Home Medications Medication Instructions Recorded Confirmed [] 65 mg PO BID 09/17/18 11/18/19 Bipap 1 dose .ROUTE HS 09/17/18 11/18/19 Oxygen 3L 1 dose .ROUTE .MEDSUPPLY 09/17/18 11/18/19 diphenhydramine HCl 50 mg PO HS 09/17/18 11/18/19 esomeprazole magnesium 40 mg 80 mg PO BID cap 12/18/18 11/18/19 capsule,delayed release cetirizine 10 mg tablet 10 mg PO QDAY PRN 01/30/19 11/18/19 nortriptyline 25 mg capsule 50 mg PO cap 06/04/19 11/18/19 Dupixent Syringe 1 mg SUBCUT 2-3XW 11/05/19 11/18/19 Toviaz 8 mg PO QDAY 11/05/19 11/18/19 Previous Rx's Medication Instructions Recorded ipratropium 20 mcg-albuterol 100 1 puff INHALATION Q4HP PRN #4 g 05/08/18 mcg/actuation mist for inhalation magnesium oxide 400 mg PO DAILY #90 cap 05/08/18 nifedipine 60 mg tablet,extended 60 mg PO BID #120 tab 05/08/18 release hydroxyzine HCl 25 mg tablet 25 mg PO QIDP PRN #180 tab 12/18/18 blood sugar diagnostic #50 each 10/15/19 blood-glucose meter #1 each 02/11/19 lancets #50 each 02/11/19 olmesartan 40 mg tablet 40 mg PO DAILY #90 tab 06/04/19 rivaroxaban 20 mg tablet 20 mg PO QPM #90 tab 06/10/19 atorvastatin 80 mg tablet 80 mg PO DAILY #90 tab 07/14/19 ropinirole 1 mg tablet 1 mg PO HS #90 tab 08/12/19 venlafaxine 150 mg 150 mg PO HS #90 cap 08/12/19 capsule,extended release 24 hr venlafaxine 75 mg capsule,extended 75 mg PO QHS #90 cap 08/18/19 release 24 hr metoprolol tartrate 100 mg tablet See Rx Instructions .ROUTE 09/18/19 .COMPLEX #120 unknown measurement unit code: tablet clonidine HCl 0.2 mg tablet See Rx Instructions .ROUTE 10/14/19 .COMPLEX #360 tablet montelukast 10 mg tablet 10 mg PO HS #90 tab 10/14/19 pregabalin 200 mg capsule 200 mg PO BID #180 cap 10/14/19 furosemide 40 mg tablet 40 mg PO QAM #90 tab 11/20/19 penicillin V potassium 250 mg 250 mg PO BID #360 tab 11/20/19 tablet potassium chloride 20 mEq 20 meq PO DAILY #90 tab 11/20/19 tablet,extended release hydrocodone 7.5 mg-acetaminophen 1 tab PO QHS #30 tab 12/05/19 325 mg tablet tramadol 50 mg tablet 50 mg PO BID PRN #60 tab 12/05/19 doxazosin 4 mg tablet 4 mg PO QDAY #90 tab 12/12/19 ramelteon 8 mg tablet 8 mg PO HS #90 tab 12/12/19 sitagliptin 50 mg-metformin 1,000 2 tab PO DAILY #180 tab 12/12/19 mg tablet Allergies Allergy/AdvReac Type Severity Reaction Status Date / Time exenatide [From Byetta] Allergy Mild Hives Verified 12/31/19 10:23 latex Allergy Mild Rash Verified 12/31/19 10:23 Rosiglitazone [From Avandia] Allergy Mild Hives Verified 12/31/19 10:23 Sulfa (Sulfonamide Allergy Mild Hives Verified 12/31/19 10:23 Antibiotics) meperidine [From Demerol] AdvReac Mild Gastrointestinal Verified 12/31/19 10:23 Upset Review of Systems ROS ROS Narrative: Narrative: Constitutional: Reports chills and weakness; Denies sweats Respiratory: Denies shortness of breath and cough Gastrointestinal: Denies abdominal pain, nausea, vomiting and diarrhea PFSH Narrative Patient History Narrative: Narrative: Medical/Surgical/Family History All Active Problems (Updated 12/31/19 @ 13:30 by BERTA Rowan) UTI (urinary tract infection) (Acute) Acute kidney injury (Acute) Sepsis (Acute) Cellulitis (Acute) Bronchitis (Acute) Pulmonary HTN (Chronic) Nocturnal hypoxemia (Chronic) Low magnesium levels (Chronic) Vitamin D deficiency (Chronic) Screening for colon cancer (Chronic) Screening for breast cancer (Acute) Hyperlipidemia (Chronic) Anxiety as acute reaction to exceptional stress (Chronic) Depression with anxiety (Chronic) Degenerative joint disease involving multiple joints (Chronic) Lymphedema of both lower extremities (Chronic) Peripheral neuropathy (Chronic) Sleep apnea treated with nocturnal BiPAP (Chronic) Allergy history, penicillin (Chronic) Thyroid trouble (Chronic) Migraines (Chronic) Hypertension (Chronic) DMII (diabetes mellitus, type 2) (Chronic) Asthma (Chronic) Arthritis (Chronic) Acid reflux (Chronic) Recurrent cellulitis of lower leg (Chronic) Medical History Acid reflux (Chronic) 12/18/2018 ranitidine 150 twice daily, Nexium 80 twice daily continue care with [facility] and her recommendations Acute kidney injury (Acute) 11/13/2019 improved, patient was to hold olmesartan but she has been taking, plan to check labs tomorrow Allergy history, penicillin (Chronic) On desensitization protocol with ID/hospitalist Anxiety as acute reaction to exceptional stress (Chronic) with some depressive component but mostly anxiety driven, no Suicidal ideation. 10/15/18 PHQ 9=6. Take Effexor in the morning and see if it helps with sleep 12/18/2018 PHQ 9= 7. Continue Effexor 225 Arthritis (Chronic) knees and fingers Asthma (Chronic) PFTs at [facility] 2018, mild restrictive air way, did not really respond to bronchodilator 12/18/2018 feels improvement with Combivent, refer to pulmonology Atrial flutter (Resolved) Cardioverted at [facility], now normal sinus rhythm Degenerative joint disease involving multiple joints (Chronic) knees, bilateral Depression with anxiety (Chronic) took paxil never tried cymbalta 06/04/2019 PHQ 9= 8, continue Effexor 225 DMII (diabetes mellitus, type 2) (Chronic) 10/15/18 A1C 7.1 02/11/19 A1c 7. 05/2019 mild diabetic retinopathy 02/11/2019 neuropathy on diabetic foot exam 02/11/2019 continue Janumet 50at thousand twice daily, encouraged her to check blood sugars regularly, healthy diet, exercise, follow-up in 3 months after fasting labs Hyperlipidemia (Chronic) 02/11/2019 stable, continue atorvastatin 80 Hypertension (Chronic) hx of TIA 02/11/2019 controlled on doxazosin 8 twice daily, clonidine 0.4 twice daily metoprolol 100 twice daily, nifedipine ER 60 twice daily, potassium 10 daily 06/04/2019 blood pressures been low, decrease doxazosin to 4 mg twice daily and continue others, continue checking blood pressure at home, EKG attempted here in the clinic but machine is broken, refer for EKG, follow-up in 1 month 11/13/2019 elevated today, continue medication regimen, check labs tomorrow, check about Lasix use with Dr. Osman, follow-up 2 to 3 weeks Low magnesium levels (Chronic) Chronic 12/18/2018 stable on magnesium 400 daily 11/13/2019 plan to check labs tomorrow Lymphedema of both lower extremities (Chronic) Seen by Dr. Garcia and released. Receives massage and helpful Pain contract signed 11/201802/11/2019 okay to use tramadol during the day and hydrocodone at night, continue massage 06/04/2019 referral to physical therapy at patient request Migraines (Chronic) a lot of headaches 4-5 times a week, migraines 1-2 times a month Nocturnal hypoxemia (Chronic) Peripheral neuropathy (Chronic) Diabetic related 12/18/2018 stable on Lyrica 200 twice daily Recurrent cellulitis of lower leg (Chronic) bilat followed by Dr. Patterson 12/18/2018 currently taking Pen-Vee K 250 twice daily, continue care with Dr. Patterson 11/13/2019 continue outpatient Rocephin through [facility] line, has an upcoming follow-up appointment with Dr. Patterson Screening for colon cancer (Chronic) 06/19- Cologuard Sleep apnea treated with nocturnal BiPAP (Chronic) 12/18/2018 refer to pulmonology to sort through proper settings and the need for oxygen or not Thyroid trouble (Chronic) Enlarged LT Side, pushing on esphagous, biopsy neg 12/25/18 Stable large adenoma in the left lobe of the thyroid and no change in either lobe to suggest underlying malignancy. Follow-up thyroid ultrasound annually 02/11/2019 reviewed results of ultrasound, recommend following thyroid annually with ultrasound UTI (urinary tract infection) (Acute) 11/13/2019 improved on Rocephin Vitamin D deficiency (Chronic) Chronic 11/13/2019 plan to check labs tomorrow Surgical History H/O esophagogastroduodenoscopy (Chronic) History of hysterectomy (Chronic) 2007 Hx of colonoscopy (Chronic) Patient had a colonoscopy at age 47, clear and repeat 10 years S/P Kaci fundoplication (with gastrostomy tube placement) (Chronic) Family History Mother , Stroke Atrial fib/flutter, transient Stroke Parkinson disease Father Parkinson disease CHF (congestive heart failure) Myocardial infarction Brother Cancer CHF (congestive heart failure) Social History Smoking Status: Never smoker Alcohol Intake Frequency: does not drink Substance Use: does not use Exam Narrative Narrative: Narrative: General Limitations: no limitations General appearance: alert Head Head: atraumatic and normocephalic Eye Eye: Present normal appearance; Absent conjunctival injection ENT ENT: Present mucous membranes moist Chest Chest: Present symmetric chest wall rise Respiratory Respiratory: Present normal lung sounds bilaterally; Absent respiratory distress, rales/crackles, wheezes, stridor and accessory muscle use Cardiovascular Cardiovascular: Present regular rate and normal heart sounds Adbominal Abdominal: Present soft, normal bowel sounds and other (please see UA); Absent distention, tenderness and guarding Extremities Extremities: Present normal capillary refill; Absent normal inspection (1+ edema to lower extremities bilaterally with diffuse circum-differential erythema to mid calf. At mid calf there are streaks going up the posterior calves up to the knee. It is warm to touch. No induration or drainage.) Neurological Neurological: Present alert and oriented X3 Psychiatric Psychiatric: Present normal affect and normal mood Skin Skin: Present warm, dry and intact Course Course Course Narrative: At 1300 I did consult with Dr. Patterson who the patient has been seen with infectious disease. He suggested we add some Rocephin and vancomycin and possibly admit her for observation. She does have an elevated lactic acid but white count is normal at this time. At 13[address] I did speak with Dr[address] Osman, hospitalist who agrees to accept this patient. Vital Signs Vital signs: Vital Signs Temperature 97.9 F 12/31/19 10:20 Pulse Rate 103 H 12/31/19 10:20 Respiratory Rate 18 12/31/19 10:20 Blood Pressure 135/86 12/31/19 10:20 Pulse Oximetry (%) 96 12/31/19 10:20 Temperature 97.9 F 12/31/19 10:20 Pulse Rate 56 L 12/31/19 13:01 Respiratory Rate 18 12/31/19 10:20 Blood Pressure 113/84 12/31/19 13:01 Pulse Oximetry (%) 95 12/31/19 13:01 MDM MDM Narrative Medical decision making narrative: Narrative: Lab Data Lab results reviewed: Yes I reviewed the patient's lab results. Result diagrams: 12/31/19 10:34 12/31/19 10:34 Labs: Lab Results 12/31/19 12/31/19 12/31/19 Range/Units 10:34 10:34 10:41 WBC 7.6 (4.50-11.00) K/mcL RBC 4.80 (3.59-5.38) M/mcL Hgb 13.2 (11.2-15.7) g/dL Hct 41.0 (34.1-44.9) % POC Hct (36.0-48.0) % MCV 85.4 (80.0-100.0) fL MCH 27.5 (26.0-34.0) pg MCHC 32.2 (31.0-36.0) g/dL RDW 13.9 (11.5-14.5) % Plt Count 287 (140-440) K/mcL MPV 11.5 H (7.4-10.4) fL Total Counted 100 Seg Neutrophils % 65 (38-78) % Band Neutrophils % Not Reportable Lymphocytes % 25 (15-49) % Monocytes % (Manual) 8 (1-12) % Eosinophils % (Manual) 1 (0-7) % Basophils % (Manual) 1 (0-2) % Platelet Estimate Normal (NORMAL) RBC Morphology Normal (NORMAL) VBG Lactic Acid 2.9 H (0.5-2.0) mmol/L POC Sodium (133-145) mmol/L Sodium 140 (133-145) mmol/L POC Potassium (3.3-5.1) mmol/L Potassium 4.0 (3.3-5.1) mmol/L POC Chloride (96-108) mmol/L Chloride 100 (96-108) mmol/L Carbon Dioxide 25 (22-30) mmol/L POC Total CO2 (22-30) mmol/L Anion Gap 15.0 (8-16) POC BUN (6-20) mg/dl BUN 23 H (6-20) mg/dl Creatinine 1.2 H (0.6-1.1) mg/dl POC Creatinine (0.6-1.1) mg/dl GFR Calculation 49 Glucose 159 H (70-105) mg/dL POC Glucose (70-105) mg/dL Calcium 9.1 (8.6-10.4) mg/dl POC WB Ioniz Calcium (1.16-1.32) mmol/L Total Bilirubin 0.4 (0.0-1.0) mg/dL AST 16 (0-37) U/l ALT 22 (0-40) U/l Alkaline Phosphatase 123 H (39-117) U/L Total Protein 7.0 (5.9-8.4) gm/dL Albumin 3.9 (3.2-5.2) gm/dL Globulin 3.1 (2.2-3.7) gm/dL Albumin/Globulin Ratio 1.3 (1.0-2.3) Urine Color Urine Appearance Urine pH (5.0-9.0) Ur Specific [place] (1.000-1.035) Urine Protein (NEG) mg/dL Urine Glucose (UA) (NEG) mg/dL Urine Ketones (NEG) mg/dL Urine Occult Blood (<0.03) mg/dL Urine Nitrate (NEG) Urine Bilirubin (NEG) mg/dL Urine Urobilinogen (NEG) mg/dL Ur Leukocyte Esterase (NEG) /uL Urine RBC (0-1) /hpf Urine WBC (0-4) /hpf Ur Squamous Epith Cells (0-4) /hpf Urine Bacteria (0) /hpf Hyaline Casts (0-2) /lpf Urine Mucus (0) /hpf Ur Culture Indicated? 12/31/19 12/31/19 Range/Units 10:51 11:15 WBC (4.50-11.00) K/mcL RBC (3.59-5.38) M/mcL Hgb (11.2-15.7) g/dL Hct (34.1-44.9) % POC Hct 39.0 (36.0-48.0) % MCV (80.0-100.0) fL MCH (26.0-34.0) pg MCHC (31.0-36.0) g/dL RDW (11.5-14.5) % Plt Count (140-440) K/mcL MPV (7.4-10.4) fL Total Counted Seg Neutrophils % (38-78) % Band Neutrophils % Lymphocytes % (15-49) % Monocytes % (Manual) (1-12) % Eosinophils % (Manual) (0-7) % Basophils % (Manual) (0-2) % Platelet Estimate (NORMAL) RBC Morphology (NORMAL) VBG Lactic Acid (0.5-2.0) mmol/L POC Sodium 140 (133-145) mmol/L Sodium (133-145) mmol/L POC Potassium 3.8 (3.3-5.1) mmol/L Potassium (3.3-5.1) mmol/L POC Chloride 101 (96-108) mmol/L Chloride (96-108) mmol/L Carbon Dioxide (22-30) mmol/L POC Total CO2 24 (22-30) mmol/L Anion Gap (8-16) POC BUN 24 H (6-20) mg/dl BUN (6-20) mg/dl Creatinine (0.6-1.1) mg/dl POC Creatinine 1.2 H (0.6-1.1) mg/dl GFR Calculation Glucose (70-105) mg/dL POC Glucose 153 H (70-105) mg/dL Calcium (8.6-10.4) mg/dl POC WB Ioniz Calcium 1.07 L (1.16-1.32) mmol/L Total Bilirubin (0.0-1.0) mg/dL AST (0-37) U/l ALT (0-40) U/l Alkaline Phosphatase (39-117) U/L Total Protein (5.9-8.4) gm/dL Albumin (3.2-5.2) gm/dL Globulin (2.2-3.7) gm/dL Albumin/Globulin Ratio (1.0-2.3) Urine Color Yellow Urine Appearance Cloudy Urine pH 5.0 (5.0-9.0) Ur Specific [place] 1.030 (1.000-1.035) Urine Protein 30 A (NEG) mg/dL Urine Glucose (UA) Negative (NEG) mg/dL Urine Ketones Neg (NEG) mg/dL Urine Occult Blood Neg (<0.03) mg/dL Urine Nitrate Neg (NEG) Urine Bilirubin Neg (NEG) mg/dL Urine Urobilinogen Neg (NEG) mg/dL Ur Leukocyte Esterase 500 A (NEG) /uL Urine RBC 5 H (0-1) /hpf Urine WBC 44 H (0-4) /hpf Ur Squamous Epith Cells 3 (0-4) /hpf Urine Bacteria 0 (0) /hpf Hyaline Casts 3 H (0-2) /lpf Urine Mucus Few (0) /hpf Ur Culture Indicated? Yes Radiology Data Radiology results reviewed: Yes I reviewed the patient's radiology results. Discharge Plan Patient/Caregiver Discharge Instructions Pt seen by ANTHROPOLOGY PROFESSOR/PA only: Yes Clinical Impression: UTI (urinary tract infection), Cellulitis Patient Disposition: Xfer As Outpt/Obs ([facility]) Condition: Fair Follow up with: Funmi Leos ARNP [Primary Care Provider] - Prescriptions: No Action ipratropium-albuterol 20-100 mcg/actuation mist 1 puff INHALATION Q4HP PRN (Reason: Shortness Of Breath) Qty: 4 RF: 0 magnesium oxide 400 mg capsule 400 mg PO DAILY Qty: 90 RF: 3 nifedipine 60 mg tablet extended release 60 mg PO BID Qty: 120 RF: 4 atorvastatin 80 mg tablet 80 mg PO DAILY Qty: 90 RF: 1 ropinirole 1 mg tablet 1 mg PO HS Qty: 90 RF: 4 venlafaxine 150 mg capsule,extended release 24hr 150 mg PO HS Qty: 90 RF: 3 venlafaxine 75 mg capsule,extended release 24hr 75 mg PO QHS Qty: 90 RF: 3 metoprolol tartrate 100 mg tablet See Rx Instructions .ROUTE .COMPLEX Qty: 120 RF: 5 pregabalin 200 mg capsule 200 mg PO BID Qty: 180 RF: 3 clonidine HCl 0.2 mg tablet See Rx Instructions .ROUTE .COMPLEX Qty: 360 RF: 4 montelukast 10 mg tablet 10 mg PO HS Qty: 90 RF: 3 furosemide 40 mg tablet 40 mg PO QAM Qty: 90 RF: 0 potassium chloride 20 mEq tablet extended release 20 meq PO DAILY Qty: 90 RF: 0 tramadol 50 mg tablet 50 mg PO BID PRN (Reason: pain) Qty: 60 RF: 0 hydrocodone-acetaminophen 7.5-325 mg tablet 1 tab PO QHS Qty: 30 RF: 0 ramelteon 8 mg tablet 8 mg PO HS Qty: 90 RF: 3 Janumet 50-1,000 mg tablet 2 tab PO DAILY Qty: 180 RF: 4 doxazosin 4 mg tablet 4 mg PO QDAY Qty: 90 RF: 3 hydroxyzine HCl 25 mg tablet 25 mg PO QIDP PRN (Reason: Itching) Qty: 180 RF: 4 (DME) Blood Glucose Test strip See Rx Instructions .ROUTE .MEDSUPPLY Qty: 50 RF: 1 (DME) lancets misc See Rx Instructions .ROUTE .MEDSUPPLY Qty: 50 RF: 1 (DME) blood-glucose meter kit See Rx Instructions .ROUTE .MEDSUPPLY Qty: 1 RF: 0 olmesartan 40 mg tablet 40 mg PO DAILY Qty: 90 RF: 3 nortriptyline 25 mg capsule 50 mg PO HS RF: 0 penicillin V potassium 250 mg tablet 250 mg PO BID Qty: 360 RF: 0 cetirizine [Aller-Julia] 10 mg tablet 10 mg PO QDAY PRN (Reason: Allergy Symptoms) RF: 0 diphenhydramine HCl 25 MG capsule 50 mg PO HS RF: 0 Bipap 1 dose .Route HS RF: 0 Oxygen 3L 1 dose .Route .MEDSUPPLY RF: 0 ferrous sulfate 324 mg (65 mg iron) tablet,delayed release 324 mg (65 mg iron) tablet,delayed release (DR/EC) 65 mg PO BID RF: 0 esomeprazole magnesium 40 mg capsule,delayed release(DR/EC) 80 mg PO BID RF: 0 Xarelto 20 mg tablet 20 mg PO QPM Qty: 90 RF: 3 Toviaz 8 mg Tablet Extended Release 24 Hr 8 mg PO QDAY RF: 0 Dupixent Syringe 300 mg/2 mL Syringe 1 mg SUBCUT 2-3XW RF: 0
[2019-12-31 10:59] LABS: POC Blood Urea Nitrogen 24 mg/dl (6-20); POC CO2 24 mmol/L (22-30); POC Calcium, Ionized 1.07 mmol/L (1.16-1.32); POC Chloride 101 mmol/L (96-108); POC Creatinine 1.2 mg/dl (0.6-1.1); POC Glucose, Random 153 mg/dL (70-105); POC Potassium 3.8 mmol/L (3.3-5.1); POC Sodium 140 mmol/L (133-145)
[2019-12-31 11:00] LABS: Hemoglobin 13.2 g/dL (11.2-15.7); Mean Cell Volume 85.4 fL (80.0-100.0); Mean Corpuscular HGB Conc 32.2 g/dL (31.0-36.0); Mean Platelet Volume 11.5 fL (7.4-10.4); Platelet Count 287 K/mcL (140-440); Red Cell Distribution Width 13.9 % (11.5-14.5); WBC 7.6 K/mcL (4.50-11.00)
[2019-12-31 11:19] LABS: ALT/SGPT 22 U/l (0-40); AST/SGOT 16 U/l (0-37); Albumin 3.9 gm/dL (3.2-5.2); Albumin/Globulin Ratio 1.3 (1.0-2.3); Alkaline Phosphatase 123 U/L (39-117); Bilirubin,Total 0.4 mg/dL (0.0-1.0); Blood Urea Nitrogen 23 mg/dl (6-20); Calcium 9.1 mg/dl (8.6-10.4); Carbon Dioxide 25 mmol/L (22-30); Chloride 100 mmol/L (96-108); Globulin 3.1 gm/dL (2.2-3.7); Glomerular Filtration Rate 49; Glucose 159 mg/dL (70-105)
[2019-12-31 11:42] LABS: Basophils % (Manual) 1 % (0-2); Eosinophils % (Manual) 1 % (0-7); Lymphocytes % 25 % (15-49); Monocytes % (Manual) 8 % (1-12); Platelet Estimate NORMAL (NORMAL); RBC Morphology NORMAL (NORMAL); Segmented Neutrophils % 65 % (38-78)
[2019-12-31] MEDS ORDERED: cefTRIAXone 1 GM VIAL IV ONE (12:13)
[2019-12-31] MEDS ORDERED: 0.9 % SODIUM CHLORIDE 1,000 ML IV SCH (12:45)
[2019-12-31] MEDS ORDERED: VANCOMYCIN 1,000 MG in 0.9 % SODIUM CHLORIDE 250 ML IV ONE (12:55)
[2019-12-31 13:11] LABS: Appearance,Urine CLOUDY; Bacteria,Urine 0 /hpf (0); Bilirubin,Urine NEG (NEG); Color,Urine YELLOW; Culture Indicated,Urine YES; Glucose,Urine (UA) NEGATIVE (NEG); Ketones,Urine NEG (NEG); Leukocyte Esterase,Urine 500 /uL (NEG); Mucus,Urine FEW /hpf (0); Nitrate,Urine NEG (NEG); Protein,Urine 30 mg/dL (NEG); Urine Blood NEG mg/dL (<0.03); Urine Hyaline Cast 3 /lpf (0-2); Urine RBC 5 /hpf (0-1); Urine Squamous Epithelial Cell 3 /hpf (0-4); Urine WBC 44 /hpf (0-4); Urobilinogen,Urine NEG (NEG)
--- NOTE | 2019-12-31 13:32 | Internal Med History&Physical ---
HPI History of Present Illness Patient information: Note initiated : 12/31/19 at 1:30 pm Service Date, if different from initiated Date: [] Patient: Elizabeth Peacock a 59 y/o F admitted on for weakness, shakey, confusion,. Chief Complaint: [] History of present illness: Ms. Peacock is a 59-year-old female Morbidly obese diabetic/history of CKD/HTN/PE on anticoagulation presents with weakness and mental status change, chills, increasing lethargy and slurring that has evolved over the last 48 hours. Patient has been on suppressive antibiotics for recurrent lower extremity lymphangitis/cellulitis and Betasept cocci bacteremia. She lives with her female significant other who got concerned as her symptoms were consistent with prior episodes of sepsis. Initial work-up was consistent with UTI/left lower extremity redness/cellulitis lymphangitis. Blood cultures were drawn and antibiotics initiated. Hospitalist service was consulted. At the time of evaluation patient is alert and able to answer most questions. She endorses history as above. She denies diarrhea but endorses to incontinence. Denies chest pain, shortness of breath headache or photophobia. She denies rash or joint swelling or pain. She noted increasing redness and s welling extended from left ankle up to medial thigh. Review of systems 10 point review system was performed and is negative except for ones discussed above PFSH PFSH All Active Problems (Updated 12/31/19 @ 13:30 by Serena Gibson [facility]) UTI (urinary tract infection) (Acute) Acute kidney injury (Acute) Sepsis (Acute) Cellulitis (Acute) Bronchitis (Acute) Pulmonary HTN (Chronic) Nocturnal hypoxemia (Chronic) Low magnesium levels (Chronic) Vitamin D deficiency (Chronic) Screening for colon cancer (Chronic) Screening for breast cancer (Acute) Hyperlipidemia (Chronic) Anxiety as acute reaction to exceptional stress (Chronic) Depression with anxiety (Chronic) Degenerative joint disease involving multiple joints (Chronic) Lymphedema of both lower extremities (Chronic) Peripheral neuropathy (Chronic) Sleep apnea treated with nocturnal BiPAP (Chronic) Allergy history, penicillin (Chronic) Thyroid trouble (Chronic) Migraines (Chronic) Hypertension (Chronic) DMII (diabetes mellitus, type 2) (Chronic) Asthma (Chronic) Arthritis (Chronic) Acid reflux (Chronic) Recurrent cellulitis of lower leg (Chronic) Medical History Acid reflux (Chronic) 12/18/2018 ranitidine 150 twice daily, Nexium 80 twice daily continue care with [facility] and her recommendations Acute kidney injury (Acute) 11/13/2019 improved, patient was to hold olmesartan but she has been taking, plan to check labs tomorrow Allergy history, penicillin (Chronic) On desensitization protocol with ID/hospitalist Anxiety as acute reaction to exceptional stress (Chronic) with some depressive component but mostly anxiety driven, no Suicidal ideation. 10/15/18 PHQ 9=6. Take Effexor in the morning and see if it helps with sleep 12/18/2018 PHQ 9= 7. Continue Effexor 225 Arthritis (Chronic) knees and fingers Asthma (Chronic) PFTs at [place] 2018, mild restrictive air way, did not really respond to bronchodilator 12/18/2018 feels improvement with Combivent, refer to pulmonology Atrial flutter (Resolved) Cardioverted at [facility], now normal sinus rhythm Degenerative joint disease involving multiple joints (Chronic) knees, bilateral Depression with anxiety (Chronic) took paxil never tried cymbalta 06/04/2019 PHQ 9= 8, continue Effexor 225 DMII (diabetes mellitus, type 2) (Chronic) 10/15/18 A1C 7.1 02/11/19 A1c 7. 05/2019 mild diabetic retinopathy 02/11/2019 neuropathy on diabetic foot exam 02/11/2019 continue Janumet 50at thousand twice daily, encouraged her to check blood sugars regularly, healthy diet, exercise, follow-up in 3 months after fasting labs Hyperlipidemia (Chronic) 02/11/2019 stable, continue atorvastatin 80 Hypertension (Chronic) hx of TIA 02/11/2019 controlled on doxazosin 8 twice daily, clonidine 0.4 twice daily metoprolol 100 twice daily, nifedipine ER 60 twice daily, potassium 10 daily 06/04/2019 blood pressures been low, decrease doxazosin to 4 mg twice daily and continue others, continue checking blood pressure at home, EKG attempted here in the clinic but machine is broken, refer for EKG, follow-up in 1 month 11/13/2019 elevated today, continue medication regimen, check labs tomorrow, check about Lasix use with Dr. Osman, follow-up 2 to 3 weeks Low magnesium levels (Chronic) Chronic 12/18/2018 stable on magnesium 400 daily 11/13/2019 plan to check labs tomorrow Lymphedema of both lower extremities (Chronic) Seen by Dr. Garcia and released. Receives massage and helpful Pain contract signed 11/201802/11/2019 okay to use tramadol during the day and hydrocodone at night, continue massage 06/04/2019 referral to physical therapy at patient request Migraines (Chronic) a lot of headaches 4-5 times a week, migraines 1-2 times a month Nocturnal hypoxemia (Chronic) Peripheral neuropathy (Chronic) Diabetic related 12/18/2018 stable on Lyrica 200 twice daily Recurrent cellulitis of lower leg (Chronic) bilat followed by Dr. Patterson 12/18/2018 currently taking Pen-Vee K 250 twice daily, continue care with Dr. Patterson 11/13/2019 continue outpatient Rocephin through PICC line, has an upcoming follow-up appointment with Dr. Patterson Screening for colon cancer (Chronic) 06/19- Cologuard Sleep apnea treated with nocturnal BiPAP (Chronic) 12/18/2018 refer to pulmonology to sort through proper settings and the need for oxygen or not Thyroid trouble (Chronic) Enlarged LT Side, pushing on esphagous, biopsy neg 12/25/18 Stable large adenoma in the left lobe of the thyroid and no change in either lobe to suggest underlying malignancy. Follow-up thyroid ultrasound annually 02/11/2019 reviewed results of ultrasound, recommend following thyroid annually with ultrasound UTI (urinary tract infection) (Acute) 11/13/2019 improved on Rocephin Vitamin D deficiency (Chronic) Chronic 11/13/2019 plan to check labs tomorrow Surgical History H/O esophagogastroduodenoscopy (Chronic) History of hysterectomy (Chronic) 2006 Hx of colonoscopy (Chronic) Patient had a colonoscopy at age 47, clear and repeat 10 years S/P Kaci fundoplication (with gastrostomy tube placement) (Chronic) Family History Mother , Stroke Atrial fib/flutter, transient Stroke Parkinson disease Father Parkinson disease CHF (congestive heart failure) Myocardial infarction Brother Cancer CHF (congestive heart failure) Social History adopted: No caregiver/support person: No foster care: No household members: significant other lives independently: Yes marital status: service: No care home: No occupational status: unemployed occupational exposures/hazards: No pets and animals: Yes hx recent travel: No sexually active: No smoking status: Never smoker alcohol intake frequency: does not drink substance use type: does not use MEDS/ALLERGIES Home Medications and Allergies Home Medications Medication Instructions Recorded Confirmed Type ipratropium 20 mcg-albuterol 100 1 puff INHALATION Q4HP PRN #4 g 05/08/18 11/18/19 Rx mcg/actuation mist for inhalation magnesium oxide 400 mg PO DAILY #90 cap 05/08/18 11/18/19 Rx nifedipine 60 mg tablet,extended 60 mg PO BID #120 tab 05/08/18 11/18/19 Rx release [] 65 mg PO BID 09/17/18 11/18/19 History Bipap 1 dose .ROUTE HS 09/17/18 11/18/19 History Oxygen 3L 1 dose .ROUTE .MEDSUPPLY 09/17/18 11/18/19 History diphenhydramine HCl 50 mg PO HS 09/17/18 11/18/19 History esomeprazole magnesium 40 mg 80 mg PO BID cap 12/18/18 11/18/19 History capsule,delayed release hydroxyzine HCl 25 mg tablet 25 mg PO QIDP PRN #180 tab 12/18/18 11/18/19 Rx cetirizine 10 mg tablet 10 mg PO QDAY PRN 01/30/19 11/18/19 History blood sugar diagnostic #50 each 02/11/19 11/18/19 Rx blood-glucose meter #1 each 02/11/19 11/18/19 Rx lancets #50 each 02/11/19 11/18/19 Rx nortriptyline 25 mg capsule 50 mg PO HS cap 06/04/19 11/18/19 History olmesartan 40 mg tablet 40 mg PO DAILY #90 tab 06/04/19 11/18/19 Rx rivaroxaban 20 mg tablet 20 mg PO QPM #90 tab 06/10/19 11/18/19 Rx atorvastatin 80 mg tablet 80 mg PO DAILY #90 tab 07/14/19 11/18/19 Rx ropinirole 1 mg tablet 1 mg PO HS #90 tab 08/12/19 11/18/19 Rx venlafaxine 150 mg 150 mg PO HS #90 cap 08/12/19 11/18/19 Rx capsule,extended release 24 hr venlafaxine 75 mg capsule,extended 75 mg PO QHS #90 cap 08/18/19 11/18/19 Rx release 24 hr metoprolol tartrate 100 mg tablet See Rx Instructions .ROUTE 09/18/19 11/18/19 Rx .COMPLEX #120 unknown measurement unit code: tablet clonidine HCl 0.2 mg tablet See Rx Instructions .ROUTE 10/14/19 11/18/19 Rx .COMPLEX #360 tablet montelukast 10 mg tablet 10 mg PO HS #90 tab 10/14/19 11/18/19 Rx pregabalin 200 mg capsule 200 mg PO BID #180 cap 10/14/19 11/18/19 Rx Dupixent Syringe 1 mg SUBCUT 2-3XW 11/05/19 11/18/19 History Toviaz 8 mg PO QDAY 11/05/19 11/18/19 History furosemide 40 mg tablet 40 mg PO QAM #90 tab 11/20/19 Rx penicillin V potassium 250 mg 250 mg PO BID #360 tab 11/20/19 11/20/19 Rx tablet potassium chloride 20 mEq 20 meq PO DAILY #90 tab 11/20/19 Rx tablet,extended release hydrocodone 7.5 mg-acetaminophen 1 tab PO QHS #30 tab 12/05/19 Rx 325 mg tablet tramadol 50 mg tablet 50 mg PO BID PRN #60 tab 12/05/19 Rx doxazosin 4 mg tablet 4 mg PO QDAY #90 tab 12/12/19 Rx ramelteon 8 mg tablet 8 mg PO HS #90 tab 12/12/19 Rx sitagliptin 50 mg-metformin 1,000 2 tab PO DAILY #180 tab 12/12/19 Rx mg tablet Allergies Allergy/AdvReac Type Severity Reaction Status Date / Time exenatide [From Byetta] Allergy Mild Hives Verified 12/31/19 10:23 latex Allergy Mild Rash Verified 12/31/19 10:23 Rosiglitazone [From Avandia] Allergy Mild Hives Verified 12/31/19 10:23 Sulfa (Sulfonamide Allergy Mild Hives Verified 12/31/19 10:23 Antibiotics) meperidine [From Demerol] AdvReac Mild Gastrointestinal Verified 12/31/19 10:23 Upset EXAM Constitutional Vitals: Temp Pulse Resp BP Pulse Ox 97.9 F 56 L 18 113/84 95 12/31/19 10:20 12/31/19 13:01 12/31/19 10:20 12/31/19 13:01 12/31/19 13:01 Morbidly obese Lethargic Head normocephalic Oral cavity moist No ear nose discharge Eye movement symmetrical Neck supple no lymphadenopathy S1-S2 occasionally irregular Nonlabored breathing Nondistended nontender pendulous abdomen Left lower extremity redness extending from ankle up to medial thigh. No cyanosis clubbing or joint swelling Skin no suspicious lesion Psych anxious, no hallucination Neuro normal higher function DATA Data Completed and Pending Labs: Labs from last 24 hours 12/31/19 12/31/19 12/31/19 11:15 10:51 10:41 WBC RBC Hgb Hct POC Hct 39.0 MCV MCH MCHC RDW Plt Count MPV Total Counted Seg Neutrophils % Band Neutrophils % Lymphocytes % Monocytes % (Manual) Eosinophils % (Manual) Basophils % (Manual) Platelet Estimate RBC Morphology VBG Lactic Acid 2.9 H POC Sodium 140 Sodium POC Potassium 3.8 Potassium POC Chloride 101 Chloride Carbon Dioxide POC Total CO2 24 Anion Gap POC BUN 24 H BUN Creatinine POC Creatinine 1.2 H GFR Calculation Glucose POC Glucose 153 H Calcium POC WB Ioniz Calcium 1.07 L Total Bilirubin AST ALT Alkaline Phosphatase Total Protein Albumin Globulin Albumin/Globulin Ratio Urine Color Yellow Urine Appearance Cloudy Urine pH 5.0 Ur Specific [place] 1.030 Urine Protein 30 A Urine Glucose (UA) Negative Urine Ketones Neg Urine Occult Blood Neg Urine Nitrate Neg Urine Bilirubin Neg Urine Urobilinogen Neg Ur Leukocyte Esterase 500 A Urine RBC 5 H Urine WBC 44 H Ur Squamous Epith Cells 3 Urine Bacteria 0 Hyaline Casts 3 H Urine Mucus Few Ur Culture Indicated? Yes 12/31/19 12/31/19 10:34 10:34 WBC 7.6 RBC 4.80 Hgb 13.2 Hct 41.0 POC Hct MCV 85.4 MCH 27.5 MCHC 32.2 RDW 13.9 Plt Count 287 MPV 11.5 H Total Counted 100 Seg Neutrophils % 65 Band Neutrophils % Not Reportable Lymphocytes % 25 Monocytes % (Manual) 8 Eosinophils % (Manual) 1 Basophils % (Manual) 1 Platelet Estimate Normal RBC Morphology Normal VBG Lactic Acid POC Sodium Sodium 140 POC Potassium Potassium 4.0 POC Chloride Chloride 100 Carbon Dioxide 25 POC Total CO2 Anion Gap 15.0 POC BUN BUN 23 H Creatinine 1.2 H POC Creatinine GFR Calculation 49 Glucose 159 H POC Glucose Calcium 9.1 POC WB Ioniz Calcium Total Bilirubin 0.4 AST 16 ALT 22 Alkaline Phosphatase 123 H Total Protein 7.0 Albumin 3.9 Globulin 3.1 Albumin/Globulin Ratio 1.3 Urine Color Urine Appearance Urine pH Ur Specific [place] Urine Protein Urine Glucose (UA) Urine Ketones Urine Occult Blood Urine Nitrate Urine Bilirubin Urine Urobilinogen Ur Leukocyte Esterase Urine RBC Urine WBC Ur Squamous Epith Cells Urine Bacteria Hyaline Casts Urine Mucus Ur Culture Indicated? A/P Narrative A/P Narrative: * Left lower extremity cellulitis with lymphangitis lower extremity, patient has been on suppressive antibiotics. Started on vancomycin/Rocephin. * Complicated UTI-initiate antibiotics * Acute change in mental status secondary to sepsis endorgan dysfunction. Continue monitoring * Mild THOMAS -creatinine 1.2 secondary to sepsis * History of PE/DVT on rivaroxaban * Anxiety disorder continue venlafaxine/nortriptyline * Chronic pain secondary DJD on hydrocodone acetaminophen * IRA/OHS on home BiPAP * Hypertension continue home dose clonidine/doxazosin/nifedipine, will hold ARB in light of THOMAS * Hyperlipidemia continue statin * Morbid obesity with a BMI over 60 initiate directed therapies/dietary intervention * Full code Plan * vancomycin/Rocephin * Pre-existing medical conditions management on home meds * Continue monitoring renal function * PT OT nutrition support Time Spent With Patient Time: Total time spent is greater than 50% in coordination of care (as documented) at patient's floor/unit and/or counseling patient:
[2019-12-31] MEDS ORDERED: MAGNESIUM SULFATE 2 GM/50 ML BAG IV PRN (14:19)
[2019-12-31] MEDS ORDERED: cefTRIAXone 2 GM in DEXTROSE 5% IN WATER 50 ML IV SCH (14:19)
[2019-12-31] MEDS ORDERED: POLYETHYLENE GLYCOL 3350 17 GM PACKET PO PRN (14:19)
[2019-12-31] MEDS ORDERED: VANCOMYCIN PER PHARMACY IV SCH (14:19)
[2019-12-31] MEDS ORDERED: ONDANSETRON 4 MG ODT TABLET SL PRN (14:19)
[2019-12-31] MEDS ORDERED: ACETAMINOPHEN 650 MG/65 ML BOTTLE IV PRN (14:19)
[2019-12-31] MEDS ORDERED: DEXTROSE 50% 50 ML VIAL IV PRN (14:19)
[2019-12-31] MEDS ORDERED: DEXTROSE 31 GM ORAL.SUSP PO PRN (14:19)
[2019-12-31] MEDS ORDERED: POTASSIUM CHLORIDE 20 MEQ PACKET PO PRN (14:19)
[2019-12-31] MEDS ORDERED: BISACODYL 10 MG SUPP.RECT PR PRN (14:19)
[2019-12-31] MEDS ORDERED: ONDANSETRON 4 MG/2 ML VIAL IV PRN (14:19)
[2019-12-31] MEDS ORDERED: 0.9 % SODIUM CHLORIDE 1,000 ML IV ONE (14:31)
[2019-12-31] MEDS ORDERED: IPRATROPIUM/ALBUTEROL SULFATE 1 PUFF INHALER INH PRN (15:14)
[2019-12-31] MEDS ORDERED: CETIRIZINE 10 MG TABLET PO PRN (15:14)
[2019-12-31] MEDS: FERROUS SULFATE 325 MG TABLET PO SCH (16:13)
[2019-12-31] MEDS: ACETAMINOPHEN 325 MG TABLET PO PRN (16:13)
[2019-12-31] MEDS: PANTOPRAZOLE 40 MG TABLET PO SCH (16:14)
[2019-12-31] MEDS: 0.9 % SODIUM CHLORIDE 10 ML SYRINGE IV SCH ×2 (16:15→20:58)
[2019-12-31] MEDS: INSULIN LISPRO 1 UNIT/0.01 ML UNIT SQ SCH ×2 (16:16→20:40)
[2019-12-31] MEDS: traMADol 50 MG TABLET PO PRN (18:42)
[2019-12-31] MEDS: DOCUSATE SODIUM 100 MG CAPSULE PO SCH (20:39)
[2019-12-31] MEDS: SENNOSIDES/DOCUSATE SODIUM 1 TAB TABLET PO SCH (20:40)
[2019-12-31] MEDS: RAMELTEON 8 MG TABLET PO SCH (20:40)
[2019-12-31] MEDS: diphenhydrAMINE 25 MG CAPSULE PO SCH (20:56)
[2019-12-31] MEDS: METOPROLOL TARTRATE 50 MG TABLET PO SCH (20:56)
[2019-12-31] MEDS: MONTELUKAST 10 MG TABLET PO SCH (20:56)
[2019-12-31] MEDS: VENLAFAXINE 75 MG CAP.XL.24H PO SCH (20:56)
[2019-12-31] MEDS: RIVAROXABAN 20 MG TABLET PO SCH (20:56)
[2019-12-31] MEDS: NORTRIPTYLINE 25 MG CAPSULE PO SCH (20:56)
[2019-12-31] MEDS: rOPINIRole 1 MG TABLET PO SCH (20:56)
[2019-12-31] MEDS: NIFEdipine 30 MG TAB.XL.24H PO SCH (20:56)
[2019-12-31] MEDS: PREGABALIN 100 MG CAPSULE PO SCH (20:57)
[2019-12-31] MEDS: ATORVASTATIN 40 MG TABLET PO SCH (20:57)
[2019-12-31] MEDS: HYDROCODONE/APAP 7.5/325MG TABLET PO PRN (20:57)
[2019-12-31] MEDS: MELATONIN 3 MG TABLET PO PRN (20:57)
[2019-12-31] MEDS: hydrOXYzine 25 MG TABLET PO SCH (20:57)
[2019-12-31] MEDS: VANCOMYCIN 1,500 MG in 0.9 % SODIUM CHLORIDE 500 ML IV SCH (20:58)
[2019-12-31] MEDS ORDERED: VENLAFAXINE 150 MG CAP.XL.24H PO SCH (21:00)
[2020-01-01] MEDS: 0.9 % SODIUM CHLORIDE 10 ML SYRINGE IV SCH ×3 (04:43→21:49)
[2020-01-01 06:41] LABS: Hematocrit 37.6 % (34.1-44.9); Hemoglobin 12.2 g/dL (11.2-15.7); Mean Cell Volume 85.6 fL (80.0-100.0); Mean Corpuscular HGB Conc 32.4 g/dL (31.0-36.0); Mean Platelet Volume 11.6 fL (7.4-10.4); Platelet Count 233 K/mcL (140-440); RBC 4.39 M/mcL (3.59-5.38); Red Cell Distribution Width 13.8 % (11.5-14.5); WBC 6.1 K/mcL (4.50-11.00)
[2020-01-01] MEDS: INSULIN LISPRO 1 UNIT/0.01 ML UNIT SQ SCH ×4 (07:02→21:50)
[2020-01-01] MEDS: ACETAMINOPHEN 325 MG TABLET PO PRN (07:09)
[2020-01-01] MEDS: PANTOPRAZOLE 40 MG TABLET PO SCH ×2 (07:10→16:30)
[2020-01-01 07:12] LABS: Bilirubin,Direct < 0.2 mg/dL (0.0-0.3); Chloride 102 mmol/L (96-108)
[2020-01-01 07:16] LABS: ALT/SGPT 18 U/l (0-40); AST/SGOT 18 U/l (0-37); Albumin 3.4 gm/dL (3.2-5.2); Albumin/Globulin Ratio 1.2 (1.0-2.3); Alkaline Phosphatase 87 U/L (39-117); Bilirubin,Total 0.5 mg/dL (0.0-1.0); Blood Urea Nitrogen 20 mg/dl (6-20); Calcium 8.5 mg/dl (8.6-10.4); Carbon Dioxide 20 mmol/L (22-30); Globulin 2.9 gm/dL (2.2-3.7); Glomerular Filtration Rate 62; Glucose 128 mg/dL (70-105); Lactate Dehydrogenase 257 U/L (94-250); Phosphorous 3.8 mg/dL (2.7-4.5); Triglycerides 178 mg/dl (<150); Uric Acid 6.8 mg/dL (2.5-8.0)
[2020-01-01 08:39] LABS: Eosinophils % (Manual) 4 % (0-7); Lymphocytes % 22 % (15-49); Monocytes % (Manual) 7 % (1-12); Platelet Estimate NORMAL (NORMAL); RBC Morphology NORMAL (NORMAL); Segmented Neutrophils % 67 % (38-78)
[2020-01-01] MEDS: METOPROLOL TARTRATE 50 MG TABLET PO SCH ×2 (09:59→21:43)
[2020-01-01] MEDS: DOXAZOSIN 4 MG TABLET PO SCH (09:59)
[2020-01-01] MEDS: sitaGLIPtin 50 MG TABLET PO SCH (10:00)
[2020-01-01] MEDS: metFORMIN 500 MG TABLET PO SCH (10:00)
[2020-01-01] MEDS: MULTIVIT,THER IRON,CA,FA & MIN 1 TABLET PO SCH (10:01)
[2020-01-01] MEDS: OLMESARTAN MEDOXOMIL 20 MG TABLET PO SCH (10:01)
[2020-01-01] MEDS: NIFEdipine 30 MG TAB.XL.24H PO SCH ×2 (10:02→21:45)
[2020-01-01] MEDS: DOCUSATE SODIUM 100 MG CAPSULE PO SCH ×2 (10:02→21:49)
[2020-01-01] MEDS: PREGABALIN 100 MG CAPSULE PO SCH ×2 (10:02→21:47)
[2020-01-01] MEDS: FUROSEMIDE 40 MG TABLET PO SCH (10:03)
[2020-01-01] MEDS: POTASSIUM CHLORIDE 20 MEQ TABLET PO SCH (10:03)
[2020-01-01] MEDS: hydrOXYzine 25 MG TABLET PO SCH ×2 (10:03→21:45)
[2020-01-01] MEDS: FERROUS SULFATE 325 MG TABLET PO SCH ×2 (10:03→16:30)
[2020-01-01] MEDS: FESOTERODINE 8 MG PO SCH (10:04)
[2020-01-01] MEDS: MAGNESIUM OXIDE 400 MG TABLET PO SCH (10:04)
[2020-01-01] MEDS: cefTRIAXone 2 GM in DEXTROSE 5% IN WATER 50 ML IV SCH (10:08)
--- NOTE | 2020-01-01 10:13 | Internal Med Progress Note ---
SUBJECTIVE Subjective Patient information: Note initiated : 01/01/20 at 10:10 am Service Date, if different from initiated Date: [] Patient: Elizabeth Peacock 59 y/o F admitted on 12/31/19 for weakness, shakey, confusion,. Chief Complaint: [] History of present illness: Ms. Peacock is a 59-year-old female Morbidly obese diabetic/history of CKD/HTN/PE on anticoagulation presents with weakness and mental status change, chills, increasing lethargy and slurring that has evolved over the last 48 hours. Patient has been on suppressive antibiotics for recurrent lower extremity lymphangitis/cellulitis and Betasept cocci bacteremia. She lives with her female significant other who got concerned as her symptoms were consistent with prior episodes of sepsis. Initial work-up was consistent with UTI/left lower extremity redness/cellulitis lymphangitis. Blood cultures were drawn and antibiotics initiated. Hospitalist service was consulted. At the time of evaluation patient is alert and able to answer most questions. She endorses history as above. She denies diarrhea but endorses to incont inence. Denies chest pain, shortness of breath headache or photophobia. She denies rash or joint swelling or pain. She noted increasing redness and swelling extended from left ankle up to medial thigh. 12/31-patient doing better. Much improved mentation. White count 6.1. Cultures negative so far. Creatinine down to 1. Improving blood sugars. Continue antibiotics. Possible discharge in 24 hours. No overnight fever chills Constitutional Vitals: Vital Signs Temp Pulse Resp BP Pulse Ox 98.5 F 69 16 177/80 92 01/01/20 08:00 01/01/20 08:00 01/01/20 08:00 01/01/20 08:00 01/01/20 08:00 Period Temp Pulse Resp BP Sys/Merino Pulse Ox Last 24 Hr 97.4 F-98.5 F 52-103 12-18 106-177/59-100 89-97 Intake and Output 12/31/19 01/01/20 01/01/20 21:59 05:59 13:59 Intake Total 1390 1000 Output Total 350 650 600 Balance 1040 350 -600 Weight 165.193 kg morbidly obese nonlabored breathing Nondistended abdomen No anxiety Intake & Output: Intake & Output 0901/01/20 01/01/20 21:59 05:59 13:59 Intake Total 1390 1000 Output Total 350 650 600 Balance 1040 350 -600 Weight 165.193 kg Intake: IV 1150 500 Sodium Chloride 0.9% 1,000 ml @ 1000 Wide Open IV BOLUS ONE Rx#: [id number] Vancomycin 1,000 mg In Sodium 150 Chloride 0.9% 250 ml @ 250 mls/ hr IV ONCE ONE Rx#:[id number] Vancomycin 1,500 mg In Sodium 500 Chloride 0.9% 500 ml @ 333.3 mls/hr IV Q12H [facility] Rx#: [id number] Oral 240 500 Output: Void Amount 350 650 600 Other: Urine Appearance Cloudy Urine Color Bright Yellow Urine Odor Strong Stool Size Large Stool Color Brown Stool Consistency Formed # Bowel Movements 1 OBJ DATA Labs CBC & Chem 7: 01/01/20 05:20 01/01/20 05:20 Labs: Abnormal Lab Results 01/01/20 01/01/20 12/31/19 05:20 05:20 11:15 MPV 11.6 H VBG Lactic Acid Carbon Dioxide 20 L POC BUN BUN Creatinine POC Creatinine Glucose 128 H POC Glucose Calcium 8.5 L POC WB Ioniz Calcium Alkaline Phosphatase Lactate Dehydrogenase 257 H Triglycerides 178 H Urine Protein 30 A Ur Leukocyte Esterase 500 A Urine RBC 5 H Urine WBC 44 H Hyaline Casts 3 H 12/31/19 12/31/19 12/31/19 10:51 10:41 10:34 MPV VBG Lactic Acid 2.9 H Carbon Dioxide POC BUN 24 H BUN 23 H Creatinine 1.2 H POC Creatinine 1.2 H Glucose 159 H POC Glucose 153 H Calcium POC WB Ioniz Calcium 1.07 L Alkaline Phosphatase 123 H Lactate Dehydrogenase Triglycerides Urine Protein Ur Leukocyte Esterase Urine RBC Urine WBC Hyaline Casts 12/31/19 10:34 MPV 11.5 H VBG Lactic Acid Carbon Dioxide POC BUN BUN Creatinine POC Creatinine Glucose POC Glucose Calcium POC WB Ioniz Calcium Alkaline Phosphatase Lactate Dehydrogenase Triglycerides Urine Protein Ur Leukocyte Esterase Urine RBC Urine WBC Hyaline Casts Meds: Medications Acetaminophen (Tylenol) 650 mg PO Q4-6HP PRN; Protocol PRN Reason: Per Pain Protocol/Fever > 101 Last Admin: 01/01/20 07:09 Dose: 650 mg Documented by: Hydrocodone Bitart/Acetaminophen ([place] 7.5/325mg) 1 tab PO HSP PRN; Protocol PRN Reason: Pain Last Admin: 12/31/19 20:57 Dose: 1 tab Documented by: Albuterol/Ipratropium (Combivent) 1 puff INH Q4HP PRN PRN Reason: Shortness Of Breath Atorvastatin Calcium (Lipitor) 80 mg PO HS [facility] Last Admin: 12/31/19 20:57 Dose: 80 mg Documented by: Bisacodyl (Dulcolax) 10 mg PA Q2-3DAYS PRN PRN Reason: Constipation Cetirizine HCl (Zyrtec) 10 mg PO QDAY PRN PRN Reason: Allergy Symptoms Dextrose (Dextrose 50%) 0 ml IV UD PRN PRN Reason: Hypoglycemia Diagnostic Test (Pha) (Accu-Chek) 1 each FS ACHS [facility] Last Admin: 01/01/20 07:00 Dose: 1 each Documented by: Diphenhydramine HCl (Benadryl) 50 mg PO [facility] Last Admin: 12/31/19 20:56 Dose: 50 mg Documented by: Docusate Sodium (Colace) 100 mg PO BID [facility] Last Admin: 01/01/20 10:02 Dose: Not Given Documented by: Doxazosin Mesylate (Cardura) 4 mg PO QDAY [facility] Last Admin: 01/01/20 09:59 Dose: 4 mg Documented by: Ferrous Sulfate (Ferrous Sulfate) 325 mg PO BIDCC [facility] Last Admin: 01/01/20 10:03 Dose: 325 mg Documented by: Furosemide (Lasix) 40 mg PO QAM [facility] Last Admin: 01/01/20 10:03 Dose: 40 mg Documented by: Glucose (Insta-Glucose) 15 gm PO PRN PRN PRN Reason: Hypoglycemia Hydroxyzine HCl (Atarax) 25 mg PO BID [facility] Last Admin: 01/01/20 10:03 Dose: 25 mg Documented by: Acetaminophen (Ofirmev) 650 mg in 65 mls @ 130 mls/hr IV Q6HP PRN; Protocol PRN Reason: Per Pain Protocol/Fever > 101 Magnesium Sulfate (Magnesium Sulfate) 2 gm in 50 mls @ 50 mls/hr IV UD PRN PRN Reason: MG = or < 1.7 Ceftriaxone Sodium 2 gm/ (Dextrose) 50 mls @ 100 mls/hr IV Q24H [facility]; Protocol Last Admin: 01/01/20 10:08 Dose: 100 mls/hr Documented by: Vancomycin HCl 1,500 mg/ (Sodium Chloride) 500 mls @ 333.3 mls/hr IV Q12H [facility] Last Infusion: 12/31/19 22:40 Dose: Infused Documented by: Insulin Human Lispro (Humalog) 0 unit SQ ACHS [facility]; Protocol Last Admin: 01/01/20 07:02 Dose: Not Given Documented by: Iron Carb/Multivit/Dupo/Folic Acid (Multivitamin W/Minerals) 1 tab PO DAILY [facility] Last Admin: 01/01/20 10:01 Dose: 1 tab Documented by: Magnesium Oxide (Magnesium Oxide) 400 mg PO DAILY [facility] Last Admin: 01/01/20 10:04 Dose: 400 mg Documented by: Melatonin (Melatonin 3mg Tablet) 3 mg PO HSP PRN PRN Reason: Insomnia Last Admin: 12/31/19 20:57 Dose: 3 mg Documented by: Metformin HCl (Glucophage) 2,000 mg PO [facility] Last Admin: 01/01/20 10:00 Dose: 2,000 mg Documented by: Metoprolol Tartrate (Lopressor) 100 mg PO BID [facility] Last Admin: 01/01/20 09:59 Dose: 100 mg Documented by: Montelukast Sodium (Singular) 10 mg PO [facility] Last Admin: 12/31/19 20:56 Dose: 10 mg Documented by: Nifedipine (Procardia Xl) 60 mg PO BID [facility] Last Admin: 01/01/20 10:02 Dose: 60 mg Documented by: Nortriptyline HCl (Pamelor) 50 mg PO [facility] Last Admin: 12/31/19 20:56 Dose: 50 mg Documented by: Olmesartan (Benicar) 40 mg PO DAILY [facility] Last Admin: 01/01/20 10:01 Dose: 40 mg Documented by: Ondansetron HCl (Zofran Odt) 4 mg SL Q4-6HP PRN; Protocol PRN Reason: Nausea And Vomiting Ondansetron HCl (Zofran) 4 mg IV Q4-6HP PRN; Protocol PRN Reason: Nausea And Vomiting Pantoprazole Sodium (Protonix) 40 mg PO BIDAC [facility] Last Admin: 01/01/20 07:10 Dose: 40 mg Documented by: Fesoterodine [Toviaz (] 8 Mg Tab) 1 dose PO QDAY [facility] Last Admin: 01/01/20 10:04 Dose: Not Given Documented by: Polyethylene Glycol (Miralax) 17 gm PO DAILYP PRN PRN Reason: Constipation Potassium Chloride (Klor-Con) 40 meq PO DAILYP PRN PRN Reason: K+ < 3.5 Potassium Ch[facility] ([facility]dur) [facility] Last Admin: 01/01/20 10:03 Dose: 20 meq Documented by: Pregabalin (Lyrica) 200 mg PO BID [facility] Last Admin: 01/01/20 10:02 Dose: 200 mg Documented by: Ramelteon (Rozerem) 8 mg PO [facility] Last Admin: 12/31/19 20:40 Dose: Not Given Documented by: Rivaroxaban (Xarelto) 20 mg PO QPM [facility] Last Admin: 12/31/19 20:56 Dose: 20 mg Documented by: Ropinirole HCl (Requip) 1 mg PO [facility] Last Admin: 12/31/19 20:56 Dose: 1 mg Documented by: Senna/Docusate Sodium (Senna Plus Tablet) 1 tab PO [facility] Last Admin: 12/31/19 20:40 Dose: Not Given Documented by: Sitagliptin Phosphate (Januvia) 100 mg PO DAILY [facility] Last Admin: 01/01/20 10:00 Dose: 100 mg Documented by: Sodium Chloride (Saline Flush) 10 ml IV Q8 [facility] Last Admin: 01/01/20 04:43 Dose: 10 ml Documented by: Tramadol HCl (Ultram) 50 mg PO BIDP PRN; Protocol PRN Reason: Pain Last Admin: 12/31/19 18:42 Dose: 50 mg Documented by: Vancomycin HCl (Vancomycin Per Pharmacy) 1 order IV [facility]; Protocol Venlafaxine HCl (Effexor Xr) 225 mg PO QHS [facility] Last Admin: 12/31/19 20:56 Dose: 225 mg Documented by: A/P Narrative A/P Narrative: * Left lower extremity cellulitis with lymphangitis lower extremity, clinically improving on antibiotics. De-escalate. * Complicated UTI-clinically improving on antibiotics * Acute change in mental status secondary to sepsis endorgan dysfunction. Clinically resolved * Mild THOMAS -improved, creatinine downtrending. * History of PE/DVT on rivaroxaban * Anxiety disorder continue venlafaxine/nortriptyline * Chronic pain secondary DJD on hydrocodone acetaminophen * IRA/OHS on home BiPAP * Hypertension continue home dose clonidine/doxazosin/nifedipine, will hold ARB in light of THOMAS * Hyperlipidemia continue statin * Morbid obesity with a BMI over 60 initiate directed therapies/dietary intervention * Full code Plan * DC vancomycin, continueRocephin * Pre-existing medical conditions management on home meds * Limb elevation * PT OT nutrition support * Discharge planning Time Spent With Patient Time: Total time spent is greater than 50% in coordination of care (as documented) at patient's floor/unit and/or counseling patient:
[2020-01-01] MEDS: VANCOMYCIN 1,500 MG in 0.9 % SODIUM CHLORIDE 500 ML IV SCH (14:10)
[2020-01-01] MEDS: traMADol 50 MG TABLET PO PRN (14:37)
[2020-01-01] MEDS: VENLAFAXINE 75 MG CAP.XL.24H PO SCH (21:40)
[2020-01-01] MEDS: SENNOSIDES/DOCUSATE SODIUM 1 TAB TABLET PO SCH (21:44)
[2020-01-01] MEDS: rOPINIRole 1 MG TABLET PO SCH (21:44)
[2020-01-01] MEDS: RIVAROXABAN 20 MG TABLET PO SCH (21:44)
[2020-01-01] MEDS: diphenhydrAMINE 25 MG CAPSULE PO SCH (21:46)
[2020-01-01] MEDS: NORTRIPTYLINE 25 MG CAPSULE PO SCH (21:46)
[2020-01-01] MEDS: cloNIDine HCL 0.1 MG TABLET PO SCH (21:47)
[2020-01-01] MEDS: ATORVASTATIN 40 MG TABLET PO SCH (21:48)
[2020-01-01] MEDS: MONTELUKAST 10 MG TABLET PO SCH (21:48)
[2020-01-01] MEDS: RAMELTEON 8 MG TABLET PO SCH (21:50)
[2020-01-02] MEDS: MELATONIN 3 MG TABLET PO PRN (00:20)
[2020-01-02] MEDS: HYDROCODONE/APAP 7.5/325MG TABLET PO PRN (00:20)
[2020-01-02] MEDS: 0.9 % SODIUM CHLORIDE 10 ML SYRINGE IV SCH (05:32)
[2020-01-02 06:35] LABS: Hematocrit 39.6 % (34.1-44.9); Hemoglobin 12.9 g/dL (11.2-15.7); Mean Corpuscular HGB Conc 32.6 g/dL (31.0-36.0); Platelet Count 241 K/mcL (140-440); RBC 4.66 M/mcL (3.59-5.38); Red Cell Distribution Width 13.8 % (11.5-14.5); WBC 6.2 K/mcL (4.50-11.00)
[2020-01-02 07:00] LABS: Bilirubin,Direct < 0.2 mg/dL (0.0-0.3); Chloride 100 mmol/L (96-108)
[2020-01-02 07:03] LABS: ALT/SGPT 21 U/l (0-40); AST/SGOT 19 U/l (0-37); Albumin 3.7 gm/dL (3.2-5.2); Albumin/Globulin Ratio 1.2 (1.0-2.3); Alkaline Phosphatase 95 U/L (39-117); Bilirubin,Total 0.3 mg/dL (0.0-1.0); Blood Urea Nitrogen 17 mg/dl (6-20); Calcium 9.2 mg/dl (8.6-10.4); Carbon Dioxide 25 mmol/L (22-30); Glomerular Filtration Rate 70; Glucose 148 mg/dL (70-105); Lactate Dehydrogenase 257 U/L (94-250); Phosphorous 3.7 mg/dL (2.7-4.5); Triglycerides 160 mg/dl (<150); Uric Acid 6.6 mg/dL (2.5-8.0)
[2020-01-02] MEDS: INSULIN LISPRO 1 UNIT/0.01 ML UNIT SQ SCH (07:09)
[2020-01-02] MEDS: PANTOPRAZOLE 40 MG TABLET PO SCH (07:25)
[2020-01-02] MEDS: PREGABALIN 100 MG CAPSULE PO SCH (08:45)
[2020-01-02] MEDS: cloNIDine HCL 0.1 MG TABLET PO SCH (08:46)
[2020-01-02] MEDS: METOPROLOL TARTRATE 50 MG TABLET PO SCH (08:46)
[2020-01-02] MEDS: metFORMIN 500 MG TABLET PO SCH (08:47)
[2020-01-02] MEDS: OLMESARTAN MEDOXOMIL 20 MG TABLET PO SCH (08:47)
[2020-01-02] MEDS: DOXAZOSIN 4 MG TABLET PO SCH (08:47)
[2020-01-02] MEDS: FUROSEMIDE 40 MG TABLET PO SCH (08:48)
[2020-01-02] MEDS: FERROUS SULFATE 325 MG TABLET PO SCH (08:48)
[2020-01-02] MEDS: NIFEdipine 30 MG TAB.XL.24H PO SCH (08:48)
[2020-01-02] MEDS: MAGNESIUM OXIDE 400 MG TABLET PO SCH (08:48)
[2020-01-02] MEDS: sitaGLIPtin 50 MG TABLET PO SCH (08:48)
[2020-01-02] MEDS: POTASSIUM CHLORIDE 20 MEQ TABLET PO SCH (08:48)
[2020-01-02] MEDS: hydrOXYzine 25 MG TABLET PO SCH (08:48)
[2020-01-02] MEDS: MULTIVIT,THER IRON,CA,FA & MIN 1 TABLET PO SCH (08:48)
[2020-01-02] MEDS: FESOTERODINE 8 MG PO SCH (08:49)
[2020-01-02] MEDS: cefTRIAXone 2 GM in DEXTROSE 5% IN WATER 50 ML IV SCH (08:49)
[2020-01-02] MEDS: DOCUSATE SODIUM 100 MG CAPSULE PO SCH (08:49)
--- NOTE | 2020-01-02 09:22 | Discharge Summary ---
Discharge Provider Provider Patient information: Note initiated : 01/02/20 at 9:18 am Service Date, if different from initiated Date: [] Patient: Elizabeth Paecock 59 y/o F admitted on 12/31/19 for weakness, shakey, confusion,. Chief Complaint: Discharge diagnosis * Left lower extremity cellulitis with lymphangitis lower extremity, clinically resolved on antibiotics. Continue additional 4 days IV Rocephin * Complicated UTI clinically resolved. * Acute change in mental status secondary to sepsis endorgan dysfunction. Clinically back to baseline. * Mild THOMAS -fully resolved. 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 Peacock is a 59-year-old female Morbidly obese diabetic/history of CKD/HTN/PE on anticoagulation presents with weakness and mental status change, chills, increasing lethargy and slurring that has evolved over the last 48 hours. Patient has been on suppressive antibiotics for recurrent lower extremity lymphangitis/cellulitis and Betasept cocci bacteremia. She lives with her female significant other who got concerned as her symptoms were consistent with prior episodes of sepsis. Initial work-up was consistent with UTI/left lower extremity redness/cellulitis lymphangitis. Blood cultures were drawn and antibiotics initiated. Hospitalist service was consulted. At the time of evaluation patient is alert and able to answer most questions. She endorses history as above. She denies diarrhea but endorses to incontinence. Denies chest pain, shortness of breath headache or photophobia. She denies rash or joint swelling or pain. She noted increasing redness and swelling extended from left ankle up to medial thigh. 12/31-patient doing better. Much improved mentation. White count 6.1. Cultures negative so far. Creatinine down to 1. Improving blood sugars. Continue antibiotics. Possible discharge in 24 hours. No overnight fever chills 01/01-patient doing well. Denies overnight fever chills. Mentation at baseline. No lower extremity swelling redness. Continue additional 4 days Rocephin followed by suppressive penicillin. Patient has adequate prescriptions of oral penicillin from her primary care physician. Discharging with advice as below. Date of admission: 12/31/19 14:29 Discharge date: 01/02/20 Primary care physician: BERTA Yang Consults: 12/31/19 Consult to Physician [CONS] Stat Comment: Consulting Provider: Omkar Hogue Reason For Exam: Physician to Consult Discharge Meds Discharge Medications Home Medications ipratropium 20 mcg-albuterol 100 mcg/actuation mist for inhalation 1 puff INHALATION Q4HP PRN #4 g 05/08/18 [Rx Confirmed 12/31/19 Last Taken Unknown] magnesium oxide 400 mg PO DAILY #90 cap 05/08/18 [Rx Confirmed 12/31/19 Last Taken 09/17/18 07:30] nifedipine 60 mg tablet,extended release 60 mg PO BID #120 tab 05/08/18 [Rx Confirmed 12/31/19 Last Taken 09/17/18 07:30] [] 65 mg PO BID 09/17/18 [History Confirmed 12/31/19 Last Taken 09/17/18 07:30] Bipap 1 dose .ROUTE HS 09/17/18 [History Confirmed 12/31/19 Last Taken Unknown] Oxygen 3L 1 dose .ROUTE .MEDSUPPLY 09/17/18 [History Confirmed 12/31/19 Last Taken Unknown] diphenhydramine HCl 50 mg PO HS 09/17/18 [History Confirmed 12/31/19 Last Taken 09/16/18] esomeprazole magnesium 40 mg capsule,delayed release 40 mg PO BID cap 12/18/18 [History Confirmed 12/31/19 Last Taken Unknown] cetirizine 10 mg tablet 10 mg PO QDAY PRN 01/30/19 [History Confirmed 12/31/19 Last Taken Unknown] blood sugar diagnostic #50 each 02/11/19 [Rx Confirmed 12/31/19 Last Taken Unknown] blood-glucose meter #1 each 02/11/19 [Rx Confirmed 12/31/19 Last Taken Unknown] lancets #50 each 02/11/19 [Rx Confirmed 12/31/19 Last Taken Unknown] nortriptyline 25 mg capsule 50 mg PO HS cap 06/04/19 [History Confirmed 12/31/19 Last Taken Unknown] olmesartan 40 mg tablet 40 mg PO DAILY #90 tab 06/04/19 [Rx Confirmed 12/31/19 Last Taken Unknown] rivaroxaban 20 mg tablet 20 mg PO QPM #90 tab 06/10/19 [Rx Confirmed 12/31/19 Last Taken Unknown] atorvastatin 80 mg tablet 80 mg PO DAILY #90 tab 07/14/19 [Rx Confirmed 12/31/19 Last Taken Unknown] ropinirole 1 mg tablet 1 mg PO HS #90 tab 08/12/19 [Rx Confirmed 12/31/19 Last Taken Unknown] venlafaxine 150 mg capsule,extended release 24 hr 150 mg PO HS #90 cap 08/12/19 [Rx Confirmed 12/31/19 Last Taken Unknown] venlafaxine 75 mg capsule,extended release 24 hr 75 mg PO QHS #90 cap 08/18/19 [Rx Confirmed 12/31/19 Last Taken Unknown] metoprolol tartrate 100 mg tablet See Rx Instructions .ROUTE .COMPLEX #120 unknown measurement unit code: tablet 09/18/19 [Rx Confirmed 12/31/19 Last Taken Unknown] montelukast 10 mg tablet 10 mg PO HS #90 tab 10/14/19 [Rx Confirmed 12/31/19 Last Taken Unknown] pregabalin 200 mg capsule 200 mg PO BID #180 cap 10/14/19 [Rx Confirmed 12/31/19 Last Taken Unknown] Dupixent Syringe 1 mg SUBCUT Q2W 11/05/19 [History Confirmed 12/31/19 Last Taken Unknown] Toviaz 8 mg PO QDAY 11/05/19 [History Confirmed 12/31/19 Last Taken Unknown] furosemide 40 mg tablet 40 mg PO QAM #90 tab 11/20/19 [Rx Confirmed 12/31/19 Last Taken Unknown] penicillin V potassium 250 mg tablet 250 mg PO BID #360 tab 11/20/19 [Rx Confirmed 12/31/19 Last Taken Unknown] potassium chloride 20 mEq tablet,extended release 20 meq PO DAILY #90 tab 11/20/19 [Rx Confirmed 12/31/19 Last Taken Unknown] doxazosin 4 mg tablet 4 mg PO QDAY #90 tab 12/12/19 [Rx Confirmed 12/31/19 Last Taken Unknown] ramelteon 8 mg tablet 8 mg PO HS #90 tab 12/12/19 [Rx Confirmed 12/31/19 Last Taken Unknown] sitagliptin 50 mg-metformin 1,000 mg tablet 2 tab PO DAILY #180 tab 12/12/19 [Rx Confirmed 12/31/19 Last Taken Unknown] hydrocodone 7.5 mg-acetaminophen 325 mg tablet 1 tab PO QHS #30 tab 12/31/19 [Rx Confirmed 12/31/19 Last Taken 12/30/19 22:00] hydroxyzine HCl 25 mg PO BID 12/31/19 [History Confirmed 12/31/19 Last Taken Unknown] tramadol 50 mg tablet 50 mg PO BID PRN #60 tab 12/31/19 [Rx Confirmed 12/31/19 Last Taken 12/30/19 22:00] clonidine HCl 0.4 mg PO BID 01/01/20 [History Confirmed 01/01/20 Last Taken Unknown] ceftriaxone in dextrose,iso-os 2 g IV Q24H #4 ea 01/02/20 [Rx Last Taken Unknown] COURSE Hospital Course Hospital course: . Discharge diagnosis: . Time Spent with Patient Time attestation: Total time spent providing and/or coordinating discharge services: EXAM Constitutional Vitals: Temp Pulse Resp BP Pulse Ox 98.1 F 60 18 160/89 94 01/02/20 07:37 01/02/20 07:38 01/02/20 07:38 01/02/20 07:37 01/02/20 07:38 Discharge Data Data Completed and Pending Labs on day of discharge: Labs from last 24 hours 01/02/20 01/02/20 05:40 05:40 WBC 6.2 RBC 4.66 Hgb 12.9 Hct 39.6 MCV 85.0 MCH 27.7 MCHC 32.6 RDW 13.8 Plt Count 241 MPV 11.0 H Total Counted Pending Band Neutrophils % Not Reportable Platelet Estimate Pending RBC Morphology Pending Sodium 139 Potassium 3.6 Chloride 100 Carbon Dioxide 25 Anion Gap 14.0 BUN 17 Creatinine 0.9 GFR Calculation 70 Glucose 148 H Uric Acid 6.6 Calcium 9.2 Phosphorus 3.7 Magnesium 1.7 Total Bilirubin 0.3 Direct Bilirubin < 0.2 GGT 32 AST 19 ALT 21 Alkaline Phosphatase 95 Lactate Dehydrogenase 257 H Total Protein 6.7 Albumin 3.7 Globulin 3.0 Albumin/Globulin Ratio 1.2 Triglycerides 160 H Preliminary micro results at discharge 12/31/19 11:15 Urine Culture - Preliminary Urine - Catheterized Gram negative bacillus 12/31/19 11:08 Blood Culture - Preliminary Blood 12/31/19 10:51 Blood Culture - Preliminary Blood Discharge Plan Patient/Caregiver Discharge Instructions Activity: increase activity as tolerated Diet: Consistent Carbohydrate Activity Restrictions/Additional Instructions: Continue Rocephin for additional 4 days Oral penicillin V as suppressive therapy to continue following IV Rocephin Return to ER if fever chills lower extremity swelling pain Weight loss interventions/exercise and dietary changes Prescriptions: New ceftriaxone in dextrose,iso-os 2 gram/50 mL Piggyback 2 g IV Q24H Qty: 4 RF: 0 Continued ipratropium-albuterol 20-100 mcg/actuation mist 1 puff INHALATION Q4HP PRN (Reason: Shortness Of Breath) Qty: 4 RF: 0 magnesium oxide 400 mg capsule 400 mg PO DAILY Qty: 90 RF: 3 nifedipine 60 mg tablet extended release 60 mg PO BID Qty: 120 RF: 4 atorvastatin 80 mg tablet 80 mg PO DAILY Qty: 90 RF: 1 ropinirole 1 mg tablet 1 mg PO HS Qty: 90 RF: 4 venlafaxine 150 mg capsule,extended release 24hr 150 mg PO HS Qty: 90 RF: 3 venlafaxine 75 mg capsule,extended release 24hr 75 mg PO QHS Qty: 90 RF: 3 metoprolol tartrate 100 mg tablet See Rx Instructions .ROUTE .COMPLEX Qty: 120 RF: 5 pregabalin 200 mg capsule 200 mg PO BID Qty: 180 RF: 3 montelukast 10 mg tablet 10 mg PO HS Qty: 90 RF: 3 furosemide 40 mg tablet 40 mg PO QAM Qty: 90 RF: 0 potassium chloride 20 mEq tablet extended release 20 meq PO DAILY Qty: 90 RF: 0 ramelteon 8 mg tablet 8 mg PO HS Qty: 90 RF: 3 Jan[place] 50-1,000 mg tablet 2 tab PO DAILY Qty: 180 RF: 4 doxazosin 4 mg tablet 4 mg PO QDAY Qty: 90 RF: 3 hydrocodone-acetaminophen 7.5-325 mg tablet 1 tab PO QHS Qty: 30 RF: 0 tramadol 50 mg tablet 50 mg PO BID PRN (Reason: pain) Qty: 60 RF: 0 (DME) Blood Glucose Test strip See Rx Instructions .ROUTE .MEDSUPPLY Qty: 50 RF: 1 (DME) lancets misc See Rx Instructions .ROUTE .MEDSUPPLY Qty: 50 RF: 1 (DME) blood-glucose meter kit See Rx Instructions .ROUTE .MEDSUPPLY Qty: 1 RF: 0 olmesartan 40 mg tablet 40 mg PO DAILY Qty: 90 RF: 3 nortriptyline 25 mg capsule 50 mg PO HS RF: 0 penicillin V potassium 250 mg tablet 250 mg PO BID Qty: 360 RF: 0 cetirizine [Aller-Julia] 10 mg tablet 10 mg PO QDAY PRN (Reason: Allergy Symptoms) RF: 0 diphenhydramine HCl 25 MG capsule 50 mg PO HS RF: 0 Bipap 1 dose .Route HS RF: 0 Oxygen 3L 1 dose .Route .MEDSUPPLY RF: 0 ferrous sulfate 324 mg (65 mg iron) tablet,delayed release 324 mg (65 mg iron) tablet,delayed release (DR/EC) 65 mg PO BID RF: 0 esomeprazole magnesium 40 mg capsule,delayed release(DR/EC) 40 mg PO BID RF: 0 Xarelto 20 mg tablet 20 mg PO QPM Qty: 90 RF: 3 Toviaz 8 mg Tablet Extended Release 24 Hr 8 mg PO QDAY RF: 0 Dupixent Syringe 300 mg/2 mL Syringe 1 mg SUBCUT Q2W RF: 0 hydroxyzine HCl 25 mg tablet 25 mg PO BID RF: 0 clonidine HCl 0.2 mg tablet 0.4 mg PO BID RF: 0 Follow Up Plan Follow up with: Funmi Leos ARNP [Primary Care Provider] - Patient Disposition: Home, Self-Care Prognosis: Fair Rehab Potential: Fair I certify that the patient requires SNF services: No Overall status at discharge: patient is progressing back to baseline Discharge Orders: Discharge Order (Routine); Ordered 01/02/20 Ordered By: Omkar Hogue
--- NOTE | 2020-01-02 09:29 | XRay Report ---
CLINICAL INFORMATION: . CHF history COMPARISON: 11/08/2019 FINDINGS: Heart is moderately enlarged - slightly decreased from prior study. Left PICC line now out. Mediastinum and pulmonary vessels have returned to normal. Lungs are clear. No effusions. IMPRESSION: Interval resolution CHF. Interpreted and Authenticated by: Regan Greenberg 01/02/20
[2020-01-02 09:57] LABS: Eosinophils % (Manual) 4 % (0-7); Lymphocytes % 29 % (15-49); Monocytes % (Manual) 2 % (1-12); Platelet Estimate NORMAL (NORMAL); RBC Morphology NORMAL (NORMAL); Segmented Neutrophils % 65 % (38-78)
[2020-01-14] MEDS ORDERED: DUPILUMAB SUB-Q SCH (09:00)
== END 2020-01-02 10:25 | disposition home or self-care (01) ==
LOC: ED 10:19 → MEDSUR 10:19
PROVIDERS: ADMIT Internal Medicine; ATTEND Internal Medicine